=== PATIENT | male | born 1945 | race Caucasian/White ===

== ENCOUNTER → 2016-08-28 | Outpatient (CLI) | payer OTHER, BC ==
[~2016-08-28] MED LIST: ACET-1256 PO; AMLO-114 PO; ASPCH81X PO; ASPI81TA28 PO; ATOR-22 PO; CLON1TAB3 PO; FLUT0.15 NAE; FRS/40 PO; GLIM1TAB PO; HYDR-4717 PO; LEVO100T7 PO; LEVO88TA3 PO; LORA-741 PO; LOSA1TAB38 PO; MAGN400T6 PO; METO25TA3 PO; MULT-188 PO; MULT-506 PO; OMEG10007 PO; OMEP40CA PO; OMEP40CA41 PO; POTA1TAB97 PO; PRVC/20 PO; QUET1TAB32 PO; SERT-234 PO; TRIA0.5O TOP; WARF5TAB7 PO
[2016-08-28 15:15] LABS: HEMATOCRIT 42.4 % (42-52); MEAN CELL VOLUME 79.3 fL (80-100); MEAN CORPUSCULAR HEMOGLOBIN 26.2 pg (25-34); RED BLOOD COUNT 5.35 M/uL (4.7-6.1); WHITE BLOOD COUNT 5.98 K/uL (4.8-10.8)
[2016-08-28 15:23] LABS: BASO % 0.2 %; BASO ABS # 0.01 K/uL (0-0.2); COMPLETE YES; EOS % 3.2 %; IG% 0.2 %; LYMPH % 23.1 %; LYMPH ABS # 1.38 K/uL (1.2-3.4); MEAN PLATELET VOLUME 10.9 fL (7.4-10.4); MONO % 9.5 %; NEUT % 63.8 %; PLATELET COUNT 112 K/uL (130-400); PLT ESTIMATE DECREASED
[2016-08-28 15:33] LABS: ALT/SGPT 52 U/L (12-78); AST/SGOT 39 U/L (15-37); BLOOD UREA NITROGEN 21 mg/dl (7-18); BUN/CREATININE RATIO 16.4 (10-20); CARBON DIOXIDE 26 mmol/L (21-32); CHLORIDE 105 mmol/L (98-107); CHOLESTEROL 105 mg/dl (0-200); GLUCOSE 200 mg/dl (70-99); POTASSIUM 4.4 mmol/L (3.5-5.1); SODIUM 139 mmol/L (136-145)
[2016-08-28 15:43] LABS: ALB/GLOB RATIO 0.9 (0.9-2); ALKALINE PHOSPHATASE 99 U/L (45-117); CHOLESTEROL/HDL RATIO 4.6; HDL CHOLESTEROL 23 mg/dl; LDL CHOLESTEROL CALCULATED 33 mg/dl; TRIGLYCERIDES 245 mg/dl (0-150); VERY LOW DENSITY LIPOPROT CALC 49 mg/dl
[2016-08-29 07:07] LABS: ESTIMATED AVERAGE GLUCOSE 200 mg/dl; HA1C FLAG Normal (Normal)
== END | disposition home or self-care (01) ==
LOC: C.LABBC 11:14
PROVIDERS: ATTEND Internal Medicine Geriatric Medicine
DX: E11.9 Type 2 diabetes mellitus without complications (principal); I10 Essential (primary) hypertension; E78.5 Hyperlipidemia, unspecified; E03.9 Hypothyroidism, unspecified; D64.9 Anemia, unspecified

== ENCOUNTER → 2016-10-08 | Outpatient (CLI) | payer OTHER, BC | END | disposition home or self-care (01) | LOC: C.LABBC 11:06 | PROVIDERS: ATTEND Internal Medicine Geriatric Medicine | DX: E03.9 Hypothyroidism, unspecified (principal) ==

== ENCOUNTER → 2016-11-28 | Outpatient (CLI) | payer OTHER, BC ==
[2016-11-28 17:03] LABS: BLOOD UREA NITROGEN 21 mg/dl (7-18); BUN/CREATININE RATIO 14.9 (10-20); CALCIUM 9.2 mg/dl (8.5-10.1); CARBON DIOXIDE 23 mmol/L (21-32); CHLORIDE 108 mmol/L (98-107); GLUCOSE 236 mg/dl (70-99); POTASSIUM 3.8 mmol/L (3.5-5.1); SODIUM 141 mmol/L (136-145)
[2016-11-29 06:27] LABS: ESTIMATED AVERAGE GLUCOSE 154 mg/dl; HA1C FLAG Normal (Normal)
== END | disposition home or self-care (01) ==
LOC: C.LABBC 13:39
PROVIDERS: ATTEND Internal Medicine Geriatric Medicine
DX: E11.9 Type 2 diabetes mellitus without complications (principal)

== ENCOUNTER 2016-12-06 09:34 | Emergency (ER) | payer OTHER, BC ==
[~2016-12-06] VITALS: Ht 162.6 cm; Wt 72.2 kg
[~2016-12-06 09:34] MED LIST changes: -ASPI81TA28 PO; -ATOR-22 PO; -FLUT0.15 NAE; -GLIM1TAB PO; -LEVO100T7 PO; -OMEP40CA41 PO; -TRIA0.5O TOP
[2016-12-06 09:35] VITALS: TEMP 36.9; Ht 162.6 cm; Wt 72.2 kg
[2016-12-06 10:09] VITALS: O2SAT 97
[2016-12-06 10:16] LABS: BASO % 0.2 %; BASO ABS # 0.01 K/uL (0-0.2); COMPLETE YES; EOS % 3.1 %; HEMATOCRIT 38.2 % (42-52); IG% 0.2 %; LYMPH % 16.6 %; LYMPH ABS # 0.96 K/uL (1.2-3.4); MEAN CELL VOLUME 82.7 fL (80-100); MEAN CORPUSCULAR HGB CONC 31.4 g/dl (32-36); MEAN PLATELET VOLUME 10.1 fL (7.4-10.4); MONO % 9.7 %; NEUT % 70.2 %; PLATELET COUNT 128 K/uL (130-400); RED BLOOD COUNT 4.62 M/uL (4.7-6.1); WHITE BLOOD COUNT 5.78 K/uL (4.8-10.8)
[2016-12-06 10:24] LABS: POINT OF CARE PRO-BNP 1998 pg/ml (0-900); POINT OF CARE TROPONIN I < 0.030 ng/ml (0-0.045)
[2016-12-06 10:25] LABS: INR 1.6 (0.9-1.1); PARTIAL THROMBOPLASTIN RATIO 1.2; PROTHROMBIN TIME (PATIENT) 17.6 SECONDS (9.0-12.0)
[2016-12-06 10:29] LABS: BUN/CREATININE RATIO 22.2 (10-20); CALCIUM 9.5 mg/dl (8.5-10.1); CREATININE 1.3 mg/dl (0.60-1.40); POTASSIUM 4.1 mmol/L (3.5-5.1)
--- NOTE | 2016-12-06 10:29 | DIAGNOSTIC IMAGING REPORT ---
CHEST 2 VIEWS ROUTINE HISTORY: Short of breath. COMPARISON: Chest 04/25/2014. FINDINGS: Old, healed right-sided rib fractures are again noted. Poststernotomy changes. The heart remains mildly enlarged. No pleural effusions. No pneumothorax. No new focal lung consolidations to suggest pneumonia. Stable mediastinal prominence. Stable mild interstitial thickening. This is likely chronic. IMPRESSION: No significant change compared to the prior study. No acute process. Stable mild cardiomegaly and mild interstitial thickening which is likely chronic. Electronically signed by: Zeb Greenwood M.D. 12/06/2016 10:27 AM Dictated Date/Time: 12/06/2016 10:25 AM
[2016-12-06] MEDS ORDERED: FUROSEMIDE 40 MG/4 ML VIAL IV STA (10:43)
[2016-12-06] MEDS ORDERED: ASPI81TA28 PO (10:58)
[2016-12-06] MEDS ORDERED: GLIM1TAB PO (10:58)
[2016-12-06] MEDS ORDERED: OMEP40CA41 PO (10:58)
[2016-12-06] MEDS ORDERED: TRIA0.5O TOP (10:58)
[2016-12-06] MEDS ORDERED: ATOR-22 PO (10:58)
[2016-12-06] MEDS ORDERED: LEVO100T7 PO (10:58)
[2016-12-06] MEDS ORDERED: FLUT0.15 NAE (10:58)
[2016-12-06 11:02] VITALS: BP 116/65; PULSE 51; O2SAT 95
--- NOTE | 2016-12-06 16:20 | EMERGENCY ROOM VISIT NOTE ---
History Report prepared by Serina: Halle Pisano Under the Supervision of: Dr. Jorge Vines M.D. First contact with patient: 09:40 Chief Complaint: SHORTNESS OF BREATH Stated Complaint: SOB, CLONAZEPAM WITHDRAWAL History of Present Illness The patient is a 71 year old male who presents to the Emergency Room with complaints of constant shortness of breath beginning 1 month ago. His doctor in [place] prescribed Clonazepam because he had trouble sleeping at night. His last dose of the medication was 2 weeks ago. The patient states that he has CHF , and that his symptoms feel like this. The patient states that he has had a dry cough and congestion for 1 month. He also reports feeling like he is withdrawing from the clonazepam. He states he had withdrawal symptoms in the past and it feels similar. He denies edema in his legs, fevers, and chest pain. He reports that he uses a mask at night for his sleep apnea, and that he is on Coumadin for atrial fibrillation. The patient denies having a history of blood clots in his legs or lungs. He states that he does not smoke and that he has no history of COPD or emphysema. The patient has no history of seizures. He states that there is a history of heart failure in his family. Source of History: patient Onset: 1 month ago Position: other (global) Quality: other (shortness of breath) Timing: constant Associated Symptoms: + cough, No fevers, No chest pain Note: associated symptom: congestion Review of Systems See HPI for pertinent positives & negatives. A total of 10 systems reviewed and were otherwise negative. Past Medical & Surgical Medical Problems: (1) Anemia (2) Atrial fibrillation (3) Fatty liver Family History FHx: heart failure Social History Smoking Status: Never Smoker Drug Use: none Marital Status: Housing Status: lives with family Occupation Status: employed Current/Historical Medications Scheduled Amlodipine (Norvasc), 10 MG PO QAM Aspirin (Aspirin Ec), 81 MG PO HS Atorvastatin (Lipitor), 20 MG PO DAILY Clonazepam (Klonopin), 1.5 TAB PO HS Fluticasone Propionate (Nasal) (Flonase Allergy Relief), 2 SPRAYS PADMINI DAILY Furosemide (Lasix), 40 MG PO QAM Glimepiride (Amaryl), 1 MG PO QAM Hydralazine Hcl (Apresoline), 50 MG PO TID Levothyroxine Sodium (Levothyroxine Sodium), 1 TAB PO DAILY Losartan Potassium (Cozaar), 100 MG PO QAM Magnesium Oxide (Mag-Ox), 400 MG PO BID Metoprolol Succ (Toprol Xl) (Toprol-Xl), 25 MG PO BID Omeprazole (Prilosec), 40 MG PO DAILY Potassium Chloride (K-Tab), 40 MEQ PO DAILY Sertraline (Zoloft), 200 MG PO QAM Triamcinolone Acetonide (Topic (Triamcinolone Acetonide), 1 APPLN TOP BID Warfarin Sod (Jantoven), 5 MG PO DAILY Scheduled PRN Acetaminophen (Tylenol), 1,000 MG PO TID PRN for Pain Allergies Coded Allergies: Rivaroxaban (Unverified Adverse Reaction, Intermediate, VOMITING, 12/06/16) Physical Exam Vital Signs Date Time Temp Pulse Resp B/P (MAP) Pulse Ox O2 Delivery O2 Flow Rate FiO2 12/06/16 11:02 51 19 116/65 95 Room Air 12/06/16 10:09 97 Room Air 12/06/16 10:07 48 12/06/16 09:55 97 Room Air 12/06/16 09:35 36.9 63 18 107/59 96 Room Air Physical Exam Constitutional: Vital signs reviewed. Eyes: Pupils are equal round reactive to light. Conjunctiva are noninjected. ENT: Pharynx is clear without erythema or exudate. Mucous membranes are moist. Neck supple without meningeal signs. Respiratory: Clear to auscultation bilaterally. Breath sounds are equal bilaterally. Cardiovascular: Irregularly irregular rhythm. Normal rate. No rubs or gallops. GI: Soft, nondistended and nontender. Bowel sounds are present. Easily reducible, nontender midline hernia in epigastric region. Musculoskeletal: No peripheral edema. No lower extremity tenderness. Integumentary: No cyanosis. Neurological: The patient is awake and alert. No focal deficits. Psychiatric: Normal affect. Medical Decision & Procedures ER Provider Diagnostic Interpretation: X-ray results as stated below per interpretation by me and the radiologist: CHEST 2 VIEWS ROUTINE HISTORY: Short of breath. COMPARISON: Chest 04/25/2014. FINDINGS: Old, healed right-sided rib fractures are again noted. Poststernotomy changes. The heart remains mildly enlarged. No pleural effusions. No pneumothorax. No new focal lung consolidations to suggest pneumonia. Stable mediastinal prominence. Stable mild interstitial thickening. This is likely chronic. IMPRESSION: No significant change compared to the prior study. No acute process. Stable mild cardiomegaly and mild interstitial thickening which is likely chronic. Electronically signed by: Zeb Greenwood M.D. 12/06/2016 10:27 AM Dictated Date/Time: 12/06/2016 10:25 AM Laboratory Results 12/06/16 09:55 Red Blood Count 4.62, Mean Corpuscular Volume 82.7, Mean Corpuscular Hemoglobin 26.0, Mean Corpuscular Hemoglobin Concent 31.4, Mean Platelet Volume 10.1, Neutrophils (%) (Auto) 70.2, Lymphocytes (%) (Auto) 16.6, Monocytes (%) (Auto) 9.7, Eosinophils (%) (Auto) 3.1, Basophils (%) (Auto) 0.2, Neutrophils # (Auto) 4.06, Lymphocytes # (Auto) 0.96, Monocytes # (Auto) 0.56, Eosinophils # (Auto) 0.18, Basophils # (Auto) 0.01 12/06/16 09:55 Test 12/06/16 09:55 12/06/16 10:05 White Blood Count 5.78 K/uL (4.8-10.8) Red Blood Count 4.62 M/uL (4.7-6.1) Hemoglobin 12.0 g/dL (14.0-18.0) Hematocrit 38.2 % (42-52) Mean Corpuscular Volume 82.7 fL (80-100) Mean Corpuscular Hemoglobin 26.0 pg (25-34) Mean Corpuscular Hemoglobin Concent 31.4 g/dl (32-36) Platelet Count 128 K/uL (130-400) Mean Platelet Volume 10.1 fL (7.4-10.4) Neutrophils (%) (Auto) 70.2 % Lymphocytes (%) (Auto) 16.6 % Monocytes (%) (Auto) 9.7 % Eosinophils (%) (Auto) 3.1 % Basophils (%) (Auto) 0.2 % Neutrophils # (Auto) 4.06 K/uL (1.4-6.5) Lymphocytes # (Auto) 0.96 K/uL (1.2-3.4) Monocytes # (Auto) 0.56 K/uL (0.11-0.59) Eosinophils # (Auto) 0.18 K/uL (0-0.5) Basophils # (Auto) 0.01 K/uL (0-0.2) RDW Standard Deviation 46.8 fL (36.4-46.3) RDW Coefficient of Variation 15.5 % (11.5-14.5) Immature Granulocyte % (Auto) 0.2 % Immature Granulocyte # (Auto) 0.01 K/uL (0.00-0.02) Prothrombin Time 17.6 SECONDS (9.0-12.0) Prothromb Time International Ratio 1.6 (0.9-1.1) Activated Partial Thromboplast Time 32.4 SECONDS (21.0-31.0) Partial Thromboplastin Ratio 1.2 Anion Gap 8.0 mmol/L (3-11) Est Creatinine Clear Calc Drug Dose 46.1 ml/min Estimated GFR () 62.7 Estimated GFR (Non- 54.1 BUN/Creatinine Ratio 22.2 (10-20) Calcium Level 9.5 mg/dl (8.5-10.1) Bedside Troponin I < 0.030 ng/ml (0-0.045) VT-Irp-I-Type Natriuretic Peptide 1998 pg/ml (0-900) Laboratory results as reviewed by me. Medications Administered Medications (Trade) Dose Ordered Sig/Rajwinder Route Start Time Stop Time Status Last Admin Dose Admin Furosemide (Lasix Inj) 20 mg NOW STAT IV 12/06/16 10:43 12/06/16 10:45 DC 12/06/16 11:04 20 MG ECG Indication: SOB/dyspnea Rate (beats per minute): 55 Rhythm: atrial fibrillation Findings: no ectopy, other (non-specific ST wave changes, no significant change from April 26, 2014) ED Course 0945: The patient was evaluated in room B4B. A complete history and physical exam was performed. 1043: Ordered Lasix Inj 20 mg IV. 1127: I talked with the patient about his test results. 1130: Upon reevaluation, the patient appeared to have improvement of his symptoms. I discussed tonight's findings with him. He verbalized agreement of the treatment plan. He was discharged home. Medical Decision This is a 71-year-old male who presents with shortness of breath. Differential diagnosis includes CHF exacerbation, pleural effusion, pulmonary edema, pneumonia, bronchitis, anemia. I did perform a limited focused review of portions of the patient's old chart on the electronic medical record. The patient has had no recent pertinent visits to this hospital. Blood Pressure Screening: Patient was found to have normal blood pressure on screening and does not require follow-up. Medication Reconciliation: I attest that I have personally reviewed the patient' s current medication list. I did evaluate the patient as noted above. The patient is presenting with shortness of breath. He states he feels like his CHF is acting up. He has been short of breath for about a month. He also states that he stopped taking his benzos about two weeks ago and is concerned about withdrawal. IV access was established. The patient was placed on a continuous child monitor. I did order and personally review the patient's 12-lead EKG and chest x-ray as described above. I did order and review the patient's blood work as noted in the electronic medical record. He has mild anemia. His INR is subtherapeutic. His BNP is elevated. I did treat the patient with IV Lasix. I did discuss the test results with the patient. At this time there is no indication for admission. Benzo diazepam and withdrawal seems unlikely given he stopped taking it 2 weeks ago. I did recommend he follow closely with his doctor and video surveillance technician. He was discharged in good condition. Impression Primary Impression: Acute exacerbation of CHF (congestive heart failure) Additional Impressions: Subtherapeutic international normalized ratio (INR) Anemia Scribe Attestation The scribe's documentation has been prepared under my direct and personally reviewed by me in its entirety. I confirm that the note above accurately reflects all work, treatment, procedures, and medical decision making performed by me. Departure Information Dispostion Home / Self-Care Referrals Braxton Harp, DO Forms HOME CARE DOCUMENTATION FORM, IMPORTANT VISIT INFORMATION Patient Instructions ED CHF General, My [facility] Additional Instructions You have been examined and treated today on an emergency basis only. This is not a substitute for, or an effort to provide, complete comprehensive medical care. It is impossible to recognize and treat all injuries or illnesses in a single emergency department visit. It is therefore important that you follow up closely with your physician. Call as soon as possible for an appointment. Return for worsening symptoms or if you develop fever, vomiting, chest pain or any other concerning symptoms. Your INR (Coumadin level) was low today at 1.6. Take 5 mg of Coumadin today, tomorrow and Friday. Call your doctor on Friday to have her INR rechecked and for further dosing recommendations. Problem Qualifiers Primary Impression: Acute exacerbation of CHF (congestive heart failure) Congestive heart failure type: unspecified congestive heart failure type Qualified Codes: I50.9 - Heart failure, unspecified Additional Impressions: Anemia Anemia type: unspecified type Qualified Codes: D64.9 - Anemia, unspecified
== END 2016-12-06 11:30 | disposition home or self-care (01) ==
LOC: C.EDB 09:35
DX: I50.9 Heart failure, unspecified (principal); D64.9 Anemia, unspecified; I48.91 Unspecified atrial fibrillation; K76.0 Fatty (change of) liver, not elsewhere classified; Z82.49 Family history of ischemic heart disease and other diseases of the circulatory system; Z79.82 Long term (current) use of aspirin; Z79.01 Long term (current) use of anticoagulants; Z51.81 Encounter for therapeutic drug level monitoring

== ENCOUNTER → 2017-07-21 | Day surgery (SDC) | payer OTHER, BC ==
[2017-07-03 15:27] VITALS: Ht 165.1 cm; Wt 70.5 kg
[~2017-07-21] VITALS: Ht 165.1 cm; Wt 70.5 kg
[~2017-07-21] MED LIST changes: +500ML BSS 0.3ML EPI 1:1000PF IRRIG ONE; +ACETAMINOPHEN 325 MG TAB PO PRN; +AMVISC PLUS 0.8ML SYRINGE INT OCU ONE; -ASPCH81X PO; +ASPI81TA28 PO; +ATROPINE SULFATE 0.1 MG/ML 5ML SYR IV PRN; +BRIMONIDINE TART 0.2% OP SOLN PER DROP CHARGE ONE; +BRIMONIDINE TARTRATE 0.2% 5ML ONE; +BSS FLUSH ONE; +BUME2TAB3 PO; -CLON1TAB3 PO; +CZR50 PO; +ENDOCOAT 0.85ML SYRINGE INT OCU ONE; +EpHEDrine SULFATE INJ 50 MG/ML AMP IV PRN; +EpINEphrine INJ 1MG/ML AMP 1 MG/ML AMP ONE; -FRS/40 PO; +GLIM1TAB PO; -HYDR-4717 PO; +LACTATED RINGER'S 1000ML 500 ML IV SCH; +LEVO100T7 PO; -LEVO88TA3 PO; +LIDOCAINE 4% OP SOLN DROP CHARGE ONE; +LIDOCAINE 4% OP SOLN DROP CHARGE OPL SCH; +LIDOCAINE HCL 1% MPF 2 ML VIAL ONE; -LOSA1TAB38 PO; +LPT/40 PO; -MAGN400T6 PO; +MELA1CAP9 PO; +MIDAZOLAM HCL 1 MG/ML 2ML VIAL ONE; +MOXIFLOXACIN OPH SOLN PER DROP CHARGE ONE; -MULT-188 PO; -MULT-506 PO; -OMEG10007 PO; -OMEP40CA PO; +OMEP40CA41 PO; +POVIDONE-IODINE OP SOLN 30 ML BTL ONE; +PROPARACAINE 0.5% OP SOLN PER DROP CHARGE OPL SCH; -PRVC/20 PO; +QUET1TAB30 PO; -QUET1TAB32 PO; +TOBRAMYCIN/DEXAMETHASONE OPH OINT PER APPLN CHARGE ONE; +TRAZ50TA35 PO; +TRIA0.5O TOP
[2017-07-21] MEDS: PHENYLEPHRINE HCL 2.5% OP SOLN PER DROP CHARGE OPL SCH ×2 (06:39→06:44)
[2017-07-21] MEDS: TROPICAMIDE 1% OP SOLN PER DROP CHARGE OPL SCH ×2 (06:40→06:45)
[2017-07-21] MEDS: CYCLOPENTOLATE HCL 1% OP SOLN PER DROP CHARGE OPL SCH ×2 (06:41→06:46)
[2017-07-21] MEDS: KETOROLAC 0.5% OP SOLN PER DROP CHARGE OPL SCH ×2 (06:42→06:47)
[2017-07-21] MEDS: MOXIFLOXACIN OPH SOLN PER DROP CHARGE OPL SCH ×2 (06:43→06:50)
--- NOTE | 2017-07-21 06:56 | History & Physical Bridge - SC ---
H&P Re-Evaluation Bridge Note: I have examined the patient, reviewed the History & Physical and in the interval since the performance of the History & Physical I have noted the following changes of clinical significance: No changes noted
--- NOTE | 2017-07-21 07:26 | [facility] Operative Report ---
Operative Report Operative Date Jul 21, 2017. Pre-Operative Diagnosis Left eye cataract Post-Operative Diagnosis Same as preop Procedure(s) Performed Left Cataract Phacoemulsification With Intraocular Lens Implant Surgeon Dr. Merino Mortgage Loan Processing Clerk Surgeon(s) None Estimated Blood Loss 0 mL Findings cataract left eye Specimens None Drains None Anesthesia Type MAC Complication(s) none Disposition no Recovery Room / PACU Indications decreased vision left eye Description of Procedure After informed consent was obtained in the holding area the patient was wheeled back to the operating room where cardiac monitoring leads and oxygen by nasal cannula was administered by Anesthesia. Gentle IV sedation was given, and the patient's left eye was prepped and draped in usual sterile fashion. A wire lid speculum was placed into the left eye and the operating microscope was swung into position. Using 0.12 forceps and a Supersharp blade a paracentesis port was made 2 o'clock hours away from the 3 o'clock position of the patient's left eye. 1% non-preserved Lidocaine was then injected into the anterior chamber for anesthesia. A 2.0 mm keratotome blade was then used to make a shelved clear corneal incision at the 3 o'clock position of the left eye. Amvisc was injected into the anterior chamber and a cystotome and Utrata forceps were used to perform a curvilinear capsulorrhexis. BSS on a hydrodissection cannula was used to hydrodissect the lens nucleus away from the capsular bag. The phacoemulsification handpiece was then used in a stop and chop fashion to remove the lens nucleus. The irrigation and aspiration handpiece was then used to remove the residual cortical material. Amvisc was injected into the capsular bag and anterior chamber and a Bausch [employer] Lomb MX60 18.5 Diopter intraocular lens was injected into the capsular bag. Irrigation and aspiration handpiece was used to remove the residual viscoelastic material. The wounds were hydrated and noted to be watertight. The wire lid speculum was removed from the eye. Vigamox, Brimonidine, and TobraDex ointment were placed on the eye and it was shielded. It should be noted that EndoCoat was used extensively during the case to protect the cornea endothelium. DISPOSITION: The patient tolerated the procedure well and was wheeled to the post anesthesia care unit in stable condition. I attest to the content of the Intraoperative Record and any orders documented therein. Any exceptions are noted below. I attest to the content of the Intraoperative Record and any orders documented therein. Any exceptions are noted below.
--- NOTE | 2017-07-21 07:28 | Discharge Instructions-SurgCtr ---
Discharge Instructions Date of Service Jul 21, 2017. Visit Reason for Visit: Left Cataract Discharge Discharge Diagnosis / Problem: cataract left eye Discharge Goals Goal(s): Improve function Activity Recommendations Activity Limitations: per Instructions/Follow-up section Lifting Limitations: no more than 5 pounds Anesthesia . Post Anesthesia Instructions: If you have had General Anesthesia or IV Sedation: * Do not drive today. * Resume driving when surgeon permits. * Do not make important decisions or sign legal documents today. * Call surgeon for: 1. Temperature elevations greater than 101 degrees F. 2. Uncontrollable pain. 3. Excessive bleeding. 4. Persistent nausea and vomiting. 5. Medication intolerance (nausea, vomiting or rash). * For nausea and vomiting use only clear liquids such as: tea, soda, bouillon until nausea subsides, then gradually increase diet as tolerated. * If you have any concerns or questions, call your surgeon's office. If physician is unavailable and it is an emergency, call 911 or go to the nearest emergency room. . Instructions / Follow-Up Instructions / Follow-Up ACTIVITY RECOMMENDATIONS: * Light activities * You may walk outside, read, watch television. * Mild irritation and blurred vision are common for the first few days, redness around the white part of the eye is common. MEDICATIONS: Resume previous medications unless instructed otherwise by your surgeon. Eye drops (today and tomorrow): Cipro - one drop in operative eye every 2 hours while awake Prednisolone 1% - one drop in operative eye every 2 hours while awake Prolensa - one drop operative eye 1 times daily SPECIAL CARE INSTRUCTIONS: * If any problems or concerns, please call Dr. Merino's office at . * Keep plastic shield taped over eye to sleep at night. * Keep plastic shield taped over eye except to administer eye drops. * Keep plastic shield on until office visit the following day. FOLLOW UP VISIT: Follow-up with Dr. Merino in the [place] office as scheduled. If not already scheduled, please call the office at . Diet Recommendations Home Diet: resume previous diet Procedures Procedures Performed: Left Cataract Phacoemulsification With Intraocular Lens Implant Pending Studies Studies pending at discharge: no Medical Emergencies . Who to Call and When: Medical Emergencies: If at any time you feel your situation is an emergency, please call 911 immediately. . Non-Emergent Contact Non-Emergency issues call your: Tag Stringer . . "Provider Documentation" section prepared by Hugo Merino. .
[2017-07-21 07:29] VITALS: TEMP 36.6
--- NOTE | 2017-07-21 07:44 | Anesthesia Progress Nt - [facility] ---
Anesthesia Post Op Note Date & Time Jul 21, 2017 at 07:44 Vital Signs Pain Intensity: 0 Vital Signs Past 12 Hours Date Time Temp Pulse Resp B/P (MAP) Pulse Ox O2 Delivery O2 Flow Rate FiO2 07/21/17 07:29 36.6 64 16 148/78 (101) 95 Room Air 07/21/17 06:26 36.6 66 16 131/78 (95) 96 Room Air Notes Mental Status: alert / awake / arousable, participated in evaluation Pt Amnestic to Procedure: Yes Nausea / Vomiting: adequately controlled Pain: adequately controlled Airway Patency, RR, SpO2: stable & adequate BP & HR: stable & adequate Hydration State: stable & adequate Anesthetic Complications: no major complications apparent
[2017-07-21 07:56] VITALS: BP 146/83; PULSE 66; O2SAT 96
== END | disposition home or self-care (01) ==
LOC: X.SURG 06:05
PROVIDERS: ATTEND Ophthalmology
DX: E11.36 Type 2 diabetes mellitus with diabetic cataract (principal); H26.9 Unspecified cataract; G47.33 Obstructive sleep apnea (adult) (pediatric); I10 Essential (primary) hypertension; I48.91 Unspecified atrial fibrillation; K21.9 Gastro-esophageal reflux disease without esophagitis; F41.9 Anxiety disorder, unspecified; M19.90 Unspecified osteoarthritis, unspecified site; Z88.8 Allergy status to other drugs, medicaments and biological substances; Z98.84 Bariatric surgery status; Z95.1 Presence of aortocoronary bypass graft; Z79.899 Other long term (current) drug therapy; Z79.01 Long term (current) use of anticoagulants; Z98.890 Other specified postprocedural states

== ENCOUNTER → 2017-08-25 | Day surgery (SDC) | payer OTHER, BC ==
[2017-08-08 15:16] VITALS: Ht 165.1 cm; Wt 70.5 kg
[~2017-08-25] VITALS: Ht 165.1 cm; Wt 70.5 kg
[~2017-08-25] MED LIST changes: -BRIMONIDINE TARTRATE 0.2% 5ML ONE; -LIDOCAINE 4% OP SOLN DROP CHARGE OPL SCH; +LIDOCAINE 4% OP SOLN DROP CHARGE OPR SCH; -PROPARACAINE 0.5% OP SOLN PER DROP CHARGE OPL SCH; +PROPARACAINE 0.5% OP SOLN PER DROP CHARGE OPR SCH
[2017-08-25] MEDS: PHENYLEPHRINE HCL 2.5% OP SOLN PER DROP CHARGE OPR SCH ×2 (07:51→07:56)
[2017-08-25] MEDS: TROPICAMIDE 1% OP SOLN PER DROP CHARGE OPR SCH ×2 (07:52→07:57)
[2017-08-25] MEDS: CYCLOPENTOLATE HCL 1% OP SOLN PER DROP CHARGE OPR SCH ×2 (07:53→07:58)
[2017-08-25] MEDS: KETOROLAC 0.5% OP SOLN PER DROP CHARGE OPR SCH ×2 (07:54→07:59)
[2017-08-25] MEDS: MOXIFLOXACIN OPH SOLN PER DROP CHARGE OPR SCH ×2 (07:55→08:05)
--- NOTE | 2017-08-25 08:59 | [facility] Operative Report ---
Operative Report Operative Date Aug 25, 2017. Pre-Operative Diagnosis Cataract right eye Post-Operative Diagnosis same as preop Procedure(s) Performed Right Cataract Phacoemulsification With Intraocular Lens Implant Surgeon DR. Merino Supervisor Finishing Surgeon(s) none Estimated Blood Loss 0ml Findings cataract right eye Fluids see anesthesia record Specimens none Drains None Anesthesia Type MAC Complication(s) none Disposition no Recovery Room / PACU Indications decreased vision right eye Description of Procedure After informed consent was obtained in the holding area the patient was wheeled back to the operating room where cardiac monitoring leads and oxygen by nasal cannula was administered by Anesthesia. Gentle IV sedation was given, and the patient's right eye was prepped and draped in usual sterile fashion. A wire lid speculum was placed into the right eye and the operating microscope was swung into position. Using 0.12 forceps and a Supersharp blade a paracentesis port was made 2 o'clock hours away from the 9 o'clock position of the patient's right eye. 1% non-preserved Lidocaine was then injected into the anterior chamber for anesthesia. A 2.0 mm keratotome blade was then used to make a shelved clear corneal incision at the 9 o'clock position of the right eye. Amvisc was injected into the anterior chamber and a cystotome and Utrata forceps were used to perform a curvilinear capsulorrhexis. BSS on a hydrodissection cannula was used to hydrodissect the lens nucleus away from the capsular bag. The phacoemulsification handpiece was then used in a stop and chop fashion to remove the lens nucleus. The irrigation and aspiration handpiece was then used to remove the residual cortical material. Amvisc was injected into the capsular bag and anterior chamber and a Bausch & Lomb MX60 20.0 Diopter intraocular lens was injected into the capsular bag. Irrigation and aspiration handpiece was used to remove the residual viscoelastic material. The wounds were hydrated and noted to be watertight. The wire lid speculum was removed from the eye. Vigamox, Brimonidine, and TobraDex ointment were placed on the eye and it was shielded. It should be noted that EndoCoat was used extensively during the case to protect the cornea endothelium. DISPOSITION: The patient tolerated the procedure well and was wheeled to the post anesthesia care unit in stable condition. I attest to the content of the Intraoperative Record and any orders documented therein. Any exceptions are noted below. I attest to the content of the Intraoperative Record and any orders documented therein. Any exceptions are noted below.
--- NOTE | 2017-08-25 09:01 | Discharge Instructions-SurgCtr ---
Discharge Instructions Date of Service Aug 25, 2017. Visit Reason for Visit: Cataract Right Eye Discharge Discharge Diagnosis / Problem: cataract right eye Discharge Goals Goal(s): Improve function Activity Recommendations Activity Limitations: per Instructions/Follow-up section Lifting Limitations: no more than 5 pounds Anesthesia . Post Anesthesia Instructions: If you have had General Anesthesia or IV Sedation: * Do not drive today. * Resume driving when surgeon permits. * Do not make important decisions or sign legal documents today. * Call surgeon for: 1. Temperature elevations greater than 101 degrees F. 2. Uncontrollable pain. 3. Excessive bleeding. 4. Persistent nausea and vomiting. 5. Medication intolerance (nausea, vomiting or rash). * For nausea and vomiting use only clear liquids such as: tea, soda, bouillon until nausea subsides, then gradually increase diet as tolerated. * If you have any concerns or questions, call your surgeon's office. If physician is unavailable and it is an emergency, call 911 or go to the nearest emergency room. . Instructions / Follow-Up Instructions / Follow-Up ACTIVITY RECOMMENDATIONS: * Light activities * You may walk outside, read, watch television. * Mild irritation and blurred vision are common for the first few days, redness around the white part of the eye is common. MEDICATIONS: Resume previous medications unless instructed otherwise by your surgeon. Eye drops (today and tomorrow): Cipro - one drop in operative eye every 2 hours while awake Prednisolone 1% - one drop in operative eye every 2 hours while awake Prolensa - one drop operative eye 1 times daily SPECIAL CARE INSTRUCTIONS: * If any problems or concerns, please call Dr. Merino's office at . * Keep plastic shield taped over eye to sleep at night. * Keep plastic shield taped over eye except to administer eye drops. * Keep plastic shield on until office visit the following day. FOLLOW UP VISIT: Follow-up with Dr. Merino in the [place] office as scheduled. If not already scheduled, please call the office at . Diet Recommendations Home Diet: resume previous diet Procedures Procedures Performed: Right Cataract Phacoemulsification With Intraocular Lens Implant Pending Studies Studies pending at discharge: no Medical Emergencies . Who to Call and When: Medical Emergencies: If at any time you feel your situation is an emergency, please call 911 immediately. . Non-Emergent Contact Non-Emergency issues call your: Business Services Intern . . "Provider Documentation" section prepared by Hugo Merino. .
[2017-08-25 09:03] VITALS: TEMP 36.8
[2017-08-25 09:24] VITALS: BP 173/75; PULSE 65; O2SAT 94
--- NOTE | 2017-08-25 09:31 | Anesthesia Progress Nt - [facility] ---
Anesthesia Post Op Note Date & Time Aug 25, 2017 at 09:30 Vital Signs Pain Intensity: 0 Vital Signs Past 12 Hours Date Time Temp Pulse Resp B/P (MAP) Pulse Ox O2 Delivery O2 Flow Rate FiO2 08/25/17 09:24 65 16 173/75 (107) 94 Room Air 08/25/17 09:03 36.8 62 16 167/83 (111) 96 Room Air 08/25/17 07:30 36.7 58 16 156/67 (96) 96 Room Air Notes Mental Status: alert / awake / arousable, participated in evaluation Pt Amnestic to Procedure: Yes Nausea / Vomiting: adequately controlled Pain: adequately controlled Airway Patency, RR, SpO2: stable & adequate BP & HR: stable & adequate Hydration State: stable & adequate Anesthetic Complications: no major complications apparent Patient did not take any of his medications this am. He was instructed to take his scheduled meds including his BP medications when he goes home. He understands and agrees.
== END | disposition home or self-care (01) ==
LOC: X.SURG 07:29
PROVIDERS: ATTEND Ophthalmology
DX: E11.36 Type 2 diabetes mellitus with diabetic cataract (principal); H26.9 Unspecified cataract; G47.33 Obstructive sleep apnea (adult) (pediatric); I10 Essential (primary) hypertension; F41.9 Anxiety disorder, unspecified; Z79.01 Long term (current) use of anticoagulants; Z79.82 Long term (current) use of aspirin; I48.91 Unspecified atrial fibrillation

== ENCOUNTER 2019-08-09 18:09 | Inpatient (IN) ==
[2019-08-09 19:51] LABS: Eosinophils # (auto) 0.11 K/uL (0-0.5); Eosinophils % (auto) 2.8 %; Hematocrit (blood only) 36.6 % (42-52); Hemoglobin 11.9 g/dL (14.0-18.0); Immature Granulocytes # (auto) 0.01 K/uL (0.00-0.02); Immature Granulocytes % (auto) 0.3 %; Lymphocytes # (auto) 0.68 K/uL (1.2-3.4); Lymphocytes % (auto) 17.6 %; Mean Corpuscular Hemoglobin 27.5 pg (25-34); Mean Corpuscular Hgb Conc 32.5 g/dL (32-36); Mean Corpuscular Volume 84.5 fL (80-100); Monocytes # (auto) 0.31 K/uL (0.11-0.59); Neutrophils # (auto) 2.76 K/uL (1.4-6.5); Neutrophils % (auto) 71.3 %; Platelet Count 73 K/uL (130-400); RDW Coefficient of Variation 17.3 % (11.5-14.5); RDW Standard Deviation 53.8 fL (36.4-46.3); Red Blood Count 4.33 M/uL (4.7-6.1); White Blood Count 3.87 K/uL (4.8-10.8)
[2019-08-09 19:54] LABS: Alanine Aminotransferase 41 U/L (12-78); Albumin Globulin Ratio 0.8 (0.9-2); Albumin Level 3.8 gm/dl (3.4-5.0); Alkaline Phosphatase 169 U/L (45-117); Aspartate Aminotransferase 42 U/L (15-37); BUN Creatinine Ratio 14.8 (10-20); Beta-Hydroxybutyrate 1.28 mg/dl (0.2-2.81); Bilirubin,Total 0.5 mg/dl (0.2-1); Blood Urea Nitrogen 26 mg/dl (7-18); Carbon Dioxide 24 mmol/L (21-32); Chloride 96 mmol/L (98-107); Creatinine Clr Calc Pharmacy 31.4 ml/min; Est GFR (African American) 43.2; Est GFR (Non-African American) 37.3; Globulin 4.8 gm/dl (2.5-4.0); Glucose 618 mg/dl (70-99); Sodium 129 mmol/L (136-145); Total Protein 8.6 gm/dl (6.4-8.2)
[2019-08-09] MEDS ORDERED: NovoLIN-R INSULIN PER UNIT CHARGE IV STA ×2 (20:09→21:07)
[2019-08-09] MEDS ORDERED: SODIUM CHLORIDE 0.9% 1000ML 1,000 ML IV ONE (20:11)
--- NOTE | 2019-08-09 20:37 | Emergency Department Note ---
Entered by Edith Horta acting as a scribe for History of Present Illness General Chief complaint: Hyperglycemia Stated complaint: HIGH BLOOD SUGAR Time Seen by Provider: 08/09/19 20:03 Source: patient and family (daughter ) History of Present Illness Onset (ago): hour(s) (just prior to arrival ) Location: head (general ) Pain Consistency: + other (episode ) Maximum Pain Intensity: 0 Quality: + other (hyperglycemia ) Associated symptoms: + other (positive urinating more frequently; negative urinary symptoms; negative congestion); no cough The patient is a 74 year old male who presents to the Emergency Room with compl aints of an episode of hyperglycemia that began just prior to arrival. The patient states that he was at his doctor's office today for a routine visit and lab work was performed. The patient states that his doctor's office then called him to tell him that he had high blood sugar and needed to be seen in the ED. The patient states that he does not check his blood sugars at home regularly. Per the patient's daughter, the patient does not watch his diet closely and regularly eats junk food. The patient states that over the past several days he has been feeling "different". He reports urinating more frequently, but denies other urinary symptoms. The patient denies cough and congestion. The patient states that he is taking his medications as prescribed. The patient reports that he recently increased his diuretic himself as he believed he was gaining fluid weight. The patient states that he is on Coumadin. Home Medications Home Medications Medication Instructions Recorded Confirmed Type acetaminophen [Tylenol Extra 1,000 mg PO TID PRN 08/09/19 08/09/19 History Strength] amlodipine 5 mg PO HS 08/09/19 08/09/19 History aspirin [Aspir-81] 81 mg PO QPM 08/09/19 08/09/19 History atorvastatin 40 mg PO QPM 08/09/19 08/09/19 History bumetanide 2 mg PO QPM 08/09/19 08/09/19 History glimepiride 2 mg PO QAM 08/09/19 08/09/19 History levothyroxine 100 mcg PO QAM 08/09/19 08/09/19 History lorazepam 0.5 mg PO HS PRN 08/09/19 08/09/19 History losartan 100 mg PO DAILY 08/09/19 08/09/19 History melatonin 10 mg PO HS 08/09/19 08/09/19 History metformin 1,000 mg PO BIDM 08/09/19 08/09/19 History metoprolol succinate 25 mg PO BID 08/09/19 08/09/19 History omeprazole 40 mg PO QPM 08/09/19 08/09/19 History potassium chloride [Klor-Con M20] 20 meq PO BID 08/09/19 08/09/19 History quetiapine 25 mg PO HS 08/09/19 08/09/19 History sertraline 200 mg PO DAILY 08/09/19 08/09/19 History trazodone 50 mg PO HS 08/09/19 08/09/19 History warfarin [Jantoven] 5 mg PO UD 08/09/19 08/09/19 History Allergies Allergy/AdvReac Type Severity Reaction Status Date / Time rivaroxaban AdvReac Intermediate VOMITING Verified 08/09/19 23:57 Past Med/Surg History Medical History Acute exacerbation of CHF (congestive heart failure) (Acute) Anemia (Chronic) Atrial fibrillation (Chronic) CHF (congestive heart failure) (Acute 02/19/14) Coumadin toxicity (Acute 04/24/14) Diabetes Fatty liver (Chronic ~02/2014) Subtherapeutic international normalized ratio (INR) (Acute) Supratherapeutic INR (Acute) Social History Preferred Language: Amharic 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 and A total of 10 systems reviewed and were otherwise negative Physical Exam Vital Signs Vital Signs - 24 hr 08/09/19 18:35 08/09/19 20:09 08/09/19 21:00 Temperature 37.3 C Temperature Source Oral Pulse Rate 112 H 111 H Pulse Rate [Apical] 96 H Pulse Rate from SpO2 Sensor 106 H Respiratory Rate 18 16 27 H Respiratory Effort / Characteristics Non-Labored Non-Labored Spontaneous Respiratory Depth Normal Normal Respiratory Pattern Regular Blood Pressure 125/76 157/98 H Blood Pressure [Left Arm] 141/89 H Blood Pressure Mean 92 117 Blood Pressure Mean [Left Arm] 106 Blood Pressure Position [Left Arm] Lying Pulse Oximetry 95 97 96 Oxygen Delivery Method Room Air Room Air Sepsis Recent Fever Within 48 Hours No Sepsis New/Unexplained Change in Mental Status No Sepsis Action Taken by Nursing No Action Required 08/09/19 21:30 08/09/19 22:00 08/09/19 23:00 Temperature Temperature Source Pulse Rate 84 87 Pulse Rate [Apical] Pulse Rate from SpO2 Sensor 95 H 93 H Respiratory Rate 28 H 19 21 Respiratory Effort / Characteristics Respiratory Depth Respiratory Pattern Blood Pressure 152/102 H 151/95 H Blood Pressure [Left Arm] Blood Pressure Mean 106 105 Blood Pressure Mean [Left Arm] Blood Pressure Position [Left Arm] Pulse Oximetry 93 95 95 Oxygen Delivery Method Sepsis Recent Fever Within 48 Hours Sepsis New/Unexplained Change in Mental Status Sepsis Action Taken by Nursing 08/09/19 23:01 08/09/19 23:30 08/09/19 23:32 Temperature Temperature Source Pulse Rate 89 101 H 105 H Pulse Rate [Apical] Pulse Rate from SpO2 Sensor 96 H Respiratory Rate 24 21 19 Respiratory Effort / Characteristics Respiratory Depth Respiratory Pattern Blood Pressure 138/85 Blood Pressure [Left Arm] Blood Pressure Mean 111 Blood Pressure Mean [Left Arm] Blood Pressure Position [Left Arm] Pulse Oximetry 93 93 93 Oxygen Delivery Method Sepsis Recent Fever Within 48 Hours Sepsis New/Unexplained Change in Mental Status Sepsis Action Taken by Nursing 08/09/19 23:33 08/10/19 00:00 Temperature Temperature Source Pulse Rate 106 H 92 H Pulse Rate [Apical] Pulse Rate from SpO2 Sensor 114 H Respiratory Rate 22 14 Respiratory Effort / Characteristics Respiratory Depth Respiratory Pattern Blood Pressure 136/87 Blood Pressure [Left Arm] Blood Pressure Mean 96 Blood Pressure Mean [Left Arm] Blood Pressure Position [Left Arm] Pulse Oximetry 93 Oxygen Delivery Method Sepsis Recent Fever Within 48 Hours Sepsis New/Unexplained Change in Mental Status Sepsis Action Taken by Nursing GENERAL: Patient is in no acute distress. HEENT: No acute trauma, normocephalic atraumatic, mucous membranes slightly dry, no nasal congestion, no scleral icterus. NECK: No stridor, no adenopathy, no meningismus, trachea is midline. LUNGS: Clear to auscultation bilaterally, no wheeze, no rhonchi, breath sounds equal. HEART: 2/6 systolic murmur. Irregular rhythm, normal rate. ABDOMEN: Soft, nontender, bowel sounds positive, no hernias, no peritonitis. EXTREMITIES: No cyanosis or edema, full range of motion of all the joints without pain or difficulty, no signs for acute trauma. NEUROLOGIC: Oriented x 3, no acute motor or sensory deficits, no focal weakness. SKIN: No rash, no jaundice, no diaphoresis. Course Course 2006: Past medical records reviewed. The patient was evaluated in room C2B. A complete history and physical exam was performed. 2157: Upon reevaluation, the patient is resting comfortably. I updated him on all results and the treatment plan. He as well as his daughter are in agreement with the treatment plan. 1012: [facility]. Administered Medications Insulin Human Regular 250 (units/ Sodium Chloride) 250 mls @ 2.7 mls/hr IV .Q24H [facility]; Protocol Stop: 09/08/19 23:29 Last Admin: 08/09/19 23:45 Dose: 2.7 units/hr, 2.7 mls/hr Documented by: [id number] Cosigned by: [id number] Discontinued Medications Sodium Chloride (Nss 1000ml) 1,000 mls @ 999 mls/hr IV .Q1H1M ONE Stop: 08/09/19 21:11 Last Infusion: 08/09/19 21:02 Dose: 0 mls/hr Documented by: [id number] Admin: 08/09/19 20:00 Dose: 999 mls/hr Documented by: [id number] Sodium Chloride (Nss 1000ml) 500 mls @ 999 mls/hr IV .Q31M ONE Stop: 08/09/19 21:37 Last Infusion: 08/09/19 21:44 Dose: 0 mls/hr Documented by: [id number] Admin: 08/09/19 21:10 Dose: 999 mls/hr Documented by: [id number] Insulin Glargine (Lantus Solostar Pen) 20 units SC NOW STA Stop: 08/09/19 22:24 Last Admin: 08/09/19 23:41 Dose: 20 units Documented by: [id number] Cosigned by: [id number] Insulin Human Regular (Novolin R U-100 Per Unit) 10 units IV NOW STA Stop: 08/09/19 20:10 Last Admin: 08/09/19 20:23 Dose: 10 units Documented by: [id number] Cosigned by: [id number] Insulin Human Regular (Novolin R U-100 Per Unit) 10 units IV NOW STA Stop: 08/09/19 21:08 Last Admin: 08/09/19 21:12 Dose: 10 units Documented by: [id number] Cosigned by: [id number] Metoprolol Succinate (Toprol Xl) 25 mg PO NOW STA Stop: 08/09/19 22:28 Last Admin: 08/09/19 23:42 Dose: 25 mg Documented by: [id number] Medical Decision Making Differential Diagnosis Differential diagnoses include infection, medication noncompliance, poor diet, dehydration, electrolyte imbalance, hyperglycemia, UTI, pneumonia, and others were considered. Medical Records Attestation: I reviewed the patient's medical records. Home Medications Current Medication List: was personally reviewed by me Laboratory Data Attestation: I reviewed the patient's lab results. Result diagrams: 08/09/19 19:05 08/09/19 19:05 Lab Results 08/09/19 08/09/19 08/09/19 Range/Units 18:37 19:05 19:05 WBC 3.87 L (4.8-10.8) K/uL RBC 4.33 L (4.7-6.1) M/uL Hgb 11.9 L (14.0-18.0) g/dL Hct 36.6 L (42-52) % MCV 84.5 (80-100) fL MCH 27.5 (25-34) pg MCHC 32.5 (32-36) g/dL RDW Std Deviation 53.8 H (36.4-46.3) fL RDW Coeff of Gerardo 17.3 H (11.5-14.5) % Plt Count 73 L (130-400) K/uL MPV 10.0 (7.4-10.4) fL Immature Gran % (Auto) 0.3 % Neut % (Auto) 71.3 % Lymph % (Auto) 17.6 % Shannon % (Auto) 8.0 % Eos % (Auto) 2.8 % Baso % (Auto) 0.0 % Immature Gran # (Auto) 0.01 (0.00-0.02) K/uL Neut # (Auto) 2.76 (1.4-6.5) K/uL Lymph # (Auto) 0.68 L (1.2-3.4) K/uL Shannon # (Auto) 0.31 (0.11-0.59) K/uL Eos # (Auto) 0.11 (0-0.5) K/uL Baso # (Auto) 0.00 (0-0.2) K/uL PT (9.0-12.0) Seconds INR (0.9-1.1) APTT (21.0-31.0) Seconds PTT Ratio Sodium 129 L (136-145) mmol/L Potassium 4.0 (3.5-5.1) mmol/L Chloride 96 L (98-107) mmol/L Carbon Dioxide 24 (21-32) mmol/L Anion Gap 9.0 (3-11) BUN 26 H (7-18) mg/dl Creatinine 1.74 H (0.6-1.4) mg/dl Est Cr Clr Drug Dosing 31.4 ml/min Est GFR ( Amer) 43.2 Est GFR (Non-Af Amer) 37.3 BUN/Creatinine Ratio 14.8 (10-20) Glucose 618 H* (70-99) mg/dl POC Glucose 585 H* (70-99) mg/dl Osmolality (280-300) mOsm/kg Calcium 10.0 (8.5-10.1) mg/dl Magnesium 1.7 L (1.8-2.4) mg/dl Total Bilirubin 0.5 (0.2-1) mg/dl AST 42 H (15-37) U/L ALT 41 (12-78) U/L Alkaline Phosphatase 169 H (45-117) U/L Troponin I < 0.015 (0-0.045) ng/ml Total Protein 8.6 H (6.4-8.2) gm/dl Albumin 3.8 (3.4-5.0) gm/dl Globulin 4.8 H (2.5-4.0) gm/dl Albumin/Globulin Ratio 0.8 L (0.9-2) Lipase 541 H (73-393) U/L Beta-Hydroxybutyric Acd 1.28 (0.2-2.81) mg/dl TSH 12.800 H (0.300-4.500) uIu/ml Urine Color Urine Appearance (Clear) Urine pH (4.5-7.5) Ur Specific [place] (1.000-1.030) Urine Protein (Negative) Urine Glucose (UA) (Negative) Urine Ketones (Negative) Urine Blood (Negative) Urine Nitrite (Negative) Urine Bilirubin (Negative) Urine Urobilinogen (Negative) Ur Leukocyte Esterase (Negative) 08/09/19 08/09/19 08/09/19 Range/Units 19:05 19:05 19:05 WBC (4.8-10.8) K/uL RBC (4.7-6.1) M/uL Hgb (14.0-18.0) g/dL Hct (42-52) % MCV (80-100) fL MCH (25-34) pg MCHC (32-36) g/dL RDW Std Deviation (36.4-46.3) fL RDW Coeff of Gerardo (11.5-14.5) % Plt Count (130-400) K/uL MPV (7.4-10.4) fL Immature Gran % (Auto) % Neut % (Auto) % Lymph % (Auto) % Shannon % (Auto) % Eos % (Auto) % Baso % (Auto) % Immature Gran # (Auto) (0.00-0.02) K/uL Neut # (Auto) (1.4-6.5) K/uL Lymph # (Auto) (1.2-3.4) K/uL Shannon # (Auto) (0.11-0.59) K/uL Eos # (Auto) (0-0.5) K/uL Baso # (Auto) (0-0.2) K/uL PT 19.8 H (9.0-12.0) Seconds INR 2.0 H (0.9-1.1) APTT 31.0 (21.0-31.0) Seconds PTT Ratio 1.1 Sodium (136-145) mmol/L Potassium (3.5-5.1) mmol/L Chloride (98-107) mmol/L Carbon Dioxide (21-32) mmol/L Anion Gap (3-11) BUN (7-18) mg/dl Creatinine (0.6-1.4) mg/dl Est Cr Clr Drug Dosing ml/min Est GFR ( Amer) Est GFR (Non-Af Amer) BUN/Creatinine Ratio (10-20) Glucose (70-99) mg/dl POC Glucose (70-99) mg/dl Osmolality 319 H (280-300) mOsm/kg Calcium (8.5-10.1) mg/dl Magnesium Cancelled (1.8-2.4) mg/dl Total Bilirubin (0.2-1) mg/dl AST (15-37) U/L ALT (12-78) U/L Alkaline Phosphatase (45-117) U/L Troponin I Cancelled (0-0.045) ng/ml Total Protein (6.4-8.2) gm/dl Albumin (3.4-5.0) gm/dl Globulin (2.5-4.0) gm/dl Albumin/Globulin Ratio (0.9-2) Lipase Cancelled (73-393) U/L Beta-Hydroxybutyric Acd (0.2-2.81) mg/dl TSH Cancelled (0.300-4.500) uIu/ml Urine Color Urine Appearance (Clear) Urine pH (4.5-7.5) Ur Specific [place] (1.000-1.030) Urine Protein (Negative) Urine Glucose (UA) (Negative) Urine Ketones (Negative) Urine Blood (Negative) Urine Nitrite (Negative) Urine Bilirubin (Negative) Urine Urobilinogen (Negative) Ur Leukocyte Esterase (Negative) 08/09/19 08/09/19 08/09/19 Range/Units 19:53 19:55 20:32 WBC (4.8-10.8) K/uL RBC (4.7-6.1) M/uL Hgb (14.0-18.0) g/dL Hct (42-52) % MCV (80-100) fL MCH (25-34) pg MCHC (32-36) g/dL RDW Std Deviation (36.4-46.3) fL RDW Coeff of Gerardo (11.5-14.5) % Plt Count (130-400) K/uL MPV (7.4-10.4) fL Immature Gran % (Auto) % Neut % (Auto) % Lymph % (Auto) % Shannon % (Auto) % Eos % (Auto) % Baso % (Auto) % Immature Gran # (Auto) (0.00-0.02) K/uL Neut # (Auto) (1.4-6.5) K/uL Lymph # (Auto) (1.2-3.4) K/uL Shannon # (Auto) (0.11-0.59) K/uL Eos # (Auto) (0-0.5) K/uL Baso # (Auto) (0-0.2) K/uL PT (9.0-12.0) Seconds INR (0.9-1.1) APTT (21.0-31.0) Seconds PTT Ratio Sodium (136-145) mmol/L Potassium (3.5-5.1) mmol/L Chloride (98-107) mmol/L Carbon Dioxide (21-32) mmol/L Anion Gap (3-11) BUN (7-18) mg/dl Creatinine (0.6-1.4) mg/dl Est Cr Clr Drug Dosing ml/min Est GFR ( Amer) Est GFR (Non-Af Amer) BUN/Creatinine Ratio (10-20) Glucose (70-99) mg/dl POC Glucose > 600 H* > 600 H* (70-99) mg/dl Osmolality (280-300) mOsm/kg Calcium (8.5-10.1) mg/dl Magnesium (1.8-2.4) mg/dl Total Bilirubin (0.2-1) mg/dl AST (15-37) U/L ALT (12-78) U/L Alkaline Phosphatase (45-117) U/L Troponin I (0-0.045) ng/ml Total Protein (6.4-8.2) gm/dl Albumin (3.4-5.0) gm/dl Globulin (2.5-4.0) gm/dl Albumin/Globulin Ratio (0.9-2) Lipase (73-393) U/L Beta-Hydroxybutyric Acd (0.2-2.81) mg/dl TSH (0.300-4.500) uIu/ml Urine Color Yellow Urine Appearance Clear (Clear) Urine pH 6.0 (4.5-7.5) Ur Specific [place] 1.027 (1.000-1.030) Urine Protein Negative (Negative) Urine Glucose (UA) 3+ H (Negative) Urine Ketones Negative (Negative) Urine Blood Negative (Negative) Urine Nitrite Negative (Negative) Urine Bilirubin Negative (Negative) Urine Urobilinogen Negative (Negative) Ur Leukocyte Esterase Negative (Negative) 08/09/19 08/09/19 08/09/19 Range/Units 21:04 21:52 23:22 WBC (4.8-10.8) K/uL RBC (4.7-6.1) M/uL Hgb (14.0-18.0) g/dL Hct (42-52) % MCV (80-100) fL MCH (25-34) pg MCHC (32-36) g/dL RDW Std Deviation (36.4-46.3) fL RDW Coeff of Gerardo (11.5-14.5) % Plt Count (130-400) K/uL MPV (7.4-10.4) fL Immature Gran % (Auto) % Neut % (Auto) % Lymph % (Auto) % Shannon % (Auto) % Eos % (Auto) % Baso % (Auto) % Immature Gran # (Auto) (0.00-0.02) K/uL Neut # (Auto) (1.4-6.5) K/uL Lymph # (Auto) (1.2-3.4) K/uL Shannon # (Auto) (0.11-0.59) K/uL Eos # (Auto) (0-0.5) K/uL Baso # (Auto) (0-0.2) K/uL PT (9.0-12.0) Seconds INR (0.9-1.1) APTT (21.0-31.0) Seconds PTT Ratio Sodium (136-145) mmol/L Potassium (3.5-5.1) mmol/L Chloride (98-107) mmol/L Carbon Dioxide (21-32) mmol/L Anion Gap (3-11) BUN (7-18) mg/dl Creatinine (0.6-1.4) mg/dl Est Cr Clr Drug Dosing ml/min Est GFR ( Amer) Est GFR (Non-Af Amer) BUN/Creatinine Ratio (10-20) Glucose (70-99) mg/dl POC Glucose 565 H* 454 H* 373 H* (70-99) mg/dl Osmolality (280-300) mOsm/kg Calcium (8.5-10.1) mg/dl Magnesium (1.8-2.4) mg/dl Total Bilirubin (0.2-1) mg/dl AST (15-37) U/L ALT (12-78) U/L Alkaline Phosphatase (45-117) U/L Troponin I (0-0.045) ng/ml Total Protein (6.4-8.2) gm/dl Albumin (3.4-5.0) gm/dl Globulin (2.5-4.0) gm/dl Albumin/Globulin Ratio (0.9-2) Lipase (73-393) U/L Beta-Hydroxybutyric Acd (0.2-2.81) mg/dl TSH (0.300-4.500) uIu/ml Urine Color Urine Appearance (Clear) Urine pH (4.5-7.5) Ur Specific [place] (1.000-1.030) Urine Protein (Negative) Urine Glucose (UA) (Negative) Urine Ketones (Negative) Urine Blood (Negative) Urine Nitrite (Negative) Urine Bilirubin (Negative) Urine Urobilinogen (Negative) Ur Leukocyte Esterase (Negative) 08/09/19 08/10/19 Range/Units 23:24 00:16 WBC (4.8-10.8) K/uL RBC (4.7-6.1) M/uL Hgb (14.0-18.0) g/dL Hct (42-52) % MCV (80-100) fL MCH (25-34) pg MCHC (32-36) g/dL RDW Std Deviation (36.4-46.3) fL RDW Coeff of Gerardo (11.5-14.5) % Plt Count (130-400) K/uL MPV (7.4-10.4) fL Immature Gran % (Auto) % Neut % (Auto) % Lymph % (Auto) % Shannon % (Auto) % Eos % (Auto) % Baso % (Auto) % Immature Gran # (Auto) (0.00-0.02) K/uL Neut # (Auto) (1.4-6.5) K/uL Lymph # (Auto) (1.2-3.4) K/uL Shannon # (Auto) (0.11-0.59) K/uL Eos # (Auto) (0-0.5) K/uL Baso # (Auto) (0-0.2) K/uL PT (9.0-12.0) Seconds INR (0.9-1.1) APTT (21.0-31.0) Seconds PTT Ratio Sodium (136-145) mmol/L Potassium (3.5-5.1) mmol/L Chloride (98-107) mmol/L Carbon Dioxide (21-32) mmol/L Anion Gap (3-11) BUN (7-18) mg/dl Creatinine (0.6-1.4) mg/dl Est Cr Clr Drug Dosing ml/min Est GFR ( Amer) Est GFR (Non-Af Amer) BUN/Creatinine Ratio (10-20) Glucose (70-99) mg/dl POC Glucose 344 H* 333 H* (70-99) mg/dl Osmolality (280-300) mOsm/kg Calcium (8.5-10.1) mg/dl Magnesium (1.8-2.4) mg/dl Total Bilirubin (0.2-1) mg/dl AST (15-37) U/L ALT (12-78) U/L Alkaline Phosphatase (45-117) U/L Troponin I (0-0.045) ng/ml Total Protein (6.4-8.2) gm/dl Albumin (3.4-5.0) gm/dl Globulin (2.5-4.0) gm/dl Albumin/Globulin Ratio (0.9-2) Lipase (73-393) U/L Beta-Hydroxybutyric Acd (0.2-2.81) mg/dl TSH (0.300-4.500) uIu/ml Urine Color Urine Appearance (Clear) Urine pH (4.5-7.5) Ur Specific [place] (1.000-1.030) Urine Protein (Negative) Urine Glucose (UA) (Negative) Urine Ketones (Negative) Urine Blood (Negative) Urine Nitrite (Negative) Urine Bilirubin (Negative) Urine Urobilinogen (Negative) Ur Leukocyte Esterase (Negative) Imaging Data Radiologist's Impression: Radiology results as stated below per my review and the radiologist's interpretation: XR chest 1V portable CLINICAL HISTORY: Possible pneumonia. COMPARISON STUDY: Chest radiograph December 06, 2016. FINDINGS: There are median sternotomy wires and mediastinal surgical clips. There is no pneumothorax or pleural effusion. Moderate cardiomegaly is noted without evidence for pulmonary edema. There are multiple old right rib fractures. No consolidation is identified. The appearance of the chest is unchanged. IMPRESSION: No change in appearance of the chest. Moderate cardiomegaly. ACT 112: Negative or not required by law. Electronically signed by: Andrew Goldstein M.D. 08/09/2019 8:53 PM Blood Pressure Blood Pressure Findings: Elevated blood pressure Blood Pressure Disposition: further management by hospitalist ROMINA Narrative The patient does have a pancytopenia, this is baseline looking back at previous testing. INR was elevated and therapeutic for someone using Coumadin. Renal panel testing showed some renal insufficiency/dehydration with a creatinine of 1.74. Sodium was low at 129. Glucose was quite high at over 600. There were a few subtle liver enzyme elevations. Urinalysis showed glucose, no signs of infection. Chest film did not show any pneumonia. On exam, I did not find any evidence for cellulitis. The patient received a liter saline bolus and then a 500 cc saline bolus. He received IV insulin, 10 units was given initially, a second 10 units was then given IV. The patient's blood sugar is still in the mid 400s. I do not feel comfortable with discharge. He will need his sugar reduced overnight. Hopefully, he does well and can be discharged in the morning. He may need his medications adjust ed. He needs counseling on how to eat properly with the diagnosis of diabetes. Fluid hydration is required but should be given cautiously as he does have a history of CHF. I spoke to the patient, I talked with the patient case coordinator. The on-call hospitalist was consulted. Impression & Plan Hyperglycemia, Dehydration, Hyponatremia Discharge Plan Visit Data Chief Complaint: Hyperglycemia Stated Complaint: HIGH BLOOD SUGAR ED Provider: Wilbert [place] Discharge Problem: Hyperglycemia, Dehydration, Hyponatremia Patient Disposition: Admitted As Inpatient Discharge Instructions Interventions: ED Discharge Assessment Last Done: 08/10/19 00:10 The scribe's documentation has been prepared under my direction and personally reviewed by me in its entirety. I confirm that the note above accurately reflects all work, treatment, procedures, and medical decision making performed by me.
[2019-08-09 20:47] LABS: Appearance Urine Clear (Clear); Bilirubin Urine Negative (Negative); Blood Urine Negative (Negative); Color Urine Yellow; Glucose Urine UA 3+ (Negative); Ketones Urine Negative (Negative); Leukocyte Esterase Urine Negative (Negative); Nitrite Urine Negative (Negative); Protein Urine Negative (Negative); Specific Gravity Urine 1.027 (1.000-1.030); Urobilinogen Urine Negative (Negative)
[2019-08-09 20:53] LABS: Partial Thromboplastin Ratio 1.1; Prothrombin Time 19.8 Seconds (9.0-12.0)
--- NOTE | 2019-08-09 20:54 | XRay Report ---
XR chest 1V portable CLINICAL HISTORY: Possible pneumonia. COMPARISON STUDY: Chest radiograph December 06, 2016. FINDINGS: There are median sternotomy wires and mediastinal surgical clips. There is no pneumothorax or pleural effusion. Moderate cardiomegaly is noted without evidence for pulmonary edema. There are m ultiple old right rib fractures. No consolidation is identified. The appearance of the chest is uncha nged. IMPRESSION: No change in appearance of the chest. Moderate cardiomegaly. ACT 112: Negative or not required by law. Electronically signed by: Andrew Goldstein M.D. 08/09/2019 8:53 PM
[2019-08-09] MEDS ORDERED: SODIUM CHLORIDE 0.9% 1000ML 500 ML IV ONE (21:07)
[2019-08-09] MEDS ORDERED: SEVERE STRESS LEVEL ONE (22:23)
[2019-08-09] MEDS ORDERED: INSULIN GLARGINE SOLOSTAR 100 UNITS/ML 3 ML PEN SC STA (22:23)
[2019-08-09] MEDS ORDERED: INSULIN PROTOCOL GOAL RANGE ONE (22:23)
[2019-08-09] MEDS ORDERED: METOPROLOL SUCC 25MG EXT REL TAB PO STA (22:27)
[2019-08-09 23:30] LABS: Lipase 541 U/L (73-393); Magnesium 1.7 mg/dl (1.8-2.4); Troponin I < 0.015 ng/ml (0-0.045)
[2019-08-09] MEDS ORDERED: GLUCOSE 10 TABS/TUBE PO PRN (23:30)
[2019-08-09] MEDS ORDERED: CARBOHYDRATES FOR HYPOGLYCEMIA PO PRN (23:30)
[2019-08-09] MEDS ORDERED: DEXTROSE 50% 50 ML SYRINGE IV PRN (23:30)
[2019-08-09] MEDS ORDERED: GLUCOSE 40% GEL 15 GM TUBE PO PRN (23:30)
[2019-08-09] MEDS ORDERED: INSULIN REGULAR 250 UNITS in SODIUM CHLORIDE 0.9% 247.5 ML IV SCH (23:30)
[2019-08-09] MEDS ORDERED: GLUCAGON FOR INJ 1 MG VIAL SQ PRN (23:30)
--- NOTE | 2019-08-09 23:36 | History & Physical Report ---
Date of Service August 09, 2019 Assessment & Plan (1) Hyperglycemic crisis in diabetes mellitus: hx DM2 on oral medications Suboptimal control as of recent outpatient hemoglobin A1c of 8.9 last May 2019 Uncontrolled blood sugars secondary to patient dietary habits and poor insight of chronic DM disease ARF secondary to above, home diuretics possibly contributory chronic diastolic heart failure (EF 60%, TTE 2019), patient on the dry side CAD status post CABG A. fib on Coumadin, rate controlled, INR therapeutic hypertension, slightly elevated secondary to illness history fatty liver/hypersplenism/chronic pancytopenia as per records Chronic anemia, hemoglobin better than baseline likely 2 to hemoconcentration hypothyroidism, euthyroid as of today's TSH Medical telemetry IV insulin overlapping with basal Lantus Update hemoglobin A1c Diabetic education Patient daughter requested to accompany father to appointments with PCP to facilitate patient understanding and management of diabetes. May benefit from pharmacy glycemic control consultation IVF, monitor renal function, hold home diuretic and Losartan until creatinine at baseline PT OT eval DVT prophylaxis. Coumadin INR goal between 2 and 3 Full code. Patient's daughters requesting updates from providers. Ms. Sheila Luna, contact #[phone]. Ms. Anne-Marie Zavala, contact #[phone]. Text document was generated using [employer] voice recognition software. It may contain grammatical or spelling errors. Kindly contact undersigned for clarification of any documentation item in question. History of Present Illness Chief Complaint: High sugars Primary Care Provider: Aj Bernard MD History obtained from patient, family, and records. Medical history significant for chronic diastolic heart failure (EF 60%, TTE 2019), CAD status post CABG, A. fib on Coumadin, hypertension, hyperlipidemia, DM 2 on oral medications, history fatty liver/hypersplenism/chronic pancytopenia as per records (baseline hemoglobin 10-11), hypothyroidism. Recent confinement 2013 for decompensated heart failure. Last week, blood sugar check at home noted to be 280s which is unusual for patient. As per daughter, patient has not been very good watching his diabetic diet at home - ordering home delivery and food items over [employer]. Patient admits to symptoms of polyuria. Thinks he is retaining fluid with abdominal distention without pain despite increased diuretic Rx. 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 Serum glucose of 500s noted from blood work drawn at office. Patient daughter alerted of abnormal blood work and instructed to bring patient to the ER. Patient denies chest pain, S OB, fever, chills. At the ER, initial blood sugar noted to be 600s. IV insulin and IVF administered at the ER. 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 Allergies Allergy/AdvReac Type Severity Reaction Status Date / Time rivaroxaban AdvReac Intermediate VOMITING Verified 08/09/19 23:57 Home Medications Home Medications Medication Instructions Recorded Confirmed Type acetaminophen [Tylenol Extra 1,000 mg PO TID PRN 08/09/19 08/09/19 History Strength] amlodipine 5 mg PO HS 08/09/19 08/09/19 History aspirin [Aspir-81] 81 mg PO QPM 08/09/19 08/09/19 History atorvastatin 40 mg PO QPM 08/09/19 08/09/19 History bumetanide 2 mg PO QPM 08/09/19 08/09/19 History glimepiride 2 mg PO QAM 08/09/19 08/09/19 History levothyroxine 100 mcg PO QAM 08/09/19 08/09/19 History lorazepam 0.5 mg PO HS PRN 08/09/19 08/09/19 History losartan 100 mg PO DAILY 08/09/19 08/09/19 History melatonin 10 mg PO HS 08/09/19 08/09/19 History metformin 1,000 mg PO BIDM 08/09/19 08/09/19 History metoprolol succinate 25 mg PO BID 08/09/19 08/09/19 History omeprazole 40 mg PO QPM 08/09/19 08/09/19 History potassium chloride [Klor-Con M20] 20 meq PO BID 08/09/19 08/09/19 History quetiapine 25 mg PO HS 08/09/19 08/09/19 History sertraline 200 mg PO DAILY 08/09/19 08/09/19 History trazodone 50 mg PO HS 08/09/19 08/09/19 History warfarin [Jantoven] 5 mg PO UD 08/09/19 08/09/19 History Past Med/Surg History Medical History Acute exacerbation of CHF (congestive heart failure) (Acute) Anemia (Chronic) Atrial fibrillation (Chronic) CHF (congestive heart failure) (Acute 02/19/14) Coumadin toxicity (Acute 04/24/14) Diabetes Fatty liver (Chronic ~02/2014) Subtherapeutic international normalized ratio (INR) (Acute) Supratherapeutic INR (Acute) Social History Preferred Language: Togolese Communication Ability: Effective Coil Cutter Required: No Beliefs That Will Affect Care: None Current Living Situation: Family Current Living Situation Comment: dtr Other Information That Helps Us Care for You: No Feels Safe at Home: Yes Safety Concerns: Feels Safe At This Time Smoking Status: Never smoker Do You Dip or Chew Tobacco: No ; Second Hand Exposure: Yes ; Hx Alcohol Use: No Hx Substance Use: No Review of Systems Review of Systems: As per HPI, all 10 systems reviewed, all other ROS negative Physical Exam Physical Exam: GENERAL: Comfortable, pleasant, no respiratory distress SKIN: Pallor , warm HEENT: Pale palpebral conjunctivae, no ptosis, dry buccal mucosa NECK : Supple, no tenderness CHEST : CTA, no tenderness HEART : Tachycardic , no obvious murmurs ABDOMEN: Marked distention, nontender, no fluid wave EXTREMITIES : Minimal LE swelling, no LE tenderness, no other conspicuous deformities noted NEUROLOGIC : Coherent, no facial asymmetry, slightly hard of hearing, no other gross focality Results & Data Vital Signs (Past 12 Hours) Vital Signs Temp Pulse Pulse Resp BP BP Pulse Ox 08/09/19 22:00 87 19 151/95 H 95 08/09/19 21:30 84 28 H 152/102 H 93 08/09/19 21:00 111 H 27 H 157/98 H 96 08/09/19 20:09 96 H 16 141/89 H 97 08/09/19 18:35 37.3 C 112 H 18 125/76 95 Laboratory Results Laboratory Results WBC 3.87 K/uL (4.8-10.8) L 08/09/19 19:05 RBC 4.33 M/uL (4.7-6.1) L 08/09/19 19:05 Hgb 11.9 g/dL (14.0-18.0) L 08/09/19 19:05 Hct 36.6 % (42-52) L 08/09/19 19:05 MCV 84.5 fL (80-100) 08/09/19 19:05 MCH 27.5 pg (25-34) 08/09/19 19:05 MCHC 32.5 g/dL (32-36) 08/09/19 19:05 RDW Std Deviation 53.8 fL (36.4-46.3) H 08/09/19 19:05 RDW Coeff of Gerardo 17.3 % (11.5-14.5) H 08/09/19 19:05 Plt Count 73 K/uL (130-400) L 08/09/19 19:05 MPV 10.0 fL (7.4-10.4) 08/09/19 19:05 Immature Gran % (Auto) 0.3 % 08/09/19 19:05 Neut % (Auto) 71.3 % 08/09/19 19:05 Lymph % (Auto) 17.6 % 08/09/19 19:05 [place] % (Auto) 8.0 % 08/09/19 19:05 Eos % (Auto) 2.8 % 08/09/19 19:05 Baso % (Auto) 0.0 % 08/09/19 19:05 Immature Gran # (Auto) 0.01 K/uL (0.00-0.02) 08/09/19 19:05 Neut # (Auto) 2.76 K/uL (1.4-6.5) 08/09/19 19:05 Lymph # (Auto) 0.68 K/uL (1.2-3.4) L 08/09/19 19:05 [place] # (Auto) 0.31 K/uL (0.11-0.59) 08/09/19 19:05 Eos # (Auto) 0.11 K/uL (0-0.5) 08/09/19 19:05 Baso # (Auto) 0.00 K/uL (0-0.2) 08/09/19 19:05 PT 19.8 Seconds (9.0-12.0) H 08/09/19 19:05 INR 2.0 (0.9-1.1) H 08/09/19 19:05 APTT 31.0 Seconds (21.0-31.0) 08/09/19 19:05 PTT Ratio 1.1 08/09/19 19:05 Sodium 129 mmol/L (136-145) L 08/09/19 19:05 Potassium 4.0 mmol/L (3.5-5.1) 08/09/19 19:05 Chloride 96 mmol/L (98-107) L 08/09/19 19:05 Carbon Dioxide 24 mmol/L (21-32) 08/09/19 19:05 Anion Gap 9.0 (3-11) 08/09/19 19:05 BUN 26 mg/dl (7-18) H 08/09/19 19:05 Creatinine 1.74 mg/dl (0.6-1.4) H 08/09/19 19:05 Est Cr Clr Drug Dosing 31.4 ml/min 08/09/19 19:05 Est GFR ( Amer) 43.2 08/09/19 19:05 Est GFR (Non-Af Amer) 37.3 08/09/19 19:05 BUN/Creatinine Ratio 14.8 (10-20) 08/09/19 19:05 Glucose 618 mg/dl (70-99) H* 08/09/19 19:05 POC Glucose 344 mg/dl (70-99) H* 08/09/19 23:24 Calcium 10.0 mg/dl (8.5-10.1) 08/09/19 19:05 Magnesium 1.7 mg/dl (1.8-2.4) L 08/09/19 19:05 Magnesium Cancelled 08/09/19 19:05 Total Bilirubin 0.5 mg/dl (0.2-1) 08/09/19 19:05 AST 42 U/L (15-37) H 08/09/19 19:05 ALT 41 U/L (12-78) 08/09/19 19:05 Alkaline Phosphatase 169 U/L (45-117) H 08/09/19 19:05 Troponin I < 0.015 ng/ml (0-0.045) 08/09/19 19:05 Troponin I Cancelled 08/09/19 19:05 Total Protein 8.6 gm/dl (6.4-8.2) H 08/09/19 19:05 Albumin 3.8 gm/dl (3.4-5.0) 08/09/19 19:05 Globulin 4.8 gm/dl (2.5-4.0) H 08/09/19 19:05 Albumin/Globulin Ratio 0.8 (0.9-2) L 08/09/19 19:05 Lipase 541 U/L (73-393) H 08/09/19 19:05 Lipase Cancelled 08/09/19 19:05 Beta-Hydroxybutyric Acd 1.28 mg/dl (0.2-2.81) 08/09/19 19:05 TSH 12.800 uIu/ml (0.300-4.500) H 08/09/19 19:05 TSH Cancelled 08/09/19 19:05 Urine Color Yellow 08/09/19 20:32 Urine Appearance Clear (Clear) 08/09/19 20:32 Urine pH 6.0 (4.5-7.5) 08/09/19 20:32 Ur Specific [place] 1.027 (1.000-1.030) 08/09/19 20:32 Urine Protein Negative (Negative) 08/09/19 20:32 Urine Glucose (UA) 3+ (Negative) H 08/09/19 20:32 Urine Ketones Negative (Negative) 08/09/19 20:32 Urine Blood Negative (Negative) 08/09/19 20:32 Urine Nitrite Negative (Negative) 08/09/19 20:32 Urine Bilirubin Negative (Negative) 08/09/19 20:32 Urine Urobilinogen Negative (Negative) 08/09/19 20:32 Ur Leukocyte Esterase Negative (Negative) 08/09/19 20:32 Diagnostic Findings Chest x-ray : Moderate cardiomegaly CT abdomen pelvis initial read:Hepatomegaly without focal liver lesion. Cholelithiasis without pericholecystic fluid. Splenomegaly. Diverticulosis. Central obesity.
[2019-08-10] MEDS ORDERED: ACETAMINOPHEN 325 MG TAB PO PRN (00:53)
[2019-08-10] MEDS ORDERED: LORazepam 0.5 MG TAB PO PRN (00:53)
[2019-08-10] MEDS ORDERED: OXYCODONE HCL IR 5 MG TAB (IMMEDIATE RELEASE) PO PRN (00:53)
[2019-08-10] MEDS ORDERED: PROMETHAZINE HCL 12.5 MG in SODIUM CHLORIDE 0.9% 50 ML IV PRN (00:53)
[2019-08-10] MEDS ORDERED: WARFARIN SOD 5 MG TAB PO ONE (01:14)
[2019-08-10] MEDS ORDERED: NSS + 20MEQ KCL 20 MEQ/1,000 ML BAG IV ONE (01:14)
[2019-08-10] MEDS: ASPIRIN 81 MG ECTAB PO SCH ×2 (01:30→20:38)
[2019-08-10] MEDS: AMLODIPINE BESYLATE 5 MG TAB PO SCH ×2 (01:32→20:33)
[2019-08-10] MEDS ORDERED: GLUCOSE 40% GEL 15 GM TUBE PO PRN (05:16)
[2019-08-10] MEDS ORDERED: CARBOHYDRATES FOR HYPOGLYCEMIA PO PRN (05:16)
[2019-08-10] MEDS ORDERED: DEXTROSE 50% 50 ML SYRINGE IV PRN (05:16)
[2019-08-10] MEDS ORDERED: GLUCOSE 10 TABS/TUBE PO PRN (05:16)
[2019-08-10] MEDS ORDERED: GLUCAGON FOR INJ 1 MG VIAL SQ PRN (05:16)
[2019-08-10 06:07] LABS: Hematocrit (blood only) 32.3 % (42-52); Hemoglobin 10.5 g/dL (14.0-18.0); Mean Corpuscular Hemoglobin 26.9 pg (25-34); Mean Corpuscular Hgb Conc 32.5 g/dL (32-36); Mean Corpuscular Volume 82.6 fL (80-100); RDW Coefficient of Variation 17.2 % (11.5-14.5); RDW Standard Deviation 52.3 fL (36.4-46.3); Red Blood Count 3.91 M/uL (4.7-6.1); White Blood Count 3.31 K/uL (4.8-10.8)
[2019-08-10] MEDS: LEVOTHYROXINE SODIUM 100 MCG TABLET PO SCH (06:11)
[2019-08-10 06:14] LABS: INR 2.3 (0.9-1.1); Prothrombin Time 22.2 Seconds (9.0-12.0)
[2019-08-10 06:19] LABS: Estimated Average Glucose 229 mg/dl; Hemoglobin A1C 9.6 % (4.5-5.6)
[2019-08-10 06:21] LABS: Mean Platelet Volume 9.9 fL (7.4-10.4); Platelet Count 65 K/uL (130-400)
[2019-08-10] MEDS: INSULIN ASPART 100 UNITS/ML 3 ML PEN SC SCH ×4 (06:28→20:33)
[2019-08-10 06:38] LABS: BUN Creatinine Ratio 18.1 (10-20); Calcium 9.6 mg/dl (8.5-10.1); Creatinine Clr Calc Pharmacy 53.6 ml/min; Est GFR (African American) 82.4; Est GFR (Non-African American) 71.1; Potassium 3.4 mmol/L (3.5-5.1)
[2019-08-10 06:51] LABS: Basophils # (auto) 0.01 K/uL (0-0.2); Basophils % (auto) 0.3 %; Eosinophils # (auto) 0.16 K/uL (0-0.5); Eosinophils % (auto) 4.8 %; Immature Granulocytes # (auto) 0.01 K/uL (0.00-0.02); Immature Granulocytes % (auto) 0.3 %; Lymphocytes % (auto) 21.1 %; Monocytes # (auto) 0.32 K/uL (0.11-0.59); Monocytes % (auto) 9.7 %; Neutrophils # (auto) 2.11 K/uL (1.4-6.5); Neutrophils % (auto) 63.8 %; Ovalocytes 1+; Tear Drop Cells Occasional
[2019-08-10] MEDS ORDERED: INSULIN ASPART 100 UNITS/ML 3 ML PEN SC SCH (07:30)
--- NOTE | 2019-08-10 07:34 | CT Scan Report ---
CT SCAN OF THE ABDOMEN AND PELVIS WITHOUT IV CONTRAST CLINICAL HISTORY: Abdominal distention. COMPARISON STUDY: Abdominal CT dated 02/17/2014. TECHNIQUE: CT scan of the abdomen and pelvis is performed from the lung bases to the proximal femora. Images are reviewed in the axial, sagittal, and coronal planes. IV contrast was not administered for this examination as per the referring clinician. Note that the examination was performed in signific antly suboptimal fashion without oral and IV contrast. A dose lowering technique was utilized adherin g to the principles of ALARA. CT DOSE: 557.78 mGy.cm FINDINGS: Lung bases: The patient is status post midline sternotomy. The heart is enlarged and without pericard ial effusion. The coronary arteries are densely calcified. There is a small hiatal hernia. The lung b ases are clear noting bibasilar scarring/atelectasis. Liver: The unenhanced liver is enlarged, measuring 22 cm in length. The liver is cirrhotic in morphol ogy and heterogeneous in attenuation. There is nodularity of the surface contour as well as hypertrop hy of the left lobe and caudate. Ill-defined bandlike foci of low-attenuation throughout the right lo be likely represent parenchymal fibrosis. There is no intrahepatic biliary ductal dilatation. Gallbladder: There are large calcified gallstones with no CT evidence of acute cholecystitis. Spleen: The spleen is enlarged, measuring 17.4 cm in length. There are scattered calcified splenic gr anulomas. Pancreas: The unenhanced pancreas is grossly unremarkable. Adrenal glands: Unremarkable. Kidneys: The unenhanced kidneys demonstrate mild cortical atrophy and are without hydronephrosis. The re is a horseshoe kidney, with a cortical connection between the lower pole moieties in the midline. There are least 3 small nonobstructing calculi in the right renal moiety and at least 5 nonobstructin g calculi in the left renal moiety. These measure up to 4 mm. There is no evidence of contour deformi ng renal mass lesion. Scattered renal cysts measure up to 4.3 cm. Abdominal vasculature: The abdominal aorta is normal in course and caliber noting moderate atheroscle rotic calcification. Bowel: There is moderate colonic diverticulosis without CT evidence of acute diverticulitis. No bowel obstruction is seen. Mild fecal retention is noted throughout the colon. A large duodenal diverticul um is noted. The appendix is well-visualized and normal. Peritoneum: There is no intraperitoneal free air or abdominal ascites. Lymphadenopathy: None. Pelvic viscera: The prostate gland is diminutive and heterogeneous. The bladder is normal as visualiz ed. Skeletal structures: The skeletal structures are osteopenic. There is mild to moderate lumbosacral sp ondylosis. Degenerative change is also seen in the hips, sacroiliac joints, and pubic symphysis. No l ytic or blastic lesions are seen. IMPRESSION: 1. Significantly suboptimal examination without oral and IV contrast. 2. There are no acute infectious or inflammatory findings in the abdomen or pelvis. 3. The liver is enlarged, cirrhotic in morphology, and heterogeneous in attenuation. 4. Marked splenomegaly indicates portal hypertension. 5. Cholelithiasis. 6. Bandlike foci of low-attenuation throughout the right hepatic lobe likely represent parenchymal sc arring/fibrosis. Consider nonemergent/outpatient contrast-enhanced CT or MRI of the liver for further assessment. 7. Horseshoe kidney with numerous small nonobstructing renal calculi. 8. Moderate colonic diverticulosis without CT evidence of acute diverticulitis. 9. Additional findings as above. ACT 112: Negative or not required by law. Electronically signed by: Wilbert Dobbins M.D. 08/10/2019 7:33 AM
[2019-08-10] MEDS ORDERED: INSULIN GLARGINE SOLOSTAR 100 UNITS/ML 3 ML PEN SC SCH ×3 (08:00→16:30)
[2019-08-10] MEDS: SERTRALINE HCL 100 MG TABLET PO SCH (08:27)
[2019-08-10] MEDS ORDERED: METOPROLOL SUCC 25MG EXT REL TAB PO SCH (09:00)
--- NOTE | 2019-08-10 11:01 | Electrocardiogram Report ---
Test Reason : Blood Pressure : / mmHG Vent. Rate : 080 BPM Atrial Rate : 000 BPM P-R Int : 000 ms QRS Dur : 106 ms QT Int : 408 ms P-R-T Axes : 000 -27 207 degrees QTc Int : 470 ms Atrial fibrillation Poor R wave progression, consider anterior OR vs. lead placement vs. LVH Minimal voltage criteria for LVH, may be normal variant Marked ST abnormality, possible lateral subendocardial injury Abnormal ECG When compared with ECG of 06-DEC-2016 09:49, T wave inversion now evident in Inferior leads T wave inversion more evident in Lateral leads Confirmed by Yunior Gonzalez ([id number]) on 08/10/2019 11:01:44 AM Referred By: Aj Bernard Confirmed By:Yunior Gonzalez
[2019-08-10] MEDS ORDERED: POTASSIUM CHLORIDE 20 MEQ TABCR PO STA (11:11)
--- NOTE | 2019-08-10 11:11 | Hospitalist Progress Note ---
Date of Service August 10, 2019 Assessment & Plan (1) Hyperglycemic crisis in diabetes mellitus: Hx DM2 on oral medications Suboptimal control as of recent outpatient hemoglobin A1c of 8.9 last May 2019 Uncontrolled blood sugars secondary to patient dietary habits and poor insight of chronic DM disease - admitted to medical telemetry - IV insulin overlapping with basal Lantus (now off IV insulin) - Update hemoglobin A1c music educator consulted - pt's daughter would like to be present during the session w/ DM educator Pharmacy glycemic control consultation Patient's daughter also plans to accompany father to appointments with PCP to facilitate patient's understanding and management of diabetes ARF secondary to above, home diuretics possibly contributory - Cr 1.7 on admission - now resolved after IVF, and holding home diuretics Chronic diastolic heart failure (EF 60%, TTE 2018), patient on the dry side on admission CAD status post CABG A. fib on Coumadin, rate controlled, INR therapeutic Hypertension, slightly elevated secondary to illness History fatty liver/hypersplenism/chronic pancytopenia as per records -per CT obtained in the ED, liver cirrhosis, recommend imaging with contrast as outpt Chronic anemia, hemoglobin better than baseline likely 2 to hemoconcentration Hypothyroidism, euthyroid as of today's TSH PT/OT eval DVT prophylaxis. Coumadin INR goal between 2 and 3 Full code. Patient's daughters can be contacted at numbers below. Ms. Sheila Luna, contact #[phone]. Ms. Xie Zavala, contact #[phone]. Admission and Anticipated Discharge Date Admission Date: August 09, 2019 Subjective Pt is lying in bed, in NAD. Says he felt well, did not realize being hyperglycemic. He was sent in by cardiology office after routine bloodwork showed blood glucose level to be in 500s. Daughter at the bedside, plans to go to pt's doctor's appointment so she could help the pt more. Pt does not remember to do things well. She would like to be present when simulation educator is there so she can also understand the plan for her father regarding his diabetes. Discussed that pt will likely be discharged on insulin which is new for him. Pt is currently off IV insulin. Review of Systems Review of Systems: All systems reviewed & are unremarkable except as noted in HPI & below Constitutional: no fever and no chills Respiratory: no cough and no dyspnea Cardiovascular: no chest pain and no palpitations Gastrointestinal: no abdominal pain, no nausea and no vomiting Physical Exam Physical Exam: GENERAL: elderly male resting in bed, comfortable,in NAD HEENT: NC/AT, EOMI, PERRL NECK : Supple, no tenderness CHEST : CTA, no tenderness HEART : RRR , no obvious murmurs ABDOMEN: + bowel sounds, distended bur soft, nontender to palpation EXTREMITIES : Minimal LE swelling, no LE tenderness, moves extremities spontaneously SKIN: warm, dry, pale NEUROLOGIC : alert and oriented, no facial asymmetry, speech fluent, slightly hard of hearing,moves extremities spontaneously Results & Data ([facility]) Vital Signs (Past 12 Hours) Vital Signs Temp Pulse Pulse Resp BP BP Pulse Ox 08/10/19 07:25 37 C 91 H 20 162/86 H 96 08/10/19 07:12 79 08/10/19 04:36 37 C 77 18 145/77 H 95 08/10/19 00:27 37 C 95 H 18 155/72 H 34 L 08/10/19 00:00 92 H 14 136/87 08/09/19 23:33 106 H 22 93 08/09/19 23:32 105 H 19 93 08/09/19 23:30 101 H 21 93 Pulse Ox 08/10/19 07:25 08/10/19 07:12 08/10/19 04:36 08/10/19 00:27 94 08/10/19 00:00 08/09/19 23:33 08/09/19 23:32 08/09/19 23:30 Laboratory Results 08/10/19 08/10/19 08/10/19 Range/Units 07:25 06:08 05:26 WBC (4.8-10.8) K/uL RBC (4.7-6.1) M/uL Hgb (14.0-18.0) g/dL Hct (42-52) % MCV (80-100) fL MCH (25-34) pg MCHC (32-36) g/dL RDW Std Deviation (36.4-46.3) fL RDW Coeff of Gerardo (11.5-14.5) % Plt Count (130-400) K/uL MPV (7.4-10.4) fL Immature Gran % (Auto) % Neut % (Auto) % Lymph % (Auto) % [place] % (Auto) % Eos % (Auto) % Baso % (Auto) % Immature Gran # (Auto) (0.00-0.02) K/uL Neut # (Auto) (1.4-6.5) K/uL Lymph # (Auto) (1.2-3.4) K/uL [place] # (Auto) (0.11-0.59) K/uL Eos # (Auto) (0-0.5) K/uL Baso # (Auto) (0-0.2) K/uL Tear Drop Cells Ovalocytes PT (9.0-12.0) Seconds INR (0.9-1.1) APTT (21.0-31.0) Seconds PTT Ratio Sodium 138 D (136-145) mmol/L Potassium 3.4 L (3.5-5.1) mmol/L Chloride 105 (98-107) mmol/L Carbon Dioxide 26 (21-32) mmol/L Anion Gap 7.0 (3-11) BUN 19 H (7-18) mg/dl Creatinine 1.02 (0.6-1.4) mg/dl Est Cr Clr Drug Dosing 53.6 ml/min Est GFR ( Amer) 82.4 Est GFR (Non-Af Amer) 71.1 BUN/Creatinine Ratio 18.1 (10-20) Glucose 151 H (70-99) mg/dl POC Glucose 183 H 173 H (70-99) mg/dl Estimat Average Glucose mg/dl Hemoglobin A1c (4.5-5.6) % Osmolality (280-300) mOsm/kg Calcium 9.6 (8.5-10.1) mg/dl Magnesium (1.8-2.4) mg/dl Total Bilirubin (0.2-1) mg/dl AST (15-37) U/L ALT (12-78) U/L Alkaline Phosphatase (45-117) U/L Troponin I (0-0.045) ng/ml Total Protein (6.4-8.2) gm/dl Albumin (3.4-5.0) gm/dl Globulin (2.5-4.0) gm/dl Albumin/Globulin Ratio (0.9-2) Lipase (73-393) U/L Beta-Hydroxybutyric Acd (0.2-2.81) mg/dl TSH (0.300-4.500) uIu/ml Urine Color Urine Appearance (Clear) Urine pH (4.5-7.5) Ur Specific [place] (1.000-1.030) Urine Protein (Negative) Urine Glucose (UA) (Negative) Urine Ketones (Negative) Urine Blood (Negative) Urine Nitrite (Negative) Urine Bilirubin (Negative) Urine Urobilinogen (Negative) Ur Leukocyte Esterase (Negative) 08/10/19 08/10/19 08/10/19 Range/Units 05:26 05:26 05:09 WBC 3.31 L (4.8-10.8) K/uL RBC 3.91 L (4.7-6.1) M/uL Hgb 10.5 L (14.0-18.0) g/dL Hct 32.3 L (42-52) % MCV 82.6 (80-100) fL MCH 26.9 (25-34) pg MCHC 32.5 (32-36) g/dL RDW Std Deviation 52.3 H (36.4-46.3) fL RDW Coeff of Gerardo 17.2 H (11.5-14.5) % Plt Count 65 L (130-400) K/uL MPV 9.9 (7.4-10.4) fL Immature Gran % (Auto) 0.3 % Neut % (Auto) 63.8 % Lymph % (Auto) 21.1 % [place] % (Auto) 9.7 % Eos % (Auto) 4.8 % Baso % (Auto) 0.3 % Immature Gran # (Auto) 0.01 (0.00-0.02) K/uL Neut # (Auto) 2.11 (1.4-6.5) K/uL Lymph # (Auto) 0.70 L (1.2-3.4) K/uL [place] # (Auto) 0.32 (0.11-0.59) K/uL Eos # (Auto) 0.16 (0-0.5) K/uL Baso # (Auto) 0.01 (0-0.2) K/uL Tear Drop Cells Occasional Ovalocytes 1+ PT 22.2 H (9.0-12.0) Seconds INR 2.3 H (0.9-1.1) APTT (21.0-31.0) Seconds PTT Ratio Sodium (136-145) mmol/L Potassium (3.5-5.1) mmol/L Chloride (98-107) mmol/L Carbon Dioxide (21-32) mmol/L Anion Gap (3-11) BUN (7-18) mg/dl Creatinine (0.6-1.4) mg/dl Est Cr Clr Drug Dosing ml/min Est GFR ( Amer) Est GFR (Non-Af Amer) BUN/Creatinine Ratio (10-20) Glucose (70-99) mg/dl POC Glucose 163 H (70-99) mg/dl Estimat Average Glucose mg/dl Hemoglobin A1c (4.5-5.6) % Osmolality (280-300) mOsm/kg Calcium (8.5-10.1) mg/dl Magnesium (1.8-2.4) mg/dl Total Bilirubin (0.2-1) mg/dl AST (15-37) U/L ALT (12-78) U/L Alkaline Phosphatase (45-117) U/L Troponin I (0-0.045) ng/ml Total Protein (6.4-8.2) gm/dl Albumin (3.4-5.0) gm/dl Globulin (2.5-4.0) gm/dl Albumin/Globulin Ratio (0.9-2) Lipase (73-393) U/L Beta-Hydroxybutyric Acd (0.2-2.81) mg/dl TSH (0.300-4.500) uIu/ml Urine Color Urine Appearance (Clear) Urine pH (4.5-7.5) Ur Specific [place] (1.000-1.030) Urine Protein (Negative) Urine Glucose (UA) (Negative) Urine Ketones (Negative) Urine Blood (Negative) Urine Nitrite (Negative) Urine Bilirubin (Negative) Urine Urobilinogen (Negative) Ur Leukocyte Esterase (Negative) 08/10/19 08/10/19 08/10/19 Range/Units 03:10 02:09 01:03 WBC (4.8-10.8) K/uL RBC (4.7-6.1) M/uL Hgb (14.0-18.0) g/dL Hct (42-52) % MCV (80-100) fL MCH (25-34) pg MCHC (32-36) g/dL RDW Std Deviation (36.4-46.3) fL RDW Coeff of Gerardo (11.5-14.5) % Plt Count (130-400) K/uL MPV (7.4-10.4) fL Immature Gran % (Auto) % Neut % (Auto) % Lymph % (Auto) % [place] % (Auto) % Eos % (Auto) % Baso % (Auto) % Immature Gran # (Auto) (0.00-0.02) K/uL Neut # (Auto) (1.4-6.5) K/uL Lymph # (Auto) (1.2-3.4) K/uL [place] # (Auto) (0.11-0.59) K/uL Eos # (Auto) (0-0.5) K/uL Baso # (Auto) (0-0.2) K/uL Tear Drop Cells Ovalocytes PT (9.0-12.0) Seconds INR (0.9-1.1) APTT (21.0-31.0) Seconds PTT Ratio Sodium (136-145) mmol/L Potassium (3.5-5.1) mmol/L Chloride (98-107) mmol/L Carbon Dioxide (21-32) mmol/L Anion Gap (3-11) BUN (7-18) mg/dl Creatinine (0.6-1.4) mg/dl Est Cr Clr Drug Dosing ml/min Est GFR ( Amer) Est GFR (Non-Af Amer) BUN/Creatinine Ratio (10-20) Glucose (70-99) mg/dl POC Glucose 223 H 259 H 286 H (70-99) mg/dl Estimat Average Glucose mg/dl Hemoglobin A1c (4.5-5.6) % Osmolality (280-300) mOsm/kg Calcium (8.5-10.1) mg/dl Magnesium (1.8-2.4) mg/dl Total Bilirubin (0.2-1) mg/dl AST (15-37) U/L ALT (12-78) U/L Alkaline Phosphatase (45-117) U/L Troponin I (0-0.045) ng/ml Total Protein (6.4-8.2) gm/dl Albumin (3.4-5.0) gm/dl Globulin (2.5-4.0) gm/dl Albumin/Globulin Ratio (0.9-2) Lipase (73-393) U/L Beta-Hydroxybutyric Acd (0.2-2.81) mg/dl TSH (0.300-4.500) uIu/ml Urine Color Urine Appearance (Clear) Urine pH (4.5-7.5) Ur Specific [place] (1.000-1.030) Urine Protein (Negative) Urine Glucose (UA) (Negative) Urine Ketones (Negative) Urine Blood (Negative) Urine Nitrite (Negative) Urine Bilirubin (Negative) Urine Urobilinogen (Negative) Ur Leukocyte Esterase (Negative) 08/10/19 08/10/19 08/09/19 Range/Units 01:02 00:16 23:24 WBC (4.8-10.8) K/uL RBC (4.7-6.1) M/uL Hgb (14.0-18.0) g/dL Hct (42-52) % MCV (80-100) fL MCH (25-34) pg MCHC (32-36) g/dL RDW Std Deviation (36.4-46.3) fL RDW Coeff of Gerardo (11.5-14.5) % Plt Count (130-400) K/uL MPV (7.4-10.4) fL Immature Gran % (Auto) % Neut % (Auto) % Lymph % (Auto) % [place] % (Auto) % Eos % (Auto) % Baso % (Auto) % Immature Gran # (Auto) (0.00-0.02) K/uL Neut # (Auto) (1.4-6.5) K/uL Lymph # (Auto) (1.2-3.4) K/uL [place] # (Auto) (0.11-0.59) K/uL Eos # (Auto) (0-0.5) K/uL Baso # (Auto) (0-0.2) K/uL Tear Drop Cells Ovalocytes PT (9.0-12.0) Seconds INR (0.9-1.1) APTT (21.0-31.0) Seconds PTT Ratio Sodium (136-145) mmol/L Potassium (3.5-5.1) mmol/L Chloride (98-107) mmol/L Carbon Dioxide (21-32) mmol/L Anion Gap (3-11) BUN (7-18) mg/dl Creatinine (0.6-1.4) mg/dl Est Cr Clr Drug Dosing ml/min Est GFR ( Amer) Est GFR (Non-Af Amer) BUN/Creatinine Ratio (10-20) Glucose (70-99) mg/dl POC Glucose 306 H* 333 H* 344 H* (70-99) mg/dl Estimat Average Glucose mg/dl Hemoglobin A1c (4.5-5.6) % Osmolality (280-300) mOsm/kg Calcium (8.5-10.1) mg/dl Magnesium (1.8-2.4) mg/dl Total Bilirubin (0.2-1) mg/dl AST (15-37) U/L ALT (12-78) U/L Alkaline Phosphatase (45-117) U/L Troponin I (0-0.045) ng/ml Total Protein (6.4-8.2) gm/dl Albumin (3.4-5.0) gm/dl Globulin (2.5-4.0) gm/dl Albumin/Globulin Ratio (0.9-2) Lipase (73-393) U/L Beta-Hydroxybutyric Acd (0.2-2.81) mg/dl TSH (0.300-4.500) uIu/ml Urine Color Urine Appearance (Clear) Urine pH (4.5-7.5) Ur Specific [place] (1.000-1.030) Urine Protein (Negative) Urine Glucose (UA) (Negative) Urine Ketones (Negative) Urine Blood (Negative) Urine Nitrite (Negative) Urine Bilirubin (Negative) Urine Urobilinogen (Negative) Ur Leukocyte Esterase (Negative) 08/09/19 08/09/19 08/09/19 Range/Units 23:22 21:52 21:04 WBC (4.8-10.8) K/uL RBC (4.7-6.1) M/uL Hgb (14.0-18.0) g/dL Hct (42-52) % MCV (80-100) fL MCH (25-34) pg MCHC (32-36) g/dL RDW Std Deviation (36.4-46.3) fL RDW Coeff of Gerardo (11.5-14.5) % Plt Count (130-400) K/uL MPV (7.4-10.4) fL Immature Gran % (Auto) % Neut % (Auto) % Lymph % (Auto) % [place] % (Auto) % Eos % (Auto) % Baso % (Auto) % Immature Gran # (Auto) (0.00-0.02) K/uL Neut # (Auto) (1.4-6.5) K/uL Lymph # (Auto) (1.2-3.4) K/uL [place] # (Auto) (0.11-0.59) K/uL Eos # (Auto) (0-0.5) K/uL Baso # (Auto) (0-0.2) K/uL Tear Drop Cells Ovalocytes PT (9.0-12.0) Seconds INR (0.9-1.1) APTT (21.0-31.0) Seconds PTT Ratio Sodium (136-145) mmol/L Potassium (3.5-5.1) mmol/L Chloride (98-107) mmol/L Carbon Dioxide (21-32) mmol/L Anion Gap (3-11) BUN (7-18) mg/dl Creatinine (0.6-1.4) mg/dl Est Cr Clr Drug Dosing ml/min Est GFR ( Amer) Est GFR (Non-Af Amer) BUN/Creatinine Ratio (10-20) Glucose (70-99) mg/dl POC Glucose 373 H* 454 H* 565 H* (70-99) mg/dl Estimat Average Glucose mg/dl Hemoglobin A1c (4.5-5.6) % Osmolality (280-300) mOsm/kg Calcium (8.5-10.1) mg/dl Magnesium (1.8-2.4) mg/dl Total Bilirubin (0.2-1) mg/dl AST (15-37) U/L ALT (12-78) U/L Alkaline Phosphatase (45-117) U/L Troponin I (0-0.045) ng/ml Total Protein (6.4-8.2) gm/dl Albumin (3.4-5.0) gm/dl Globulin (2.5-4.0) gm/dl Albumin/Globulin Ratio (0.9-2) Lipase (73-393) U/L Beta-Hydroxybutyric Acd (0.2-2.81) mg/dl TSH (0.300-4.500) uIu/ml Urine Color Urine Appearance (Clear) Urine pH (4.5-7.5) Ur Specific [place] (1.000-1.030) Urine Protein (Negative) Urine Glucose (UA) (Negative) Urine Ketones (Negative) Urine Blood (Negative) Urine Nitrite (Negative) Urine Bilirubin (Negative) Urine Urobilinogen (Negative) Ur Leukocyte Esterase (Negative) 08/09/19 08/09/19 08/09/19 Range/Units 20:32 19:55 19:53 WBC (4.8-10.8) K/uL RBC (4.7-6.1) M/uL Hgb (14.0-18.0) g/dL Hct (42-52) % MCV (80-100) fL MCH (25-34) pg MCHC (32-36) g/dL RDW Std Deviation (36.4-46.3) fL RDW Coeff of Gerardo (11.5-14.5) % Plt Count (130-400) K/uL MPV (7.4-10.4) fL Immature Gran % (Auto) % Neut % (Auto) % Lymph % (Auto) % [place] % (Auto) % Eos % (Auto) % Baso % (Auto) % Immature Gran # (Auto) (0.00-0.02) K/uL Neut # (Auto) (1.4-6.5) K/uL Lymph # (Auto) (1.2-3.4) K/uL [place] # (Auto) (0.11-0.59) K/uL Eos # (Auto) (0-0.5) K/uL Baso # (Auto) (0-0.2) K/uL Tear Drop Cells Ovalocytes PT (9.0-12.0) Seconds INR (0.9-1.1) APTT (21.0-31.0) Seconds PTT Ratio Sodium (136-145) mmol/L Potassium (3.5-5.1) mmol/L Chloride (98-107) mmol/L Carbon Dioxide (21-32) mmol/L Anion Gap (3-11) BUN (7-18) mg/dl Creatinine (0.6-1.4) mg/dl Est Cr Clr Drug Dosing ml/min Est GFR ( Amer) Est GFR (Non-Af Amer) BUN/Creatinine Ratio (10-20) Glucose (70-99) mg/dl POC Glucose > 600 H* > 600 H* (70-99) mg/dl Estimat Average Glucose mg/dl Hemoglobin A1c (4.5-5.6) % Osmolality (280-300) mOsm/kg Calcium (8.5-10.1) mg/dl Magnesium (1.8-2.4) mg/dl Total Bilirubin (0.2-1) mg/dl AST (15-37) U/L ALT (12-78) U/L Alkaline Phosphatase (45-117) U/L Troponin I (0-0.045) ng/ml Total Protein (6.4-8.2) gm/dl Albumin (3.4-5.0) gm/dl Globulin (2.5-4.0) gm/dl Albumin/Globulin Ratio (0.9-2) Lipase (73-393) U/L Beta-Hydroxybutyric Acd (0.2-2.81) mg/dl TSH (0.300-4.500) uIu/ml Urine Color Yellow Urine Appearance Clear (Clear) Urine pH 6.0 (4.5-7.5) Ur Specific [place] 1.027 (1.000-1.030) Urine Protein Negative (Negative) Urine Glucose (UA) 3+ H (Negative) Urine Ketones Negative (Negative) Urine Blood Negative (Negative) Urine Nitrite Negative (Negative) Urine Bilirubin Negative (Negative) Urine Urobilinogen Negative (Negative) Ur Leukocyte Esterase Negative (Negative) 08/09/19 08/09/19 08/09/19 Range/Units 19:05 19:05 19:05 WBC (4.8-10.8) K/uL RBC (4.7-6.1) M/uL Hgb (14.0-18.0) g/dL Hct (42-52) % MCV (80-100) fL MCH (25-34) pg MCHC (32-36) g/dL RDW Std Deviation (36.4-46.3) fL RDW Coeff of Gerardo (11.5-14.5) % Plt Count (130-400) K/uL MPV (7.4-10.4) fL Immature Gran % (Auto) % Neut % (Auto) % Lymph % (Auto) % [place] % (Auto) % Eos % (Auto) % Baso % (Auto) % Immature Gran # (Auto) (0.00-0.02) K/uL Neut # (Auto) (1.4-6.5) K/uL Lymph # (Auto) (1.2-3.4) K/uL [place] # (Auto) (0.11-0.59) K/uL Eos # (Auto) (0-0.5) K/uL Baso # (Auto) (0-0.2) K/uL Tear Drop Cells Ovalocytes PT (9.0-12.0) Seconds INR (0.9-1.1) APTT (21.0-31.0) Seconds PTT Ratio Sodium (136-145) mmol/L Potassium (3.5-5.1) mmol/L Chloride (98-107) mmol/L Carbon Dioxide (21-32) mmol/L Anion Gap (3-11) BUN (7-18) mg/dl Creatinine (0.6-1.4) mg/dl Est Cr Clr Drug Dosing ml/min Est GFR ( Amer) Est GFR (Non-Af Amer) BUN/Creatinine Ratio (10-20) Glucose (70-99) mg/dl POC Glucose (70-99) mg/dl Estimat Average Glucose 229 mg/dl Hemoglobin A1c 9.6 H (4.5-5.6) % Osmolality 319 H (280-300) mOsm/kg Calcium (8.5-10.1) mg/dl Magnesium Cancelled (1.8-2.4) mg/dl Total Bilirubin (0.2-1) mg/dl AST (15-37) U/L ALT (12-78) U/L Alkaline Phosphatase (45-117) U/L Troponin I Cancelled (0-0.045) ng/ml Total Protein (6.4-8.2) gm/dl Albumin (3.4-5.0) gm/dl Globulin (2.5-4.0) gm/dl Albumin/Globulin Ratio (0.9-2) Lipase Cancelled (73-393) U/L Beta-Hydroxybutyric Acd (0.2-2.81) mg/dl TSH Cancelled (0.300-4.500) uIu/ml Urine Color Urine Appearance (Clear) Urine pH (4.5-7.5) Ur Specific [place] (1.000-1.030) Urine Protein (Negative) Urine Glucose (UA) (Negative) Urine Ketones (Negative) Urine Blood (Negative) Urine Nitrite (Negative) Urine Bilirubin (Negative) Urine Urobilinogen (Negative) Ur Leukocyte Esterase (Negative) 08/09/19 08/09/19 08/09/19 Range/Units 19:05 19:05 19:05 WBC 3.87 L (4.8-10.8) K/uL RBC 4.33 L (4.7-6.1) M/uL Hgb 11.9 L (14.0-18.0) g/dL Hct 36.6 L (42-52) % MCV 84.5 (80-100) fL MCH 27.5 (25-34) pg MCHC 32.5 (32-36) g/dL RDW Std Deviation 53.8 H (36.4-46.3) fL RDW Coeff of Gerardo 17.3 H (11.5-14.5) % Plt Count 73 L (130-400) K/uL MPV 10.0 (7.4-10.4) fL Immature Gran % (Auto) 0.3 % Neut % (Auto) 71.3 % Lymph % (Auto) 17.6 % [place] % (Auto) 8.0 % Eos % (Auto) 2.8 % Baso % (Auto) 0.0 % Immature Gran # (Auto) 0.01 (0.00-0.02) K/uL Neut # (Auto) 2.76 (1.4-6.5) K/uL Lymph # (Auto) 0.68 L (1.2-3.4) K/uL [place] # (Auto) 0.31 (0.11-0.59) K/uL Eos # (Auto) 0.11 (0-0.5) K/uL Baso # (Auto) 0.00 (0-0.2) K/uL Tear Drop Cells Ovalocytes PT 19.8 H (9.0-12.0) Seconds INR 2.0 H (0.9-1.1) APTT 31.0 (21.0-31.0) Seconds PTT Ratio 1.1 Sodium 129 L (136-145) mmol/L Potassium 4.0 (3.5-5.1) mmol/L Chloride 96 L (98-107) mmol/L Carbon Dioxide 24 (21-32) mmol/L Anion Gap 9.0 (3-11) BUN 26 H (7-18) mg/dl Creatinine 1.74 H (0.6-1.4) mg/dl Est Cr Clr Drug Dosing 31.4 ml/min Est GFR ( Amer) 43.2 Est GFR (Non-Af Amer) 37.3 BUN/Creatinine Ratio 14.8 (10-20) Glucose 618 H* (70-99) mg/dl POC Glucose (70-99) mg/dl Estimat Average Glucose mg/dl Hemoglobin A1c (4.5-5.6) % Osmolality (280-300) mOsm/kg Calcium 10.0 (8.5-10.1) mg/dl Magnesium 1.7 L (1.8-2.4) mg/dl Total Bilirubin 0.5 (0.2-1) mg/dl AST 42 H (15-37) U/L ALT 41 (12-78) U/L Alkaline Phosphatase 169 H (45-117) U/L Troponin I < 0.015 (0-0.045) ng/ml Total Protein 8.6 H (6.4-8.2) gm/dl Albumin 3.8 (3.4-5.0) gm/dl Globulin 4.8 H (2.5-4.0) gm/dl Albumin/Globulin Ratio 0.8 L (0.9-2) Lipase 541 H (73-393) U/L Beta-Hydroxybutyric Acd 1.28 (0.2-2.81) mg/dl TSH 12.800 H (0.300-4.500) uIu/ml Urine Color Urine Appearance (Clear) Urine pH (4.5-7.5) Ur Specific [place] (1.000-1.030) Urine Protein (Negative) Urine Glucose (UA) (Negative) Urine Ketones (Negative) Urine Blood (Negative) Urine Nitrite (Negative) Urine Bilirubin (Negative) Urine Urobilinogen (Negative) Ur Leukocyte Esterase (Negative) 08/09/19 Range/Units 18:37 WBC (4.8-10.8) K/uL RBC (4.7-6.1) M/uL Hgb (14.0-18.0) g/dL Hct (42-52) % MCV (80-100) fL MCH (25-34) pg MCHC (32-36) g/dL RDW Std Deviation (36.4-46.3) fL RDW Coeff of Gerardo (11.5-14.5) % Plt Count (130-400) K/uL MPV (7.4-10.4) fL Immature Gran % (Auto) % Neut % (Auto) % Lymph % (Auto) % [place] % (Auto) % Eos % (Auto) % Baso % (Auto) % Immature Gran # (Auto) (0.00-0.02) K/uL Neut # (Auto) (1.4-6.5) K/uL Lymph # (Auto) (1.2-3.4) K/uL [place] # (Auto) (0.11-0.59) K/uL Eos # (Auto) (0-0.5) K/uL Baso # (Auto) (0-0.2) K/uL Tear Drop Cells Ovalocytes PT (9.0-12.0) Seconds INR (0.9-1.1) APTT (21.0-31.0) Seconds PTT Ratio Sodium (136-145) mmol/L Potassium (3.5-5.1) mmol/L Chloride (98-107) mmol/L Carbon Dioxide (21-32) mmol/L Anion Gap (3-11) BUN (7-18) mg/dl Creatinine (0.6-1.4) mg/dl Est Cr Clr Drug Dosing ml/min Est GFR ( Amer) Est GFR (Non-Af Amer) BUN/Creatinine Ratio (10-20) Glucose (70-99) mg/dl POC Glucose 585 H* (70-99) mg/dl Estimat Average Glucose mg/dl Hemoglobin A1c (4.5-5.6) % Osmolality (280-300) mOsm/kg Calcium (8.5-10.1) mg/dl Magnesium (1.8-2.4) mg/dl Total Bilirubin (0.2-1) mg/dl AST (15-37) U/L ALT (12-78) U/L Alkaline Phosphatase (45-117) U/L Troponin I (0-0.045) ng/ml Total Protein (6.4-8.2) gm/dl Albumin (3.4-5.0) gm/dl Globulin (2.5-4.0) gm/dl Albumin/Globulin Ratio (0.9-2) Lipase (73-393) U/L Beta-Hydroxybutyric Acd (0.2-2.81) mg/dl TSH (0.300-4.500) uIu/ml Urine Color Urine Appearance (Clear) Urine pH (4.5-7.5) Ur Specific [place] (1.000-1.030) Urine Protein (Negative) Urine Glucose (UA) (Negative) Urine Ketones (Negative) Urine Blood (Negative) Urine Nitrite (Negative) Urine Bilirubin (Negative) Urine Urobilinogen (Negative) Ur Leukocyte Esterase (Negative) Medications Administered Current Inpatient Medications Acetaminophen (Tylenol) 325 mg PO Q6H PRN PRN Reason: Pain or Fever Stop: 09/09/19 00:52 Amlodipine Besylate (Norvasc) 5 mg PO HS JONEL Stop: 09/09/19 00:52 Last Admin: 08/10/19 01:32 Dose: 5 mg Documented by: Aspirin (Ecotrin Ectab) 81 mg PO QPM JONEL Stop: 09/09/19 00:52 Last Admin: 08/10/19 01:30 Dose: 81 mg Documented by: Atorvastatin Calcium (Lipitor) 40 mg PO QPM JONEL Stop: 09/09/19 20:59 Dextrose (Dextrose 50%) 25 - 50 ml IV UD PRN; Protocol PRN Reason: Hypoglycemia Protocol Stop: 09/08/19 23:29 Glucagon (Glucagen) 1 mg SQ UD PRN; Protocol PRN Reason: Hypoglycemia Protocol Stop: 09/08/19 23:29 Glucose (Glucose 40%) 15 - 30 gm PO UD PRN; Protocol PRN Reason: Hypoglycemia Protocol Stop: 09/08/19 23:29 Glucose (Dex4 Glucose) 4 - 8 tabs PO UD PRN; Protocol PRN Reason: Hypoglycemia Protocol Stop: 09/08/19 23:29 Promethazine HCl 12.5 mg/ (Sodium Chloride) 50.5 mls @ 202 mls/hr IV Q6H PRN PRN Reason: Nausea And Vomiting Stop: 09/09/19 00:52 Potassium Chloride/Sodium Chloride (Normal Saline W/20 Meq Kcl) 20 meq in 1,000 mls @ 60 mls/hr IV .[id number] ONE Stop: 08/10/19 17:53 Last Admin: 08/10/19 01:34 Dose: 60 mls/hr Documented by: Insulin Aspart (Novolog Flexpen) 0 units SC ACHS JONEL Stop: 09/09/19 05:59 Last Admin: 08/10/19 06:28 Dose: Not Given Documented by: Insulin Glargine (Lantus Solostar Pen) 25 units SC BID [facility] Stop: 09/09/19 07:59 Last Admin: 08/10/19 08:27 Dose: 25 units Documented by: Levothyroxine Sodium (Synthroid) 100 mcg PO DAILYBB [facility] Stop: 09/09/19 06:29 Last Admin: 08/10/19 06:11 Dose: 100 mcg Documented by: Lorazepam (Ativan) 0.25 mg PO HS PRN PRN Reason: Insomnia Stop: 09/09/19 00:52 Metoprolol Succinate (Toprol Xl) 25 mg PO BID [facility] Stop: 09/09/19 08:59 Last Admin: 08/10/19 08:27 Dose: 25 mg Documented by: Miscellaneous (Carbohydrates For Hypoglycemia) 15 - 30 gm PO UD PRN PRN Reason: Hypoglycemia Treatment Stop: 09/08/19 23:29 Oxycodone HCl (Roxicodone Immediate Rel) 5 mg PO Q4H PRN PRN Reason: Pain Stop: 08/24/19 00:52 Pantoprazole Sodium (Protonix) 40 mg PO QPM [facility] Stop: 09/09/19 20:59 Quetiapine Fumarate (Seroquel) 25 mg PO HS [facility] Stop: 09/09/19 20:59 Sertraline HCl (Zoloft) 200 mg PO QAM [facility] Stop: 09/09/19 08:59 Last Admin: 08/10/19 08:27 Dose: 200 mg Documented by: Trazodone HCl (Desyrel) 50 mg PO HS [facility] Stop: 09/09/19 20:59
[2019-08-10] MEDS ORDERED: INSULIN HUMAN REGULAR PER UNIT 5 UNITS in SYRINGE 4.95 ML IV ONE (12:30)
[2019-08-10] MEDS ORDERED: PHARMACY GLYCEMIC MGMT CONSULT PRN ×2 (12:30→13:03)
--- NOTE | 2019-08-10 14:29 | Pharmacy Report ---
Glycemic Control Consultation - Date of Service August 10, 2019 - Scope Scope: Glycemic Pharmacist consulted for glycemic control and to write orders per [facility] inpatient glycemic control protocol. - Objective Weight: 70.9 kg Accuchecks BSG (last 24hrs): 08/09/19 08/09/19 08/09/19 18:37 19:05 19:53 Glucose 618 H* POC Glucose 585 H* > 600 H* 08/09/19 08/09/19 08/09/19 19:55 21:04 21:52 Glucose POC Glucose > 600 H* 565 H* 454 H* 08/09/19 08/09/19 08/10/19 23:22 23:24 00:16 Glucose POC Glucose 373 H* 344 H* 333 H* 08/10/19 08/10/19 08/10/19 01:02 01:03 02:09 Glucose POC Glucose 306 H* 286 H 259 H 08/10/19 08/10/19 08/10/19 03:10 05:09 05:26 Glucose 151 H POC Glucose 223 H 163 H 08/10/19 08/10/19 08/10/19 06:08 07:25 11:43 Glucose POC Glucose 173 H 183 H 352 H* 08/10/19 11:45 Glucose POC Glucose 352 H* Laboratory Data (last 24hrs): 08/09/19 08/09/19 08/10/19 19:05 19:05 05:26 Potassium 4.0 3.4 L Carbon Dioxide 24 26 Anion Gap 9.0 7.0 Creatinine 1.74 H 1.02 Est Cr Clr Drug Dosing 31.4 53.6 Osmolality 319 H Beta-Hydroxybutyric Acd 1.28 HbA1c: Hemoglobin A1c 9.6 % (4.5-5.6) H 08/09/19 19:05 - Recent Pertinent Medications Outpatient Anti-diabetic Regimen: * metformin 1,000 BIDM, glimeperide 2 mg QAM * A1c = 9.6 % 08/10/2019 The patient is currently receiving: * Basal insulin: Lantus 25 units every 12 hours * Correctional Insulin: Novolog Correction per scale ACHS Goal Range: Low 140 mg/dL - High 180 mg/dL Correction Factor: 25 mg/dL/unit * Prandial insulin: Per carb ratio of 1 unit per 15 grams CHO consumed * Oral Agents: Risk Factors for Insulin Resistance: * Steroids: * Infection: * Pressors: * IVF: * Recent Surgery * Diet: T2DM, HH * Mechanical Ventilation: - Assessment & Plan Assessment & Plan: ASSESSMENT: * Patient admitted with persistent hyperglycemia, per provider note patient does not regularly check BSGs at home * BSG on admission 618, started on insulin infusion and given 20 units of lantus, on insulin infusion overnight which was then transitioned to lantus 25 units BID and Novolog CF: 25, CR 15. This is a basal weighted regimen * Lunch BSG back up to 352, patient received 5 units IV dose of regular insulin, will tighten CR to 10 (between weight based stress of 2 and 3) continue CF of 25 (weight based stress of 3). * Insulin drip was previously running @ 2.7 units/hr (extrapolated to 24 hours would be ~64 units), Will move lantus dose to dinner with scale PLAN FOR INPATIENT GLYCEMIC CONTROL: * Holding outpatient oral diabetes medications * Basal insulin * Lantus 25 units x 1 this AM * Scale at dinner * 15 units BSG <140 mg/dL * 20 units BSG 140-180 mg/dL * 25 units BSG >180 mg/dL * Bolus insulin * NovoLog per scale ACHS or Q6hrs while NPO * Goal Range: Low 110 mg/dL - High 140 mg/dL * Correction Factor: 25 mg/dL/unit * Nutritional / Prandial insulin per carb ratio of 1 unit per 10 grams CHO consumed * Please note that the plan above was derived based on current level of insulin resistance and hospital stress. These recommendations are appropriate for inpatient admission only. Plan of care upon discharge will need to be reassessed to avoid potential outpatient hypo/hyperglycemia. Thank you.
[2019-08-10] MEDS: ATORVASTATIN 40 MG TAB PO SCH (20:33)
[2019-08-10] MEDS: METOPROLOL SUCC 25MG EXT REL TAB PO SCH (20:33)
[2019-08-10] MEDS: PANTOprazole 40 MG TAB PO SCH (20:33)
[2019-08-10] MEDS: TRAZODONE HCL 50 MG TAB PO SCH (20:33)
[2019-08-10] MEDS: QUETIAPINE FUMARATE 25 MG TABLET PO SCH (20:33)
[2019-08-11] MEDS: LEVOTHYROXINE SODIUM 100 MCG TABLET PO SCH (05:53)
[2019-08-11] MEDS: METOPROLOL SUCC 25MG EXT REL TAB PO SCH ×2 (08:47→20:03)
[2019-08-11] MEDS: SERTRALINE HCL 100 MG TABLET PO SCH (08:47)
[2019-08-11] MEDS: INSULIN ASPART 100 UNITS/ML 3 ML PEN SC SCH ×4 (08:49→20:02)
[2019-08-11] MEDS ORDERED: INSULIN GLARGINE SOLOSTAR 100 UNITS/ML 3 ML PEN SC ONE (09:00)
--- NOTE | 2019-08-11 14:36 | Pharmacy Report ---
Glycemic Control Progress Note - Date of Service August 11, 2019 - Scope Glycemic Pharmacist consulted for glycemic control to write orders per [facility] inpatient glycemic control protocol. - Objective Accuchecks BSG(last 24 hours):: 08/10/19 08/10/19 08/11/19 17:08 20:15 07:36 POC Glucose 194 H 264 H 244 H 08/11/19 08/11/19 08/11/19 11:33 11:35 11:37 POC Glucose 304 H* 282 H 270 H HbA1c:: Hemoglobin A1c 9.6 % (4.5-5.6) H 08/09/19 19:05 - Recent Pertinent Medications The patient is currently receiving: * Basal insulin: Lantus 25 units every 12 hours * Correctional Insulin: Novolog Correction per scale ACHS Goal Range: Low 110 mg/dL - High 140 mg/dL Correction Factor: 25 mg/dL/unit * Prandial insulin: Per carb ratio of 1 unit per 10 grams CHO consumed - Outpatient Anti-Diabetic Meds metformin 1000 mg PO BID plus glimeperide 2 mg PO daily - Assessment & Plan ASSESSMENT: * See progress note from 08/10/2019 for more background info, in short: * Pt receiving SQ basal bolus insulin regimen for hyperglycemia secondary to baseline DM (outpatient regimen on hold). * Patient is currently receiving an average of 74 units of insulin per day * 50 units of basal insulin * 24 units of prandial/correctional insulin * BSGs ranging 173 - 352 mg/dl over the past 24hrs * Changes needed to insulin regimen: * AM Fasting BSG = 244 mg/dl. This is above goal range for patient based on inpatient targets and co-morbidities. Patient's regimen was extremely basal heavy yesterday. Will go back to weight-based stress of 3 Lantus dosing. While fasting is higher today than yesterday, I believe that the Lantus was boosted up to steady state yesterday. Concerned that 50 units/day is too much and go back to weight-based dosing until proven otherwise. * Post-prandial BSGs are elevated. Tighten. This will be tighter than weight- based stress of 3 but it is evident that weight-based stress of 3 dosing was not working. Pushing towards a more 50/50 basal/bolus split. * Total daily dose = ? units. Will become clearer as patient's blood sugars normalize. * Additional notes / comments: Continue to hold oral medications. PLAN FOR INPATIENT GLYCEMIC CONTROL: * Continuing Lantus 20 units SQ BID * TIGHTENING correction factor to 20 mg/dl/unit * TIGHTENING carb ratio to 1 unit per 7 grams CHO consumed * Continuing goal range to Low 110 mg/dL - High 140 mg/dL RECOMMENDATIONS FOR DISCHARGE: * TBD * Please note that the plan above was derived based on current level of insulin resistance and hospital stress. These recommendations are appropriate for inpatient admission only. Plan of care upon discharge will need to be reassessed to avoid potential outpatient hypo/hyperglycemia. Thank you.
--- NOTE | 2019-08-11 18:36 | Hospitalist Progress Note ---
Date of Service August 11, 2019 Assessment & Plan (1) Hyperglycemic crisis in diabetes mellitus: hx of poorly controlled DM on oral meds admitted with hyperglycemia required to be on IV insulin gtt briefly appreciate input from perinatal educator and pharmacy glycemic management Acute renal failure on CKD stage 3 possible due to poorly controlled DM with hyperglycemia leading to intravascular vol depletion cr was 1.7 on admission renal function improved to baseline with iv hydration cont to hold home diuretics Chronic diastolic heart failure (EF 60%, TTE 2019), patient on the dry side on admission diuretics on hold for above CAD status post CABG no complain of chest pain , no SOB cont out pt meds A. fib on Coumadin, rate controlled, INR therapeutic PT/OT eval DVT prophylaxis. Coumadin INR goal between 2 and 3 Full code. contact # pt;s daughters Ms. Sheila Luna, contact #[phone]. Ms. Anne-Marie Zavala, contact #[phone]. disposition : plan to dc home next 1-2 days Admission and Anticipated Discharge Date Admission Date: August 09, 2019 Subjective pt reports of feeling fine denies of any discomfort , no nausea or vomiting no fever or chills comfortable with insulin regimen and insulin administration Review of Systems Review of Systems: All systems reviewed & are unremarkable except as noted in HPI & below Physical Exam Constitutional: WD/WN, vitals as above Eyes: PERRL, conjunctivae normal, anicteric sclerae ENMT: external ear and nose normal, oropharynx normal Neck: trachea midline, no thyromegaly Respiratory: normal respiratory effort, lungs clear to auscultation Cardiovascular: RRR, no murmur, no edema Gastrointestinal (Abdomen): normal bowel sounds, soft, nontender, no hepatosplenomegaly Musculoskeletal: no cyanosis or clubbing, extremities motor strength 5/5 Skin: no rashes, warm and dry Neurologic: PERRL, EOMI, accommodation nl, no face palsy, no dysarthria Psychiatric: A+Ox3, euthymic affect Results & Data ([facility]) Vital Signs (Past 12 Hours) Vital Signs Temp Pulse Resp BP Pulse Ox 08/11/19 15:21 36.8 C 66 18 139/84 97 08/11/19 07:13 36.7 C 68 16 150/75 H 96
[2019-08-11] MEDS: INSULIN GLARGINE SOLOSTAR 100 UNITS/ML 3 ML PEN SC SCH (20:02)
[2019-08-11] MEDS: QUETIAPINE FUMARATE 25 MG TABLET PO SCH (20:03)
[2019-08-11] MEDS: AMLODIPINE BESYLATE 5 MG TAB PO SCH (20:03)
[2019-08-11] MEDS: ATORVASTATIN 40 MG TAB PO SCH (20:04)
[2019-08-11] MEDS: ASPIRIN 81 MG ECTAB PO SCH (20:04)
[2019-08-11] MEDS: PANTOprazole 40 MG TAB PO SCH (20:04)
[2019-08-11] MEDS: TRAZODONE HCL 50 MG TAB PO SCH (20:09)
[2019-08-12] MEDS ORDERED: INSULIN ASPART 100 UNITS/ML 3 ML PEN SC SCH (02:00)
[2019-08-12] MEDS: LEVOTHYROXINE SODIUM 100 MCG TABLET PO SCH (06:15)
[2019-08-12] MEDS: SERTRALINE HCL 100 MG TABLET PO SCH (09:09)
[2019-08-12] MEDS: METOPROLOL SUCC 25MG EXT REL TAB PO SCH ×2 (09:10→20:24)
[2019-08-12] MEDS: INSULIN GLARGINE SOLOSTAR 100 UNITS/ML 3 ML PEN SC SCH ×2 (09:10→20:26)
[2019-08-12] MEDS: INSULIN ASPART 100 UNITS/ML 3 ML PEN SC SCH ×4 (09:12→20:27)
--- NOTE | 2019-08-12 11:55 | Pharmacy Report ---
Pharmacy Glycemic Short Note 2 - Date of Service August 12, 2019 - Glycemic Short BSG Results (Last 24 hours): 08/11/19 08/11/19 08/11/19 16:39 19:54 19:55 POC Glucose 237 H 368 H* 347 H* 08/12/19 08/12/19 08/12/19 01:57 07:39 11:36 POC Glucose 143 H 156 H 324 H* 08/12/19 11:38 POC Glucose 343 H* OUTPATIENT ANTIDIABETIC REGIMEN: * Metformin 1 gm BID * Glimepiride 2 mg qAM * A1c 9.6% on 08/07/19 ASSESSMENT: * Patient is currently receiving an average of 88 units of insulin per day * 40 units of basal insulin * 48 units of prandial/correctional insulin * BSGs ranging 143-368 over the past 24hrs * Risk factors for insulin resistance are constant over the past 24hrs * Fasting significantly improved from 244 -> 156; no change to basal dose unless BSGs continue to remain elevated throughout today * Postprandial BSGs elevated so will tighten CR further. Of note, lunch BSG remains elevated due to Novolog administration after 0900 this AM and tightened CR was not used this AM. PLAN FOR INPATIENT GLYCEMIC CONTROL: * Hold outpatient oral diabetes medications * Basal insulin - will provide a scale for tonight's dose in case BSGs still running high throughout today * Lantus BID per the following scale: * 20 units for BSG < 180 * 25 units for BSG 180 or above * Bolus insulin - tighten CR * NovoLog per scale ACHS or Q6hrs while NPO * Goal Range: Low 110 mg/dL - High 140 mg/dL * Correction Factor: 20 mg/dL/unit * Nutritional / Prandial insulin per carb ratio of 1 unit per 6 grams CHO consumed
--- NOTE | 2019-08-12 14:38 | Hospitalist Progress Note ---
Date of Service August 12, 2019 Assessment & Plan (1) Hyperglycemic crisis in diabetes mellitus: hx of poorly controlled DM on oral meds admitted with hyperglycemia required to be on IV insulin gtt briefly appreciate input from elementary educator and pharmacy glycemic management pt will be discharged home with basal lantus and Novolog BSG > 300 this evening pharmacy aware , SSI , carb ratio adjusted to cover post meal hyperglycemia plan is to discharge home tomorrow if BSG remains controlled Acute renal failure on CKD stage 3 possible due to poorly controlled DM with hyperglycemia leading to intravascular vol depletion cr was 1.7 on admission renal function improved to baseline with iv hydration home diuretics resumed Chronic diastolic heart failure (EF 60%, TTE 2019), renal function at baseline home diuretics -ARB resumed CAD status post CABG no complain of chest pain , no SOB cont out pt meds A. fib on Coumadin, rate controlled, INR therapeutic PT/OT eval DVT prophylaxis. Coumadin INR goal between 2 and 3 Full code. contact # pt;s daughters Ms. Sheila Luna, contact #[phone]-mtegjcs at bedside Ms. Anne-Marie Zavala, contact #[phone]. disposition : plan is to discharge home tomorrow Admission and Anticipated Discharge Date Admission Date: August 09, 2019 Anticipated date of discharge: 08/13/19 Subjective pt reports of feeling fine no complain of N/V , tolerating diet able to self administer insulin offers no complain , comfortable daughter visiting insulin regimen explained to Daughter Review of Systems Review of Systems: As per HPI, all 10 systems reviewed, all other ROS negative Physical Exam Constitutional: WD/WN, vitals as above Eyes: PERRL, conjunctivae normal, anicteric sclerae ENMT: external ear and nose normal, oropharynx normal Neck: trachea midline, no thyromegaly Respiratory: normal respiratory effort, lungs clear to auscultation Cardiovascular: RRR, no murmur, no edema Gastrointestinal (Abdomen): normal bowel sounds, soft, nontender, no hepatosplenomegaly Musculoskeletal: no cyanosis or clubbing, extremities motor strength 5/5 Skin: no rashes, warm and dry Neurologic: PERRL, EOMI, accommodation nl, no face palsy, no dysarthria Psychiatric: A+Ox3, euthymic affect Results & Data ([facility]) Vital Signs (Past 12 Hours) Vital Signs Temp Pulse Resp BP Pulse Ox 08/12/19 07:20 36.6 C 73 16 128/81 97
[2019-08-12 15:08] LABS: INR 1.4 (0.9-1.1); Prothrombin Time 14.2 Seconds (9.0-12.0)
[2019-08-12] MEDS ORDERED: WARFARIN SOD 5 MG TAB PO SCH (16:00)
[2019-08-12] MEDS: ASPIRIN 81 MG ECTAB PO SCH (20:24)
[2019-08-12] MEDS: ATORVASTATIN 40 MG TAB PO SCH (20:24)
[2019-08-12] MEDS: QUETIAPINE FUMARATE 25 MG TABLET PO SCH (20:25)
[2019-08-12] MEDS: POTASSIUM CHLORIDE 20 MEQ TABCR PO SCH (20:25)
[2019-08-12] MEDS: AMLODIPINE BESYLATE 5 MG TAB PO SCH (20:25)
[2019-08-12] MEDS: PANTOprazole 40 MG TAB PO SCH (20:26)
[2019-08-12] MEDS: TRAZODONE HCL 50 MG TAB PO SCH (20:30)
[2019-08-12] MEDS ORDERED: BUMETANIDE 1 MG TAB PO SCH (21:00)
[2019-08-13] MEDS: LEVOTHYROXINE SODIUM 100 MCG TABLET PO SCH (06:09)
[2019-08-13 07:06] LABS: INR 1.4 (0.9-1.1); Prothrombin Time 14.2 Seconds (9.0-12.0)
[2019-08-13 07:36] LABS: Calcium 9.4 mg/dl (8.5-10.1); Est GFR (African American) 63.2; Est GFR (Non-African American) 54.5; Potassium 3.6 mmol/L (3.5-5.1)
[2019-08-13] MEDS: METOPROLOL SUCC 25MG EXT REL TAB PO SCH (07:37)
[2019-08-13] MEDS: SERTRALINE HCL 100 MG TABLET PO SCH (07:38)
[2019-08-13] MEDS: POTASSIUM CHLORIDE 20 MEQ TABCR PO SCH (07:38)
[2019-08-13] MEDS: INSULIN ASPART 100 UNITS/ML 3 ML PEN SC SCH ×2 (08:32→12:51)
[2019-08-13] MEDS: INSULIN GLARGINE SOLOSTAR 100 UNITS/ML 3 ML PEN SC SCH (08:33)
[2019-08-13] MEDS ORDERED: LOSARTAN POTASSIUM 50 MG TAB PO SCH (09:00)
[2019-08-13] MEDS ORDERED: INSULIN GLARGINE SOLOSTAR 100 UNITS/ML 3 ML PEN SC ONE (10:30)
--- NOTE | 2019-08-13 10:51 | Pharmacy Report ---
Pharmacy Glycemic Short Note 2 - Date of Service August 13, 2019 - Glycemic Short BSG Results (Last 24 hours): 08/12/19 08/12/19 08/12/19 11:36 11:38 16:56 Glucose POC Glucose 324 H* 343 H* 145 H 08/12/19 08/12/19 08/13/19 20:14 23:36 06:27 Glucose 180 H POC Glucose 198 H 180 H 08/13/19 08:04 Glucose POC Glucose 197 H OUTPATIENT ANTIDIABETIC REGIMEN: * Metformin 1 gm BID * Glimepiride 2 mg qAM * A1c 9.6% on 08/07/19 ASSESSMENT: 08/12 * Patient is currently receiving an average of 89 units of insulin per day * 45 units of basal insulin * 44 units of prandial/correctional insulin * BSGs ranging 145-198 over the past 24hrs * Risk factors for insulin resistance are CONSTANT over the past 24hrs * Patient will be discharged today (see recs below). Will provide additional Lantus this AM so that qHS dose can start on 08/13 08/11 * Patient is currently receiving an average of 88 units of insulin per day * 40 units of basal insulin * 48 units of prandial/correctional insulin * BSGs ranging 143-368 over the past 24hrs * Risk factors for insulin resistance are constant over the past 24hrs * Fasting significantly improved from 244 -> 156; no change to basal dose unless BSGs continue to remain elevated throughout today * Postprandial BSGs elevated so will tighten CR further. Of note, lunch BSG remains elevated due to Novolog administration after 0900 this AM and tighte aramis CR was not used this AM. PLAN FOR INPATIENT GLYCEMIC CONTROL: * Hold outpatient oral diabetes medications * Basal insulin * Lantus 40 units total today, then 40 units qHS starting 08/13 * Bolus insulin - no change * NovoLog per scale ACHS or Q6hrs while NPO * Goal Range: Low 110 mg/dL - High 140 mg/dL * Correction Factor: 20 mg/dL/unit * Nutritional / Prandial insulin per carb ratio of 1 unit per 6 grams CHO consumed Discharge Recommendations: * Basaglar 40 units qHS (start 08/13) * Continue metformin and glimepiride * Recommend in discharge paperwork to ADD and/or switch glimepiride to Jardiance at PCP's office using mail order for cost savings. Patient was going to start this in the past but did not d/t cost.
--- NOTE | 2019-08-13 14:02 | Hospitalist Progress Note ---
Date of Service August 13, 2019 Assessment & Plan (1) Hyperglycemic crisis in diabetes mellitus: hx of poorly controlled DM on oral meds admitted with hyperglycemia required to be on IV insulin gtt briefly appreciate input from stove tender and pharmacy glycemic management Patient Is discharged with Basaglar insulin 40 units at bedtime Continue metformin and glimepiride Blood sugar check twice daily: Before breakfast, before dinner Follow up appointment scheduled with diabetic/MTM clinic at [facility] Patient will benefit with switching glimepiride to Jardiance for better glycemic management given history of CHF -Should be done by diabetic clinic/Patient's family physician Prescriptions -Sent to [facility] pharmacy at [facility] : for bedside Rx deliver 1.Insulin Basaglar kwickpen 2. One Touch Verio testing strips to check blood sugar twice daily, 3. BD Rosemary insulin pen needles 5/32 inch ( 4 mm )x 32 G All medications And supplies were delivered to patient in his hospital room before discharge Acute renal failure on CKD stage 3 possible due to poorly controlled DM with hyperglycemia leading to intravascular vol depletion cr was 1.7 on admission renal function improved to baseline with iv hydration home diuretics resumed Chronic diastolic heart failure (EF 60%, TTE 2018), renal function at baseline home diuretics -ARB resumed CAD status post CABG no complain of chest pain , no SOB cont out pt meds A. fib on Coumadin, rate controlled, Coumadin for stroke prophylaxis PT/OT eval DVT prophylaxis. Coumadin Full code. disposition : Stable to be discharged home today Hospital follow-up appointment arranged with family physician Dr. Bernard on 08/20/2019 Diabetic clinic follow-up at [facility] on 08/20/2019 Admission and Anticipated Discharge Date Admission Date: August 09, 2019 Anticipated date of discharge: 08/13/19 Subjective offers no complain feels fine comfortable with self injection of Lantus stable to be discharged home today Review of Systems Review of Systems: As per HPI, all 10 systems reviewed, all other ROS negative Physical Exam Constitutional: WD/WN, vitals as above Eyes: PERRL, conjunctivae normal, anicteric sclerae ENMT: external ear and nose normal, oropharynx normal Neck: trachea midline, no thyromegaly Respiratory: normal respiratory effort, lungs clear to auscultation Cardiovascular: RRR, no murmur, no edema Gastrointestinal (Abdomen): normal bowel sounds, soft, nontender, no hepatosplenomegaly Musculoskeletal: no cyanosis or clubbing, extremities motor strength 5/5 Skin: no rashes, warm and dry Neurologic: PERRL, EOMI, accommodation nl, no face palsy, no dysarthria Psychiatric: A+Ox3, euthymic affect Results & Data ([facility]) Vital Signs (Past 12 Hours) Vital Signs Temp Pulse Pulse Resp BP Pulse Ox 08/13/19 13:33 36.9 C 96 H 80 18 118/67 96 08/13/19 07:48 36.9 C 80 18 118/67 96
--- NOTE | 2019-08-14 07:46 | Discharge Summary ---
Date of Service August 14, 2019 Admission HPI Per Admitting Provider History obtained from patient, family, and records. Medical history significant for chronic diastolic heart failure (EF 60%, TTE 2019), CAD status post CABG, A. fib on Coumadin, hypertension, hyperlipidemia, DM 2 on oral medications, history fatty liver/hypersplenism/chronic pancytopenia as per records (baseline hemoglobin 10-11), hypothyroidism. Recent confinement 2013 for decompensated heart failure. Last week, blood sugar check at home noted to be 280s which is unusual for patient. As per daughter, patient has not been very good watching his diabetic diet at home - ordering home delivery and food items over [employer]. Patient admits to symptoms of polyuria. Thinks he is retaining fluid with abdominal distention without pain despite increased diuretic Rx. Patient seen at [facility] wet end operator office today. Serum glucose of 500s noted from blood work drawn at office. Patient daughter alerted of abnormal blood work and instructed to bring patient to the ER. Patient denies chest pain, S OB, fever, chills. At the ER, initial blood sugar noted to be 600s. IV insulin and IVF administered at the ER. 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 Principal Diagnosis Type 2 diabetes not controlled Discharge Exam Constitutional WD/WN, vitals as above Eyes PERRL, conjunctivae normal, anicteric sclerae ENMT external ear and nose normal, oropharynx normal Neck trachea midline, no thyromegaly Respiratory normal respiratory effort, lungs clear to auscultation Cardiovascular RRR, no murmur, no edema Gastrointestinal (Abdomen) normal bowel sounds, soft, nontender, no hepatosplenomegaly Musculoskeletal no cyanosis or clubbing, extremities motor strength 5/5 Skin no rashes, warm and dry Neurologic PERRL, EOMI, accommodation nl, no face palsy, no dysarthria Psychiatric A+Ox3, euthymic affect Discharge Data Allergies Allergy/AdvReac Type Severity Reaction Status Date / Time rivaroxaban AdvReac Intermediate VOMITING Verified 08/09/19 23:57 Consultations 08/09/19 22:04 ED Decision to Admit Stat 08/10/19 00:53 Consult Case Management - Discharge Planning Routine Ordered Studies 08/09/19 23:41 CT abd pelvis wo con Urgent Hospital Course (1) Hyperglycemic crisis in diabetes mellitus: hx of poorly controlled DM on oral meds admitted with hyperglycemia required to be on IV insulin gtt briefly appreciate input from cosmetology educator and pharmacy glycemic management Patient Is discharged with Basaglar insulin 40 units at bedtime Continue metformin and glimepiride Blood sugar check twice daily: Before breakfast, before dinner Follow up appointment scheduled with diabetic/MTM clinic at [facility] Patient will benefit with switching glimepiride to Jardiance for better glycemic management given history of CHF -Should be done by diabetic clinic/Patient's family physician Prescriptions -Sent to [facility] pharmacy at [facility] : for bedside Rx deliver 1.Insulin Basaglar kwickpen 2. One Touch Verio testing strips to check blood sugar twice daily, 3. BD Rosemary insulin pen needles 5/32 inch ( 4 mm )x 32 G All medications And supplies were delivered to patient in his hospital room before discharge Acute renal failure on CKD stage 3 possible due to poorly controlled DM with hyperglycemia leading to intravascular vol depletion cr was 1.7 on admission renal function improved to baseline with iv hydration home diuretics resumed Chronic diastolic heart failure (EF 60%, TTE 2019), renal function at baseline home diuretics -ARB resumed CAD status post CABG no complain of chest pain , no SOB cont out pt meds A. fib on Coumadin, rate controlled, Coumadin for stroke prophylaxis PT/OT eval DVT prophylaxis. Coumadin Full code. disposition : Stable to be discharged home today Hospital follow-up appointment arranged with family physician Dr. Bernard on 08/20/2019 Diabetic clinic follow-up at [facility] on 08/20/2019 Total Time Total Time Spent Total Time Spent (In Minutes): 40 mins Total Time Includes: Examination of the Patient, Discharge Planning and Medication Reconciliation Discharge Plan Discharge Items Patient Disposition: Home - Self-Care Reason For Visit: HYPERGLYCEMIC CRISIS Discharge Diagnosis: TYPE 2 DIABETES , NOT CONTROLLED Activity: Resume your previous activity Non-emergency contact: Primary Care Provider Call non-emergency contact if: you have any medication questions Follow-up/Referrals: Aj Bernard MD [Primary Care Provider] - 08/20/19 1:05 pm ( [facility] Diabetes Clinic appointment 08/20/19 at 2:10 at [facility]. Please bring any logs and your meter to appointment.) Diet: Carb Consistent or DM2 and Heart Healthy Addtl Attending Provider Instructions: CONTINUE METFORMIN AND GLIMEPIRIDE APPOINTMENT SCHEDULED WITH [facility]TM/DIABETIC CLINIC AT [facility] CLINIC WILL BENEFIT WITH SWITCHING GLIMEPIRIDE TO JARDIANCE -USE MAIL ORDER FOR COST SAVINGS -FOLLOW UP WITH DIABETIC CLINIC FOR RECOMMENDATION BLOOD SUGAR CHECK TWICE DAILY : BEFORE BREAKFAST AND BEFORE DINNER PLEASE KEEP LOG OF BLOOD SUGAR READING AND BRING WITH NEXT PHYSICIAN VISIT Pending Studies at Discharge: No Stand-Alone Forms: My [facility], Smoking Cessation Medications and DC Order Prescriptions: New Basaglar KwikPen U-100 Insulin 100 unit/mL (3 mL) insulin pen 40 units SQ DAILY 30 Days Qty: 12 RF: 0 (DME) OneTouch Verio Strip See Rx Instructions .ROUTE .MEDSUPPLY Qty: 100 RF: 0 (DME) pen needle, diabetic [BD Rosemary 2nd Gen Pen Needle] 32 gauge x 5/32" needle See Rx Instructions .ROUTE .MEDSUPPLY Qty: 30 RF: 3 trazodone 50 mg tablet 50 mg PO HS Qty: 30 RF: 0 lorazepam 0.5 mg tablet 0.5 mg PO HS PRN (Reason: Insomnia) Qty: 30 RF: 0 Continued warfarin [Jantoven] 5 mg tablet 5 mg PO UD RF: 0 amlodipine 5 mg tablet 5 mg PO HS RF: 0 aspirin [Aspir-81] 81 mg Tablet,Delayed Release (Dr/Ec) 81 mg PO QPM RF: 0 atorvastatin 40 mg tablet 40 mg PO QPM RF: 0 bumetanide 2 mg tablet 2 mg PO QPM RF: 0 metformin 500 mg tablet extended release 24 hr 1,000 mg PO BIDM RF: 0 glimepiride 2 mg tablet 2 mg PO QAM RF: 0 acetaminophen [Tylenol Extra Strength] 500 mg Tablet 1,000 mg PO TID PRN (Reason: Pain) RF: 0 potassium chloride [Klor-Con M20] 20 mEq tablet,ER particles/crystals 20 meq PO BID RF: 0 omeprazole 40 mg capsule,delayed release(DR/EC) 40 mg PO QPM RF: 0 levothyroxine 100 mcg tablet 100 mcg PO QAM RF: 0 melatonin 10 mg Capsule 10 mg PO HS RF: 0 metoprolol succinate 25 mg tablet extended release 24 hr 25 mg PO BID RF: 0 losartan 100 mg tablet 100 mg PO DAILY RF: 0 sertraline 100 mg tablet 200 mg PO DAILY 30 Days Qty: 60 RF: 0 quetiapine 25 mg tablet 25 mg PO HS 30 Days Qty: 30 RF: 0 Discharge Orders: Discharge Order (Routine); Ordered 08/13/19 Ordered By: Christianne Brenner/Other Patient Handouts: Log Blood Sugar, Diabetes Baker Second Complications, Blood Sugar Check, Diabetes Healthy Meals, Understanding Carbohydrates, Diabetes Inspect Feet, Diabetes Activity Tips, Diabetes Exams Tests, Diabetes Manage A1C Test, Diabetes Carbs Fats Protein, Diabetes Taking Meds, Diabetes Foot Care Program, Insulin Injection Steps Admission Data Admit Date/Time: 08/09/19 23:41 Attending Provider: Christianne Beard Admit Provider: Reza Hull Primary Care Provider: Aj Bernard Other Providers: Reza Hull ; [facility],Home Healthcare Other Interventions: Discharge Summary Assessment (RN) Last Done: 08/13/19 13:33 DC Date/Time DO NOT enter until pt leaves facility: 08/13/19 15:20
[2019-08-14] MEDS ORDERED: INSULIN GLARGINE SOLOSTAR 100 UNITS/ML 3 ML PEN SC SCH (21:00)
== END 2019-08-13 15:20 | disposition home health service (06) | DRG 638 ==
LOC: ED 18:09 → 2N 23:41 → SUATTDRO 23:41 → 2N 08-10 00:10 → 4W 08-11 00:34

== ENCOUNTER 2021-09-22 19:41 | Inpatient (IN) ==
--- NOTE | 2021-09-22 20:02 | Emergency Department Note ---
Impression & Plan Acute GI bleeding, Shortness of breath on exertion, Acute blood loss anemia, Elevated INR ED Provider Note Name: BROOK COOLEY Age: 76 Sex: M Arrives Via: Walk-In Informant: Patient, ED Provider: Cornelio Reid MD Chief Complaint: Shortness of breath Impression: As per impressions above Medical Decision Making: Pleasant 76-year-old gentleman with a history of A. fib on Coumadin amongst other medical comorbidities arrives for evaluation of worsening shortness of breath over the last few weeks. On examination patient is [place] and ill-appearing though not in a significant amount of distress while he is laying in bed. Exam is not consistent with acute CHF exacerbation it is more concerning for severe anemia. Type and screen was sent along with labs. Hemoglobin was 4. Rectal exam reveals heme positive stool but not bloody or black appearing. He was given IV vitamin K for his INR elevation in the setting of acute GI bleed with severe anemia. He was ordered 2 units of PRBC which was discussed with him and his and he gave consent written and verbally. He has furthermore given a dose of IV Protonix for gastric protection. He is not having any vomiting of blood or known esophageal varices. Patient is not having any chest pain and his initial troponin and EKG are okay at the moment. Patient's chest x-ray is unremarkable without evidence of CHF or pneumonia. Patient will need to be hospitalized for his severe anemia in the setting of GI bleed and on Coumadin. Prior Medical Record and Triage/Nursing Notes reviewed by Me Additional history obtained from chart Differentials:Infection, dehydration, metabolic abnormality, hypo/hyperglycemia, electrolyte disturbance, anemia, hypoxia, cardiac sources, intracerebral event, toxicologic, neurologic, as well as other pathologies. Vital Signs: reviewed and remarkable for mild hypotension on arrival, improves with sitting Interventions: protonix 80mg iv, 2 Unit PRBC, Vit K 5mg IV Labs:Reviewed and remarkable for severe anemia, elevated inr Imaging:X ray results are stated below per my interpretation: Chest: 1 view: No infiltrate, no effusion, normal cardiac border. EKG:Per My Interpretation: Indication weakness: Afib 63 bpm, qtc 478 with PVCs. No Ischemia. Compared to EKG 08/10/19, no significant changes. Cardiac/Tele Monitoring: Cardiac Monitoring: An Order was placed for continuous cardiac monitoring. The monitor shows a rate of 60 with a afib rhythm. Consults:Dr José Miguel Pepper hospitalist Plan: Disposition:Hospitalization. Condition: Fair History of Present Illness:68-year-old gentleman arrives for evaluation of shortness of breath. Patient notes that last 2 to 3 weeks he has been having worsening fatigue and exhaustion. Associated with shortness of breath. Worse with exertion better with rest. He denies any specific chest pain, leg swelling, weight gain, syncope, near syncope, headache, abdominal pain, nausea, vomiting, fevers, chills, cough, urinary/bowel symptoms, bleeding, bruising or other symptoms. His daughter does note that he had a bloody nose couple days ago after using his cpap. He has not been using his CPAP very often. Patient is on Coumadin for A. fib. He denies any bleeding other than the bloody nose the other day. He denies any black or bloody stools. He has had some diarrhea recently. Recall of his typical evening medications prior to arrival. Exertion makes worse and rest makes better. Patient does have a history of anemia requiring iron infusions previously but has never had the need for blood transfusion in the past. ROS: See above HPI for pertinent positives & negatives. A total of 10 systems reviewed and were otherwise negative. Past Medical History:See Below Past Surgical History:See Below Family History:See Below Social History:See Below Home Medications:See Below Allergies:See below Vitals:Blood Pressure: 90/48, Pulse 90, RR 18, T 35.5C, O2 99% on RA Physical Exam: GENERAL: Patient is tired/ill appearing and in minimal distress. EYES: No scleral icterus, unremarkable pupils. pale conjunctiva ENT: Mucous membranes dry, no nasal congestion. NECK: No masses appreciated, nomeningismus, trachea is midline. RESPIRATORY: No dyspnea. Clear to auscultation and equal bilaterally. No wheeze, no rhonchi. CARDIOVASCULAR: Regular rate and rhythm.No murmurs, rubs, gallops appreciated. GASTROINTESTINAL: Abdomen soft, non-tender, no peritonitis.Bowel sounds positive.No masses appreciated. BACK: No midline tenderness, no CVA tenderness EXTREMITIES: Normal motion all extremities, no cyanosis, no edema. NEUROLOGIC: Alert and oriented, no acute motor or sensory deficits, no focal weakness, cranial nerves grossly intact. SKIN: No rash, no jaundice, no diaphoresis. Very pale appearing PSYCH: Appropriate GCS: 15 ED Course: Times/Reassessments: Patient stable and breathing comfortably awaiting blood transfusion. He has are comfortable plan for hospitalization and management of his symptoms. Aware reversing Coumadin risks but the need to fix the bleeding at this time. Critical Care: I have personally spent 40 minutes of critical care time in the direct management of this patient. Acute GI bleed with severe anemia requiring blood transfusion This was a life/limb threatening event. This 40 minutes is in excess of all separately billable procedures. Cornelio Reid MD Past Med/Surg History Medical History Anemia Anxiety Atrial fibrillation on warfarin--follows with Dr. Harp CHF (congestive heart failure) (02/19/14) Coumadin toxicity (04/24/14) Depression Diabetes IDDM Fatty liver (~02/2014) Hearing deficit Hypothyroidism On anticoagulant therapy warfarin daily Sleep apnea cpap Squamous cell carcinoma of ear Surgical History History of cardiac cath a few years ago at [facility]--no stents History of colonoscopy History of coronary artery bypass graft x 3 "a few years ago" at [facility] History of hernia surgery History of Mohs micrographic surgery for skin cancer History of sinus surgery History of strabismus surgery History of tooth extraction Family History Other No family history of adverse response to anesthesia Social History Smoking Status: Never smoker Second Hand Exposure: Yes; Hx Alcohol Use: No Hx Substance Use: No Preferred Language: [place] Communication Ability: Effective 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: No Beliefs That Will Affect Care: None Current Living Situation: Family Current Living Situation Comment: Lives with daughter Other Information That Helps Us Care for You: No Feels Safe at Home: Yes Safety Concerns: Feels Safe At This Time Assistive Devices: Glasses Allergies Allergies Allergy/AdvReac Type Severity Reaction Status Date / Time rivaroxaban AdvReac Intermediate VOMITING Verified 11/10/20 08:53 Home Meds Home Medications Medication Instructions Recorded Confirmed acetaminophen 500 mg tablet 1,000 mg PO TID PRN 08/09/19 09/22/21 (Tylenol Extra Strength) amlodipine 5 mg tablet 5 mg PO HS 08/09/19 09/22/21 aspirin 81 mg tablet,delayed 81 mg PO QPM 08/09/19 09/22/21 release (Aspir-) atorvastatin 40 mg tablet 40 mg PO QPM 08/09/19 09/22/21 bumetanide 2 mg tablet 2 mg PO QPM 08/09/19 09/22/21 levothyroxine 100 mcg tablet 100 mcg PO QAM 08/09/19 09/22/21 losartan 100 mg tablet 100 mg PO DAILY 08/09/19 09/22/21 melatonin 10 mg capsule 10 mg PO HS 08/09/19 09/22/21 metformin 500 mg tablet,extended 1,000 mg PO BIDM 08/09/19 09/22/21 release 24 hr metoprolol succinate 25 mg 25 mg PO BID 08/09/19 09/22/21 tablet,extended release 24 hr omeprazole 40 mg capsule,delayed 40 mg PO QAM 08/09/19 09/22/21 release potassium chloride 20 mEq 20 meq PO BID 08/09/19 09/22/21 tablet,extended release(part/cryst) (Klor-Con M) warfarin 5 mg tablet (Jantoven) 2.5 mg PO 6XWK 08/09/19 09/22/21 empagliflozin 10 mg tablet 10 mg PO QAM 11/07/20 09/22/21 (Jardiance) insulin glargine 100 unit/mL (3 26 unit SUBCUT QPM 11/07/20 09/22/21 mL) subcutaneous pen (Silvio Ladd U-100 Insulin) lorazepam 0.5 mg tablet 0.5 mg PO DAILY PRN 11/07/20 09/22/21 sertraline 100 mg tablet 200 mg PO QAM 11/07/20 09/22/21 warfarin 5 mg tablet (Jantoven) 5 mg PO .Friday11/07/20 09/22/21 Previous Rx's Medication Instructions Recorded blood sugar diagnostic (OneTouch #100 ea 08/13/19 Verio test strips) pen needle, diabetic 32 gauge x #30 ea 08/13/19 5/32" (BD Rosemary 2nd Gen Pen Needle) quetiapine 25 mg tablet 25 mg PO HS 30 Days #30 tab 08/13/19 trazodone 50 mg tablet 50 mg PO HS #30 tab 08/13/19 Results & Data (ED) Vital Signs Vital Signs - 24 hr 09/22/21 19:42 Temperature 35.5 C L Temperature Source Temporal Artery Scan Respiratory Rate 18 Respiratory Effort / Characteristics Non-Labored Spontaneous Respiratory Depth Normal Blood Pressure 90/48 L Blood Pressure Mean 62 Blood Pressure Position Sitting Pulse Oximetry 99 Oxygen Delivery Method Room Air Sepsis Recent Fever Within 48 Hours No Sepsis New/Unexplained Change in Mental Status N/A Sepsis Action Taken by Nursing No Action Required Laboratory Data Result diagrams: 09/23/21 17:03 09/23/21 05:39 Lab Results 09/22/21 09/22/21 09/22/21 Range/Units 20:05 20:05 20:05 WBC 3.45 L (4.8-10.8) K/uL RBC 2.29 L (4.7-6.1) M/uL Hgb 4.9 L* (14.0-18.0) g/dL Hct 17.4 L* (42-52) % MCV 76.0 L (80-100) fL MCH 21.4 L (25-34) pg MCHC 28.2 L (32-36) g/dL RDW Std Deviation 49.5 H (36.4-46.3) fL RDW Coeff of Gerardo 17.9 H (11.5-14.5) % Plt Count 60 L (130-400) K/uL Immature Gran % (Auto) 0.0 % Neut % (Auto) 68.7 % Lymph % (Auto) 18.0 % Ramsey % (Auto) 11.0 % Eos % (Auto) 2.3 % Baso % (Auto) 0.0 % Neut # (Auto) 2.37 (1.4-6.5) K/uL Lymph # (Auto) 0.62 L (1.2-3.4) K/uL Ramsey # (Auto) 0.38 (0.11-0.59) K/uL Eos # (Auto) 0.08 (0-0.5) K/uL Baso # (Auto) 0.00 (0-0.2) K/uL Immature Gran # (Auto) 0.00 (0.00-0.02) K/uL Platelet Estimate Decreased L (Normal) Polychromasia 1+ Hypochromasia Present Poikilocytosis Present PT 31.6 H (9.0-12.0) Seconds INR 3.2 H (0.9-1.1) APTT 33.3 H (21.0-31.0) Seconds PTT Ratio 1.2 Sodium 137 (136-145) mmol/L Potassium 5.0 (3.5-5.1) mmol/L Chloride 106 (98-107) mmol/L Carbon Dioxide 19 L (21-32) mmol/L Anion Gap 12 H (3-11) BUN 52 H (6-23) mg/dl Creatinine 2.29 H (0.6-1.4) mg/dl Est Cr Clr Drug Dosing 23.1 ml/min Est GFR ( Amer) 30.5 ml/min Est GFR (Non-Af Amer) 26.4 ml/min BUN/Creatinine Ratio 22.7 H (10-20) Glucose 106 H (70-99(Fasting)) mg/dl Calcium 9.3 (8.5-10.1) mg/dl Magnesium 1.7 (1.7-2.4) mg/dl Total Bilirubin 0.9 (0.2-1.0) mg/dl Direct Bilirubin 0.3 H (0-0.2) mg/dl AST 30 (13-39) U/L ALT 21 (7-52) U/L Alkaline Phosphatase 62 (34-104) U/L Troponin I High Sens 21.3 H (0-20) pg/ml Total Protein 6.9 (6.0-8.3) gm/dl Albumin 3.9 (3.4-5.0) gm/dl Lipase 112 H (11-82) U/L SARS-CoV-2, RNA, NAAT (NEGATIVE) Blood Type Blood Type Recheck Antibody Screen Crossmatch 09/22/21 09/22/21 09/22/21 Range/Units 20:14 20:15 21:38 WBC (4.8-10.8) K/uL RBC (4.7-6.1) M/uL Hgb (14.0-18.0) g/dL Hct (42-52) % MCV (80-100) fL MCH (25-34) pg MCHC (32-36) g/dL RDW Std Deviation (36.4-46.3) fL RDW Coeff of Gerardo (11.5-14.5) % Plt Count (130-400) K/uL Immature Gran % (Auto) % Neut % (Auto) % Lymph % (Auto) % Ramsey % (Auto) % Eos % (Auto) % Baso % (Auto) % Neut # (Auto) (1.4-6.5) K/uL Lymph # (Auto) (1.2-3.4) K/uL Ramsey # (Auto) (0.11-0.59) K/uL Eos # (Auto) (0-0.5) K/uL Baso # (Auto) (0-0.2) K/uL Immature Gran # (Auto) (0.00-0.02) K/uL Platelet Estimate (Normal) Polychromasia Hypochromasia Poikilocytosis PT (9.0-12.0) Seconds INR (0.9-1.1) APTT (21.0-31.0) Seconds PTT Ratio Sodium (136-145) mmol/L Potassium (3.5-5.1) mmol/L Chloride (98-107) mmol/L Carbon Dioxide (21-32) mmol/L Anion Gap (3-11) BUN (6-23) mg/dl Creatinine (0.6-1.4) mg/dl Est Cr Clr Drug Dosing ml/min Est GFR ( Amer) ml/min Est GFR (Non-Af Amer) ml/min BUN/Creatinine Ratio (10-20) Glucose (70-99(Fasting)) mg/dl Calcium (8.5-10.1) mg/dl Magnesium (1.7-2.4) mg/dl Total Bilirubin (0.2-1.0) mg/dl Direct Bilirubin (0-0.2) mg/dl AST (13-39) U/L ALT (7-52) U/L Alkaline Phosphatase (34-104) U/L Troponin I High Sens (0-20) pg/ml Total Protein (6.0-8.3) gm/dl Albumin (3.4-5.0) gm/dl Lipase (11-82) U/L SARS-CoV-2, RNA, NAAT NEGATIVE (NEGATIVE) Blood Type O Positive Blood Type Recheck O Positive Antibody Screen NEGATIVE Crossmatch See Detail Administered Medications Atorvastatin Calcium (Atorvastatin 40 Mg Tab) 40 mg PO QPM JONEL Stop: 10/23/21 20:59 Last Admin: 09/23/21 20:35 Dose: 40 mg Documented by: [id number] Pantoprazole Sodium 40 mg/ (Dextrose) 100 mls @ 20 mls/hr IV Q5H JONEL Stop: 10/22/21 23:29 Last Admin: 09/23/21 19:56 Dose: 8 mg/hr, 20 mls/hr Documented by: [id number] Infusion: 09/23/21 18:56 Dose: 8 mg/hr, 20 mls/hr Documented by: [id number] Admin: 09/23/21 13:56 Dose: 8 mg/hr, 20 mls/hr Documented by: [id number] Infusion: 09/23/21 13:56 Dose: 0 mg/hr, 0 mls/hr Documented by: [id number] Infusion: 09/23/21 11:34 Dose: 8 mg/hr, 20 mls/hr Documented by: [id number] Infusion: 09/23/21 11:19 Dose: 0 mg/hr, 0 mls/hr Documented by: [id number] Admin: 09/23/21 09:17 Dose: 8 mg/hr, 20 mls/hr Documented by: [id number] Infusion: 09/23/21 09:17 Dose: 0 mg/hr, 0 mls/hr Documented by: [id number] Admin: 09/23/21 04:20 Dose: 8 mg/hr, 20 mls/hr Documented by: [id number] Infusion: 09/23/21 04:20 Dose: 8 mg/hr, 20 mls/hr Documented by: [id number] Admin: 09/22/21 23:37 Dose: 8 mg/hr, 20 mls/hr Documented by: [id number] Sodium Chloride (Nss 1000ml) 1,000 mls @ 50 mls/hr IV .Q20H JONEL Stop: 10/22/21 23:07 Last Admin: 09/23/21 18:05 Dose: 50 mls/hr Documented by: [id number] Infusion: 09/23/21 18:05 Dose: 0 mls/hr Documented by: [id number] Infusion: 09/23/21 11:34 Dose: 50 mls/hr Documented by: [id number] Infusion: 09/23/21 11:19 Dose: 0 mls/hr Documented by: [id number] Admin: 09/22/21 23:37 Dose: 50 mls/hr Documented by: [id number] Insulin Aspart (Insulin Aspart Per Unit) 0 units SC Q6 [facility] Stop: 10/23/21 00:00 Last Admin: 09/23/21 18:20 Dose: 2 units Documented by: [id number] Cosigned by: [id number] Admin: 09/23/21 12:08 Dose: Not Given Documented by: [id number] Admin: 09/23/21 06:08 Dose: Not Given Documented by: [id number] Admin: 09/23/21 01:01 Dose: Not Given Documented by: [id number] Insulin Glargine (Insulin Glargine Solostar 100 Units/Ml 3 Ml Pen) 15 units SC [facility] Stop: 10/23/21 20:59 Last Admin: 09/23/21 20:35 Dose: 15 units Documented by: [id number] Cosigned by: [id number] Levothyroxine Sodium (Levothyroxine Sodium 100 Mcg Tablet) 100 mcg PO DAILYBB [facility] Stop: 10/23/21 06:29 Last Admin: 09/23/21 06:09 Dose: 100 mcg Documented by: [id number] Melatonin (Melatonin 3 Mg Tab) 9 mg PO [facility] Stop: 10/23/21 20:59 Last Admin: 09/23/21 20:35 Dose: 9 mg Documented by: [id number] Metoprolol Succinate (Metoprolol Succ 25mg Ext Rel Tab) 25 mg PO BID [facility] Stop: 10/23/21 08:59 Last Admin: 09/23/21 20:35 Dose: 25 mg Documented by: [id number] Admin: 09/23/21 07:05 Dose: Not Given Documented by: [id number] Quetiapine Fumarate (Quetiapine Fumarate 25 Mg Tablet) 25 mg PO [facility] Stop: 10/22/21 23:07 Last Admin: 09/23/21 20:36 Dose: 25 mg Documented by: [id number] Admin: 09/22/21 23:37 Dose: 25 mg Documented by: [id number] Sertraline HCl (Sertraline Hcl 100 Mg Tablet) [facility] Stop: 10/23/21 08:59 Last Admin: 09/23/21 07:08 Dose: 200 mg Documented by: [id number] Trazodone HCl (Trazodone Hcl 50 Mg Tab) 50 mg PO HS JONEL Stop: 10/22/21 23:07 Last Admin: 09/23/21 20:38 Dose: 50 mg Documented by: [id number] Admin: 09/22/21 23:37 Dose: 50 mg Documented by: [id number] Discontinued Medications Acetaminophen (Acetaminophen 325 Mg Tab) 650 mg PO NOW STA Stop: 09/22/21 22:15 Last Admin: 09/22/21 22:23 Dose: 650 mg Documented by: [id number] Bisacodyl (Bisacodyl 5 Mg Tabec) 20 mg PO ONCE ONE Stop: 09/23/21 20:31 Last Admin: 09/23/21 20:35 Dose: 20 mg Documented by: [id number] Pantoprazole Sodium 80 mg/ (Dextrose) 100 mls @ 400 mls/hr IV ONE STA Stop: 09/22/21 21:24 Last Infusion: 09/22/21 22:31 Dose: 0 mls/hr Documented by: [id number] Admin: 09/22/21 22:13 Dose: 400 mls/hr Documented by: [id number] Phytonadione 5 mg/ Dextrose 50.5 mls @ 101 mls/hr IV ONE ONE Stop: 09/22/21 21:39 Last Infusion: 09/22/21 23:00 Dose: 0 mls/hr Documented by: [id number] Admin: 09/22/21 22:16 Dose: 101 mls/hr Documented by: [id number] Phytonadione (Phytonadione 5 Mg Tab) 2.5 mg PO NOW STA Stop: 09/23/21 17:33 Last Admin: 09/23/21 18:03 Dose: 2.5 mg Documented by: [id number] Polyethylene Glycol/Electrolytes (Lavage Solution 4000ml) 16 dose PO TODAY@1600 JONEL Stop: 09/23/21 22:00 Last Admin: 09/23/21 15:50 Dose: 16 dose Documented by: [id number] Discharge Plan Visit Data Chief Complaint: Respiratory Problems Stated Complaint: HAS CHF, HAVING A HARD TIME BREATHING ED Provider: Cornelio Reid Discharge Problem: Acute GI bleeding, Shortness of breath on exertion, Acute blood loss anemia, Elevated INR Patient Disposition: Admitted As Inpatient Discharge Instructions Interventions: ED Discharge Assessment Last Done: 09/22/21 22:52
[2021-09-22 20:43] LABS: INR 3.2 (0.9-1.1); Partial Thromboplastin Ratio 1.2; Partial Thromboplastin Time 33.3 Seconds (21.0-31.0); Prothrombin Time 31.6 Seconds (9.0-12.0)
[2021-09-22 20:50] LABS: Troponin I High Sensitivity 21.3 pg/ml (0-20)
[2021-09-22 20:53] LABS: Albumin Level 3.9 gm/dl (3.4-5.0); BUN Creatinine Ratio 22.7 (10-20); Bilirubin Direct 0.3 mg/dl (0-0.2); Bilirubin,Total 0.9 mg/dl (0.2-1.0); Calcium 9.3 mg/dl (8.5-10.1); Creatinine Clr Calc Pharmacy 23.1 ml/min; Est GFR (African American) 30.5 ml/min; Est GFR (Non-African American) 26.4 ml/min; Magnesium 1.7 mg/dl (1.7-2.4); Total Protein 6.9 gm/dl (6.0-8.3)
[2021-09-22 20:58] LABS: Hematocrit (blood only) 17.4 % (42-52); Hemoglobin 4.9 g/dL (14.0-18.0); Mean Corpuscular Hemoglobin 21.4 pg (25-34); Mean Corpuscular Hgb Conc 28.2 g/dL (32-36); Platelet Count 60 K/uL (130-400); RDW Coefficient of Variation 17.9 % (11.5-14.5); RDW Standard Deviation 49.5 fL (36.4-46.3); Red Blood Count 2.29 M/uL (4.7-6.1); White Blood Count 3.45 K/uL (4.8-10.8)
[2021-09-22] MEDS ORDERED: SODIUM CHLORIDE 0.9% 250 ML IV PRN ×2 (20:58→23:08)
[2021-09-22 21:04] LABS: Eosinophils # (auto) 0.08 K/uL (0-0.5); Eosinophils % (auto) 2.3 %; Hypochromasia Present; Lymphocytes # (auto) 0.62 K/uL (1.2-3.4); Monocytes # (auto) 0.38 K/uL (0.11-0.59); Neutrophils # (auto) 2.37 K/uL (1.4-6.5); Neutrophils % (auto) 68.7 %; Platelet Estimate Decreased (Normal); Poikilocytosis Present; Polychromasia 1+
[2021-09-22] MEDS ORDERED: PHYTONADIONE 5 MG in DEXTROSE 5% 50 ML IV ONE (21:10)
[2021-09-22] MEDS ORDERED: PANTOprazole 80 MG in DEXTROSE 5% 100 ML IV STA (21:10)
[2021-09-22] MEDS ORDERED: ACETAMINOPHEN 325 MG TAB PO STA (22:14)
[2021-09-22] MEDS ORDERED: ACETAMINOPHEN 325 MG TAB PO PRN (23:08)
[2021-09-22] MEDS ORDERED: POLYETHYLENE (MIRALAX) 17 GM PACK PO PRN (23:08)
[2021-09-22] MEDS ORDERED: LORazepam 0.5 MG TAB PO PRN (23:08)
[2021-09-22] MEDS ORDERED: NITROGLYCERIN SL 0.4 MG/TAB TAB SL PRN (23:08)
[2021-09-22] MEDS ORDERED: ONDANSETRON INJ 2 MG/ML 2 ML VIAL IV PRN (23:08)
[2021-09-22] MEDS ORDERED: GLUCOSE 10 TABS/TUBE PO PRN (23:30)
[2021-09-22] MEDS ORDERED: CARBOHYDRATES FOR HYPOGLYCEMIA PO PRN (23:30)
[2021-09-22] MEDS ORDERED: DEXTROSE 50% 50 ML SYRINGE IV PRN (23:30)
[2021-09-22] MEDS ORDERED: GLUCAGON FOR INJ 1 MG VIAL IM PRN (23:30)
[2021-09-22] MEDS ORDERED: GLUCOSE 40% GEL 15 GM TUBE PO PRN (23:30)
[2021-09-22] MEDS: PANTOprazole 40 MG in DEXTROSE 5% 100 ML IV SCH (23:37)
[2021-09-22] MEDS: SODIUM CHLORIDE 0.9% 1000ML 1,000 ML IV SCH (23:37)
[2021-09-22] MEDS: QUEtiapine FUMARATE 25 MG TABLET PO SCH (23:37)
[2021-09-22] MEDS: traZODone HCL 50 MG TAB PO SCH (23:37)
[2021-09-23] MEDS: INSULIN ASPART PER UNIT SC SCH ×4 (01:01→18:20)
--- NOTE | 2021-09-23 04:13 | History and Physical Report ---
CHIEF COMPLAINT: Shortness of breath. HISTORY OF PRESENT ILLNESS: A 76-year-old male with past medical history significant for diabetes; diabetic retinopathy; chronic kidney disease, stage III; hypothyroidism; hyperlipidemia; chronic atrial fibrillation; chronic diastolic CHF; pulmonary hypertension; GERD; macular edema; hypersplenism; pancytopenia; history of ischemic cardiomyopathy; anxiety disorder, depression, who lives with his daughter, ambulates without any support. Presents with shortness of breath. Daughter says the patient is having shortness of breath over the last 2 weeks, but today it got worse. Even at rest the patient is getting short of breath, which prompted to come to the hospital and was found to have hemoglobin of 4.9. He is on Coumadin for atrial fibrillation. INR is 3.2, creatinine is 2.2. Baseline creatinine is around 1.1 to 1.3. The patient is resting comfortably, hemodynamically stable. Denies any blood in stools or black stools, no hematuria. His Hemoccult was positive in the ER. The patient had iron-deficiency anemia in the past and he had EGD and colonoscopy in 11/2020. EGD showed some gastritis, colonoscopy shoed hemorrhoids, nonbleeding colonic angiodysplastic lesions, treated with argon plasma coagulation,had a few polyps, which were resected at that time and mild diverticulosis of sigmoid colon and descending colon were seen. The patient denies any chest pain, no nausea, no vomiting, no abdominal pain, no headache, no blurred visions, no earache, no runny nose, no sore throat. Appetite is okay. No difficulty swallowing, not sleeping well. The patient is somewhat hard of hearing. ALLERGIES: XARELTO. PAST MEDICAL HISTORY: As mentioned above. PAST SURGICAL HISTORY: Colonoscopy; CABG; EGD; cataract; repair of inguinal hernia; revision of the palate, pharynx, uvula; umbilical hernia repair. MEDICATIONS: The patient is on Tylenol Extra Strength 1000 mg p.o. t.i.d. p.r.n., amlodipine 5 mg p.o. at bedtime, aspirin 81 mg p.o. p.m., atorvastatin 40 mg p.o. p.m., Basaglar insulin 26 units subcutaneously p.m., Bumex 2 mg p.o. p.m. Jardiance 10 mg p.o. a.m., levothyroxine 100 mcg p.o. a.m., lorazepam 0.5 mg p.o. daily, p.r.n. losartan 100 mg p.o. daily, melatonin 10 mg p.o. at bedtime, metformin 1000 mg p.o. b.i.d., metoprolol succinate 25 mg p.o. b.i.d., omeprazole 40 mg p.o. a.m., potassium chloride 20 mEq p.o. b.i.d., Seroquel 25 mg p.o. at bedtime, sertraline 200 mg p.o. a.m., trazodone 50 mg p.o. at bedtime, Jantoven 2.5 mg 6 times a week, Jantoven 5 mg p.o. on Tuesdays. FAMILY HISTORY: Significant for brother had bone and skin cancer. Maternal grandmother had cancer. Mother has heart disorder. Father has heart attack. Brother has hypertension. Sister has hypertension. SOCIAL HISTORY: . No smoking. Alcohol rare. No drug use. REVIEW OF SYSTEMS: As per HPI. Rest of review of systems is negative. PHYSICAL EXAMINATION: GENERAL: The patient is of moderate build, not in acute distress. VITAL SIGNS: Temperature 36.8, pulse 70, respiratory rate 16, blood pressure 110/50, oxygen 95% on room air. HEENT: Pupils equal, round and reactive to light. Oral mucosa moist. NECK: No JVD, no neck masses. CARDIOVASCULAR: S1 and S2 heard. Regular rate and rhythm. No murmur, no gallop. RESPIRATORY SYSTEM: Normal AP diameter. No accessory muscle use. No wheezing, no crackles. ABDOMEN: Soft, bowel sounds present, nontender, no distention. CENTRAL NERVOUS SYSTEM: Cranial nerves II-XII grossly intact, nonfocal. EXTREMITIES: No chronic skin changes seen. No edema, no erythema seen. LABORATORY DATA: WBC 3.4, hemoglobin 4.9, hematocrit 17.4, platelets 60. PT 31.6, INR 3.2, APTT 33.3. Sodium 137, potassium 5, chloride 106, bicarbonate 19, BUN 52, creatinine 2.2, serum glucose 106, calcium 9.3, magnesium 1.7. Total bilirubin 0.9, direct bilirubin 0.3, AST 30, ALT 21, alkaline phosphatase 62. Troponin I high sensitivity 21.3. Lipase 112. SARS-CoV-2 rapid test negative. IMAGING DATA: Chest x-ray, no acute findings. EKG: Poor quality undetermined rhythm at a rate of 72, left axis deviation, ST- T wave inversions in inferolateral leads. ASSESSMENT AND PLAN: This is a 70-year-old male who presents with shortness of breath, found to have profound anemia. 1.SOB. Symptomatic anemia, hemoglobin of 4.9. The patient has no chest pain. His INR is 3.3. He is on Coumadin for atrial fibrillation. Getting IV vitamin K and 2 units of PRBCs ordered .Hemoccult is positive. The patient did not notice any blood in stool or black stools, or hematuria.Will Follow H and H q.6 hours. Protonix drip. Keep him n.p.o., gentle fluids and admit to tele floor. Hemodynamically stable. Consult GI in the a.m. The patient has EGD and colonoscopy in 11/2020. EGD shows gastritis, colonoscopy showed hemorrhoids. Nonbleeding colonic angiodysplastic lesions treated with argon plasma coagulation, two 5-6 mm polyp in descending colon and one 8 mm polyp in the rectum, and one 4 mm polyp in the rectum, which were resected and retrieved. The pathology results, negative for high-grade dysplasia. Repeat colonoscopy, EGD as per GI. We will transfuse to keep hb> 8.0 3. History of thrombocytopenia, history of hypersplenism, history of pancytopenia. His baseline hemoglobin was 10-11. His white count is 3.45 and platelets are 60, etiology is unclear. Needs to follow up with Hem/Onc. 4. History of chronic atrial fibrillation, rate controlled with metoprolol. Holding Coumadin for gastrointestinal bleed, needs follow up. 5. Diabetes. We will cut back to his long acting insulin to 15 units at bedtime,as the patient is currently n.p.o., holding his Jardiance and metformin. We will place him on insulin sliding scale. Follow the blood sugars. shekhar monitor and adjust insulin regimen. 6. Hypothyroidism. Continue Synthroid. 7. Acute kidney injury and chronic kidney disease, stage III: Baseline creatinine 1.35, presented with creatinine of 2.2, holding his Bumex and losartan, getting PRBC. Gentle fluids. Follow repeat labs. 8. History of chronic diastolic congestive heart failure, history of grade III diastolic congestive heart failure, on Bumex, which we are holding. Getting gentle fluids as patient is n.p.o. Monitor for volume overload. Holding his losartan for his acute kidney injury, continue his metoprolol succinate. We will monitor for any volume overload. 9. History of coronary artery disease, coronary artery bypass graft. Holding his aspirin. Continue statin and beta luzmaria. 10. Hypertension: Continue his metoprolol succinate and amlodipine. Holding his diuretics and losartan. Monitor the blood pressure. 11. History of anxiety and depression: Continue Zoloft, trazodone, and Seroquel. 12. Deep venous thrombosis prophylaxis, sequential compression devices as the patient is having gastrointestinal bleed. DISPOSITION: Closely monitor in the tele floor. Level 1 full code. PT/OT prior to discharge. Expect to discharge home and follow with family doctor. Job ID: [id number] [id number]
[2021-09-23] MEDS: PANTOprazole 40 MG in DEXTROSE 5% 100 ML IV SCH ×5 (04:20→23:59)
[2021-09-23] MEDS: LEVOTHYROXINE SODIUM 100 MCG TABLET PO SCH (06:09)
[2021-09-23 06:25] LABS: Prothrombin Time 20.3 Seconds (9.0-12.0)
--- NOTE | 2021-09-23 06:28 | XRay Report ---
XR chest 1V portable CLINICAL HISTORY: shortness of breath. COMPARISON STUDY: 08/09/2019 TECHNIQUE: 1 view of the chest FINDINGS: Single frontal view of the chest demonstrates the heart to be enlarged status post previous cardiotho racic surgery. There is very mild prominence of the interstitial markings with no gross vascular hernando estion identified. There is no evidence for pleural effusion. No alveolar opacities are seen. There i s no acute osseous pathology. IMPRESSION: 1. Cardiomegaly with mild prominence of the interstitial markings. However, no gross vascular congest ion is identified. ACT 112: Negative or not required by law. Electronically signed by: Sj Baker M.D. 09/23/2021 6:27 AM
[2021-09-23 06:41] LABS: Anisocytosis Present; Eosinophils # (auto) 0.08 K/uL (0-0.5); Eosinophils % (auto) 3.1 %; Hematocrit (blood only) 22.4 % (42-52); Hemoglobin 6.8 g/dL (14.0-18.0); Lymphocytes # (auto) 0.65 K/uL (1.2-3.4); Lymphocytes % (auto) 25.1 %; Mean Corpuscular Hemoglobin 23.5 pg (25-34); Mean Corpuscular Hgb Conc 30.4 g/dL (32-36); Mean Corpuscular Volume 77.5 fL (80-100); Monocytes % (auto) 11.6 %; Neutrophils # (auto) 1.56 K/uL (1.4-6.5); Neutrophils % (auto) 60.2 %; Platelet Count 43 K/uL (130-400); Platelet Estimate Decreased (Normal); Poikilocytosis Present; Polychromasia 1+; RDW Coefficient of Variation 18.4 % (11.5-14.5); RDW Standard Deviation 52.8 fL (36.4-46.3); Red Blood Count 2.89 M/uL (4.7-6.1); Schistocytes 1+; White Blood Count 2.59 K/uL (4.8-10.8)
[2021-09-23 06:43] LABS: BUN Creatinine Ratio 22.4 (10-20); Calcium 9.3 mg/dl (8.5-10.1); Creatinine Clr Calc Pharmacy 23.7 ml/min; Est GFR (African American) 31.5 ml/min; Est GFR (Non-African American) 27.2 ml/min; Magnesium 1.6 mg/dl (1.7-2.4); Potassium 4.4 mmol/L (3.5-5.1)
[2021-09-23] MEDS: METOPROLOL SUCC 25MG EXT REL TAB PO SCH ×2 (07:05→20:35)
[2021-09-23] MEDS: SERTRALINE HCL 100 MG TABLET PO SCH (07:08)
[2021-09-23 07:25] LABS: Hematocrit (blood only) 21.2 % (42-52); Hemoglobin 6.7 g/dL (14.0-18.0)
[2021-09-23] MEDS ORDERED: SODIUM CHLORIDE 0.9% 250 ML IV PRN (07:33)
--- NOTE | 2021-09-23 07:33 | Electrocardiogram Report ---
Test Reason : Blood Pressure : / mmHG Vent. Rate : 063 BPM Atrial Rate : 105 BPM P-R Int : 000 ms QRS Dur : 112 ms QT Int : 468 ms P-R-T Axes : 000 -32 159 degrees QTc Int : 478 ms Poor data quality, interpretation may be adversely affected Atrial fibrillation with premature ventricular or aberrantly conducted complexes Left axis deviation Poor R wave progression, consider anterior IN vs. lead placement vs. LVH Abnormal ECG When compared with ECG of 10-AUG-2019 07:01, No significant change was found Confirmed by Kristopher Newman ([id number]) on 09/23/2021 7:33:14 AM Referred By: REFERRED SELF Confirmed By:Scott Newman
--- NOTE | 2021-09-23 11:50 | Gastrointestinal Consultation ---
Date of Consultation September 23, 2021 Assessment & Plan (1) Anemia: Plan for EGD/colonoscopy tomorrow. Clear liquids today and NPO after midnight Bowel prep Correct his INR. PPI for now. (2) Supratherapeutic INR: (3) Angiodysplasia of colon: History of Present Illness Reason for Consultation: Anemia Attending Physician: Juanjo Jalloh MD History of Present Illness 76 year old male patient with medical history of diabetes; CKD, hypothyroidism; hyperlipidemia; chronic atrial fibrillation on Coumadin; chronic diastolic CHF; pulmonary hypertension; GERD; pancytopenia; presented with shortness of breath, found to have Hgb of 4.9 however denies any overt GI bleeding. His Hemoccult was positive in the ER. He had EGD/colonoscopy for iron-deficiency anemia 11/2020, EGD unremarkable but colonoscopy showed few AVMs which were treated. Denies abdominal pain, nausea or vomiting, no diarrhea or constipation. Allergies Allergy/AdvReac Type Severity Reaction Status Date / Time rivaroxaban AdvReac Intermediate VOMITING Verified 11/10/20 08:53 Home Medications Medication Instructions Recorded Confirmed Type acetaminophen 500 mg tablet 1,000 mg PO TID PRN 08/09/19 09/22/21 History (Tylenol Extra Strength) amlodipine 5 mg tablet 5 mg PO HS 08/09/19 09/22/21 History aspirin 81 mg tablet,delayed 81 mg PO QPM 08/09/19 09/22/21 History release (Aspir-) atorvastatin 40 mg tablet 40 mg PO QPM 08/09/19 09/22/21 History bumetanide 2 mg tablet 2 mg PO QPM 08/09/19 09/22/21 History levothyroxine 100 mcg tablet 100 mcg PO QAM 08/09/19 09/22/21 History losartan 100 mg tablet 100 mg PO DAILY 08/09/19 09/22/21 History melatonin 10 mg capsule 10 mg PO HS 08/09/19 09/22/21 History metformin 500 mg tablet,extended 1,000 mg PO BIDM 08/09/19 09/22/21 History release 24 hr metoprolol succinate 25 mg 25 mg PO BID 08/09/19 09/22/21 History tablet,extended release 24 hr omeprazole 40 mg capsule,delayed 40 mg PO QAM 08/09/19 09/22/21 History release potassium chloride 20 mEq 20 meq PO BID 08/09/19 09/22/21 History tablet,extended release(part/cryst) (Klor-Con M) warfarin 5 mg tablet (Jantoven) 2.5 mg PO 6XWK 08/09/19 09/22/21 History blood sugar diagnostic (OneTouch #100 ea 08/13/19 09/22/21 Rx Verio test strips) pen needle, diabetic 32 gauge x #30 ea 08/13/19 09/22/21 Rx 5/32" (BD Rosemary 2nd Gen Pen Needle) quetiapine 25 mg tablet 25 mg PO HS 30 Days #30 tab 08/13/19 09/22/21 Rx trazodone 50 mg tablet 50 mg PO HS #30 tab 08/13/19 09/22/21 Rx empagliflozin 10 mg tablet 10 mg PO QAM 11/07/20 09/22/21 History (Jardiance) insulin glargine 100 unit/mL (3 26 unit SUBCUT QPM 11/07/20 09/22/21 History mL) subcutaneous pen (Vital Herd Incaglar TyrosandreaPen U-100 Insulin) lorazepam 0.5 mg tablet 0.5 mg PO DAILY PRN 11/07/20 09/22/21 History sertraline 100 mg tablet 200 mg PO QAM 11/07/20 09/22/21 History warfarin 5 mg tablet (Juntoven) 5 mg PO .Friday11/07/20 09/22/21 History Patient History Medical History Anemia Anxiety Atrial fibrillation on warfarin--follows with Dr. Harp CHF (congestive heart failure) (02/19/14) Coumadin toxicity (04/24/14) Depression Diabetes IDDM Fatty liver (~02/2014) Hearing deficit Hypothyroidism On anticoagulant therapy warfarin daily Sleep apnea cpap Squamous cell carcinoma of ear Surgical History History of cardiac cath a few years ago at [facility]--no stents History of colonoscopy History of coronary artery bypass graft x 3 "a few years ago" at [facility] in [place] History of hernia surgery History of Mohs micrographic surgery for skin cancer History of sinus surgery History of strabismus surgery History of tooth extraction Family History Other No family history of adverse response to anesthesia Social History Smoking Status: Never smoker Second Hand Exposure: Yes; Hx Alcohol Use: No Hx Substance Use: No Preferred Language: Dutch Communication Ability: Effective Director [employer] Required: No Beliefs That Will Affect Care: None Current Living Situation: Family Current Living Situation Comment: Lives with daughter Other Information That Helps Us Care for You: No Feels Safe at Home: Yes Safety Concerns: Feels Safe At This Time Assistive Devices: Glasses Review of Systems Constitutional: no fever, no chills, no fatigue and no weight loss Eyes: no eye pain and no worsening vision Ear, Nose, Mouth, Throat: no tinnitus, no dizziness, no nasal discharge and no epistaxis Respiratory: no cough, no dyspnea, no dyspnea on exertion and no wheezing Cardiovascular: no chest pain, no orthopnea, no palpitations and no edema Gastrointestinal: as per Subjective / HPI Musculoskeletal: no stiffness and no myalgia Neurologic: no localized weakness, no paralysis, no tremor(s) and no headache(s) Endocrine: no polydipsia and no polyuria Hematologic / Lymphatic: no easy bleeding and no night sweats Physical Exam Constitutional: + well hydrated, cooperative and comfortable Eyes: PERRL, conjunctivae normal, anicteric sclerae ENMT: external ear and nose normal, oropharynx normal Neck: normal visual inspection and trachea midline Respiratory: normal respiratory effort, lungs clear to auscultation Auscultation: no wheezes Cardiovascular: RRR, no murmur, no edema Gastrointestinal (Abdomen): normal bowel sounds, soft, nontender, no hepatosplenomegaly Musculoskeletal: no cyanosis or clubbing, extremities motor strength 5/5 Skin: no rashes, warm and dry Neurologic: awake; no focal motor deficits Motor/Sensory: no tremor Results & Data ([facility]) Vital Signs (Past 12 Hours) Vital Signs Temp Pulse Pulse Resp BP BP Pulse Ox 09/23/21 11:48 36.6 C 62 18 108/56 L 97 09/23/21 10:52 36.8 C 58 L 16 118/61 97 09/23/21 09:55 54 L 09/23/21 09:43 36.8 C 60 16 124/58 L 95 09/23/21 09:13 36.8 C 59 L 16 120/59 L 94 09/23/21 08:58 36.8 C 57 L 16 116/64 100 09/23/21 08:39 37.1 C 59 L 18 130/63 94 09/23/21 07:58 36.6 C 55 L 19 99/43 L 95 09/23/21 07:05 56 L 99/43 L 09/23/21 05:04 36.5 C 60 19 102/58 L 95 09/23/21 04:04 36.6 C 61 18 108/57 L 98 09/23/21 03:04 36.6 C 62 16 106/62 98 09/23/21 02:34 36.5 C 53 L 18 94/61 L 95 09/23/21 02:19 36.5 C 51 L 17 93/45 L 94 09/23/21 02:03 36.5 C 58 L 20 103/49 L 96 09/23/21 02:00 36.5 C 58 L 16 103/49 L 98 09/23/21 01:00 36.5 C 62 16 101/50 L 94 09/23/21 00:00 36.6 C 67 15 109/70 97 Laboratory Results Laboratory Results - last 24 hr 09/22/21 09/22/21 09/22/21 20:05 20:05 20:05 WBC 3.45 L RBC 2.29 L Hgb 4.9 L* Hct 17.4 L* MCV 76.0 L MCH 21.4 L MCHC 28.2 L RDW Std Deviation 49.5 H RDW Coeff of Gerardo 17.9 H Plt Count 60 L Immature Gran % (Auto) 0.0 Neut % (Auto) 68.7 Lymph % (Auto) 18.0 Stafford % (Auto) 11.0 Eos % (Auto) 2.3 Baso % (Auto) 0.0 Neut # (Auto) 2.37 Lymph # (Auto) 0.62 L Stafford # (Auto) 0.38 Eos # (Auto) 0.08 Baso # (Auto) 0.00 Immature Gran # (Auto) 0.00 Platelet Estimate Decreased L Polychromasia 1+ Hypochromasia Present Poikilocytosis Present Anisocytosis Schistocytes PT 31.6 H INR 3.2 H APTT 33.3 H PTT Ratio 1.2 Sodium 137 Potassium 5.0 Chloride 106 Carbon Dioxide 19 L Anion Gap 12 H BUN 52 H Creatinine 2.29 H Est Cr Clr Drug Dosing 23.1 Est GFR ( Amer) 30.5 Est GFR (Non-Af Amer) 26.4 BUN/Creatinine Ratio 22.7 H Glucose 106 H POC Glucose Estimat Average Glucose Hemoglobin A1c Calcium 9.3 Magnesium 1.7 Total Bilirubin 0.9 Direct Bilirubin 0.3 H AST 30 ALT 21 Alkaline Phosphatase 62 Troponin I High Sens 21.3 H Total Protein 6.9 Albumin 3.9 Lipase 112 H SARS-CoV-2, RNA, NAAT Blood Type Blood Type Recheck Antibody Screen Crossmatch 09/22/21 09/22/21 09/22/21 20:14 20:15 21:38 WBC RBC Hgb Hct MCV MCH MCHC RDW Std Deviation RDW Coeff of Gerardo Plt Count Immature Gran % (Auto) Neut % (Auto) Lymph % (Auto) Stafford % (Auto) Eos % (Auto) Baso % (Auto) Neut # (Auto) Lymph # (Auto) Stafford # (Auto) Eos # (Auto) Baso # (Auto) Immature Gran # (Auto) Platelet Estimate Polychromasia Hypochromasia Poikilocytosis Anisocytosis Schistocytes PT INR APTT PTT Ratio Sodium Potassium Chloride Carbon Dioxide Anion Gap BUN Creatinine Est Cr Clr Drug Dosing Est GFR ( Amer) Est GFR (Non-Af Amer) BUN/Creatinine Ratio Glucose POC Glucose Estimat Average Glucose Hemoglobin A1c Calcium Magnesium Total Bilirubin Direct Bilirubin AST ALT Alkaline Phosphatase Troponin I High Sens Total Protein Albumin Lipase SARS-CoV-2, RNA, NAAT NEGATIVE Blood Type O Positive Blood Type Recheck O Positive Antibody Screen NEGATIVE Crossmatch See Detail 09/22/21 09/23/21 09/23/21 23:21 05:09 05:39 WBC RBC Hgb Hct MCV MCH MCHC RDW Std Deviation RDW Coeff of Gerardo Plt Count Immature Gran % (Auto) Neut % (Auto) Lymph % (Auto) Stafford % (Auto) Eos % (Auto) Baso % (Auto) Neut # (Auto) Lymph # (Auto) Stafford # (Auto) Eos # (Auto) Baso # (Auto) Immature Gran # (Auto) Platelet Estimate Polychromasia Hypochromasia Poikilocytosis Anisocytosis Schistocytes PT 20.3 H INR 2.0 H APTT PTT Ratio Sodium Potassium Chloride Carbon Dioxide Anion Gap BUN Creatinine Est Cr Clr Drug Dosing Est GFR ( Amer) Est GFR (Non-Af Amer) BUN/Creatinine Ratio Glucose POC Glucose 128 H 84 Estimat Average Glucose Hemoglobin A1c Calcium Magnesium Total Bilirubin Direct Bilirubin AST ALT Alkaline Phosphatase Troponin I High Sens Total Protein Albumin Lipase SARS-CoV-2, RNA, NAAT Blood Type Blood Type Recheck Antibody Screen Crossmatch 09/23/21 09/23/21 09/23/21 05:39 05:39 05:39 WBC 2.59 L RBC 2.89 L Hgb 6.8 L* Hct 22.4 L MCV 77.5 L MCH 23.5 L MCHC 30.4 L RDW Std Deviation 52.8 H RDW Coeff of Gerardo 18.4 H Plt Count 43 L Immature Gran % (Auto) 0.0 Neut % (Auto) 60.2 Lymph % (Auto) 25.1 Stafford % (Auto) 11.6 Eos % (Auto) 3.1 Baso % (Auto) 0.0 Neut # (Auto) 1.56 Lymph # (Auto) 0.65 L Stafford # (Auto) 0.30 Eos # (Auto) 0.08 Baso # (Auto) 0.00 Immature Gran # (Auto) 0.00 Platelet Estimate Decreased L Polychromasia 1+ Hypochromasia Poikilocytosis Present Anisocytosis Present Schistocytes 1+ PT INR APTT PTT Ratio Sodium 139 Potassium 4.4 Chloride 107 Carbon Dioxide 21 Anion Gap 11 BUN 50 H Creatinine 2.23 H Est Cr Clr Drug Dosing 23.7 Est GFR ( Amer) 31.5 Est GFR (Non-Af Amer) 27.2 BUN/Creatinine Ratio 22.4 H Glucose 70 POC Glucose Estimat Average Glucose Hemoglobin A1c Calcium 9.3 Magnesium 1.6 L Total Bilirubin Direct Bilirubin AST ALT Alkaline Phosphatase Troponin I High Sens 21.0 H Total Protein Albumin Lipase SARS-CoV-2, RNA, NAAT Blood Type Blood Type Recheck Antibody Screen Crossmatch 09/23/21 09/23/21 05:39 07:05 WBC RBC Hgb 6.7 L* Hct 21.2 L MCV MCH MCHC RDW Std Deviation RDW Coeff of Gerardo Plt Count Immature Gran % (Auto) Neut % (Auto) Lymph % (Auto) Stafford % (Auto) Eos % (Auto) Baso % (Auto) Neut # (Auto) Lymph # (Auto) Stafford # (Auto) Eos # (Auto) Baso # (Auto) Immature Gran # (Auto) Platelet Estimate Polychromasia Hypochromasia Poikilocytosis Anisocytosis Schistocytes PT INR APTT PTT Ratio Sodium Potassium Chloride Carbon Dioxide Anion Gap BUN Creatinine Est Cr Clr Drug Dosing Est GFR ( Amer) Est GFR (Non-Af Amer) BUN/Creatinine Ratio Glucose POC Glucose Estimat Average Glucose Pending Hemoglobin A1c Pending Calcium Magnesium Total Bilirubin Direct Bilirubin AST ALT Alkaline Phosphatase Troponin I High Sens Total Protein Albumin Lipase SARS-CoV-2, RNA, NAAT Blood Type Blood Type Recheck Antibody Screen Crossmatch
[2021-09-23 12:03] LABS: Hematocrit (blood only) 25.8 % (42-52)
[2021-09-23] MEDS ORDERED: LAVAGE SOLUTION 4000ML PO SCH (16:00)
[2021-09-23 17:19] LABS: Hematocrit (blood only) 25.2 % (42-52); Hemoglobin 7.8 g/dL (14.0-18.0)
[2021-09-23] MEDS ORDERED: PHYTONADIONE 5 MG TAB PO STA (17:32)
[2021-09-23] MEDS: SODIUM CHLORIDE 0.9% 1000ML 1,000 ML IV SCH (18:05)
--- NOTE | 2021-09-23 18:23 | Hospitalist Progress Note ---
Date of Service September 23, 2021 Assessment & Plan (1) Acute blood loss anemia: Plan: per Dr. Valdez's notes with addendum: ASSESSMENT AND PLAN: This is a 70-year-old male who presents with shortness of breath, found to have profound anemia. 1.Acute Blood Loss Anemia likely from GI bleed on Coumadin - 3rd unit rbc given Hg 7.9 - INR 2.0 additional Vit K given - for EGD/Colonoscopy tomorrow 3. History of thrombocytopenia, history of hypersplenism, history of pancytopenia. His baseline hemoglobin was 10-11. - His white count is 3.45 and platelets are 60, etiology is unclear. Needs to follow up with Hem/Onc. - Plt 43 - given 1 unit plateletpharesis 4. History of chronic atrial fibrillation, rate controlled with metoprolol. Holding Coumadin for gastrointestinal bleed, needs follow up. 5. Diabetes. We will cut back to his long acting insulin to 15 units at bedtime,as the patient is currently n.p.o., holding his Jardiance and metformin. We will place him on insulin sliding scale. 6. Hypothyroidism. Continue Synthroid. 7. Acute kidney injury and chronic kidney disease, stage III: Baseline creatinine 1.35, presented with creatinine of 2.2, holding his Bumex and losartan, getting PRBC. - monitor crea 8. History of chronic diastolic congestive heart failure, history of grade III diastolic congestive heart failure, on Bumex, which we are holding. - monitor volume status 9. History of coronary artery disease, coronary artery bypass graft. Holding his aspirin. Continue statin and beta luzmaria. 10. Hypertension: Continue his metoprolol succinate and amlodipine. Holding his diuretics and losartan. Monitor the blood pressure. 11. History of anxiety and depression: Continue Zoloft, trazodone, and Seroquel. 12. Deep venous thrombosis prophylaxis, sequential compression devices as the patient is having gastrointestinal bleed. DISPOSITION: Closely monitor in the tele floor. Level 1 full code. PT/OT prior to discharge. Expect to discharge home and follow with family doctor. Admission and Anticipated Discharge Date Admission Date: September 22, 2021 Subjective ff up for GI bleed, anemia, etc seen resting in bed, comfortable sitting up states he feels ok overall no chest pain, dyspnea, palpitations, dizziness no melena/hematochezia no abdominal pain, nausea/vomiting no other symptoms Review of Systems Review of Systems: all noted and negative except for above Physical Exam Physical Exam: General- oriented x 3, not in distress, speaks in sentences with no effort or accessory muscle use Head- atraumatic Eyes- PERRL, EOMI, anicteric ENT- oropharynx clear Neck- supple, no JVD, no adenopathy, no thyromegaly; carotids +2/2, no bruits appreciated Lungs- clear to auscultation bilaterally, no rales/wheezes Heart- normal rate, regular rhythm; no murmur, no gallop, no rub appreciated Abdomen- normal bowel sounds, nondistended, soft, nontender, no masses or hepatosplenomegaly Extremities- no pretibial edema, no calf tenderness; peripheral pulses intact Neuro- alert, oriented x 3; CN 2-12 grossly intact; motor 5/5 bilaterally;sensation 100% on all extremities; no other gross focal neurologic deficits Skin- warm & dry Results & Data Results & Data ([facility]) Vital Signs (Past 12 Hours) Vital Signs Temp Pulse Pulse Resp BP BP Pulse Ox 09/23/21 15:54 55 L 09/23/21 15:23 36.4 C L 61 20 122/75 93 09/23/21 13:13 36.8 C 62 16 118/72 95 09/23/21 12:49 36.8 C 56 L 16 124/80 98 09/23/21 12:19 36.8 C 57 L 16 132/75 96 09/23/21 12:04 36.6 C 64 16 103/75 97 09/23/21 11:48 36.6 C 62 18 108/56 L 97 09/23/21 10:52 36.8 C 58 L 16 118/61 97 09/23/21 09:55 54 L 09/23/21 09:43 36.8 C 60 16 124/58 L 95 09/23/21 09:13 36.8 C 59 L 16 120/59 L 94 09/23/21 08:58 36.8 C 57 L 16 116/64 100 09/23/21 08:39 37.1 C 59 L 18 130/63 94 09/23/21 07:58 36.6 C 55 L 19 99/43 L 95 09/23/21 07:05 56 L 99/43 L all noted and reviewed including below
[2021-09-23] MEDS ORDERED: bisacodyL 5 MG TABEC PO ONE (20:30)
[2021-09-23] MEDS: ATORVASTATIN 40 MG TAB PO SCH (20:35)
[2021-09-23] MEDS: INSULIN GLARGINE SOLOSTAR 100 UNITS/ML 3 ML PEN SC SCH (20:35)
[2021-09-23] MEDS: MELATONIN 3 MG TAB PO SCH (20:35)
[2021-09-23] MEDS: QUEtiapine FUMARATE 25 MG TABLET PO SCH (20:36)
[2021-09-23] MEDS: traZODone HCL 50 MG TAB PO SCH (20:38)
[2021-09-23] MEDS ORDERED: amLODIPine BESYLATE 5 MG TAB PO SCH (21:00)
[2021-09-24] MEDS: INSULIN ASPART PER UNIT SC SCH ×5 (00:12→21:32)
[2021-09-24] MEDS: PANTOprazole 40 MG in DEXTROSE 5% 100 ML IV SCH ×4 (05:38→23:12)
[2021-09-24 05:56] LABS: Hematocrit (blood only) 22.1 % (42-52); Hemoglobin 6.8 g/dL (14.0-18.0); Mean Corpuscular Hgb Conc 30.8 g/dL (32-36); Mean Corpuscular Volume 78.1 fL (80-100); Mean Platelet Volume 10.9 fL (7.4-10.4); Platelet Count 51 K/uL (130-400); RDW Coefficient of Variation 18.1 % (11.5-14.5); RDW Standard Deviation 52.3 fL (36.4-46.3); Red Blood Count 2.83 M/uL (4.7-6.1); White Blood Count 2.37 K/uL (4.8-10.8)
[2021-09-24] MEDS ORDERED: ACETAMINOPHEN 325 MG TAB PO STA (05:58)
[2021-09-24] MEDS ORDERED: SODIUM CHLORIDE 0.9% 250 ML IV PRN ×2 (05:58→09:00)
[2021-09-24 05:59] LABS: INR 1.4 (0.9-1.1)
[2021-09-24 06:09] LABS: Acanthocytes 1+; Basophils # (auto) 0.01 K/uL (0-0.2); Basophils % (auto) 0.4 %; Eosinophils # (auto) 0.07 K/uL (0-0.5); Immature Granulocytes # (auto) 0.01 K/uL (0.00-0.02); Immature Granulocytes % (auto) 0.4 %; Lymphocytes % (auto) 16.9 %; Monocytes # (auto) 0.26 K/uL (0.11-0.59); Neutrophils # (auto) 1.62 K/uL (1.4-6.5); Neutrophils % (auto) 68.3 %; Ovalocytes 1+; Platelet Estimate Decreased (Normal); Target Cells 1+
[2021-09-24] MEDS: LEVOTHYROXINE SODIUM 100 MCG TABLET PO SCH (06:09)
[2021-09-24 06:38] LABS: BUN Creatinine Ratio 23.4 (10-20); Creatinine Clr Calc Pharmacy 30.3 ml/min; Est GFR (African American) 42.3 ml/min; Est GFR (Non-African American) 36.5 ml/min; Potassium 3.8 mmol/L (3.5-5.1)
[2021-09-24 07:38] LABS: Estimated Average Glucose 134 mg/dl; Hemoglobin A1C 6.3 % (4.5-5.6)
[2021-09-24] MEDS ORDERED: FUROSEMIDE INJ 20 MG/2 ML VIAL IV ONE (08:00)
[2021-09-24] MEDS: METOPROLOL SUCC 25MG EXT REL TAB PO SCH ×2 (08:39→21:32)
[2021-09-24] MEDS: SERTRALINE HCL 100 MG TABLET PO SCH (08:40)
--- NOTE | 2021-09-24 09:00 | Gastroenterology Progress Note ---
Date of Service September 24, 2021 Assessment & Plan (1) Acute GI bleeding: Plan: 76 year old male, NPO for egd/colon today for evaluation of anemia. He denies any episodes of black or bloody stools/emesis this bowel prep. His HGB is 6.8 this AM and he is getting transfused. NPO Transfuse RBC EGD/Colon today Admission and Anticipated Discharge Date Admission Date: September 22, 2021 Supervising Physician Co-Signing Physician Notes Attg add: I interviewed and examined pt, reviewed chart and labs. Pt with anemia, no overt GIB. Plan EGD and cscopy today. Subjective Pt was seen and evaluated, chart reviewed. No abd pain. Tolerated prep, he denies any black or bloody stools with prep. Review of Systems Review of Systems: All systems reviewed & are unremarkable except as noted in HPI & below Physical Exam Constitutional: WD/WN, vitals as above Respiratory: normal respiratory effort, lungs clear to auscultation Cardiovascular: Rate/Rhythm: regular rate and regular rhythm Gastrointestinal (Abdomen): normal bowel sounds, soft, nontender, no hepatosplenomegaly Skin: no rashes, warm and dry Results & Data ([facility]) Vital Signs (Past 12 Hours) Vital Signs Temp Pulse Pulse Resp BP BP Pulse Ox 09/24/21 08:42 36.8 C 70 18 132/69 92 09/24/21 08:25 36.5 C 60 18 118/72 92 09/24/21 07:55 36.5 C 60 18 104/52 L 92 09/24/21 03:42 37.0 C 63 24 100/63 95 09/24/21 03:39 37.0 C 09/23/21 23:14 36.6 C 65 18 124/57 L 92 09/23/21 23:12 60 Laboratory Results 09/24/21 09/24/21 09/24/21 Range/Units 05:39 05:32 05:32 WBC (4.8-10.8) K/uL RBC (4.7-6.1) M/uL Hgb (14.0-18.0) g/dL Hct (42-52) % MCV (80-100) fL MCH (25-34) pg MCHC (32-36) g/dL RDW Std Deviation (36.4-46.3) fL RDW Coeff of Gerardo (11.5-14.5) % Plt Count (130-400) K/uL MPV (7.4-10.4) fL Immature Gran % (Auto) % Neut % (Auto) % Lymph % (Auto) % Bethel % (Auto) % Eos % (Auto) % Baso % (Auto) % Neut # (Auto) (1.4-6.5) K/uL Lymph # (Auto) (1.2-3.4) K/uL Bethel # (Auto) (0.11-0.59) K/uL Eos # (Auto) (0-0.5) K/uL Baso # (Auto) (0-0.2) K/uL Immature Gran # (Auto) (0.00-0.02) K/uL Platelet Estimate (Normal) Target Cells Ovalocytes Acanthocytes (Spur) PT 15.0 H (9.0-12.0) Seconds INR 1.4 H (0.9-1.1) Sodium 137 (136-145) mmol/L Potassium 3.8 (3.5-5.1) mmol/L Chloride 107 (98-107) mmol/L Carbon Dioxide 20 L (21-32) mmol/L Anion Gap 10 (3-11) BUN 41 H (6-23) mg/dl Creatinine 1.75 H D (0.6-1.4) mg/dl Est Cr Clr Drug Dosing 30.3 ml/min Est GFR ( Amer) 42.3 ml/min Est GFR (Non-Af Amer) 36.5 ml/min BUN/Creatinine Ratio 23.4 H (10-20) Glucose 86 (70-99(Fasting)) mg/dl POC Glucose 100 H (70-99) mg/dl Estimat Average Glucose mg/dl Hemoglobin A1c (4.5-5.6) % Calcium 9.0 (8.5-10.1) mg/dl Troponin I High Sens (0-20) pg/ml Blood Type Antibody Screen Crossmatch 09/24/21 09/24/21 09/24/21 Range/Units 05:32 03:44 00:05 WBC 2.37 L (4.8-10.8) K/uL RBC 2.83 L (4.7-6.1) M/uL Hgb 6.8 L* (14.0-18.0) g/dL Hct 22.1 L (42-52) % MCV 78.1 L (80-100) fL MCH 24.0 L (25-34) pg MCHC 30.8 L (32-36) g/dL RDW Std Deviation 52.3 H (36.4-46.3) fL RDW Coeff of Gerardo 18.1 H (11.5-14.5) % Plt Count 51 L (130-400) K/uL MPV 10.9 H (7.4-10.4) fL Immature Gran % (Auto) 0.4 % Neut % (Auto) 68.3 % Lymph % (Auto) 16.9 % Bethel % (Auto) 11.0 % Eos % (Auto) 3.0 % Baso % (Auto) 0.4 % Neut # (Auto) 1.62 (1.4-6.5) K/uL Lymph # (Auto) 0.40 L (1.2-3.4) K/uL Bethel # (Auto) 0.26 (0.11-0.59) K/uL Eos # (Auto) 0.07 (0-0.5) K/uL Baso # (Auto) 0.01 (0-0.2) K/uL Immature Gran # (Auto) 0.01 (0.00-0.02) K/uL Platelet Estimate Decreased L (Normal) Target Cells 1+ Ovalocytes 1+ Acanthocytes (Spur) 1+ PT (9.0-12.0) Seconds INR (0.9-1.1) Sodium (136-145) mmol/L Potassium (3.5-5.1) mmol/L Chloride (98-107) mmol/L Carbon Dioxide (21-32) mmol/L Anion Gap (3-11) BUN (6-23) mg/dl Creatinine (0.6-1.4) mg/dl Est Cr Clr Drug Dosing ml/min Est GFR ( Amer) ml/min Est GFR (Non-Af Amer) ml/min BUN/Creatinine Ratio (10-20) Glucose (70-99(Fasting)) mg/dl POC Glucose 106 H 77 (70-99) mg/dl Estimat Average Glucose mg/dl Hemoglobin A1c (4.5-5.6) % Calcium (8.5-10.1) mg/dl Troponin I High Sens (0-20) pg/ml Blood Type Antibody Screen Crossmatch 09/23/21 09/23/21 09/23/21 Range/Units 21:03 18:14 17:03 WBC (4.8-10.8) K/uL RBC (4.7-6.1) M/uL Hgb 7.8 L (14.0-18.0) g/dL Hct 25.2 L (42-52) % MCV (80-100) fL MCH (25-34) pg MCHC (32-36) g/dL RDW Std Deviation (36.4-46.3) fL RDW Coeff of Gerardo (11.5-14.5) % Plt Count (130-400) K/uL MPV (7.4-10.4) fL Immature Gran % (Auto) % Neut % (Auto) % Lymph % (Auto) % Bethel % (Auto) % Eos % (Auto) % Baso % (Auto) % Neut # (Auto) (1.4-6.5) K/uL Lymph # (Auto) (1.2-3.4) K/uL Bethel # (Auto) (0.11-0.59) K/uL Eos # (Auto) (0-0.5) K/uL Baso # (Auto) (0-0.2) K/uL Immature Gran # (Auto) (0.00-0.02) K/uL Platelet Estimate (Normal) Target Cells Ovalocytes Acanthocytes (Spur) PT (9.0-12.0) Seconds INR (0.9-1.1) Sodium (136-145) mmol/L Potassium (3.5-5.1) mmol/L Chloride (98-107) mmol/L Carbon Dioxide (21-32) mmol/L Anion Gap (3-11) BUN (6-23) mg/dl Creatinine (0.6-1.4) mg/dl Est Cr Clr Drug Dosing ml/min Est GFR ( Amer) ml/min Est GFR (Non-Af Amer) ml/min BUN/Creatinine Ratio (10-20) Glucose (70-99(Fasting)) mg/dl POC Glucose 101 H 205 H (70-99) mg/dl Estimat Average Glucose mg/dl Hemoglobin A1c (4.5-5.6) % Calcium (8.5-10.1) mg/dl Troponin I High Sens (0-20) pg/ml Blood Type Antibody Screen Crossmatch 09/23/21 09/23/21 09/23/21 Range/Units 12:01 11:46 11:46 WBC (4.8-10.8) K/uL RBC (4.7-6.1) M/uL Hgb 8.0 L (14.0-18.0) g/dL Hct 25.8 L (42-52) % MCV (80-100) fL MCH (25-34) pg MCHC (32-36) g/dL RDW Std Deviation (36.4-46.3) fL RDW Coeff of Gerardo (11.5-14.5) % Plt Count (130-400) K/uL MPV (7.4-10.4) fL Immature Gran % (Auto) % Neut % (Auto) % Lymph % (Auto) % Bethel % (Auto) % Eos % (Auto) % Baso % (Auto) % Neut # (Auto) (1.4-6.5) K/uL Lymph # (Auto) (1.2-3.4) K/uL Bethel # (Auto) (0.11-0.59) K/uL Eos # (Auto) (0-0.5) K/uL Baso # (Auto) (0-0.2) K/uL Immature Gran # (Auto) (0.00-0.02) K/uL Platelet Estimate (Normal) Target Cells Ovalocytes Acanthocytes (Spur) PT (9.0-12.0) Seconds INR (0.9-1.1) Sodium (136-145) mmol/L Potassium (3.5-5.1) mmol/L Chloride (98-107) mmol/L Carbon Dioxide (21-32) mmol/L Anion Gap (3-11) BUN (6-23) mg/dl Creatinine (0.6-1.4) mg/dl Est Cr Clr Drug Dosing ml/min Est GFR ( Amer) ml/min Est GFR (Non-Af Amer) ml/min BUN/Creatinine Ratio (10-20) Glucose (70-99(Fasting)) mg/dl POC Glucose 92 (70-99) mg/dl Estimat Average Glucose mg/dl Hemoglobin A1c (4.5-5.6) % Calcium (8.5-10.1) mg/dl Troponin I High Sens 22.0 H (0-20) pg/ml Blood Type Antibody Screen Crossmatch 09/23/21 09/22/21 Range/Units 05:39 20:14 WBC (4.8-10.8) K/uL RBC (4.7-6.1) M/uL Hgb (14.0-18.0) g/dL Hct (42-52) % MCV (80-100) fL MCH (25-34) pg MCHC (32-36) g/dL RDW Std Deviation (36.4-46.3) fL RDW Coeff of Gerardo (11.5-14.5) % Plt Count (130-400) K/uL MPV (7.4-10.4) fL Immature Gran % (Auto) % Neut % (Auto) % Lymph % (Auto) % Bethel % (Auto) % Eos % (Auto) % Baso % (Auto) % Neut # (Auto) (1.4-6.5) K/uL Lymph # (Auto) (1.2-3.4) K/uL Bethel # (Auto) (0.11-0.59) K/uL Eos # (Auto) (0-0.5) K/uL Baso # (Auto) (0-0.2) K/uL Immature Gran # (Auto) (0.00-0.02) K/uL Platelet Estimate (Normal) Target Cells Ovalocytes Acanthocytes (Spur) PT (9.0-12.0) Seconds INR (0.9-1.1) Sodium (136-145) mmol/L Potassium (3.5-5.1) mmol/L Chloride (98-107) mmol/L Carbon Dioxide (21-32) mmol/L Anion Gap (3-11) BUN (6-23) mg/dl Creatinine (0.6-1.4) mg/dl Est Cr Clr Drug Dosing ml/min Est GFR ( Amer) ml/min Est GFR (Non-Af Amer) ml/min BUN/Creatinine Ratio (10-20) Glucose (70-99(Fasting)) mg/dl POC Glucose (70-99) mg/dl Estimat Average Glucose 134 mg/dl Hemoglobin A1c 6.3 H (4.5-5.6) % Calcium (8.5-10.1) mg/dl Troponin I High Sens (0-20) pg/ml Blood Type O Positive Antibody Screen NEGATIVE Crossmatch See Detail
--- NOTE | 2021-09-24 11:50 | History & Physical Bridge Note ---
Date of Service September 24, 2021 History & Physical Bridge Note I have examined the patient, reviewed the History & Physical and in the interval since the performance of the History & Physical I have noted the following changes of clinical significance: no changes noted
[2021-09-24] MEDS ORDERED: LIDOCAINE 2% 2 ML VIAL/AMP(20MG/ML) INFIL ONE (13:52)
[2021-09-24] MEDS ORDERED: PROPOFOL IV EMULSION 10 MG/ML 20 ML VIAL IV ONE (13:52)
--- NOTE | 2021-09-24 13:55 | Anesthesiology Consultation ---
Date of Service September 24, 2021 Assessment & Plan Chart Review Chart Review: Acceptable Risk for Surgery Consults Requested none ASA ASA4 Proposed Anesthesia Anesthesia Type: MAC Risk / Benefits Reviewed With: PT / POA / Parent / Guardian, Accepts Plan and Informed Consent Obtained History Surgery Operation Date: 09/24/21 16:30 Proposed Procedures p Colonscopy EGD Dr Coley - Fabiola Coley MD Height/Weight Height: 5 ft 5 in Weight: 65.5 kg Allergies Allergy/AdvReac Type Severity Reaction Status Date / Time rivaroxaban AdvReac Intermediate VOMITING Verified 11/10/20 08:53 Medications Home Medications Medication Instructions Recorded Confirmed Last Taken acetaminophen 500 mg tablet 1,000 mg PO TID PRN 08/09/19 09/22/21 Unknown (Tylenol Extra Strength) amlodipine 5 mg tablet 5 mg PO HS 08/09/19 09/22/21 09/22/21 aspirin 81 mg tablet,delayed 81 mg PO QPM 08/09/19 09/22/21 09/22/21 release (Aspir-) atorvastatin 40 mg tablet 40 mg PO QPM 08/09/19 09/22/21 09/22/21 bumetanide 2 mg tablet 2 mg PO QPM 08/09/19 09/22/21 09/22/21 levothyroxine 100 mcg tablet 100 mcg PO QAM 08/09/19 09/22/21 11/09/20 losartan 100 mg tablet 100 mg PO DAILY 08/09/19 09/22/21 09/22/21 melatonin 10 mg capsule 10 mg PO HS 08/09/19 09/22/21 09/22/21 metformin 500 mg tablet,extended 1,000 mg PO BIDM 08/09/19 09/22/21 09/22/21 18:30 release 24 hr metoprolol succinate 25 mg 25 mg PO BID 08/09/19 09/22/21 11/09/20 tablet,extended release 24 hr omeprazole 40 mg capsule,delayed 40 mg PO QAM 08/09/19 09/22/21 09/22/21 release potassium chloride 20 mEq 20 meq PO BID 08/09/19 09/22/21 09/22/21 18:30 tablet,extended release(part/cryst) (Klor-Con M) warfarin 5 mg tablet (Jantoven) 2.5 mg PO 6XWK 08/09/19 09/22/21 09/22/21 blood sugar diagnostic (OneTouch #100 ea 08/13/19 09/22/21 Unknown Verio test strips) pen needle, diabetic 32 gauge x #30 ea 08/13/19 09/22/21 Unknown " (BD Rosemary 2nd Gen Pen Needle) quetiapine 25 mg tablet 25 mg PO HS 30 Days #30 tab 08/13/19 09/22/21 09/22/21 trazodone 50 mg tablet 50 mg PO HS #30 tab 08/13/19 09/22/21 09/22/21 empagliflozin 10 mg tablet 10 mg PO QAM 11/07/20 09/22/21 09/22/21 (Jardiance) insulin glargine 100 unit/mL (3 26 unit SUBCUT QPM 11/07/20 09/22/21 09/22/21 18:30 mL) subcutaneous pen (Codeanywhereaglar KwikPen U-100 Insulin) lorazepam 0.5 mg tablet 0.5 mg PO DAILY PRN 11/07/20 09/22/21 11/09/20 sertraline 100 mg tablet 200 mg PO QAM 11/07/20 09/22/21 09/22/21 warfarin 5 mg tablet (Jantoven) 5 mg PO .Friday11/07/20 09/22/21 Unknown Active Medications Generic Name Dose Route Start Last Admin Trade Name Freq PRN Reason Stop Dose Admin Atorvastatin Calcium 40 mg 09/23/21 21:00 09/23/21 20:35 Atorvastatin 40 Mg Tab PO 10/23/21 20:59 40 mg QPM JONEL Administration Pantoprazole Sodium 40 mg/ 100 mls @ 20 mls/hr 09/22/21 23:30 09/24/21 13:53 Dextrose IV 10/22/21 23:29 Infused Q5H JONEL Infusion 8 MG/HR Sodium Chloride 1,000 mls @ 50 mls/hr 09/22/21 23:08 09/24/21 13:53 Nss 1000ml IV 10/22/21 23:07 0 mls/hr .Q20H JONEL Infusion Insulin Aspart 0 units 09/23/21 00:00 09/24/21 12:50 Insulin Aspart Per Unit SC 10/23/21 00:00 Not Given Q6 JONEL Insulin Glargine 15 units 09/23/21 21:00 09/23/21 20:35 Insulin Glargine Solostar 100 Units/Ml 3 Ml Pen SC 10/23/21 20:59 15 units HS JONEL Administration Levothyroxine Sodium 100 mcg 09/23/21 06:30 09/24/21 06:09 Levothyroxine Sodium 100 Mcg Tablet PO 10/23/21 06:29 100 mcg DAILYBB JONEL Administration Melatonin 9 mg 09/23/21 21:00 09/23/21 20:35 Melatonin 3 Mg Tab PO 10/23/21 20:59 9 mg HS JONEL Administration Metoprolol Succinate 25 mg 09/23/21 09:00 09/24/21 08:39 Metoprolol Succ 25mg Ext Rel Tab PO 10/23/21 08:59 25 mg BID JONEL Administration Quetiapine Fumarate 25 mg 09/22/21 23:08 09/23/21 20:36 Quetiapine Fumarate 25 Mg Tablet PO 10/22/21 23:07 25 mg HS JONEL Administration Sertraline HCl 200 mg 09/23/21 09:00 09/24/21 08:40 Sertraline Hcl 100 Mg Tablet PO 10/23/21 08:59 200 mg QAM JONEL Administration Trazodone HCl 50 mg 09/22/21 23:08 09/23/21 20:38 Trazodone Hcl 50 Mg Tab PO 10/22/21 23:07 50 mg HS JONEL Administration NPO Date Last Intake of Fluids: 09/23/21 Time Last Intake of Fluids: 19:00 Date Last Intake of Solids: 09/23/21 Time Last Intake of Solids: 19:00 Past Medical History Medical History Anemia Anxiety Atrial fibrillation on warfarin--follows with Dr. 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 [id number] Exercise / Class Metabolic Activity II 4-5 Yardwork/Stairs/Walk up hill Past Family History Family History Other No family history of adverse response to anesthesia Past Surgical History Surgical History History of cardiac cath a few years ago at [facility] in [place]--no stents History of colonoscopy History of coronary artery bypass graft x 3 "a few years ago" at [facility] in [place] History of hernia surgery History of Mohs micrographic surgery for skin cancer History of sinus surgery History of strabismus surgery History of tooth extraction Past Anesthesia History No Hx of Anesthesia Complications and No Family Hx of Anesthesia Complications History of PONV No Hx of PONV and No Hx of Motion Sickness Social History Smoking Status: Never smoker Hx Alcohol Use: No Hx Substance Use: No substance use type: does not use Physical Exam Vital Signs Last Vital Signs Temp 36.8 C 09/24/21 12:38 Pulse 65 09/24/21 12:38 Resp 20 09/24/21 12:38 BP 128/77 09/24/21 12:38 Pulse Ox 95 09/24/21 12:38 ENMT Mouth: + dentition abnormality (All teeth remaining broken/decay. Mult missing) and + poor dentition; no TMJ abnormality Thyromental Distance: > or= 3.5 Finger Breadths Mallampati Class: II Neck normal visual inspection and trachea midline; neck extension not limited Respiratory normal respiratory effort Auscultation: lungs clear to auscultation bilaterally Cardiovascular Rate/Rhythm: regular rate and regular rhythm Heart Sounds: no murmur Musculoskeletal Spine: normal cervical ROM Extremities: full ROM of extremities Neurologic moves all extremities Psychiatric Orientation: alert and oriented x 3 Testing Laboratory Results 09/24/21 05:32 09/24/21 05:32 PT 15.0 Seconds (9.0-12.0) H 09/24/21 05:32 INR 1.4 (0.9-1.1) H 09/24/21 05:32 APTT 33.3 Seconds (21.0-31.0) H 09/22/21 20:05 Hemoglobin A1c 6.3 % (4.5-5.6) H 09/23/21 05:39 Blood Type O Positive 09/22/21 20:14 Antibody Screen NEGATIVE 09/22/21 20:14 09/24/21 09/24/21 05:39 03:44 POC Glucose 100 H 106 H since labs tfd 1unit prbc. Electrocardiogram Date: 09/22/21 Findings: + NSR @ (63) Chest X-Ray Date: 09/22/21 Findings: + NAD and + cardiomegaly
--- NOTE | 2021-09-24 15:45 | Anesthesiology Progress Note ---
Date of Service September 24, 2021 Anesthesia Post Procedure Vital Signs Vital Signs: Temp Pulse Pulse Resp BP BP Pulse Ox 09/24/21 12:38 36.8 C 65 20 128/77 95 09/24/21 11:27 36.8 C 61 20 131/87 93 09/24/21 10:27 36.6 C 67 20 119/69 97 09/24/21 09:27 36.6 C 60 20 134/90 91 09/24/21 08:57 36.7 C 63 20 125/63 93 09/24/21 08:42 36.8 C 70 18 132/69 92 09/24/21 08:25 36.5 C 60 18 118/72 92 09/24/21 07:55 36.5 C 60 18 104/52 L 92 09/24/21 03:42 37.0 C 63 24 100/63 95 09/24/21 03:39 37.0 C 09/23/21 23:14 36.6 C 65 18 124/57 L 92 09/23/21 23:12 60 09/23/21 19:39 36.7 C 57 L 24 119/61 93 09/23/21 15:54 55 L Transfer of Care Handoff Completed per policy Notes Mental Status: alert / awake / arousable Patient Amnestic to Procedure: Yes Nausea / Vomiting: adequately controlled Pain: adequately controlled Airway Patency, RR, SpO2: stable & adequate BP & HR: stable & adequate Hydration State: stable & adequate Anesthetic Complications: no major complications apparent and Pt Satisfied with anesthetic care
--- NOTE | 2021-09-24 15:46 | GI REPORT ---
Patient Name: Baldomero Salinas Procedure Date: 09/24/2021 2:49 PM Date of : 1945 Admit Type: Inpatient Age: 76 Gender: Male Attending MD: Fabiola Coley MD Procedure: Upper GI endoscopy Providers: Fabiola Coley MD Referring MD: Juanjo Jalloh Indications: Acute post hemorrhagic anemia Medicines: See the Anesthesia note for documentation of the administered medications Complications: No immediate complications. Estimated Blood Loss: Estimated blood loss: none. Procedure: Pre-Anesthesia Assessment: - ASA Grade Assessment: IV - A patient with severe systemic disease that is a constant threat to life. After obtaining informed consent, the endoscope was passed under direct vision. Throughout the procedure, the patient's blood pressure, pulse, and oxygen saturations were monitored continuously. The Colonoscope was introduced through the mouth, and advanced to the fourth part of duodenum. The upper GI endoscopy was accomplished without difficulty. The patient tolerated the procedure well. Findings: There was a web in the proximal esophagus precluding advancement of the pediatric colonoscope. The upper endoscope was passed without difficulty. The examined esophagus was normal. The stomach was normal. The examined duodenum was normal. A guidewire was placed and the scope was withdrawn. Dilation was performed at the cricopharyngeus with a Savary dilator with no resistance at 13 mm. There was an appropriate mucosal disruption post dilation. Recommendation: - Discharge patient to floor. Consider repeat dilation, VCE. Fabiola Coley M.D. Fabiola Coley MD 09/24/2021 3:46:09 PM This report has been signed electronically. Note Initiated On: 09/24/2021 2:49 PM Number of Addenda: 0 I attest to the content of the Intraoperative Record and orders documented therein, exceptions below {[id number]}
--- NOTE | 2021-09-24 15:49 | GI REPORT ---
Patient Name: Baldomero Salinas Procedure Date: 09/24/2021 2:48 PM Date of : 1945 Admit Type: Inpatient Age: 76 Gender: Male Attending MD: Fabiola Coley MD Procedure: Colonoscopy Providers: Fabiola Coley MD Referring MD: Juanjo Jalloh Indications: Acute post hemorrhagic anemia Medicines: See the Anesthesia note for documentation of the administered medications Complications: No immediate complications. Estimated Blood Loss: Estimated blood loss: none. Procedure: Pre-Anesthesia Assessment: - ASA Grade Assessment: IV - A patient with severe systemic disease that is a constant threat to life. After I obtained informed consent, the scope was passed under direct vision. Throughout the procedure, the patient's blood pressure, pulse, and oxygen saturations were monitored continuously. The Colonoscope was introduced through the anus and advanced to 20 cm into the ileum. The colonoscopy was performed without difficulty. The patient tolerated the procedure well. The quality of the bowel preparation was fair. Findings: Hemorrhoids were found on perianal exam. There was a red spot in the ascending colon. This was clipped x 1. There were diverticula throughout the colon. There was a scar in the rectum without evidence of polyp recurrence. No source of GI bleeding was found. There was green stool throughout the colon. Recommendation: - Discharge patient to floor. Begin diet as tolerated, follow hgb. Fabiola Coley M.D. Fabiola Coley MD 09/24/2021 3:49:12 PM This report has been signed electronically. Note Initiated On: 09/24/2021 2:48 PM Number of Addenda: 0 I attest to the content of the Intraoperative Record and orders documented therein, exceptions below {[id number]}
[2021-09-24] MEDS: SODIUM CHLORIDE 0.9% 1000ML 1,000 ML IV SCH (17:18)
[2021-09-24 17:24] LABS: Hematocrit (blood only) 28.2 % (42-52); Hemoglobin 8.7 g/dL (14.0-18.0)
--- NOTE | 2021-09-24 17:37 | Hospitalist Progress Note ---
Date of Service September 24, 2021 Assessment & Plan (1) Acute blood loss anemia: Plan: per Dr. Valdez's notes with addendum: ASSESSMENT AND PLAN: This is a 70-year-old male who presents with shortness of breath, found to have profound anemia. 1.Acute Blood Loss Anemia likely from GI bleed on Coumadin - 4 units PRBC given Vit k IV and PO given Hg 7.9--> 6.8--> 8.7 - INR 1.4 - 09/24:: s/p EGD The examined esophagus was normal. The stomach was normal. The examined duodenum was normal. s/p Colonoscopy Hemorrhoids were found on perianal exam. There was a red spot in the ascending colon. This was clipped x 1. There were diverticula throughout the colon. There was a scar in the rectum without evidence of polyp recurrence. No source of GI bleeding was found. There was green stool throughout the colon. -- advance diet slowly monitor H&H 3. History of thrombocytopenia, history of hypersplenism, history of pancytopenia. His baseline hemoglobin was 10-11. - His white count is 3.45 and platelets are 60, etiology is unclear. Needs to follow up with Hem/Onc. - Plt 43 - given 1 unit plateletpharesis Plt 57 4. History of chronic atrial fibrillation, rate controlled with metoprolol. - Holding Coumadin for gastrointestinal bleed 5. Diabetes. We will cut back to his long acting insulin to 15 units at bedtime,as the patient is currently n.p.o., holding his Jardiance and metformin. We will place him on insulin sliding scale. - BSG 105 6. Hypothyroidism. Continue Synthroid. 7. Acute kidney injury and chronic kidney disease, stage III: Baseline creatinine 1.35, presented with creatinine of 2.2, holding his Bumex and losartan, getting PRBC. - crea improving to 1.7 8. History of chronic diastolic congestive heart failure, history of grade III diastolic congestive heart failure, on Bumex, which we are holding. - appears euvolemic 9. History of coronary artery disease, coronary artery bypass graft. Holding his aspirin. Continue statin and beta luzmaria. 10. Hypertension -- BP on the lower side hold Amlodipine, Losartan --Continue his metoprolol succinate 11. History of anxiety and depression: Continue Zoloft, trazodone, and Seroquel. 12. Deep venous thrombosis prophylaxis, sequential compression devices as the patient is having gastrointestinal bleed. DISPOSITION: pending PT/OT eval Admission and Anticipated Discharge Date Admission Date: September 22, 2021 Subjective ff up for anemia, etc 1 unit pRBC given s/p EGD and Colonoscopy seen resting in bed, comfortable alert, oriented states he feels fine overall no melena/hematochezia no abdominal pain no other symptoms Review of Systems Review of Systems: all noted and negative except for above Physical Exam Physical Exam: General- oriented x 3, not in distress, speaks in sentences with no effort or accessory muscle use Eyes- anicteric Neck- no JVD Lungs- clear BS BL no rales no wheezing Heart- normal rate, regular rhythm; no murmurs Abdomen- normal bowel sounds, nondistended, soft, nontender Extremities- no pretibial edema, no calf tenderness Neuro- alert, oriented x 3; no gross focal neurologic deficits Skin- warm & dry Results & Data Results & Data ([facility]) Vital Signs (Past 12 Hours) Vital Signs Temp Pulse Pulse Resp BP BP BP 09/24/21 16:25 36.2 C L 77 18 113/73 09/24/21 16:04 66 18 114/71 09/24/21 15:49 79 18 103/45 L 09/24/21 15:34 76 18 110/68 09/24/21 12:38 36.8 C 65 20 128/77 09/24/21 11:27 36.8 C 61 20 131/87 09/24/21 10:27 36.6 C 67 20 119/69 09/24/21 09:27 36.6 C 60 20 134/90 09/24/21 08:57 36.7 C 63 20 125/63 09/24/21 08:42 36.8 C 70 18 132/69 09/24/21 08:25 36.5 C 60 18 118/72 09/24/21 07:55 36.5 C 60 18 104/52 L Pulse Ox 09/24/21 16:25 93 09/24/21 16:04 96 09/24/21 15:49 96 09/24/21 15:34 96 09/24/21 12:38 95 09/24/21 11:27 93 04/18/22 10:27 97 09/24/21 09:27 91 09/24/21 08:57 93 09/24/21 08:42 92 09/24/21 08:25 92 09/24/21 07:55 92 all noted and reviewed including below
[2021-09-24] MEDS: traZODone HCL 50 MG TAB PO SCH (21:31)
[2021-09-24] MEDS: ATORVASTATIN 40 MG TAB PO SCH (21:32)
[2021-09-24] MEDS: MELATONIN 3 MG TAB PO SCH (21:32)
[2021-09-24] MEDS: QUEtiapine FUMARATE 25 MG TABLET PO SCH (21:32)
[2021-09-24] MEDS: INSULIN GLARGINE SOLOSTAR 100 UNITS/ML 3 ML PEN SC SCH (21:33)
[2021-09-25] MEDS: PANTOprazole 40 MG in DEXTROSE 5% 100 ML IV SCH ×5 (06:09→22:24)
[2021-09-25] MEDS: LEVOTHYROXINE SODIUM 100 MCG TABLET PO SCH (06:09)
[2021-09-25 06:44] LABS: Mean Corpuscular Hgb Conc 30.7 g/dL (32-36); Nucleated RBC # (auto) 0.03 K/uL (0-0); Nucleated RBC % (auto) 1.1 %
[2021-09-25 07:01] LABS: Hematocrit (blood only) 25.7 % (42-52); Hemoglobin 7.9 g/dL (14.0-18.0); Mean Corpuscular Hemoglobin 24.9 pg (25-34); Mean Corpuscular Volume 81.1 fL (80-100); RDW Coefficient of Variation 18.8 % (11.5-14.5); RDW Standard Deviation 56.1 fL (36.4-46.3); Red Blood Count 3.17 M/uL (4.7-6.1); White Blood Count 2.62 K/uL (4.8-10.8)
[2021-09-25 07:10] LABS: Eosinophils # (auto) 0.08 K/uL (0-0.5); Eosinophils % (auto) 3.1 %; Giant Platelets 1+; Lymphocytes # (auto) 0.36 K/uL (1.2-3.4); Lymphocytes % (auto) 13.7 %; Monocytes # (auto) 0.28 K/uL (0.11-0.59); Monocytes % (auto) 10.7 %; Neutrophils % (auto) 72.5 %; Platelet Count 51 K/uL (130-400); Platelet Estimate Decreased (Normal)
[2021-09-25 07:12] LABS: BUN Creatinine Ratio 18.1 (10-20); Calcium 8.7 mg/dl (8.5-10.1); Creatinine Clr Calc Pharmacy 29.9 ml/min; Est GFR (African American) 41.7 ml/min; Potassium 3.6 mmol/L (3.5-5.1)
[2021-09-25 07:29] LABS: INR 1.3 (0.9-1.1); Prothrombin Time 14.1 Seconds (9.0-12.0)
[2021-09-25 07:38] LABS: Folate (Folic Acid) 14.45 ng/ml (>5.38)
[2021-09-25 07:45] LABS: Ferritin 20.4 ng/ml (8-388)
--- NOTE | 2021-09-25 08:25 | Gastroenterology Progress Note ---
Date of Service September 25, 2021 Assessment & Plan (1) Acute GI bleeding: Plan: 76 year old male w/ history of DM, CKD-3, hypothyroidism, dyslipidemia.atrial fibrillation, CHF, pulmonary hypertension, ischemic cardiomyopathy s/p egd/colon yesterday for evaluation of anemia. There was a red spot in ascending colon which was clipped, otherwise negative examination without evidence of GI bleeding No GI contraindication to diet No GI contraindication to discharge Can repeat EGD as OP PRN for dilation If ERICK persists as OP, consider VCE Trend HGB Transfuse PRN Thank you for allowing us to participate in the care of this patient. Please call with any acute changes, questions or concerns. Please see addendum below with additional recommendation from my supervising physician. Admission and Anticipated Discharge Date Admission Date: September 22, 2021 Supervising Physician Co-Signing Physician Notes attg Add: I interviewed and examined pt, reviewed chart and labs. Pt with stable hgb and no gross GIB. 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 OK for d/c home if no evidence of re-bleed tomorrow am; ok to resume anticoag on discharge. Repeat EGD 4 weeks for dilation of web, check ferritin to see if web related to neptali latoya. Consider VCE after dilation. Subjective Pt was seen and evaluated, chart reviewed. Feeling well. Denies abd pain. No nausea, vomiting. HGB stable. EGD 2021: There was a web in the proximal esophagus precluding advancement of the pediatric colonoscope. The upper endoscope was passed without difficulty. The examined esophagus was normal. The stomach was normal. The examined duodenum was normal. A guidewire was placed and the scope was withdrawn. Dilation was performed at the cricopharyngeus with a Savary dilator with no resistance at 13 mm. There was an appropriate mucosal disruption post dilation. Colonoscopy 2021: Hemorrhoids were found on perianal exam. There was a red spot in the ascending colon. This was clipped x 1. There were diverticula throughout the colon. There was a scar in the rectum without evidence of polyp recurrence. No source of GI bleeding was found. There was green stool throughout the colon Review of Systems Review of Systems: All systems reviewed & are unremarkable except as noted in HPI & below Physical Exam Constitutional: WD/WN, vitals as above Respiratory: normal respiratory effort, lungs clear to auscultation Cardiovascular: Rate/Rhythm: regular rate and regular rhythm Gastrointestinal (Abdomen): normal bowel sounds, soft, nontender, no hepatosplenomegaly Skin: no rashes, warm and dry Results & Data ([facility]) Vital Signs (Past 12 Hours) Vital Signs Temp Pulse Resp BP Pulse Ox 09/25/21 08:11 36.9 C 64 18 115/57 L 93 09/25/21 03:21 36.6 C 90 18 110/51 L 92
[2021-09-25] MEDS: METOPROLOL SUCC 25MG EXT REL TAB PO SCH ×2 (08:33→21:00)
[2021-09-25] MEDS: SERTRALINE HCL 100 MG TABLET PO SCH (08:34)
[2021-09-25] MEDS: INSULIN ASPART PER UNIT SC SCH ×4 (08:38→20:36)
[2021-09-25] MEDS: SODIUM CHLORIDE 0.9% 1000ML 1,000 ML IV SCH ×2 (15:59→22:11)
--- NOTE | 2021-09-25 17:36 | Hospitalist Progress Note ---
Date of Service September 25, 2021 Assessment & Plan (1) Acute blood loss anemia: Plan: per Dr. Valdez's notes with addendum: ASSESSMENT AND PLAN: This is a 70-year-old male who presents with shortness of breath, found to have profound anemia. 1.Acute Blood Loss Anemia likely from GI bleed on Coumadin -Total of 4 units PRBC given Vit k IV and PO given Hg 7.9--> 6.8--> 8.7--> 7.9 - INR 1.4 - 09/24:: s/p EGD The examined esophagus was normal. The stomach was normal. The examined duodenum was normal. s/p Colonoscopy Hemorrhoids were found on perianal exam. There was a red spot in the ascending colon. This was clipped x 1. There were diverticula throughout the colon. There was a scar in the rectum without evidence of polyp recurrence. No source of GI bleeding was found. There was green stool throughout the colon. -- advanced diet slowly monitor H&H Discussed with Dr. Coley, no source of GI bleeding found at this point, suspect AVM, he would like to do video capsule endoscopy on follow-up as an outpatient Okay to resume Coumadin tomorrow per GI Iron level 29 Will order Venofer, ferrous sulfate twice daily 3. History of thrombocytopenia, history of hypersplenism, history of panc ytopenia. His baseline hemoglobin was 10-11. - His white count is 3.45 and platelets are 60, etiology is unclear. Needs to follow up with Hem/Onc. - Plt 43 - given 1 unit plateletpharesis Plt 51 x 2 days Monitor 4. History of chronic atrial fibrillation, rate controlled with metoprolol. -Resume Coumadin tomorrow, okay with GI 5. Diabetes. We will cut back to his long acting insulin to 15 units at bedtime,as the patient is currently n.p.o., holding his Jardiance and metformin. We will place him on insulin sliding scale. - BSG 99 6. Hypothyroidism. Continue Synthroid. 7. Acute kidney injury and chronic kidney disease, stage III: Baseline creatinine 1.35, presented with creatinine of 2.2, holding his Bumex and losartan - crea improving to 1.7 -- Continue gentle IV fluids 8. History of chronic diastolic congestive heart failure, history of grade III diastolic congestive heart failure, on Bumex, which we are holding. - appears euvolemic 9. History of coronary artery disease, coronary artery bypass graft. Holding his aspirin. Continue statin and beta luzmaria. 10. Hypertension -- BP on the lower side hold Amlodipine, Losartan -- Continue his metoprolol succinate 11. History of anxiety and depression: Continue Zoloft, trazodone, and Seroquel. 12. Deep venous thrombosis prophylaxis, sequential compression devices as the patient is having gastrointestinal bleed. DISPOSITION: PT/OT christina Had a long discussion with patient's daughter, requesting for patient to transition to [facility] facility--> Case management consulted plan of care discussed with patient and her daughter over the phone in detail and at length all questions answered they are understanding, agreeable, comfortable with the plan of care Admission and Anticipated Discharge Date Admission Date: September 22, 2021 Subjective Follow-up for anemia, possible GI bleed, etc. Seen resting in bed, sleeping but easily awakened In good spirits, comfortable States he feels fine overall Abdominal pain, tolerating diet well Had bowel movement today-light brown No chest pain, shortness of breath, palpitations, dizziness No other symptom Review of Systems Review of Systems: all noted and negative except for above Physical Exam Physical Exam: General- oriented x 3, not in distress, speaks in sentences with no effort or accessory muscle use Eyes- anicteric Neck- no JVD Lungs- clear breath sounds bilaterally, no wheezing, crackles Heart- normal rate, regular rhythm; no murmurs Abdomen- normal bowel sounds, nondistended, soft, nontender Extremities- no pretibial edema, no calf tenderness Neuro- alert, oriented x 3; no gross focal neurologic deficits Skin- warm & dry Results & Data Results & Data ([facility]) Vital Signs (Past 12 Hours) Vital Signs Temp Pulse Resp BP Pulse Ox 09/25/21 15:26 36.7 C 66 18 120/66 93 09/25/21 12:00 36.5 C 60 20 116/63 91 09/25/21 08:11 36.9 C 64 18 115/57 L 93 all noted and reviewed including below
[2021-09-25] MEDS ORDERED: IRON SUCROSE 150 MG in 0.9 % SODIUM CHLORIDE 100 ML IV STA (18:01)
[2021-09-25] MEDS: MELATONIN 3 MG TAB PO SCH (20:59)
[2021-09-25] MEDS: PANTOprazole 40 MG in SYRINGE 0 ML IV SCH (21:00)
[2021-09-25] MEDS: ATORVASTATIN 40 MG TAB PO SCH (21:00)
[2021-09-25] MEDS: QUEtiapine FUMARATE 25 MG TABLET PO SCH (21:00)
[2021-09-25] MEDS: traZODone HCL 50 MG TAB PO SCH (21:09)
[2021-09-25] MEDS: INSULIN GLARGINE SOLOSTAR 100 UNITS/ML 3 ML PEN SC SCH (21:20)
[2021-09-26] MEDS: LEVOTHYROXINE SODIUM 100 MCG TABLET PO SCH (06:10)
[2021-09-26] MEDS: SODIUM CHLORIDE 0.9% 1000ML 1,000 ML IV SCH ×2 (06:39→21:57)
[2021-09-26 08:06] LABS: Mean Corpuscular Hgb Conc 30.6 g/dL (32-36)
[2021-09-26] MEDS: FERROUS SULFATE 325 MG TAB PO SCH ×2 (08:10→17:14)
[2021-09-26] MEDS: SERTRALINE HCL 100 MG TABLET PO SCH (08:10)
[2021-09-26] MEDS: METOPROLOL SUCC 25MG EXT REL TAB PO SCH ×2 (08:10→20:27)
[2021-09-26] MEDS: INSULIN ASPART PER UNIT SC SCH ×4 (08:13→20:16)
[2021-09-26 08:36] LABS: Calcium 8.7 mg/dl (8.5-10.1); Creatinine Clr Calc Pharmacy 32.1 ml/min; Est GFR (African American) 45.4 ml/min; Est GFR (Non-African American) 39.2 ml/min; Potassium 3.5 mmol/L (3.5-5.1)
[2021-09-26 08:54] LABS: Hematocrit (blood only) 25.8 % (42-52); Hemoglobin 7.9 g/dL (14.0-18.0); Mean Corpuscular Hemoglobin 24.9 pg (25-34); Mean Corpuscular Volume 81.4 fL (80-100); RDW Coefficient of Variation 19.6 % (11.5-14.5); RDW Standard Deviation 57.5 fL (36.4-46.3); Red Blood Count 3.17 M/uL (4.7-6.1); White Blood Count 2.67 K/uL (4.8-10.8)
[2021-09-26 08:55] LABS: INR 1.3 (0.9-1.1); Prothrombin Time 13.7 Seconds (9.0-12.0)
[2021-09-26 09:07] LABS: Anisocytosis Present; Eosinophils # (auto) 0.07 K/uL (0-0.5); Eosinophils % (auto) 2.6 %; Immature Granulocytes # (auto) 0.01 K/uL (0.00-0.02); Immature Granulocytes % (auto) 0.4 %; Lymphocytes # (auto) 0.46 K/uL (1.2-3.4); Lymphocytes % (auto) 17.2 %; Monocytes # (auto) 0.26 K/uL (0.11-0.59); Monocytes % (auto) 9.7 %; Neutrophils # (auto) 1.87 K/uL (1.4-6.5); Neutrophils % (auto) 70.1 %; Platelet Count 45 K/uL (130-400); Platelet Estimate Decreased (Normal); Poikilocytosis Present
[2021-09-26] MEDS: PANTOprazole 40 MG in SYRINGE 0 ML IV SCH ×2 (10:34→20:27)
--- NOTE | 2021-09-26 14:05 | Hospitalist Progress Note ---
Date of Service September 26, 2021 Assessment & Plan (1) Acute blood loss anemia: Plan: 76-year-old male with PMH of DM, diabetic retinopathy, CKD stage III, hypothyroidism, HLD, chronic A. 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 He is being managed for the following: #. Acute blood loss anemia #. Likely lower GI bleed Patient with history of chronic A. fib on Coumadin Admitting hemoglobin of 4.9, admitting complaint of shortness of breath. Status post 4 unit PRBC, vitamin K IV and p.o. and 1 unit platelet. Status post EGD 09/24-WNL; colonoscopy 09/24hemorrhoids noted, red spot in ascending colon which was clipped x1, diverticula throughout the colon, scar in the rectum without evidence of polyp recurrence. No source of GI bleeding was found. GI evaluated, no source found, suspects AVM, plan to do video capsule endoscopy and follow-up as Outpatient. Iron studies: iron level low, vitamin B12 low normal. Continue with vitamin B12 for 15 days. Patient tolerating diet. Patient is status post Venofer x1 on 09/25, continue with oral iron supplement started 09/26. Hemoglobin stable around 8, monitor daily and as needed. Transfuse for hemoglobin less than 7 or symptomatic anemia. Resuming Coumadin 09/26, monitor PT/INR. #. Pancytopenia #. Hypersplenism Patient has history of both, baseline hemoglobin around 10-11, white count around 3.5 and platelets around 60 K. Etiology unclear. Patient to follow-up with heme-onc as an outpatient. Monitor labs daily and as needed. #. History of chronic A. fib Coumadin restarted 09/26, monitor PT/INR Rate controlled, continue with home medications. #. Acute kidney injury over CKD stage III Baseline creatinine around 1.35, admitting creatinine of 2.2, holding Bumex and losartan Creatinine improving, continue with gentle IV fluids, monitor volume status given history of CHF. Monitor BMP #. Other chronic medical conditions: Diabetes, hypothyroidism, CAD, status post bypass, HTN, anxiety and depression Continue with/resume home medication when appropriate Aspirin is on hold. Patient sliding scale insulin. Continue Zoloft, trazodone, and Seroquel. #. DVT prophylaxis: SCDs Re: GI bleed. #. Disposition: PT/OT GRAHAM vasquez to assist with DC planning. Daughter requesting transition to SNF per prior attending. PT/OT recommending DC to home when stable. Likely DC in next 1-2 days once Hb is deemed stable, tolerating diet, IV PPI transitioned to PO PPI and PT/INT closer to 2.0. Pt will need OP f/u w/ GI/MTM clinic/Health Education Coordinator. 09/26, patient's daughter was given a phone call, updated about the current status of the patient, she would like to talk with manager of case management, sent text [TT] to manager of case management. Answered all her questions, she voiced understanding and was agreeable to the plan of care. Admission and Anticipated Discharge Date Admission Date: September 22, 2021 Subjective Patient seen and examined at bedside as a follow-up of acute blood loss anemia likely secondary to lower GI bleed and history of pancytopenia. Patient was lying in bed, on room air, NAD, no new acute events overnight. Patient reports eating okay, has not moved bowel in 2 days, would like laxatives. Patient's usual bowel habit is every day. Patient denies any pain or discomfort or headache/dizziness/chest pain/palpitations/belly pain/other review of symptoms. Physical Exam Physical Exam: GENERAL: Alert and oriented x3. NAD, on RA. HEENT: No pallor, no icterus. Pupils equal, round and reactive to light. Oral mucosa moist. NECK: No JVD, no neck masses. HEART: S1 and S2 heard. Regular rate and rhythm. No murmur, no gallop. RESPIRATORY SYSTEM: Normal AP diameter. No accessory muscle use. No wheezing, no crackles. ABDOMEN: Soft, bowel sounds present, nontender, no distention. CENTRAL NERVOUS SYSTEM: No facial droop. Speech is clear. Obeys simple commands. Moves extremities. EXTREMITIES: No edema, no erythema seen. Results & Data Results & Data ([facility]) Vital Signs (Past 12 Hours) Vital Signs Temp Pulse Pulse Resp BP Pulse Ox Pulse Ox 09/26/21 12:51 94 09/26/21 11:40 94 09/26/21 10:50 37.0 C 58 L 18 105/54 L 95 09/26/21 08:00 63 09/26/21 07:27 36.7 C 65 17 111/55 L 91 09/26/21 04:00 36.9 C 63 22 137/75 92 Pulse Ox 09/26/21 12:51 95 09/26/21 11:40 09/26/21 10:50 09/26/21 08:00 09/26/21 07:27 09/26/21 04:00
[2021-09-26] MEDS: POLYETHYLENE (MIRALAX) 17 GM PACK PO SCH (14:40)
[2021-09-26] MEDS: CYANOCOBALAMIN (B-12) 100 MCG TABLET PO SCH (15:27)
[2021-09-26] MEDS: WARFARIN SOD 2.5 MG TAB PO SCH (15:28)
[2021-09-26] MEDS: traZODone HCL 50 MG TAB PO SCH (20:27)
[2021-09-26] MEDS: ATORVASTATIN 40 MG TAB PO SCH (20:28)
[2021-09-26] MEDS: MELATONIN 3 MG TAB PO SCH (20:28)
[2021-09-26] MEDS: QUEtiapine FUMARATE 25 MG TABLET PO SCH (20:28)
[2021-09-26] MEDS: INSULIN GLARGINE SOLOSTAR 100 UNITS/ML 3 ML PEN SC SCH (20:42)
[2021-09-27 05:56] LABS: Mean Corpuscular Hgb Conc 30.8 g/dL (32-36)
[2021-09-27 05:58] LABS: INR 1.3 (0.9-1.1); Prothrombin Time 13.5 Seconds (9.0-12.0)
[2021-09-27] MEDS: LEVOTHYROXINE SODIUM 100 MCG TABLET PO SCH (05:58)
[2021-09-27 06:20] LABS: Platelet Count 54 K/uL (130-400)
[2021-09-27 06:21] LABS: BUN Creatinine Ratio 16.6 (10-20); Calcium 8.9 mg/dl (8.5-10.1); Creatinine Clr Calc Pharmacy 36.5 ml/min; Est GFR (African American) 53.1 ml/min; Est GFR (Non-African American) 45.8 ml/min; Potassium 3.4 mmol/L (3.5-5.1)
[2021-09-27 06:33] LABS: Anisocytosis Present; Basophils # (auto) 0.01 K/uL (0-0.2); Basophils % (auto) 0.3 %; Echinocytes 1+; Eosinophils # (auto) 0.11 K/uL (0-0.5); Eosinophils % (auto) 3.7 %; Hematocrit (blood only) 27.6 % (42-52); Hemoglobin 8.5 g/dL (14.0-18.0); Hypochromasia Present; Immature Granulocytes # (auto) 0.01 K/uL (0.00-0.02); Immature Granulocytes % (auto) 0.3 %; Lymphocytes # (auto) 0.54 K/uL (1.2-3.4); Lymphocytes % (auto) 17.9 %; Mean Corpuscular Hemoglobin 25.2 pg (25-34); Mean Corpuscular Volume 81.9 fL (80-100); Mean Platelet Volume 10.4 fL (7.4-10.4); Monocytes # (auto) 0.32 K/uL (0.11-0.59); Monocytes % (auto) 10.6 %; Neutrophils # (auto) 2.02 K/uL (1.4-6.5); Neutrophils % (auto) 67.2 %; Ovalocytes 1+; Polychromasia 1+; RDW Coefficient of Variation 20.7 % (11.5-14.5); RDW Standard Deviation 59.5 fL (36.4-46.3); Red Blood Count 3.37 M/uL (4.7-6.1); White Blood Count 3.01 K/uL (4.8-10.8)
[2021-09-27] MEDS ORDERED: POTASSIUM CHLORIDE CRTAB 20 MEQ TABCR PO STA (07:19)
[2021-09-27] MEDS: POLYETHYLENE (MIRALAX) 17 GM PACK PO SCH (07:56)
[2021-09-27] MEDS: INSULIN ASPART PER UNIT SC SCH ×4 (07:57→21:41)
[2021-09-27] MEDS: FERROUS SULFATE 325 MG TAB PO SCH ×2 (07:57→16:19)
[2021-09-27] MEDS: METOPROLOL SUCC 25MG EXT REL TAB PO SCH ×2 (07:58→21:43)
[2021-09-27] MEDS: CYANOCOBALAMIN (B-12) 100 MCG TABLET PO SCH (07:58)
[2021-09-27] MEDS: SERTRALINE HCL 100 MG TABLET PO SCH (07:58)
[2021-09-27] MEDS: PANTOprazole 40 MG TAB PO SCH ×2 (08:51→21:46)
[2021-09-27] MEDS: SODIUM CHLORIDE 0.9% 1000ML 1,000 ML IV SCH (15:50)
[2021-09-27] MEDS: WARFARIN SOD 2.5 MG TAB PO SCH (16:18)
--- NOTE | 2021-09-27 17:46 | Hospitalist Progress Note ---
Date of Service September 27, 2021 Assessment & Plan (1) Acute blood loss anemia: Plan: 76-year-old male with PMH of DM, diabetic retinopathy, CKD stage III, hypothyroidism, HLD, chronic A. 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 He is being managed for the following: #. Acute blood loss anemia #. Likely lower GI bleed Patient with history of chronic A. fib on Coumadin Admitting hemoglobin of 4.9, admitting complaint of shortness of breath. Status post 4 unit PRBC, vitamin K IV and p.o. and 1 unit platelet. Status post EGD 09/24-WNL; colonoscopy 09/24hemorrhoids noted, red spot in ascending colon which was clipped x1, diverticula throughout the colon, scar in the rectum without evidence of polyp recurrence. No source of GI bleeding was found. GI evaluated, no source found, suspects AVM, plan to do video capsule endoscopy and follow-up as Outpatient. Iron studies: iron level low, vitamin B12 low normal. Continue with vitamin B12 for 15 days. Patient tolerating diet. Patient is status post Venofer x1 on 09/25, continue with oral iron supplement started 09/26. Hemoglobin stable around 8, monitor daily and as needed. Transfuse for hemoglobin less than 7 or symptomatic anemia. Resumed Coumadin 09/26, monitor PT/INR. #. Pancytopenia #. Hypersplenism Patient has history of both, baseline hemoglobin around 10-11, white count around 3.5 and platelets around 60 K. Etiology unclear. Patient to follow-up with heme-onc as an outpatient. Monitor labs daily and as needed. #. History of chronic A. fib Coumadin restarted 09/26, monitor PT/INR Rate controlled, continue with home medications. #. Acute kidney injury over CKD stage III Baseline creatinine around 1.35, admitting creatinine of 2.2, holding Bumex and losartan Creatinine improving, DC IVF, monitor volume status given history of CHF. Monitor BMP #. Other chronic medical conditions: Diabetes, hypothyroidism, CAD, status post bypass, HTN, anxiety and depression Continue with/resume home medication when appropriate Patient sliding scale insulin. Continue Zoloft, trazodone, and Seroquel. #. DVT prophylaxis: SCDs Re: GI bleed. #. Disposition: PT/OT GRAHAM vasquez to assist with DC planning. Daughter requesting transition to SNF per prior attending. PT/OT recommending DC to home when stable. Medically stable for DC, pt will need [facility] d/t him needing 24/7 care at home. Pt will need OP f/u w/ GI/MTM clinic/Bunker Worker. 09/26, patient's daughter was given a phone call, updated about the current status of the patient, she would like to talk with manager of case, sent text [TT] to manager of case. Answered all her questions, she voiced understanding and was agreeable to the plan of care. Admission and Anticipated Discharge Date Admission Date: September 22, 2021 Subjective Patient seen and examined at bedside as a follow-up of acute blood loss anemia likely secondary to lower GI bleed and history of pancytopenia. Patient was lying in bed, on room air, NAD, no new acute events overnight. Patient reports eating okay, moving bowels ok. Patient denies any pain or discomfort or headache/dizziness/chest pain/palpitations/belly pain/other review of symptoms. Physical Exam Physical Exam: GENERAL: Alert and oriented x3. NAD, on RA. HEENT: No pallor, no icterus. Pupils equal, round and reactive to light. Oral mucosa moist. NECK: No JVD, no neck masses. HEART: S1 and S2 heard. Regular rate and rhythm. No murmur, no gallop. RESPIRATORY SYSTEM: Normal AP diameter. No accessory muscle use. No wheezing, no crackles. ABDOMEN: Soft, bowel sounds present, nontender, no distention. CENTRAL NERVOUS SYSTEM: No facial droop. Speech is clear. Obeys simple commands. Moves extremities. EXTREMITIES: No edema, no erythema seen. Results & Data Results & Data ([facility]) Vital Signs (Past 12 Hours) Vital Signs Temp Pulse Resp BP Pulse Ox 09/27/21 15:09 36.4 C L 54 L 16 124/74 98 09/27/21 11:06 36.6 C 56 L 16 144/71 H 95 09/27/21 07:15 36.6 C 60 16 139/81 93
[2021-09-27] MEDS: ASPIRIN 81 MG ECTAB PO SCH (21:39)
[2021-09-27] MEDS: ATORVASTATIN 40 MG TAB PO SCH (21:40)
[2021-09-27] MEDS: MELATONIN 3 MG TAB PO SCH (21:42)
[2021-09-27] MEDS: QUEtiapine FUMARATE 25 MG TABLET PO SCH (21:45)
[2021-09-27] MEDS: traZODone HCL 50 MG TAB PO SCH (21:49)
[2021-09-27] MEDS: INSULIN GLARGINE SOLOSTAR 100 UNITS/ML 3 ML PEN SC SCH (22:04)
[2021-09-28] MEDS: LEVOTHYROXINE SODIUM 100 MCG TABLET PO SCH (05:30)
[2021-09-28 06:51] LABS: Hematocrit (blood only) 27.1 % (42-52); Hemoglobin 8.4 g/dL (14.0-18.0); Mean Corpuscular Hemoglobin 25.4 pg (25-34); Mean Corpuscular Volume 81.9 fL (80-100); RDW Coefficient of Variation 21.3 % (11.5-14.5); RDW Standard Deviation 61.8 fL (36.4-46.3); Red Blood Count 3.31 M/uL (4.7-6.1); White Blood Count 3.03 K/uL (4.8-10.8)
[2021-09-28 06:56] LABS: Mean Platelet Volume 10.1 fL (7.4-10.4); Platelet Count 53 K/uL (130-400)
[2021-09-28 07:03] LABS: INR 1.3 (0.9-1.1)
[2021-09-28 07:11] LABS: Anisocytosis Present; Basophils # (auto) 0.01 K/uL (0-0.2); Basophils % (auto) 0.3 %; Eosinophils # (auto) 0.09 K/uL (0-0.5); Lymphocytes # (auto) 0.52 K/uL (1.2-3.4); Lymphocytes % (auto) 17.2 %; Monocytes # (auto) 0.28 K/uL (0.11-0.59); Monocytes % (auto) 9.2 %; Neutrophils # (auto) 2.13 K/uL (1.4-6.5); Neutrophils % (auto) 70.3 %; Ovalocytes 1+; Polychromasia 1+
[2021-09-28 07:16] LABS: Calcium 8.9 mg/dl (8.5-10.1); Creatinine Clr Calc Pharmacy 38.7 ml/min; Est GFR (African American) 56.9 ml/min; Est GFR (Non-African American) 49.1 ml/min; Magnesium 1.7 mg/dl (1.7-2.4); Potassium 3.8 mmol/L (3.5-5.1)
[2021-09-28] MEDS ORDERED: MAGNESIUM SULFATE / D5W 1 GM/100 ML BAG IV ONE (07:19)
[2021-09-28] MEDS: CYANOCOBALAMIN (B-12) 100 MCG TABLET PO SCH (09:00)
[2021-09-28] MEDS: POLYETHYLENE (MIRALAX) 17 GM PACK PO SCH (09:00)
[2021-09-28] MEDS: INSULIN ASPART PER UNIT SC SCH ×4 (09:00→20:28)
[2021-09-28] MEDS: METOPROLOL SUCC 25MG EXT REL TAB PO SCH ×2 (09:00→20:36)
[2021-09-28] MEDS: SERTRALINE HCL 100 MG TABLET PO SCH (09:00)
[2021-09-28] MEDS: FERROUS SULFATE 325 MG TAB PO SCH ×2 (09:01→17:15)
[2021-09-28] MEDS: PANTOprazole 40 MG TAB PO SCH ×2 (09:01→20:36)
[2021-09-28] MEDS: WARFARIN SOD 2.5 MG TAB PO SCH (16:30)
--- NOTE | 2021-09-28 16:40 | Hospitalist Progress Note ---
Date of Service September 28, 2021 Assessment & Plan (1) Acute blood loss anemia: Plan: 76-year-old male with PMH of DM, diabetic retinopathy, CKD stage III, hypothyroidism, HLD, chronic A. 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 He is being managed for the following: #. Acute blood loss anemia #. Likely lower GI bleed Patient with history of chronic A. fib on Coumadin Admitting hemoglobin of 4.9, admitting complaint of shortness of breath. Status post 4 unit PRBC, vitamin K IV and p.o. and 1 unit platelet. Status post EGD 09/24-WNL; colonoscopy 09/24hemorrhoids noted, red spot in ascending colon which was clipped x1, diverticula throughout the colon, scar in the rectum without evidence of polyp recurrence. No source of GI bleeding was found. GI evaluated, no source found, suspects AVM, plan to do video capsule endoscopy and follow-up as Outpatient. Iron studies: iron level low, vitamin B12 low normal. Continue with vitamin B12 for 15 days. Patient tolerating diet. Patient is status post Venofer x1 on 09/25, continue with oral iron supplement started 09/26. Hemoglobin stable around 8, monitor daily and as needed. Transfuse for hemoglobin less than 7 or symptomatic anemia. Resumed Coumadin 09/26, monitor PT/INR. Pt had some bright blood in stool 09/28 per RN, will hold coumadin, follow Hb in AM, f/u further BMs. #. Pancytopenia #. Hypersplenism Patient has history of both, baseline hemoglobin around 10-11, white count around 3.5 and platelets around 60 K. Etiology unclear. Patient to follow-up with heme-onc as an outpatient. Monitor labs daily and as needed. #. History of chronic A. fib Coumadin restarted 09/26, monitor PT/INR Rate controlled, continue with home medications. #. Acute kidney injury over CKD stage III Baseline creatinine around 1.35, admitting creatinine of 2.2, holding Bumex and losartan --> resume losartan 09/28 Cr back to baseline, monitor volume status given history of CHF. Monitor BMP #. Other chronic medical conditions: Diabetes, hypothyroidism, CAD, status post bypass, HTN, anxiety and depression Continue with/resume home medication when appropriate Patient sliding scale insulin. Continue Zoloft, trazodone, and Seroquel. #. DVT prophylaxis: SCDs Re: GI bleed. #. Disposition: PT/OT GRAHAM vasquez to assist with DC planning. Daughter requesting [facility] as concerns of ability to self care/also concerns of early dementia (will need OP f/u w/ PCP). PT/OT recommending DC to home when stable. Medically stable for DC, pt will need [facility] d/t him needing 24/7 care at home. Pt will need OP f/u w/ GI/MTM clinic/Project Accountant. 09/26, patient's daughter was given a phone call, updated about the current status of the patient, she would like to talk with case planner, sent text [TT] to case planner. Answered all her questions, she voiced understanding and was agreeable to the plan of care. 09/27: pt's dtr was updated at bedside. Admission and Anticipated Discharge Date Admission Date: September 22, 2021 Subjective Patient seen and examined at bedside as a follow-up of acute blood loss anemia likely secondary to lower GI bleed and history of pancytopenia. Patient was lying in bed, on room air, NAD, no new acute events overnight. Patient reports eating okay, moving bowels ok. Patient denies any pain or discomfort or headache/dizziness/chest pain/palpitations/belly pain/other review of symptoms. Pt had some bright blood in stool per RN, will hold coumadin, follow Hb in AM, f/u further BMs. Physical Exam Physical Exam: GENERAL: Alert and oriented x3. NAD, on RA. HEENT: No pallor, no icterus. Pupils equal, round and reactive to light. Oral mucosa moist. NECK: No JVD, no neck masses. HEART: S1 and S2 heard. Regular rate and rhythm. No murmur, no gallop. RESPIRATORY SYSTEM: Normal AP diameter. No accessory muscle use. No wheezing, no crackles. ABDOMEN: Soft, bowel sounds present, nontender, no distention. CENTRAL NERVOUS SYSTEM: No facial droop. Speech is clear. Obeys simple commands. Moves extremities. EXTREMITIES: No edema, no erythema seen. Results & Data Results & Data ([facility]) Vital Signs (Past 12 Hours) Vital Signs Temp Pulse Pulse Resp BP Pulse Ox 09/28/21 15:45 36.9 C 74 18 124/69 95 09/28/21 11:30 36.7 C 87 20 118/67 97 09/28/21 08:00 36.5 C 76 16 133/61 96 09/28/21 07:00 65
[2021-09-28] MEDS: QUEtiapine FUMARATE 25 MG TABLET PO SCH (20:36)
[2021-09-28] MEDS: ATORVASTATIN 40 MG TAB PO SCH (20:36)
[2021-09-28] MEDS: MELATONIN 3 MG TAB PO SCH (20:36)
[2021-09-28] MEDS: traZODone HCL 50 MG TAB PO SCH (20:36)
[2021-09-28] MEDS: ASPIRIN 81 MG ECTAB PO SCH (20:37)
[2021-09-28] MEDS: INSULIN GLARGINE SOLOSTAR 100 UNITS/ML 3 ML PEN SC SCH (20:38)
[2021-09-29] MEDS ORDERED: ALBUT/IPRATROP 3MG/0.5MG NEB 3 ML VIAL NEB STA (00:52)
[2021-09-29] MEDS ORDERED: MAGNESIUM SULFATE / D5W 1 GM/100 ML BAG IV ONE ×2 (00:53→01:45)
[2021-09-29] MEDS ORDERED: ALBUT/IPRATROP 3MG/0.5MG NEB 3 ML VIAL ONE (01:00)
[2021-09-29] MEDS ORDERED: IPRATROPIUM BROMIDE NEB SOLN 0.02% 2.5 ML VIAL ONE (01:00)
[2021-09-29] MEDS ORDERED: FUROSEMIDE INJ 20 MG/2 ML VIAL IV ONE (01:18)
[2021-09-29] MEDS: MAGNESIUM SULFATE / D5W 1 GM/100 ML BAG IV SCH ×3 (01:20→01:52)
[2021-09-29] MEDS: LEVOTHYROXINE SODIUM 100 MCG TABLET PO SCH (04:27)
[2021-09-29 06:14] LABS: Hemoglobin 8.4 g/dL (14.0-18.0); Mean Corpuscular Hemoglobin 25.4 pg (25-34); Mean Corpuscular Volume 84.6 fL (80-100); RDW Coefficient of Variation 22.3 % (11.5-14.5); RDW Standard Deviation 66.7 fL (36.4-46.3); Red Blood Count 3.31 M/uL (4.7-6.1); White Blood Count 2.93 K/uL (4.8-10.8)
[2021-09-29 06:23] LABS: BUN Creatinine Ratio 20.9 (10-20); Calcium 9.2 mg/dl (8.5-10.1); Creatinine Clr Calc Pharmacy 39.5 ml/min; Est GFR (African American) 58.4 ml/min; Est GFR (Non-African American) 50.4 ml/min; Potassium 3.8 mmol/L (3.5-5.1)
[2021-09-29 06:27] LABS: INR 1.3 (0.9-1.1); Prothrombin Time 14.1 Seconds (9.0-12.0)
[2021-09-29 06:45] LABS: Platelet Count 66 K/uL (130-400)
[2021-09-29 06:46] LABS: Platelet Estimate Decreased (Normal)
[2021-09-29] MEDS: POLYETHYLENE (MIRALAX) 17 GM PACK PO SCH (08:31)
[2021-09-29] MEDS: METOPROLOL SUCC 25MG EXT REL TAB PO SCH ×2 (08:33→21:26)
[2021-09-29] MEDS: CYANOCOBALAMIN (B-12) 100 MCG TABLET PO SCH (08:33)
[2021-09-29] MEDS: PANTOprazole 40 MG TAB PO SCH ×2 (08:33→21:09)
[2021-09-29] MEDS: SERTRALINE HCL 100 MG TABLET PO SCH (08:33)
[2021-09-29] MEDS: FERROUS SULFATE 325 MG TAB PO SCH ×2 (08:33→17:30)
[2021-09-29] MEDS: LOSARTAN POTASSIUM 50 MG TAB PO SCH (08:33)
[2021-09-29] MEDS: INSULIN ASPART PER UNIT SC SCH ×4 (08:44→21:20)
--- NOTE | 2021-09-29 11:03 | XRay Report ---
XR chest 1V portable CLINICAL HISTORY: Wheeze. COMPARISON STUDY: Chest radiograph September 22, 2021. FINDINGS: Lung volumes are normal. There is no pneumothorax. No pleural effusion is identified. Media n sternotomy wires are noted as well as mediastinal surgical clips. Cardiomegaly is present. Mild int erstitial thickening persists. Old right-sided rib fractures are incidentally noted. IMPRESSION: Persistent interstitial thickening which favors mild pulmonary edema. Cardiomegaly. ACT 112: Negative or not required by law. Electronically signed by: Andrew Goldstein M.D. 09/29/2021 11:02 AM
[2021-09-29] MEDS: ADVANCED PROBIOTIC 1250 MG CAPSULE PO SCH (11:53)
--- NOTE | 2021-09-29 13:44 | Hospitalist Progress Note ---
Date of Service September 29, 2021 Assessment & Plan (1) Acute blood loss anemia: Plan: 76-year-old male with PMH of DM, diabetic retinopathy, CKD stage III, hypothyroidism, HLD, chronic A. fib, chronic diastolic CHF, pulm HTN, macular edema, hypersplenism, pancytopenia, ischemic cardiomyopathy, anxiety disorder, depression presented 09/23 to our ED with complaint of shortness of breath worsening since last 2 weeks LMSW. 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 He is being managed for the following: #. Acute blood loss anemia #. Likely lower GI bleed Patient with history of chronic A. fib on Coumadin Admitting hemoglobin of 4.9, admitting complaint of shortness of breath. Status post 4 unit PRBC, vitamin K IV and p.o. and 1 unit platelet. Status post EGD 09/24-WNL; colonoscopy 09/24hemorrhoids noted, red spot in ascending colon which was clipped x1, diverticula throughout the colon, scar in the rectum without evidence of polyp recurrence. No source of GI bleeding was found. GI evaluated, no source found, suspects AVM, plan to do video capsule endoscopy and follow-up as Outpatient. Iron studies: iron level low, vitamin B12 low normal. Continue with vitamin B12 for 15 days. Patient tolerating diet. Patient is status post Venofer x1 on 09/25, continue with oral iron supplement started 09/26. Hemoglobin stable around 8, monitor daily and as needed. Transfuse for hemoglobin less than 7 or symptomatic anemia. Resumed Coumadin 09/26, monitor PT/INR. c/w coumadin. #. Pancytopenia #. Hypersplenism Patient has history of both, baseline hemoglobin around 10-11, white count around 3.5 and platelets around 60 K. Etiology unclear. Patient to follow-up with heme-onc as an outpatient. Monitor labs daily and as needed. #. History of chronic A. fib Coumadin restarted 09/26, monitor PT/INR Rate controlled, continue with home medications. #. Acute kidney injury over CKD stage III Baseline creatinine around 1.35, admitting creatinine of 2.2, c/w bumex and losartan Cr back to baseline, monitor volume status given history of CHF. Monitor BMP as needed. #. Other chronic medical conditions: Diabetes, hypothyroidism, CAD, status post bypass, HTN, anxiety and depression Continue with/resume home medication when appropriate Patient sliding scale insulin. Continue Zoloft, trazodone, and Seroquel. #. DVT prophylaxis: SCDs Re: GI bleed. #. Disposition: PT/OT [facility] to assist with DC planning. Daughter requesting [facility] as concerns of ability to self care/also concerns of early dementia (will need OP f/u w/ PCP). PT/OT recommending DC to home when stable. Medically stable for DC, pt will need [facility] d/t him needing 24/7 care at home. Pt will need OP f/u w/ GI/MT[facility] clinic/[facility]. 09/26, patient's daughter was given a phone call, updated about the current status of the patient, she would like to talk with spring [facility], sent text [TT] to spring enc[facility]. Answered all her questions, she voiced understanding and was agreeable to the plan of care. 09/27: pt's dtr was updated at bedside. Admission and Anticipated Discharge Date Admission Date: September 22, 2021 Subjective Patient seen and examined at bedside as a follow-up of acute blood loss anemia likely secondary to lower GI bleed and history of pancytopenia. Patient was lying in bed, on room air, NAD, no new acute events overnight. Patient reports eating okay, moving bowels ok. Patient denies any pain or discomfort or headache/dizziness/chest pain/palpitations/belly pain/other review of symptoms. Per RN, no further blood noted in stool, eating ok, and patient is forgetful. Pt remains AOx3 on exam. Pt does have hard time recalling what he ate and how many times he had BM. Physical Exam Physical Exam: GENERAL: Alert and oriented x3. NAD, on RA. HEENT: No pallor, no icterus. Pupils equal, round and reactive to light. Oral mucosa moist. NECK: No JVD, no neck masses. HEART: S1 and S2 heard. Regular rate and rhythm. No murmur, no gallop. RESPIRATORY SYSTEM: Normal AP diameter. No accessory muscle use. No wheezing, no crackles. ABDOMEN: Soft, bowel sounds present, nontender, no distention. CENTRAL NERVOUS SYSTEM: No facial droop. Speech is clear. Obeys simple commands. Moves extremities. EXTREMITIES: No edema, no erythema seen. Results & Data Results & Data ([facility]) Vital Signs (Past 12 Hours) Vital Signs Temp Pulse Resp BP Pulse Ox 09/29/21 11:27 36.6 C 56 L 20 139/77 96 09/29/21 08:19 36.9 C 63 20 129/70 100 09/29/21 04:25 36.8 C 59 L 24 131/68 98
[2021-09-29] MEDS: WARFARIN SOD 2.5 MG TAB PO SCH (15:54)
[2021-09-29] MEDS ORDERED: SODIUM CHLORIDE 0.9% 500 ML IV SCH (17:45)
[2021-09-29] MEDS: ATORVASTATIN 40 MG TAB PO SCH (21:08)
[2021-09-29] MEDS: ASPIRIN 81 MG ECTAB PO SCH (21:08)
[2021-09-29] MEDS: MELATONIN 3 MG TAB PO SCH (21:09)
[2021-09-29] MEDS: QUEtiapine FUMARATE 25 MG TABLET PO SCH (21:10)
[2021-09-29] MEDS: BUMETANIDE 1 MG TAB PO SCH (21:11)
[2021-09-29] MEDS: POTASSIUM CHLORIDE CRTAB 20 MEQ TABCR PO SCH (21:12)
[2021-09-29] MEDS: traZODone HCL 50 MG TAB PO SCH (21:19)
[2021-09-29] MEDS: INSULIN GLARGINE SOLOSTAR 100 UNITS/ML 3 ML PEN SC SCH (21:20)
[2021-09-30] MEDS: LEVOTHYROXINE SODIUM 100 MCG TABLET PO SCH (05:26)
[2021-09-30 06:09] LABS: INR 1.4 (0.9-1.1); Prothrombin Time 14.8 Seconds (9.0-12.0)
[2021-09-30 06:22] LABS: Hematocrit (blood only) 27.9 % (42-52); Hemoglobin 8.4 g/dL (14.0-18.0)
[2021-09-30 06:26] LABS: BUN Creatinine Ratio 20.8 (10-20); Calcium 8.8 mg/dl (8.5-10.1); Creatinine Clr Calc Pharmacy 42.4 ml/min; Est GFR (African American) 63.5 ml/min; Est GFR (Non-African American) 54.8 ml/min; Potassium 3.5 mmol/L (3.5-5.1)
[2021-09-30 06:41] LABS: Thyroid Stimulating Hormone 5.241 uIu/ml (0.300-4.500)
[2021-09-30] MEDS: FERROUS SULFATE 325 MG TAB PO SCH ×2 (09:00→16:24)
[2021-09-30] MEDS: LOSARTAN POTASSIUM 50 MG TAB PO SCH (09:01)
[2021-09-30] MEDS: ADVANCED PROBIOTIC 1250 MG CAPSULE PO SCH (09:01)
[2021-09-30] MEDS: CYANOCOBALAMIN (B-12) 100 MCG TABLET PO SCH (09:01)
[2021-09-30] MEDS: POTASSIUM CHLORIDE CRTAB 20 MEQ TABCR PO SCH ×2 (09:02→20:42)
[2021-09-30] MEDS: SERTRALINE HCL 100 MG TABLET PO SCH (09:02)
[2021-09-30] MEDS: PANTOprazole 40 MG TAB PO SCH ×2 (09:02→20:44)
[2021-09-30] MEDS: POLYETHYLENE (MIRALAX) 17 GM PACK PO SCH (09:03)
[2021-09-30] MEDS: METOPROLOL SUCC 25MG EXT REL TAB PO SCH ×2 (09:03→20:43)
[2021-09-30] MEDS: INSULIN ASPART PER UNIT SC SCH ×4 (09:52→20:43)
--- NOTE | 2021-09-30 12:17 | Psychiatric Consultation ---
Date of Consultation September 30, 2021 Impression / Recommendations Impression 76 yo male with 1 year progressive cognitive decline, much worse past month coinciding with severe anemia and likely hypoxia, now increasingly confused outside of his home setting with some degree of hospital acquired delirium likely (?hypoactive, obviously multiple ongoing medical issues). some hx of non specific anxiety/depression stable on Zoloft for some time, unclear why on 3 different agents for sleep. Daughter denies psychosis or behavioral disturbance in the form of agitation. (1) Major neurocognitive disorder: (2) Acute blood loss anemia: (3) Acute GI bleeding: discussed recommended for MRI with Dr. Elder, is planned but monitoring kidney function as suspect microvascular disease given hx of afib, etc. no indication for inpatient psychiatric admission any adjustments in psychiatric medications are low priority at this time given his overall medical presentation daughter aware sertraline can impact platelets but coumadin obviously larger bleeding risk. Psych History Identifying Data 76 yo male who lives with his daughter in [place]. He was admitted medically on 09/22/21 for SOB with severe anemia/GI bleed. consult is by Dr. Elder for "bizarre behavior" per family. Chief Complaint ?cognitive disorder History of Present Illness Patient is a limited hisotrian as he remains quite fatigue, had difficulty keeping eyes open during exam. He denied psychiatric concerns. Re: confusion/forgetfulness stated "Why would you ask that?" He was not able to engage in mini-Cog due to fatigue. Continues with O2 2L nasal cannula with audible wheeze. Per discussion with Dr. Elder on 09/29/21 patient has not been exhibiting any particularly bizarre or agtiated behavior here. Daughter feels she can no longer safely care for him at home as urinates in odd places like cups, the floor when she is at work. Vit B12 and folate normal, TSH >5 but on replacement. Hgb corrected from <5 to 8. Home medications of Zoloft, trazodone, seroquel, melatonin continued. Per daughter, dad has no formal psych hx but Zoloft most of time has lived with her (10 years) for nonspecific anxiety and depression. He never talks about harming self but "just doesn't want to do anything" although now is unsure how much of this is related to his medical concerns. She has overseen his pill box/administration for 2 years due to forgetfulness. His cognition has declined significantly in the past year, the more "bizarre" behaviors are past month. He has fallen but misreports what happens. He went out for the mail and fell and a passerby had to help him but Mr. Salinas thought he was actually the one helping the man. The longer he has been in the hospital he "makes up stories" as doesn't understand who people are and told her the cable guillermo was there to fix things,etc. She has been cleaning his room since he has been in the hospital and is finding pills "all over" so she is not sure how consistently he is taking everything. He's been trying to inject his insulin through a tissue and his pants rather than directly on his skin. She did not report apraxia with dressing. He has no history of SI or psych hospitalization. Allergies Allergy/AdvReac Type Severity Reaction Status Date / Time rivaroxaban AdvReac Intermediate VOMITING Verified 11/10/20 08:53 Home Medications Medication Instructions Recorded Confirmed Type acetaminophen 500 mg tablet 1,000 mg PO TID PRN 08/09/19 09/22/21 History (Tylenol Extra Strength) amlodipine 5 mg tablet 5 mg PO HS 08/09/19 09/22/21 History aspirin 81 mg tablet,delayed 81 mg PO QPM 08/09/19 09/22/21 History release (Aspir-) atorvastatin 40 mg tablet 40 mg PO QPM 08/09/19 09/22/21 History bumetanide 2 mg tablet 2 mg PO QPM 08/09/19 09/22/21 History levothyroxine 100 mcg tablet 100 mcg PO QAM 08/09/19 09/22/21 History losartan 100 mg tablet 100 mg PO DAILY 08/09/19 09/22/21 History melatonin 10 mg capsule 10 mg PO HS 08/09/19 09/22/21 History metformin 500 mg tablet,extended 1,000 mg PO BIDM 08/09/19 09/22/21 History release 24 hr metoprolol succinate 25 mg 25 mg PO BID 08/09/19 09/22/21 History tablet,extended release 24 hr omeprazole 40 mg capsule,delayed 40 mg PO QAM 08/09/19 09/22/21 History release potassium chloride 20 mEq 20 meq PO BID 08/09/19 09/22/21 History tablet,extended release(part/cryst) (Klor-Con M) warfarin 5 mg tablet (Jantoven) 2.5 mg PO [id number] 08/09/19 09/22/21 History blood sugar diagnostic (OneTouch #100 ea 08/13/19 09/22/21 Rx Verio test strips) pen needle, diabetic 32 gauge x #30 ea 08/13/19 09/22/21 Rx 5/32" (BD Rosemary 2nd Gen Pen Needle) quetiapine 25 mg tablet 25 mg PO HS 30 Days #30 tab 08/13/19 09/22/21 Rx trazodone 50 mg tablet 50 mg PO HS #30 tab 08/13/19 09/22/21 Rx empagliflozin 10 mg tablet 10 mg PO QAM 11/07/20 09/22/21 History (Jardiance) insulin glargine 100 unit/mL (3 26 unit SUBCUT QPM 11/07/20 09/22/21 History mL) subcutaneous pen (Basaglar KwikPen U-100 Insulin) lorazepam 0.5 mg tablet 0.5 mg PO DAILY PRN 11/07/20 09/22/21 History sertraline 100 mg tablet 200 mg PO QAM 11/07/20 09/22/21 History warfarin 5 mg tablet (Jantoven) 5 mg PO .Friday11/07/20 09/22/21 History Personal History Beliefs That Will Affect Care: None Patient History Medical History Anemia Anxiety Atrial fibrillation on warfarin--follows with Dr. Harp CHF (congestive heart failure) (02/19/14) Coumadin toxicity (04/24/14) Depression Diabetes IDDM Fatty liver (~02/2014) Hearing deficit Hypothyroidism On anticoagulant therapy warfarin daily Sleep apnea cpap Squamous cell carcinoma of ear Surgical History History of cardiac cath a few years ago at [facility] in [place]--no stents History of colonoscopy History of coronary artery bypass graft x 3 "a few years ago" at [facility] in [place] History of hernia surgery History of Mohs micrographic surgery for skin cancer History of sinus surgery History of strabismus surgery History of tooth extraction Family History Other No family history of adverse response to anesthesia Social History Smoking Status: Never smoker Second Hand Exposure: Yes; Hx Alcohol Use: No Hx Substance Use: No Preferred Language: Kenyan Communication Ability: Effective 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 Required: No Beliefs That Will Affect Care: None marital status: Current Living Situation: Family Current Living Situation Comment: Lives with daughter Other Information That Helps Us Care for You: No Feels Safe at Home: Yes Safety Concerns: Feels Safe At This Time Assistive Devices: None Physical Exam Psychiatric: Orientation: oriented to person; + not alert Eye Contact: + poor eye contact Motor Behavior: no abnormal motor movements Speech: + abnormal rate/rhythm/volume of speech (non sponatneous) Affect: + blunted affect Mood: no depressed mood Thought Process: + concrete thought process Thought Content: no delusions Suicidal Thoughts: denies suicidal thoughts Homicidal Thoughts: denies homicidal thoughts did not appear to be responding to internal stimuli Cognition: language grossly intact; + attention not intact Vital Signs (Past 24 Hours): Last Vital Signs Temp 36.9 C 09/30/21 11:32 Pulse 70 09/30/21 11:32 Resp 19 09/30/21 11:32 BP 152/63 H 09/30/21 11:32 Pulse Ox 98 09/30/21 11:32 Review of Systems Unobtainable due to cognitive status Results & Data (PSY) Laboratory Results 09/30/21 09/30/21 09/30/21 Range/Units 11:09 07:47 06:52 Hgb (14.0-18.0) g/dL Hct (42-52) % PT (9.0-12.0) Seconds INR (0.9-1.1) Sodium (136-145) mmol/L Potassium (3.5-5.1) mmol/L Chloride (98-107) mmol/L Carbon Dioxide (21-32) mmol/L Anion Gap (3-11) BUN (6-23) mg/dl Creatinine (0.6-1.4) mg/dl Est Cr Clr Drug Dosing ml/min Est GFR ( Amer) ml/min Est GFR (Non-Af Amer) ml/min BUN/Creatinine Ratio (10-20) Glucose (70-99(Fasting)) mg/dl POC Glucose 111 H 99 87 (70-99) mg/dl Calcium (8.5-10.1) mg/dl TSH (0.300-4.500) uIu/ml Free T4 (0.61-1.60) ng/dl 09/30/21 09/30/21 09/30/21 Range/Units 06:36 05:41 05:41 Hgb (14.0-18.0) g/dL Hct (42-52) % PT (9.0-12.0) Seconds INR (0.9-1.1) Sodium 143 (136-145) mmol/L Potassium 3.5 (3.5-5.1) mmol/L Chloride 115 H (98-107) mmol/L Carbon Dioxide 21 (21-32) mmol/L Anion Gap 7 (3-11) BUN 26 H (6-23) mg/dl Creatinine 1.25 (0.6-1.4) mg/dl Est Cr Clr Drug Dosing 42.4 ml/min Est GFR ( Amer) 63.5 ml/min Est GFR (Non-Af Amer) 54.8 ml/min BUN/Creatinine Ratio 20.8 H (10-20) Glucose 59 L (70-99(Fasting)) mg/dl POC Glucose 68 L* (70-99) mg/dl Calcium 8.8 (8.5-10.1) mg/dl TSH 5.241 H (0.300-4.500) uIu/ml Free T4 1.00 (0.61-1.60) ng/dl 09/30/21 09/30/21 09/29/21 Range/Units 05:41 05:41 21:14 Hgb 8.4 L (14.0-18.0) g/dL Hct 27.9 L (42-52) % PT 14.8 H (9.0-12.0) Seconds INR 1.4 H (0.9-1.1) Sodium (136-145) mmol/L Potassium (3.5-5.1) mmol/L Chloride (98-107) mmol/L Carbon Dioxide (21-32) mmol/L Anion Gap (3-11) BUN (6-23) mg/dl Creatinine (0.6-1.4) mg/dl Est Cr Clr Drug Dosing ml/min Est GFR ( Amer) ml/min Est GFR (Non-Af Amer) ml/min BUN/Creatinine Ratio (10-20) Glucose (70-99(Fasting)) mg/dl POC Glucose 105 H (70-99) mg/dl Calcium (8.5-10.1) mg/dl TSH (0.300-4.500) uIu/ml Free T4 (0.61-1.60) ng/dl 09/29/21 Range/Units 16:16 Hgb (14.0-18.0) g/dL Hct (42-52) % PT (9.0-12.0) Seconds INR (0.9-1.1) Sodium (136-145) mmol/L Potassium (3.5-5.1) mmol/L Chloride (98-107) mmol/L Carbon Dioxide (21-32) mmol/L Anion Gap (3-11) BUN (6-23) mg/dl Creatinine (0.6-1.4) mg/dl Est Cr Clr Drug Dosing ml/min Est GFR ( Amer) ml/min Est GFR (Non-Af Amer) ml/min BUN/Creatinine Ratio (10-20) Glucose (70-99(Fasting)) mg/dl POC Glucose 120 H (70-99) mg/dl Calcium (8.5-10.1) mg/dl TSH (0.300-4.500) uIu/ml Free T4 (0.61-1.60) ng/dl Medications Administered Aspirin (Aspirin 81 Mg Ectab) 81 mg PO QPM JONEL Stop: 10/27/21 20:59 Last Admin: 09/29/21 21:08 Dose: 81 mg Documented by: [id number] Admin: 09/28/21 20:37 Dose: 81 mg Documented by: [id number] Admin: 09/27/21 21:39 Dose: 81 mg Documented by: [id number] Atorvastatin Calcium (Atorvastatin 40 Mg Tab) 40 mg PO QPM JONEL Stop: 10/23/21 20:59 Last Admin: 09/29/21 21:08 Dose: 40 mg Documented by: [id number] Admin: 09/28/21 20:36 Dose: 40 mg Documented by: [id number] Admin: 09/27/21 21:40 Dose: 40 mg Documented by: [id number] Admin: 09/26/21 20:28 Dose: 40 mg Documented by: [id number] Admin: 09/25/21 21:00 Dose: 40 mg Documented by: [id number] Admin: 09/24/21 21:32 Dose: 40 mg Documented by: [id number] Admin: 09/23/21 20:35 Dose: 40 mg Documented by: [id number] Bumetanide (Bumetanide 1 Mg Tab) 2 mg PO QPM [facility] Stop: 10/29/21 20:59 Last Admin: 09/29/21 21:11 Dose: 2 mg Documented by: [id number] Cyanocobalamin (Cyanocobalamin (B-12) 100 Mcg Tablet) 100 mcg PO QAM [facility] Stop: 10/10/21 09:01 Last Admin: 09/30/21 09:01 Dose: 100 mcg Documented by: [id number] Admin: 09/29/21 08:33 Dose: 100 mcg Documented by: [id number] Admin: 09/28/21 09:00 Dose: 100 mcg Documented by: [id number] Admin: 09/27/21 07:58 Dose: 100 mcg Documented by: [id number] Admin: 09/26/21 15:27 Dose: 100 mcg Documented by: [id number] Ferrous Sulfate (Ferrous Sulfate 325 Mg Tab) 325 mg PO BIDM [facility] Stop: 10/26/21 07:59 Last Admin: 09/30/21 09:00 Dose: 325 mg Documented by: [id number] Admin: 09/29/21 17:30 Dose: 325 mg Documented by: [id number] Admin: 09/29/21 08:33 Dose: 325 mg Documented by: [id number] Admin: 09/28/21 17:15 Dose: 325 mg Documented by: [id number] Admin: 09/28/21 09:01 Dose: 325 mg Documented by: [id number] Admin: 09/27/21 16:19 Dose: 325 mg Documented by: [id number] Admin: 09/27/21 07:57 Dose: 325 mg Documented by: [id number] Admin: 09/26/21 17:14 Dose: 325 mg Documented by: [id number] Admin: 09/26/21 08:10 Dose: 325 mg Documented by: [id number] Insulin Aspart (Insulin Aspart Per Unit) 0 units SC ACHS JONEL Stop: 10/24/21 16:59 Last Admin: 09/30/21 09:52 Dose: 3 units Documented by: [id number] Cosigned by: [id number] Admin: 09/29/21 21:20 Dose: Not Given Documented by: [id number] Admin: 09/29/21 17:26 Dose: 3 units Documented by: [id number] Cosigned by: [id number] Admin: 09/29/21 12:30 Dose: 4 units Documented by: [id number] Cosigned by: [id number] Admin: 09/29/21 08:44 Dose: 4 units Documented by: [id number] Cosigned by: [id number] Admin: 09/28/21 20:28 Dose: Not Given Documented by: [id number] Admin: 09/28/21 16:47 Dose: Not Given Documented by: [id number] Admin: 09/28/21 13:33 Dose: Not Given Documented by: [id number] Admin: 09/28/21 09:00 Dose: Not Given Documented by: [id number] Admin: 09/27/21 21:41 Dose: Not Given Documented by: [id number] Admin: 09/27/21 16:45 Dose: 2 units Documented by: [id number] Cosigned by: [id number] Admin: 09/27/21 11:36 Dose: 2 units Documented by: [id number] Cosigned by: [id number] Admin: 09/27/21 07:57 Dose: 2 units Documented by: [id number] Cosigned by: [id number] Admin: 09/26/21 20:16 Dose: Not Given Documented by: [id number] Admin: 09/26/21 17:19 Dose: 4 units Documented by: [id number] Cosigned by: [id number] Admin: 09/26/21 12:23 Dose: 6 units Documented by: [id number] Cosigned by: [id number] Admin: 09/26/21 08:13 Dose: 5 units Documented by: [id number] Cosigned by: [id number] Admin: 09/25/21 20:36 Dose: Not Given Documented by: [id number] Admin: 09/25/21 17:38 Dose: 6 units Documented by: [id number] Cosigned by: [id number] Admin: 09/25/21 13:01 Dose: 8 units Documented by: [id number] Cosigned by: [id number] Admin: 09/25/21 08:38 Dose: 5 units Documented by: [id number] Cosigned by: [id number] Admin: 09/24/21 21:32 Dose: Not Given Documented by: [id number] Admin: 09/24/21 17:09 Dose: 4 units Documented by: [id number] Cosigned by: [id number] Insulin Glargine (Insulin Glargine Solostar 100 Units/Ml 3 Ml Pen) 15 units SC HS [facility]ONEL Stop: 10/23/21 20:59 Last Admin: 09/29/21 21:20 Dose: 15 units Documented by: [id number] Cosigned by: [id number] Admin: 09/28/21 20:38 Dose: 15 units Documented by: [id number] Cosigned by: [id number] Admin: 09/27/21 22:04 Dose: 15 units Documented by: [id number] Cosigned by: [id number] Admin: 09/26/21 20:42 Dose: 15 units Documented by: [id number] Cosigned by: [id number] Admin: 09/25/21 21:20 Dose: 15 units Documented by: [id number] Cosigned by: [id number] Admin: 09/24/21 21:33 Dose: 15 units Documented by: [id number] Cosigned by: [id number] Admin: 09/23/21 20:35 Dose: 15 units Documented by: [id number] Cosigned by: [id number] Lactobacillus Acidophilus (Advanced Probiotic 1250 Mg Capsule) 2 cap PO DAILY [facility]ON[facility] Stop: 10/29/21 11:14 Last Admin: 09/30/21 09:01 Dose: 2 cap Documented by: [id number] Admin: 09/29/21 11:53 Dose: 2 cap Documented by: [id number] Levothyroxine Sodium (Levothyroxine Sodium 100 Mcg Tablet) 100 mcg PO DAILY JONEL Stop: 10/23/21 06:29 Last Admin: 09/30/21 05:26 Dose: 100 mcg Documented by: [id number] Admin: 09/29/21 04:27 Dose: 100 mcg Documented by: [id number] Admin: 09/28/21 05:30 Dose: 100 mcg Documented by: [id number] Admin: 09/27/21 05:58 Dose: 100 mcg Documented by: [id number] Admin: 09/26/21 06:10 Dose: 100 mcg Documented by: [id number] Admin: 09/25/21 06:09 Dose: 100 mcg Documented by: [id number] Admin: 09/24/21 06:09 Dose: 100 mcg Documented by: [id number] Admin: 09/23/21 06:09 Dose: 100 mcg Documented by: [id number] Losartan Potassium (Losartan Potassium 50 Mg Tab) 100 mg PO DAILY JONEL Stop: 10/29/21 08:59 Last Admin: 09/30/21 09:01 Dose: 100 mg Documented by: [id number] Admin: 09/29/21 08:33 Dose: 100 mg Documented by: [id number] Melatonin (Melatonin 3 Mg Tab) 9 mg PO HS JONEL Stop: 10/23/21 20:59 Last Admin: 09/29/21 21:09 Dose: 9 mg Documented by: [id number] Admin: 09/28/21 20:36 Dose: 9 mg Documented by: [id number] Admin: 09/27/21 21:42 Dose: 9 mg Documented by: [id number] Admin: 09/26/21 20:28 Dose: 9 mg Documented by: [id number] Admin: 09/25/21 20:59 Dose: 9 mg Documented by: [id number] Admin: 09/24/21 21:32 Dose: 9 mg Documented by: [id number] Admin: 09/23/21 20:35 Dose: 9 mg Documented by: [id number] Metoprolol Succinate (Metoprolol Succ 25mg Ext Rel Tab) 25 mg PO BID [facility]ONEL Stop: 10/23/21 08:59 Last Admin: 09/30/21 09:03 Dose: Not Given Documented by: [id number] Admin: 09/29/21 21:26 Dose: Not Given Documented by: [id number] Admin: 09/29/21 08:33 Dose: 25 mg Documented by: [id number] Admin: 09/28/21 20:36 Dose: 25 mg Documented by: [id number] Admin: 09/28/21 09:00 Dose: 25 mg Documented by: [id number] Admin: 09/27/21 21:43 Dose: 25 mg Documented by: [id number] Admin: 09/27/21 07:58 Dose: 25 mg Documented by: [id number] Admin: 09/26/21 20:27 Dose: 25 mg Documented by: [id number] Admin: 09/26/21 08:10 Dose: 25 mg Documented by: [id number] Admin: 09/25/21 21:00 Dose: 25 mg Documented by: [id number] Admin: 09/25/21 08:33 Dose: 25 mg Documented by: [id number] Admin: 09/24/21 21:32 Dose: Not Given Documented by: [id number] Admin: 09/24/21 08:39 Dose: 25 mg Documented by: [id number] Admin: 09/23/21 20:35 Dose: 25 mg Documented by: [id number] Admin: 09/23/21 07:05 Dose: Not Given Documented by: [id number] Pantoprazole Sodium (Pantoprazole 40 Mg Tab) 40 mg PO BID [facility]ONEL Stop: 10/27/21 08:59 Last Admin: 09/30/21 09:02 Dose: 40 mg Documented by: [id number] Admin: 09/29/21 21:09 Dose: 40 mg Documented by: [id number] Admin: 09/29/21 08:33 Dose: 40 mg Documented by: [id number] Admin: 09/28/21 20:36 Dose: 40 mg Documented by: [id number] Admin: 09/28/21 09:01 Dose: 40 mg Documented by: [id number] Admin: 09/27/21 21:46 Dose: 40 mg Documented by: [id number] Admin: 09/27/21 08:51 Dose: 40 mg Documented by: [id number] Polyethylene Glycol (Polyethylene (Miralax) 17 Gm Pack) 17 gm PO DAILY JONEL Stop: 10/26/21 14:14 Last Admin: 09/30/21 09:03 Dose: Not Given Documented by: [id number] Admin: 09/29/21 08:31 Dose: Not Given Documented by: [id number] Admin: 09/28/21 09:00 Dose: Not Given Documented by: [id number] Admin: 09/27/21 07:56 Dose: 17 gm Documented by: [id number] Admin: 09/26/21 14:40 Dose: Not Given Documented by: [id number] Potassium Chloride (Potassium Chloride Crtab 20 Meq Tabcr) 20 meq PO BID [facility]ON[facility] Stop: 10/29/21 20:59 Last Admin: 09/30/21 09:02 Dose: 20 meq Documented by: [id number] Admin: 09/29/21 21:12 Dose: 20 meq Documented by: [id number] Quetiapine Fumarate (Quetiapine Fumarate 25 Mg Tablet) 25 mg PO HS [facility]ONEL Stop: 10/22/21 23:07 Last Admin: 09/29/21 21:10 Dose: 25 mg Documented by: [id number] Admin: 09/28/21 20:36 Dose: 25 mg Documented by: [id number] Admin: 09/27/21 21:45 Dose: 25 mg Documented by: [id number] Admin: 09/26/21 20:28 Dose: 25 mg Documented by: [id number] Admin: 09/25/21 21:00 Dose: 25 mg Documented by: [id number] Admin: 09/24/21 21:32 Dose: 25 mg Documented by: [id number] Admin: 09/23/21 20:36 Dose: 25 mg Documented by: [id number] Admin: 09/22/21 23:37 Dose: 25 mg Documented by: [id number] Sertraline HCl (Sertraline Hcl 100 Mg Tablet) 200 mg PO QA [facility] Stop: 10/23/21 08:59 Last Admin: 09/30/21 09:02 Dose: 200 mg Documented by: [id number] Admin: 09/29/21 08:33 Dose: 200 mg Documented by: [id number] Admin: 09/28/21 09:00 Dose: 200 mg Documented by: [id number] Admin: 09/27/21 07:58 Dose: 200 mg Documented by: [id number] Admin: 09/26/21 08:10 Dose: 200 mg Documented by: [id number] Admin: 09/25/21 08:34 Dose: 200 mg Documented by: [id number] Admin: 09/24/21 08:40 Dose: 200 mg Documented by: [id number] Admin: 09/23/21 07:08 Dose: 200 mg Documented by: [id number] Trazodone HCl (Trazodone Hcl 50 Mg Tab) 50 mg PO [facility] Stop: 10/22/21 23:07 Last Admin: 09/29/21 21:19 Dose: 50 mg Documented by: [id number] Admin: 09/28/21 20:36 Dose: 50 mg Documented by: [id number] Admin: 09/27/21 21:49 Dose: 50 mg Documented by: [id number] Admin: 09/26/21 20:27 Dose: 50 mg Documented by: [id number] Admin: 09/25/21 21:09 Dose: 50 mg Documented by: [id number] Admin: 09/24/21 21:31 Dose: 50 mg Documented by: [id number] Admin: 09/23/21 20:38 Dose: 50 mg Documented by: [id number] Admin: 09/22/21 23:37 Dose: 50 mg Documented by: [id number] Warfarin Sodium (Warfarin Sod 2.5 Mg Tab) 2.5 mg PO [id number] [facility] Stop: 10/26/21 15:59 Last Admin: 09/29/21 15:54 Dose: 2.5 mg Documented by: [id number] Admin: 09/28/21 16:30 Dose: Not Given Documented by: [id number] Admin: 09/27/21 16:18 Dose: 2.5 mg Documented by: [id number] Admin: 09/26/21 15:28 Dose: 2.5 mg Documented by: [id number] Coding Level of Care Code 79903 [facility] Intl Hosp Care Lvl 3 Diagnoses Major neurocognitive disorder F03.90 Acute blood loss anemia D62 Acute GI bleeding K92.2 Time Spent (min) 70 Comment >50% time spent counseling and coordination of care
[2021-09-30] MEDS ORDERED: GADOBUTROL 7.5ML VIAL IV ONE (14:05)
--- NOTE | 2021-09-30 14:47 | Magnetic Resonance Report ---
MRI OF THE BRAIN WITHOUT AND WITH IV CONTRAST CLINICAL HISTORY: psych eval/organic cause of dementia COMPARISON STUDY: No previous studies for comparison. TECHNIQUE: Utilizing a 1.5 Sugar magnet and dedicated coil, multiplanar, multiecho imaging of the br ain was performed pre and postcontrast administration. IV administration of 7 mL of Gadavist contras t was uneventful. Thin cut T1 post contrast imaging was performed. FINDINGS: This exam is mildly compromised by motion artifact although is diagnostic. There are no foc i of restricted diffusion to suggest acute infarct. No acute intracranial hemorrhage, midline shift o r mass effect is present. Moderate atrophy is noted. White matter T2 hyperintense foci suggest modera te small vessel disease. No intracranial masses are identified although no significant contrast is no temo on the postcontrast images due to technical difficulties. There is fluid within the bilateral mas toid air cells. No evidence for sinusitis. Calvarial signal is normal. Flow-voids for the major intra cranial vessels are present. A few small hypointense foci are noted on the gradient echo sequence whi ch suggest hemosiderin deposition. IMPRESSION: 1. No acute intracranial findings. 2. Moderate atrophy. 3. White matter T2 hyperintense foci suggestive of moderate small vessel disease. ACT 112: Negative or not required by law. Electronically signed by: Andrew Goldstein M.D. 09/30/2021 2:45 PM
[2021-09-30] MEDS: WARFARIN SOD 2.5 MG TAB PO SCH (16:23)
--- NOTE | 2021-09-30 16:44 | Hospitalist Progress Note ---
Date of Service September 30, 2021 Assessment & Plan (1) Acute blood loss anemia: Plan: 76-year-old male with PMH of DM, diabetic retinopathy, CKD stage III, hypothyroidism, HLD, chronic A. 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 He is being managed for the following: #. Acute blood loss anemia #. Likely lower GI bleed Patient with history of chronic A. fib on Coumadin Admitting hemoglobin of 4.9, admitting complaint of shortness of breath. Status post 4 unit PRBC, vitamin K IV and p.o. and 1 unit platelet. Status post EGD 09/24-WNL; colonoscopy 09/24hemorrhoids noted, red spot in ascending colon which was clipped x1, diverticula throughout the colon, scar in the rectum without evidence of polyp recurrence. No source of GI bleeding was found. GI evaluated, no source found, suspects AVM, plan to do video capsule endoscopy and follow-up as Outpatient. Iron studies: iron level low, vitamin B12 low normal. Continue with vitamin B12 for 15 days. Patient tolerating diet. Patient is status post Venofer x1 on 09/25, continue with oral iron supplement started 09/26. Hemoglobin stable around 8, monitor daily and as needed. Transfuse for hemoglobin less than 7 or symptomatic anemia. Resumed Coumadin 09/26, monitor PT/INR. c/w coumadin. #. Pancytopenia #. Hypersplenism Patient has history of both, baseline hemoglobin around 10-11, white count around 3.5 and platelets around 60 K. Etiology unclear. Patient to follow-up with heme-onc as an outpatient. Monitor labs daily and as needed. #. Major neurocognitive disorder TSH minimally elevated, folate and B12 WNL Pt forgetful with difficult behaviour per his Dtr 09/30 MRI brain w/wo con: no acute findings, s/o moderate small vessel disease. Psychiatry evaluated, appreciate recs. #. History of chronic A. fib Coumadin restarted 09/26, monitor PT/INR Rate controlled, continue with home medications. #. Acute kidney injury over CKD stage III Baseline creatinine around 1.35, admitting creatinine of 2.2, c/w bumex and losartan Cr back to baseline, monitor volume status given history of CHF. Monitor BMP as needed. #. Other chronic medical conditions: Diabetes, hypothyroidism, CAD, status post bypass, HTN, anxiety and depression Continue with/resume home medication when appropriate Patient sliding scale insulin. Continue Zoloft, trazodone, and Seroquel. #. DVT prophylaxis: SCDs Re: GI bleed. #. Disposition: PT/OT GRAHAM vasquez to assist with DC planning. Daughter requesting [facility] as concerns of ability to self care/also concerns of early dementia (will need OP f/u w/ PCP). PT/OT recommending DC to home when stable. Medically stable for DC, pt will need [facility] d/t him needing 24/ care at home. Pt will need OP f/u w/ GI/MTM clinic/Leather [employer]er. 09/26, patient's daughter was given a phone call, updated about the current status of the patient, she would like to talk with window caser, sent text [TT] to window caser. Answered all her questions, she voiced understanding and was agreeable to the plan of care. 09/27: pt's dtr was updated at bedside. 09/29: pt's dtr updated at bedside. Admission and Anticipated Discharge Date Admission Date: September 22, 2021 Subjective Patient seen and examined at bedside as a follow-up of acute blood loss anemia likely secondary to lower GI bleed and history of pancytopenia. Patient was lying in bed, on room air, NAD, no new acute events overnight. Patient reports eating okay, moving bowels ok per RN but he has been pooping/peeing on the floor. Patient denies any pain or discomfort or headache/dizziness/chest pain/palpitations/belly pain/other review of symptoms. Per RN, no further blood noted in stool, eating ok, and patient is forgetful. Pt remains AOx3 on exam. Physical Exam Physical Exam: GENERAL: Alert and oriented x3. NAD, on RA. HEENT: No pallor, no icterus. Pupils equal, round and reactive to light. Oral mucosa moist. NECK: No JVD, no neck masses. HEART: S1 and S2 heard. Regular rate and rhythm. No murmur, no gallop. RESPIRATORY SYSTEM: Normal AP diameter. No accessory muscle use. No wheezing, no crackles. ABDOMEN: Soft, bowel sounds present, nontender, no distention. CENTRAL NERVOUS SYSTEM: No facial droop. Speech is clear. Obeys simple commands. Moves extremities. EXTREMITIES: No edema, no erythema seen. Results & Data Results & Data ([facility]) Vital Signs (Past 12 Hours) Vital Signs Temp Pulse Pulse Resp BP Pulse Ox 09/30/21 16:04 58 L 09/30/21 15:22 37.0 C 60 19 125/75 98 09/30/21 11:32 36.9 C 70 19 152/63 H 98 09/30/21 08:40 36.7 C 64 20 120/70 98
[2021-09-30] MEDS: BUMETANIDE 1 MG TAB PO SCH (20:41)
[2021-09-30] MEDS: QUEtiapine FUMARATE 25 MG TABLET PO SCH (20:41)
[2021-09-30] MEDS: ATORVASTATIN 40 MG TAB PO SCH (20:41)
[2021-09-30] MEDS: INSULIN GLARGINE SOLOSTAR 100 UNITS/ML 3 ML PEN SC SCH (20:42)
[2021-09-30] MEDS: MELATONIN 3 MG TAB PO SCH (20:42)
[2021-09-30] MEDS: ASPIRIN 81 MG ECTAB PO SCH (20:44)
[2021-09-30] MEDS: traZODone HCL 50 MG TAB PO SCH (20:58)
[2021-10-01] MEDS: LEVOTHYROXINE SODIUM 100 MCG TABLET PO SCH (05:55)
[2021-10-01 08:07] LABS: Hematocrit (blood only) 29.1 % (42-52); Hemoglobin 8.8 g/dL (14.0-18.0)
[2021-10-01 08:23] LABS: BUN Creatinine Ratio 19.8 (10-20); Creatinine Clr Calc Pharmacy 47.7 ml/min; Est GFR (African American) 73.3 ml/min; Est GFR (Non-African American) 63.3 ml/min; Potassium 3.5 mmol/L (3.5-5.1)
[2021-10-01 08:26] LABS: INR 1.6 (0.9-1.1); Prothrombin Time 16.5 Seconds (9.0-12.0)
[2021-10-01] MEDS: PANTOprazole 40 MG TAB PO SCH ×2 (09:53→20:41)
[2021-10-01] MEDS: ADVANCED PROBIOTIC 1250 MG CAPSULE PO SCH (09:53)
[2021-10-01] MEDS: LOSARTAN POTASSIUM 50 MG TAB PO SCH (09:53)
[2021-10-01] MEDS: CYANOCOBALAMIN (B-12) 100 MCG TABLET PO SCH (09:53)
[2021-10-01] MEDS: POTASSIUM CHLORIDE CRTAB 20 MEQ TABCR PO SCH ×2 (09:53→20:44)
[2021-10-01] MEDS: METOPROLOL SUCC 25MG EXT REL TAB PO SCH ×2 (09:53→20:40)
[2021-10-01] MEDS: POLYETHYLENE (MIRALAX) 17 GM PACK PO SCH (09:54)
[2021-10-01] MEDS: SERTRALINE HCL 100 MG TABLET PO SCH (09:54)
[2021-10-01] MEDS: FERROUS SULFATE 325 MG TAB PO SCH ×2 (09:54→17:56)
[2021-10-01] MEDS: INSULIN ASPART PER UNIT SC SCH ×4 (10:55→20:47)
--- NOTE | 2021-10-01 11:45 | Communication Note ---
Date of Service: October 01, 2021 reviewed MRI report which as suspected showed moderate microvascular disease supporting the presentation being consistent with dementia. Liaison updated parul menjivar that any discussion re: acetylcholinesterase inhibitors is deferred to hospitalist and/or outpatient neurology as psychiatry involvement is primarily around acute management of agitation (which he does not have).
--- NOTE | 2021-10-01 17:03 | Hospitalist Progress Note ---
Date of Service October 01, 2021 Assessment & Plan (1) Acute blood loss anemia: Plan: 76-year-old male with PMH of DM, diabetic retinopathy, CKD stage III, hypothyroidism, HLD, chronic A. 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 He is being managed for the following: #. Acute blood loss anemia #. Likely lower GI bleed Patient with history of chronic A. fib on Coumadin Admitting hemoglobin of 4.9, admitting complaint of shortness of breath. Status post 4 unit PRBC, vitamin K IV and p.o. and 1 unit platelet. Status post EGD 09/24-WNL; colonoscopy 09/24hemorrhoids noted, red spot in ascending colon which was clipped x1, diverticula throughout the colon, scar in the rectum without evidence of polyp recurrence. No source of GI bleeding was found. GI evaluated, no source found, suspects AVM, plan to do video capsule endoscopy and follow-up as Outpatient. Iron studies: iron level low, vitamin B12 low normal. Continue with vitamin B12 for 15 days. Patient tolerating diet. Patient is status post Venofer x1 on 09/25, continue with oral iron supplement started 09/26. Hemoglobin stable around 8, monitor daily and as needed. Transfuse for hemoglobin less than 7 or symptomatic anemia. Resumed Coumadin 09/26, monitor PT/INR. c/w coumadin. Pt will need coumadin f/u as OP. #. Pancytopenia #. Hypersplenism Patient has history of both, baseline hemoglobin around 10-11, white count around 3.5 and platelets around 60 K. Etiology unclear. Patient to follow-up with heme-onc as an outpatient. Monitor labs daily and as needed. #. Major neurocognitive disorder #. Likely Vascular dementia TSH minimally elevated, folate and B12 WNL Pt forgetful with difficult behaviour per his Dtr 09/30 MRI brain w/wo con: no acute findings, s/o moderate small vessel disease. Psychiatry evaluated, appreciate recs. #. History of chronic A. fib Coumadin restarted 09/26, monitor PT/INR Rate controlled, continue with home medications. #. Acute kidney injury over CKD stage III Baseline creatinine around 1.35, admitting creatinine of 2.2, c/w bumex and losartan Cr back to baseline, monitor volume status given history of CHF. Monitor BMP as needed. #. Other chronic medical conditions: Diabetes, hypothyroidism, CAD, status post bypass, HTN, anxiety and depression Continue with/resume home medication when appropriate Patient sliding scale insulin. Continue Zoloft, trazodone, and Seroquel. #. DVT prophylaxis: SCDs Re: GI bleed. #. Disposition: PT/OT GRAHAM vasquez to assist with DC planning. Daughter requesting [facility] as concerns of ability to self care/also concerns of early dementia (will need OP f/u w/ PCP). PT/OT recommending DC to home when stable. Medically stable for DC, pt will need [facility] d/t him needing 24/7 care at home. Pt will need OP f/u w/ GI/MTM clinic/Ekg Technician. 09/26, patient's daughter was given a phone call, updated about the current status of the patient, she would like to talk with case coordinator, sent text [TT] to case coordinator. Answered all her questions, she voiced understanding and was agreeable to the plan of care. 09/27: pt's dtr was updated at bedside. 09/29: pt's dtr updated at bedside. Admission and Anticipated Discharge Date Admission Date: September 22, 2021 Subjective Patient seen and examined at bedside as a follow-up of acute blood loss anemia likely secondary to lower GI bleed and history of pancytopenia. Patient was lying in bed, on room air, NAD, no new acute events overnight. Jose D jerez reports eating okay. Patient denies any pain or discomfort or headache/dizziness/chest pain/palpitations/belly pain/other review of symptoms. Pt remains AOx3 on exam. Physical Exam Physical Exam: GENERAL: Alert and oriented x3. NAD, on RA. HEENT: No pallor, no icterus. Pupils equal, round and reactive to light. Oral mucosa moist. NECK: No JVD, no neck masses. HEART: S1 and S2 heard. Regular rate and rhythm. No murmur, no gallop. RESPIRATORY SYSTEM: Normal AP diameter. No accessory muscle use. No wheezing, no crackles. ABDOMEN: Soft, bowel sounds present, nontender, no distention. CENTRAL NERVOUS SYSTEM: No facial droop. Speech is clear. Obeys simple commands. Moves extremities. EXTREMITIES: No edema, no erythema seen. Results & Data Results & Data ([facility]) Vital Signs (Past 12 Hours) Vital Signs Temp Pulse Resp BP Pulse Ox 10/01/21 15:27 36.5 C 67 16 149/76 H 97 10/01/21 07:25 36.7 C 56 L 18 147/58 H 98
[2021-10-01] MEDS: WARFARIN SOD 2.5 MG TAB PO SCH (17:56)
[2021-10-01] MEDS: traZODone HCL 50 MG TAB PO SCH (20:40)
[2021-10-01] MEDS: BUMETANIDE 1 MG TAB PO SCH (20:41)
[2021-10-01] MEDS: ASPIRIN 81 MG ECTAB PO SCH (20:41)
[2021-10-01] MEDS: ATORVASTATIN 40 MG TAB PO SCH (20:41)
[2021-10-01] MEDS: QUEtiapine FUMARATE 25 MG TABLET PO SCH (20:41)
[2021-10-01] MEDS: MELATONIN 3 MG TAB PO SCH (20:43)
[2021-10-01] MEDS: INSULIN GLARGINE SOLOSTAR 100 UNITS/ML 3 ML PEN SC SCH (20:46)
[2021-10-02] MEDS: LEVOTHYROXINE SODIUM 100 MCG TABLET PO SCH (05:39)
[2021-10-02 08:29] LABS: Hematocrit (blood only) 29.6 % (42-52); Hemoglobin 8.9 g/dL (14.0-18.0)
[2021-10-02 08:36] LABS: INR 1.6 (0.9-1.1); Prothrombin Time 17.1 Seconds (9.0-12.0)
[2021-10-02 08:47] LABS: BUN Creatinine Ratio 19.5 (10-20); Calcium 9.1 mg/dl (8.5-10.1); Creatinine Clr Calc Pharmacy 41.4 ml/min; Est GFR (African American) 61.7 ml/min; Est GFR (Non-African American) 53.3 ml/min; Potassium 3.4 mmol/L (3.5-5.1)
[2021-10-02] MEDS ORDERED: POTASSIUM CHLORIDE CRTAB 20 MEQ TABCR PO STA (09:06)
[2021-10-02] MEDS: SERTRALINE HCL 100 MG TABLET PO SCH (09:08)
[2021-10-02] MEDS: ADVANCED PROBIOTIC 1250 MG CAPSULE PO SCH (09:08)
[2021-10-02] MEDS: CYANOCOBALAMIN (B-12) 100 MCG TABLET PO SCH (09:08)
[2021-10-02] MEDS: FERROUS SULFATE 325 MG TAB PO SCH ×2 (09:09→18:09)
[2021-10-02] MEDS: LOSARTAN POTASSIUM 50 MG TAB PO SCH (09:09)
[2021-10-02] MEDS: POLYETHYLENE (MIRALAX) 17 GM PACK PO SCH (09:09)
[2021-10-02] MEDS: PANTOprazole 40 MG TAB PO SCH ×2 (09:09→20:47)
[2021-10-02] MEDS: POTASSIUM CHLORIDE CRTAB 20 MEQ TABCR PO SCH ×2 (09:14→20:47)
[2021-10-02] MEDS: INSULIN ASPART PER UNIT SC SCH ×4 (09:17→20:40)
[2021-10-02] MEDS: METOPROLOL SUCC 25MG EXT REL TAB PO SCH ×2 (10:53→20:48)
[2021-10-02] MEDS ORDERED: WARFARIN SOD 5 MG TAB PO SCH (16:00)
--- NOTE | 2021-10-02 17:34 | Hospitalist Progress Note ---
Date of Service October 02, 2021 Assessment & Plan (1) Acute blood loss anemia: Plan: 76-year-old male with PMH of DM, diabetic retinopathy, CKD stage III, hypothyroidism, HLD, chronic A. 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 He is being managed for the following: #. Acute blood loss anemia #. Likely lower GI bleed Patient with history of chronic A. fib on Coumadin Admitting hemoglobin of 4.9, admitting complaint of shortness of breath. Status post 4 unit PRBC, vitamin K IV and p.o. and 1 unit platelet. Status post EGD 09/24-WNL; colonoscopy 09/24hemorrhoids noted, red spot in ascending colon which was clipped x1, diverticula throughout the colon, scar in the rectum without evidence of polyp recurrence. No source of GI bleeding was found. GI evaluated, no source found, suspects AVM, plan to do video capsule endoscopy and follow-up as Outpatient. Iron studies: iron level low, vitamin B12 low normal. Continue with vitamin B12 for 15 days. Patient tolerating diet. Patient is status post Venofer x1 on 09/25, continue with oral iron supplement started 09/26. Hemoglobin stable around 8, monitor daily and as needed. Transfuse for hemoglobin less than 7 or symptomatic anemia. Resumed Coumadin 09/26, monitor PT/INR. Had multiple blood smeared stool today, hold Coumadin. Follow-up with H&H in a.m. #. Pancytopenia #. Hypersplenism Patient has history of both, baseline hemoglobin around 10-11, white count around 3.5 and platelets around 60 K. Etiology unclear. Patient to follow-up with heme-onc as an outpatient. Monitor labs daily and as needed. #. Major neurocognitive disorder #. Likely Vascular dementia TSH minimally elevated, folate and B12 WNL Pt forgetful with difficult behaviour per his Dtr 09/30 MRI brain w/wo con: no acute findings, s/o moderate small vessel disease. Psychiatry evaluated, appreciate recs. #. History of chronic A. fib Coumadin restarted 09/26, monitor PT/INR Rate controlled, continue with home medications. #. Acute kidney injury over CKD stage III Baseline creatinine around 1.35, admitting creatinine of 2.2, c/w bumex and lo sartan Cr back to baseline, monitor volume status given history of CHF. Monitor BMP as needed. #. Other chronic medical conditions: Diabetes, hypothyroidism, CAD, status post bypass, HTN, anxiety and depression Continue with/resume home medication when appropriate Patient sliding scale insulin. Continue Zoloft, trazodone, and Seroquel. #. DVT prophylaxis: SCDs Re: GI bleed. #. Disposition: PT/OT GRAHAM vasquez to assist with DC planning. Daughter requesting [facility] as concerns of ability to self care/also concerns of early dementia (will need OP f/u w/ PCP). PT/OT recommending DC to home when stable. Medically stable for DC, pt will need [facility] d/t him needing 24/7 care at home. Pt will need OP f/u w/ GI/MTM clinic/Cardiology Physician Assistant. 09/26, patient's daughter was given a phone call, updated about the current status of the patient, she would like to talk with shelter case manager, sent text [TT] to shelter case manager. Answered all her questions, she voiced understanding and was agreeable to the plan of care. 09/27: pt's dtr was updated at bedside. 09/29: pt's dtr updated at bedside. Admission and Anticipated Discharge Date Admission Date: September 22, 2021 Subjective Patient seen and examined at bedside as a follow-up of acute blood loss anemia likely secondary to lower GI bleed and history of pancytopenia. Patient was lying in bed, on room air, NAD, no new acute events overnight. Patient reports eating okay. Patient reports having loose stools, his scheduled MiraLAX has been discontinued today. Continue to monitor. Patient denies any pain or discomfort or headache/dizziness/chest pain/palpitations/belly pain/other review of symptoms. Pt remains AOx3 on exam. Physical Exam Physical Exam: GENERAL: Alert and oriented x3. NAD, on RA. HEENT: No pallor, no icterus. Pupils equal, round and reactive to light. Oral mucosa moist. NECK: No JVD, no neck masses. HEART: S1 and S2 heard. Regular rate and rhythm. No murmur, no gallop. RESPIRATORY SYSTEM: Normal AP diameter. No accessory muscle use. No wheezing, no crackles. ABDOMEN: Soft, bowel sounds present, nontender, no distention. CENTRAL NERVOUS SYSTEM: No facial droop. Speech is clear. Obeys simple commands. Moves extremities. EXTREMITIES: No edema, no erythema seen. Results & Data Results & Data ([facility]) Vital Signs (Past 12 Hours) Vital Signs Temp Pulse Resp BP Pulse Ox 10/02/21 14:35 36.5 C 85 20 153/55 H 90 10/02/21 11:06 36.7 C 56 L 18 142/59 H 97 10/02/21 08:10 36.5 C 65 18 131/71 94
[2021-10-02] MEDS: INSULIN GLARGINE SOLOSTAR 100 UNITS/ML 3 ML PEN SC SCH (20:45)
[2021-10-02] MEDS: MELATONIN 3 MG TAB PO SCH (20:46)
[2021-10-02] MEDS: traZODone HCL 50 MG TAB PO SCH (20:46)
[2021-10-02] MEDS: QUEtiapine FUMARATE 25 MG TABLET PO SCH (20:47)
[2021-10-02] MEDS: ASPIRIN 81 MG ECTAB PO SCH (20:47)
[2021-10-02] MEDS: BUMETANIDE 1 MG TAB PO SCH (20:48)
[2021-10-02] MEDS: ATORVASTATIN 40 MG TAB PO SCH (20:48)
[2021-10-03] MEDS: LEVOTHYROXINE SODIUM 100 MCG TABLET PO SCH (05:49)
[2021-10-03 07:39] LABS: INR 1.6 (0.9-1.1); Prothrombin Time 16.4 Seconds (9.0-12.0)
[2021-10-03 07:49] LABS: BUN Creatinine Ratio 20.2 (10-20); Calcium 9.2 mg/dl (8.5-10.1); Creatinine Clr Calc Pharmacy 42.7 ml/min; Est GFR (African American) 64.1 ml/min; Est GFR (Non-African American) 55.3 ml/min; Potassium 3.6 mmol/L (3.5-5.1)
[2021-10-03 08:23] LABS: Hematocrit (blood only) 28.6 % (42-52); Hemoglobin 8.8 g/dL (14.0-18.0)
[2021-10-03] MEDS: PANTOprazole 40 MG TAB PO SCH ×2 (08:50→20:39)
[2021-10-03] MEDS: SERTRALINE HCL 100 MG TABLET PO SCH (08:50)
[2021-10-03] MEDS: CYANOCOBALAMIN (B-12) 100 MCG TABLET PO SCH (08:50)
[2021-10-03] MEDS: ADVANCED PROBIOTIC 1250 MG CAPSULE PO SCH (08:50)
[2021-10-03] MEDS: LOSARTAN POTASSIUM 50 MG TAB PO SCH (08:50)
[2021-10-03] MEDS: METOPROLOL SUCC 25MG EXT REL TAB PO SCH ×2 (08:50→20:40)
[2021-10-03] MEDS: FERROUS SULFATE 325 MG TAB PO SCH ×2 (08:51→18:10)
[2021-10-03] MEDS: INSULIN ASPART PER UNIT SC SCH ×4 (08:54→21:14)
[2021-10-03] MEDS: POTASSIUM CHLORIDE CRTAB 20 MEQ TABCR PO SCH ×2 (08:55→20:38)
--- NOTE | 2021-10-03 11:10 | Hospitalist Progress Note ---
Date of Service October 03, 2021 Assessment & Plan (1) Acute blood loss anemia: Plan: 76-year-old male with PMH of DM, diabetic retinopathy, CKD stage III, hypothyroidism, HLD, chronic A. 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 He is being managed for the following: #. Acute blood loss anemia #. Likely lower GI bleed Patient with history of chronic A. fib on Coumadin Admitting hemoglobin of 4.9, admitting complaint of shortness of breath. Status post 4 unit PRBC, vitamin K IV and p.o. and 1 unit platelet. Status post EGD 09/24-WNL; colonoscopy 09/24hemorrhoids noted, red spot in ascending colon which was clipped x1, diverticula throughout the colon, scar in the rectum without evidence of polyp recurrence. No source of GI bleeding was found. GI evaluated, no source found, suspects AVM, plan to do video capsule endoscopy and follow-up as Outpatient. Iron studies: iron level low, vitamin B12 low normal. Continue with vitamin B12 for 15 days. Patient tolerating diet. Patient is status post Venofer x1 on 09/25, continue with oral iron supplement started 09/26. Hemoglobin stable around 8, monitor daily and as needed. Transfuse for hemoglobin less than 7 or symptomatic anemia. Resumed Coumadin 09/26, monitor PT/INR. Had multiple blood smeared today, Coumadin held. Follow-up with H&H in a.m. 10/03 patient had multiple stools, no blood noted. Warfarin to be resumed. H&H continues to be stable. Patient feels well, and is hemodynamically stable. #. Pancytopenia #. Hypersplenism Patient has history of both, baseline hemoglobin around 10-11, white count around 3.5 and platelets around 60 K. Etiology unclear. Patient to follow-up with heme-onc as an outpatient. Monitor labs daily and as needed. #. Major neurocognitive disorder #. Likely Vascular dementia TSH minimally elevated, folate and B12 WNL Pt forgetful with difficult behaviour per his Dtr 09/30 MRI brain w/wo con: no acute findings, s/o moderate small vessel disease. Psychiatry evaluated, appreciate recs. #. History of chronic A. fib Coumadin restarted 09/26, monitor PT/INR Rate controlled, continue with home medications. #. Acute kidney injury over CKD stage III Baseline creatinine around 1.35, admitting creatinine of 2.2, c/w bumex and losartan Cr back to baseline, monitor volume status given history of CHF. Monitor BMP as needed. #. Other chronic medical conditions: Diabetes, hypothyroidism, CAD, status post bypass, HTN, anxiety and depression Continue with/resume home medication when appropriate Patient sliding scale insulin. Continue Zoloft, trazodone, and Seroquel. #. DVT prophylaxis: SCDs Re: GI bleed. #. Disposition: PT/OT GRAHAM vasquez to assist with DC planning. Daughter requesting [facility] as concerns of ability to self care/also concerns of early dementia (will need OP f/u w/ PCP). PT/OT recommending DC to home when stable. Medically stable for DC, pt will need [facility] d/t him needing 24/ care at home. Pt will need OP f/u w/ GI/MTM clinic/Rules Examiner. Per previous provider: 09/26, patient's daughter was given a phone call, updated about the current status of the patient, she would like to talk with classification case manager, sent text [TT] to classification case manager. Answered all her questions, she voiced understanding and was agreeable to the plan of care. 09/27: pt's dtr was updated at bedside. 09/29: pt's dtr updated at bedside. Admission and Anticipated Discharge Date Admission Date: September 22, 2021 Subjective Patient seen in a follow-up of acute blood loss anemia likely secondary to lower GI bleed and history of pancytopenia. Patient is sitting up in chair, on room air, NAD, no new acute events overnight. Patient reports having bowel movement with no blood in the stool. This was confirmed with nursing staff as well. Denies any pain or discomfort or headache/dizziness/chest pain/palpitations/abd. pain/other review of symptoms. Plan to resume warfarin Review of Systems Review of Systems: All systems reviewed & are unremarkable except as noted in Subjective Physical Exam Physical Exam: GENERAL: elderly M in NAD HEENT: No pallor, no icteru s.EOMI. Pupils eq ual, round and william ctive to light. O ral mucosa moist. NECK: No JVD, no neck masses. HEART : S1 and S2 heard . Irregular. No murmur, no gallop. RESPIRATORY: Nor mal AP diameter. No accessory muscl e use. No wheezin g, no crackles. AB DOMEN: Soft, stephen l sounds present, nontender, no dist ention. NEURO: No facial droop. Sp eech is clear. Ob eys simple command s. Moves extremit ies. EXTREMITIES: No edema, no eryt roxy seen. Results & Data Results & Data ([facility]) Vital Signs (Past 12 Hours) Vital Signs Temp Pulse Resp BP Pulse Ox 10/03/21 08:16 36.9 C 61 14 167/82 H 95 Laboratory Results 10/03/21 10/03/21 10/03/21 Range/Units 07:58 06:49 06:49 Hgb 8.8 L (14.0-18.0) g/dL Hct 28.6 L (42-52) % PT (9.0-12.0) Seconds INR (0.9-1.1) Sodium 143 (136-145) mmol/L Potassium 3.6 (3.5-5.1) mmol/L Chloride 111 H (98-107) mmol/L Carbon Dioxide 24 (21-32) mmol/L Anion Gap 8 (3-11) BUN 25 H (6-23) mg/dl Creatinine 1.24 (0.6-1.4) mg/dl Est Cr Clr Drug Dosing 42.7 ml/min Est GFR ( Amer) 64.1 ml/min Est GFR (Non-Af Amer) 55.3 ml/min BUN/Creatinine Ratio 20.2 H (10-20) Glucose 77 (70-99(Fasting)) mg/dl POC Glucose 89 (70-99) mg/dl Calcium 9.2 (8.5-10.1) mg/dl 10/03/21 10/02/21 10/02/21 Range/Units 06:49 20:30 17:07 Hgb (14.0-18.0) g/dL Hct (42-52) % PT 16.4 H (9.0-12.0) Seconds INR 1.6 H (0.9-1.1) Sodium (136-145) mmol/L Potassium (3.5-5.1) mmol/L Chloride (98-107) mmol/L Carbon Dioxide (21-32) mmol/L Anion Gap (3-11) BUN (6-23) mg/dl Creatinine (0.6-1.4) mg/dl Est Cr Clr Drug Dosing ml/min Est GFR ( Amer) ml/min Est GFR (Non-Af Amer) ml/min BUN/Creatinine Ratio (10-20) Glucose (70-99(Fasting)) mg/dl POC Glucose 120 H 76 (70-99) mg/dl Calcium (8.5-10.1) mg/dl 10/02/21 Range/Units 12:15 Hgb (14.0-18.0) g/dL Hct (42-52) % PT (9.0-12.0) Seconds INR (0.9-1.1) Sodium (136-145) mmol/L Potassium (3.5-5.1) mmol/L Chloride (98-107) mmol/L Carbon Dioxide (21-32) mmol/L Anion Gap (3-11) BUN (6-23) mg/dl Creatinine (0.6-1.4) mg/dl Est Cr Clr Drug Dosing ml/min Est GFR ( Amer) ml/min Est GFR (Non-Af Amer) ml/min BUN/Creatinine Ratio (10-20) Glucose (70-99(Fasting)) mg/dl POC Glucose 215 H (70-99) mg/dl Calcium (8.5-10.1) mg/dl Medications Administered Current Inpatient Medications Acetaminophen (Acetaminophen 325 Mg Tab) 650 mg PO Q4H PRN PRN Reason: Pain or Fever Stop: 10/22/21 23:07 Aspirin (Aspirin 81 Mg Ectab) 81 mg PO QPM [facility] Stop: 10/27/21 20:59 Last Admin: 10/02/21 20:47 Dose: 81 mg Documented by: Atorvastatin Calcium (Atorvastatin 40 Mg Tab) 40 mg PO QPM [facility] Stop: 10/23/21 20:59 Last Admin: 10/02/21 20:48 Dose: 40 mg Documented by: Bumetanide (Bumetanide 1 Mg Tab) 2 mg PO QPM [facility] Stop: 10/29/21 20:59 Last Admin: 10/02/21 20:48 Dose: 2 mg Documented by: Cyanocobalamin (Cyanocobalamin (B-12) 100 Mcg Tablet) 100 mcg PO QAM [facility] Stop: 10/10/21 09:01 Last Admin: 10/03/21 08:50 Dose: 100 mcg Documented by: Dextrose (Dextrose 50% 50 Ml Syringe) 25 - 50 ml IV UD PRN; Protocol PRN Reason: Hypoglycemia Protocol Stop: 10/22/21 23:29 Ferrous Sulfate (Ferrous Sulfate 325 Mg Tab) 325 mg PO BIDM [facility] Stop: 10/26/21 07:59 Last Admin: 10/03/21 08:51 Dose: 325 mg Documented by: Glucagon (Glucagon For Inj 1 Mg Vial) 1 mg IM UD PRN; Protocol PRN Reason: Hypoglycemia Protocol Stop: 10/22/21 23:29 Glucose (Glucose 40% Gel 15 Gm Tube) 15 - 30 gm PO UD PRN; Protocol PRN Reason: Hypoglycemia Protocol Stop: 10/22/21 23:29 Glucose (Glucose 10 Tabs/Tube) 4 - 8 tabs PO UD PRN; Protocol PRN Reason: Hypoglycemia Protocol Stop: 10/22/21 23:29 Insulin Aspart (Insulin Aspart Per Unit) 0 units SC ACHS [facility] Stop: 10/24/21 16:59 Last Admin: 10/03/21 08:54 Dose: 6 units Documented by: Insulin Glargine (Insulin Glargine Solostar 100 Units/Ml 3 Ml Pen) 12 units SC HS [facility] Stop: 10/31/21 20:59 Last Admin: 10/02/21 20:45 Dose: 12 units Documented by: Lactobacillus Acidophilus (Advanced Probiotic 1250 Mg Capsule) 2 cap PO DAILY [facility] Stop: 10/29/21 11:14 Last Admin: 10/03/21 08:50 Dose: 2 cap Documented by: Levothyroxine Sodium (Levothyroxine Sodium 100 Mcg Tablet) 100 mcg PO DAILYBB [facility] Stop: 10/23/21 06:29 Last Admin: 10/03/21 05:49 Dose: 100 mcg Documented by: Lorazepam (Lorazepam 0.5 Mg Tab) 0.5 mg PO DAILY PRN PRN Reason: Agitation Stop: 10/22/21 23:07 Losartan Potassium (Losartan Potassium 50 Mg Tab) 100 mg PO DAILY [facility] Stop: 10/29/21 08:59 Last Admin: 10/03/21 08:50 Dose: 100 mg Documented by: Melatonin (Melatonin 3 Mg Tab) 9 mg PO HS [facility] Stop: 10/23/21 20:59 Last Admin: 10/02/21 20:46 Dose: 9 mg Documented by: Metoprolol Succinate (Metoprolol Succ 25mg Ext Rel Tab) 25 mg PO BID [facility] Stop: 10/23/21 08:59 Last Admin: 10/03/21 08:50 Dose: 25 mg Documented by: Miscellaneous (Carbohydrates For Hypoglycemia ) 15 - 30 gm PO UD PRN PRN Reason: Hypoglycemia Treatment Stop: 10/22/21 23:29 Nitroglycerin (Nitroglycerin Sl 0.4 Mg/Tab Tab) 0.4 mg SL UD PRN PRN Reason: Chest Pain Stop: 10/22/21 23:07 Ondansetron HCl (Ondansetron Inj 2 Mg/Ml 2 Ml Vial) 4 mg IV Q6H PRN PRN Reason: Nausea Stop: 10/22/21 23:07 Pantoprazole Sodium (Pantoprazole 40 Mg Tab) 40 mg PO BID [facility] Stop: 10/27/21 08:59 Last Admin: 10/03/21 08:50 Dose: 40 mg Documented by: Potassium Chloride (Potassium Chloride Crtab 20 Meq Tabcr) 20 meq PO BID [facility] Stop: 10/29/21 20:59 Last Admin: 10/03/21 08:55 Dose: 20 meq Documented by: Quetiapine Fumarate (Quetiapine Fumarate 25 Mg Tablet) 25 mg PO [facility] Stop: 10/22/21 23:07 Last Admin: 10/02/21 20:47 Dose: 25 mg Documented by: Sertraline HCl (Sertraline Hcl 100 Mg Tablet) 200 mg PO QAM [facility] Stop: 10/23/21 08:59 Last Admin: 10/03/21 08:50 Dose: 200 mg Documented by: Trazodone HCl (Trazodone Hcl 50 Mg Tab) 50 mg PO [facility] Stop: 10/22/21 23:07 Last Admin: 10/02/21 20:46 Dose: 50 mg Documented by: Warfarin Sodium (Warfarin Sod 2.5 Mg Tab) 2.5 mg PO SuMoWeThFrSa@1600 [facility] Stop: 10/26/21 15:59 Last Admin: 10/01/21 17:56 Dose: 2.5 mg Documented by: Warfarin Sodium (Warfarin Sod 5 Mg Tab) 5 mg PO Tu@1600 [facility] Stop: 11/01/21 15:59 Last Admin: 10/02/21 15:41 Dose: Not Given Documented by:
[2021-10-03] MEDS: traZODone HCL 50 MG TAB PO SCH (20:38)
[2021-10-03] MEDS: ASPIRIN 81 MG ECTAB PO SCH (20:38)
[2021-10-03] MEDS: MELATONIN 3 MG TAB PO SCH (20:38)
[2021-10-03] MEDS: ATORVASTATIN 40 MG TAB PO SCH (20:39)
[2021-10-03] MEDS: BUMETANIDE 1 MG TAB PO SCH (20:39)
[2021-10-03] MEDS: QUEtiapine FUMARATE 25 MG TABLET PO SCH (20:40)
[2021-10-03] MEDS: INSULIN GLARGINE SOLOSTAR 100 UNITS/ML 3 ML PEN SC SCH (21:14)
[2021-10-04] MEDS: LEVOTHYROXINE SODIUM 100 MCG TABLET PO SCH (05:49)
[2021-10-04 07:27] LABS: Hemoglobin 8.8 g/dL (14.0-18.0)
[2021-10-04 07:45] LABS: INR 1.5 (0.9-1.1); Prothrombin Time 15.3 Seconds (9.0-12.0)
[2021-10-04] MEDS: SERTRALINE HCL 100 MG TABLET PO SCH (08:21)
[2021-10-04] MEDS: FERROUS SULFATE 325 MG TAB PO SCH ×2 (08:22→16:13)
[2021-10-04] MEDS: CYANOCOBALAMIN (B-12) 100 MCG TABLET PO SCH (08:22)
[2021-10-04] MEDS: LOSARTAN POTASSIUM 50 MG TAB PO SCH (08:23)
[2021-10-04] MEDS: ADVANCED PROBIOTIC 1250 MG CAPSULE PO SCH (08:23)
[2021-10-04] MEDS: METOPROLOL SUCC 25MG EXT REL TAB PO SCH ×2 (08:24→20:12)
[2021-10-04] MEDS: PANTOprazole 40 MG TAB PO SCH ×2 (08:24→20:12)
[2021-10-04] MEDS: POTASSIUM CHLORIDE CRTAB 20 MEQ TABCR PO SCH ×2 (08:32→20:12)
[2021-10-04] MEDS: INSULIN ASPART PER UNIT SC SCH ×4 (09:05→20:57)
--- NOTE | 2021-10-04 10:46 | Hospitalist Progress Note ---
Date of Service October 04, 2021 Assessment & Plan (1) Acute blood loss anemia: Plan: 76 yo M with hx of DM, diabetic retinopathy, CKD stage III, hypothyroidism, HLD, chronic A. 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 He is being managed for the following: #. Acute blood loss anemia #. Likely lower GI bleed Patient with history of chronic A. fib on Coumadin Admitting hemoglobin of 4.9, admitting complaint of shortness of breath. Status post 4 unit PRBC, vitamin K IV and p.o. and 1 unit platelet. Status post EGD 09/24-WNL; colonoscopy 09/24hemorrhoids noted, red spot in ascending colon which was clipped x1, diverticula throughout the colon, scar in the rectum without evidence of polyp recurrence. No source of GI bleeding was found. GI evaluated, no source found, suspects AVM, plan to do video capsule endoscopy and follow-up as Outpatient. Iron studies: iron level low, vitamin B12 low normal. Continue with vitamin B12 for 15 days. Patient tolerating diet. Patient is status post Venofer x1 on 09/25, continue with oral iron supplement started 09/26. Hemoglobin stable around 8, monitor daily and as needed. Transfuse for hemoglobin less than 7 or symptomatic anemia. Resumed Coumadin 09/26, monitor PT/INR. Had multiple blood smeared today, Coumadin held. Follow-up with H&H in a.m. 10/03 patient had multiple stools, no blood noted. Warfarin to be resumed. H&H continues to be stable. Patient feels well, and is hemodynamically stable. 10/04 H&H continues to be stable, no new findings. #. Pancytopenia #. Hypersplenism Patient has history of both, baseline hemoglobin around 10-11, white count around 3.5 and platelets around 60 K. Etiology unclear. Patient to follow-up with heme-onc as an outpatient. Monitor labs daily and as needed. #. Major neurocognitive disorder #. Likely Vascular dementia TSH minimally elevated, folate and B12 WNL Pt forgetful with difficult behaviour per his Dtr 09/30 MRI brain w/wo con: no acute findings, s/o moderate small vessel disease. Psychiatry evaluated, appreciate recs. #. History of chronic A. fib Coumadin restarted 09/26, then on hold and now restarted again, monitor PT/INR Rate controlled, continue with home medications. #. Acute kidney injury over CKD stage III Baseline creatinine around 1.35, admitting creatinine of 2.2, c/w bumex and losartan Cr back to baseline, monitor volume status given history of CHF. Monitor BMP as needed. #. Other chronic medical conditions: Diabetes, hypothyroidism, CAD, status post bypass, HTN, anxiety and depression Continue with/resume home medication when appropriate Patient sliding scale insulin. Continue Zoloft, trazodone, and Seroquel. #. DVT prophylaxis: SCDs Re: GI bleed. #. Disposition: Plan discharge to [facility] tomorrow Pt will need OP f/u w/ GI/MTM clinic/Trimmer Climber. Admission and Anticipated Discharge Date Admission Date: September 22, 2021 Subjective Patient seen in a follow-up of acute blood loss anemia likely secondary to lower GI bleed and history of pancytopenia. Patient is laying in bed, pleasant, in no acute distress Yesterday had several stools, with no blood Denies any pain or discomfort or headache/dizziness/chest pain/palpitations/abd. pain/other review of symptoms. Resumed warfarin Plan to discharge to [facility] tomorrow Review of Systems Review of Systems: All systems reviewed & are unremarkable except as noted in Subjective Physical Exam Physical Exam: GENERAL: elderly M in NAD HEENT: No pallor, no icteru s.EOMI. Pupils eq ual, round and william ctive to light. O ral mucosa moist. NECK: No JVD, no neck masses. HEART : S1 and S2 heard . Irregular. No murmur, no gallop. RESPIRATORY: Nor mal AP diameter. No accessory muscl e use. No wheezin g, no crackles. AB DOMEN: Soft, stephen l sounds present, nontender, no dist ention. NEURO: No facial droop. Sp eech is clear. Ob eys simple command s. Moves extremit ies. EXTREMITIES: No edema, no eryt roxy seen. Results & Data Results & Data ([facility]) Vital Signs (Past 12 Hours) Vital Signs Temp Pulse Resp BP BP Pulse Ox 10/04/21 08:18 65 152/73 H 10/04/21 07:19 36.8 C 60 16 136/78 94 Laboratory Results 10/04/21 10/04/21 10/04/21 Range/Units 08:06 06:32 06:32 Hgb 8.8 L (14.0-18.0) g/dL Hct 28.0 L (42-52) % PT 15.3 H (9.0-12.0) Seconds INR 1.5 H (0.9-1.1) POC Glucose 81 (70-99) mg/dl 10/03/21 10/03/21 10/03/21 Range/Units 20:42 17:03 11:56 Hgb (14.0-18.0) g/dL Hct (42-52) % PT (9.0-12.0) Seconds INR (0.9-1.1) POC Glucose 153 H 115 H 96 (70-99) mg/dl Medications Administered Current Inpatient Medications Acetaminophen (Acetaminophen 325 Mg Tab) 650 mg PO Q4H PRN PRN Reason: Pain or Fever Stop: 10/22/21 23:07 Aspirin (Aspirin 81 Mg Ectab) 81 mg PO QPM [facility] Stop: 10/27/21 20:59 Last Admin: 10/03/21 20:38 Dose: 81 mg Documented by: Atorvastatin Calcium (Atorvastatin 40 Mg Tab) 40 mg PO QPM [facility] Stop: 10/23/21 20:59 Last Admin: 10/03/21 20:39 Dose: 40 mg Documented by: Bumetanide (Bumetanide 1 Mg Tab) 2 mg PO QPM [facility] Stop: 10/29/21 20:59 Last Admin: 10/03/21 20:39 Dose: 2 mg Documented by: Cyanocobalamin (Cyanocobalamin (B-12) 100 Mcg Tablet) 100 mcg PO QAM [facility] Stop: 10/10/21 09:01 Last Admin: 10/04/21 08:22 Dose: 100 mcg Documented by: Dextrose (Dextrose 50% 50 Ml Syringe) 25 - 50 ml IV UD PRN; Protocol PRN Reason: Hypoglycemia Protocol Stop: 10/22/21 23:29 Ferrous Sulfate (Ferrous Sulfate 325 Mg Tab) 325 mg PO BIDM [facility] Stop: 10/26/21 07:59 Last Admin: 10/04/21 08:22 Dose: 325 mg Documented by: Glucagon (Glucagon For Inj 1 Mg Vial) 1 mg IM UD PRN; Protocol PRN Reason: Hypoglycemia Protocol Stop: 10/22/21 23:29 Glucose (Glucose 40% Gel 15 Gm Tube) 15 - 30 gm PO UD PRN; Protocol PRN Reason: Hypoglycemia Protocol Stop: 10/22/21 23:29 Glucose (Glucose 10 Tabs/Tube) 4 - 8 tabs PO UD PRN; Protocol PRN Reason: Hypoglycemia Protocol Stop: 10/22/21 23:29 Insulin Aspart (Insulin Aspart Per Unit) 0 units SC ACHS [facility] Stop: 10/24/21 16:59 Last Admin: 10/04/21 09:05 Dose: 1 units Documented by: Insulin Glargine (Insulin Glargine Solostar 100 Units/Ml 3 Ml Pen) 12 units SC HS [facility] Stop: 10/31/21 20:59 Last Admin: 10/03/21 21:14 Dose: 12 units Documented by: Lactobacillus Acidophilus (Advanced Probiotic 1250 Mg Capsule) 2 cap PO DAILY [facility] Stop: 10/29/21 11:14 Last Admin: 10/04/21 08:23 Dose: 2 cap Documented by: Levothyroxine Sodium (Levothyroxine Sodium 100 Mcg Tablet) 100 mcg PO DAILYBB [facility] Stop: 10/23/21 06:29 Last Admin: 10/04/21 05:49 Dose: 100 mcg Documented by: Lorazepam (Lorazepam 0.5 Mg Tab) 0.5 mg PO DAILY PRN PRN Reason: Agitation Stop: 10/22/21 23:07 Losartan Potassium (Losartan Potassium 50 Mg Tab) 100 mg PO DAILY [facility] Stop: 10/29/21 08:59 Last Admin: 10/04/21 08:23 Dose: 100 mg Documented by: Melatonin (Melatonin 3 Mg Tab) 9 mg PO HS [facility] Stop: 10/23/21 20:59 Last Admin: 10/03/21 20:38 Dose: 9 mg Documented by: Metoprolol Succinate (Metoprolol Succ 25mg Ext Rel Tab) 25 mg PO BID [facility] Stop: 10/23/21 08:59 Last Admin: 10/04/21 08:24 Dose: 25 mg Documented by: Miscellaneous (Carbohydrates For Hypoglycemia ) 15 - 30 gm PO UD PRN PRN Reason: Hypoglycemia Treatment Stop: 10/22/21 23:29 Nitroglycerin (Nitroglycerin Sl 0.4 Mg/Tab Tab) 0.4 mg SL UD PRN PRN Reason: Chest Pain Stop: 10/22/21 23:07 Ondansetron HCl (Ondansetron Inj 2 Mg/Ml 2 Ml Vial) 4 mg IV Q6H PRN PRN Reason: Nausea Stop: 10/22/21 23:07 Pantoprazole Sodium (Pantoprazole 40 Mg Tab) 40 mg PO BID [facility] Stop: 10/27/21 08:59 Last Admin: 10/04/21 08:24 Dose: 40 mg Documented by: Potassium Chloride (Potassium Chloride Crtab 20 Meq Tabcr) 20 meq PO BID [facility] Stop: 10/29/21 20:59 Last Admin: 10/04/21 08:32 Dose: 20 meq Documented by: Quetiapine Fumarate (Quetiapine Fumarate 25 Mg Tablet) 25 mg PO [facility] Stop: 10/22/21 23:07 Last Admin: 10/03/21 20:40 Dose: 25 mg Documented by: Sertraline HCl (Sertraline Hcl 100 Mg Tablet) 200 mg PO [facility] Stop: 10/23/21 08:59 Last Admin: 10/04/21 08:21 Dose: 200 mg Documented by: Trazodone HCl (Trazodone Hcl 50 Mg Tab) 50 mg PO [facility] Stop: 10/22/21 23:07 Last Admin: 10/03/21 20:38 Dose: 50 mg Documented by: Warfarin Sodium (Warfarin Sod 2.5 Mg Tab) 2.5 mg PO [id number]@1600 [facility] Stop: 10/26/21 15:59 Last Admin: 10/01/21 17:56 Dose: 2.5 mg Documented by: Warfarin Sodium (Warfarin Sod 5 Mg Tab) 5 mg PO Tu@1600 [facility] Stop: 11/01/21 15:59 Last Admin: 10/02/21 15:41 Dose: Not Given Documented by:
[2021-10-04] MEDS: WARFARIN SOD 2.5 MG TAB PO SCH (16:12)
[2021-10-04] MEDS: ATORVASTATIN 40 MG TAB PO SCH (20:11)
[2021-10-04] MEDS: QUEtiapine FUMARATE 25 MG TABLET PO SCH (20:11)
[2021-10-04] MEDS: MELATONIN 3 MG TAB PO SCH (20:12)
[2021-10-04] MEDS: traZODone HCL 50 MG TAB PO SCH (20:12)
[2021-10-04] MEDS: BUMETANIDE 1 MG TAB PO SCH (20:12)
[2021-10-04] MEDS: ASPIRIN 81 MG ECTAB PO SCH (20:12)
[2021-10-04] MEDS: INSULIN GLARGINE SOLOSTAR 100 UNITS/ML 3 ML PEN SC SCH (20:57)
[2021-10-05] MEDS: LEVOTHYROXINE SODIUM 100 MCG TABLET PO SCH (06:43)
[2021-10-05 08:10] LABS: Hemoglobin 8.7 g/dL (14.0-18.0)
[2021-10-05 08:19] LABS: INR 1.4 (0.9-1.1)
[2021-10-05] MEDS: METOPROLOL SUCC 25MG EXT REL TAB PO SCH (08:35)
[2021-10-05] MEDS: CYANOCOBALAMIN (B-12) 100 MCG TABLET PO SCH (08:35)
[2021-10-05] MEDS: PANTOprazole 40 MG TAB PO SCH (08:35)
[2021-10-05] MEDS: LOSARTAN POTASSIUM 50 MG TAB PO SCH (08:35)
[2021-10-05] MEDS: POTASSIUM CHLORIDE CRTAB 20 MEQ TABCR PO SCH (08:35)
[2021-10-05] MEDS: FERROUS SULFATE 325 MG TAB PO SCH (08:35)
[2021-10-05] MEDS: ADVANCED PROBIOTIC 1250 MG CAPSULE PO SCH (08:35)
[2021-10-05] MEDS: INSULIN ASPART PER UNIT SC SCH ×2 (08:36→12:30)
[2021-10-05] MEDS: SERTRALINE HCL 100 MG TABLET PO SCH (08:36)
--- NOTE | 2021-10-05 10:34 | Hospitalist Progress Note ---
Date of Service October 05, 2021 Assessment & Plan (1) Acute blood loss anemia: Plan: 76 yo M with hx of DM, diabetic retinopathy, CKD stage III, hypothyroidism, HLD, chronic A. 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 He is being managed for the following: #. Acute blood loss anemia #. Likely lower GI bleed Patient with history of chronic A. fib on Coumadin Admitting hemoglobin of 4.9, admitting complaint of shortness of breath. Status post 4 unit PRBC, vitamin K IV and p.o. and 1 unit platelet. Status post EGD 09/24-WNL; colonoscopy 09/24hemorrhoids noted, red spot in ascending colon which was clipped x1, diverticula throughout the colon, scar in the rectum without evidence of polyp recurrence. No source of GI bleeding was found. GI evaluated, no source found, suspects AVM, plan to do video capsule endoscopy and follow-up as Outpatient. Iron studies: iron level low, vitamin B12 low normal. Continue with vitamin B12 for 15 days. Patient tolerating diet. Patient is status post Venofer x1 on 09/25, continue with oral iron supplement started 09/26. Hemoglobin stable around 8, monitor daily and as needed. Transfuse for hemoglobin less than 7 or symptomatic anemia. Resumed Coumadin 09/26, monitor PT/INR. Had multiple blood smeared today, Coumadin held. Follow-up with H&H in a.m. 10/03 patient had multiple stools, no blood noted. Warfarin to be resumed. H&H continues to be stable. Patient feels well, and is hemodynamically stable. 10/04 H&H continues to be stable, no new findings. #. Pancytopenia #. Hypersplenism Patient has history of both, baseline hemoglobin around 10-11, white count around 3.5 and platelets around 60 K. Etiology unclear. Patient to follow-up with heme-onc as an outpatient. Monitor labs daily and as needed. #. Major neurocognitive disorder #. Likely Vascular dementia TSH minimally elevated, folate and B12 WNL Pt forgetful with difficult behaviour per his Dtr 09/30 MRI brain w/wo con: no acute findings, s/o moderate small vessel disease. Psychiatry evaluated, appreciate recs. #. History of chronic A. fib Coumadin restarted 09/26, then on hold and now restarted again, monitor PT/INR Rate controlled, continue with home medications. #. Acute kidney injury over CKD stage III Baseline creatinine around 1.35, admitting creatinine of 2.2, c/w bumex and losartan Cr back to baseline, monitor volume status given history of CHF. Monitor BMP as needed. #. Other chronic medical conditions: Diabetes, hypothyroidism, CAD, status post bypass, HTN, anxiety and depression Continue with/resume home medication when appropriate Patient sliding scale insulin. Continue Zoloft, trazodone, and Seroquel. #. DVT prophylaxis: SCDs Re: GI bleed. #. 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 Admission and Anticipated Discharge Date Admission Date: September 22, 2021 Subjective Patient seen in a follow-up of acute blood loss anemia likely secondary to lower GI bleed and history of pancytopenia. Patient is sitting up in chair, pleasant, in no acute distress Had several stools, with no blood Denies any pain or discomfort or headache/dizziness/chest pain/palpitations/abd. pain/other review of symptoms. Resumed warfarin Plan to discharge to Center care today Review of Systems Review of Systems: All systems reviewed & are unremarkable except as noted in Subjective Physical Exam Physical Exam: GENERAL: elderly M in NAD HEENT: No pallor, no icteru s.EOMI. Pupils eq ual, round and william ctive to light. O ral mucosa moist. NECK: No JVD, no neck masses. HEART : S1 and S2 heard . Irregular. No murmur, no gallop. RESPIRATORY: Nor mal AP diameter. No accessory muscl e use. No wheezin g, no crackles. AB DOMEN: Soft, stephen l sounds present, nontender, no dist ention. NEURO: No facial droop. Sp eech is clear. Ob eys simple command s. Moves extremit ies. EXTREMITIES: No edema, no eryt roxy seen. Results & Data Results & Data ([facility]) Vital Signs (Past 12 Hours) Vital Signs Temp Pulse Resp BP Pulse Ox 10/05/21 07:30 37 C 63 16 125/57 L 94 Laboratory Results 10/05/21 10/05/21 10/05/21 Range/Units 09:40 08:17 07:27 Hgb 8.7 L (14.0-18.0) g/dL Hct 29.0 L (42-52) % PT (9.0-12.0) Seconds INR (0.9-1.1) POC Glucose 92 (70-99) mg/dl SARS-CoV-2, RNA, NAAT NEGATIVE (NEGATIVE) 10/05/21 10/04/21 10/04/21 Range/Units 07:27 20:32 17:04 Hgb (14.0-18.0) g/dL Hct (42-52) % PT 15.0 H (9.0-12.0) Seconds INR 1.4 H (0.9-1.1) POC Glucose 108 H 91 (70-99) mg/dl SARS-CoV-2, RNA, NAAT (NEGATIVE) 10/04/21 Range/Units 11:50 Hgb (14.0-18.0) g/dL Hct (42-52) % PT (9.0-12.0) Seconds INR (0.9-1.1) POC Glucose 164 H (70-99) mg/dl SARS-CoV-2, RNA, NAAT (NEGATIVE) Medications Administered Current Inpatient Medications Acetaminophen (Acetaminophen 325 Mg Tab) 650 mg PO Q4H PRN PRN Reason: Pain or Fever Stop: 10/22/21 23:07 Aspirin (Aspirin 81 Mg Ectab) 81 mg PO QPM [facility] Stop: 10/27/21 20:59 Last Admin: 10/04/21 20:12 Dose: 81 mg Documented by: Atorvastatin Calcium (Atorvastatin 40 Mg Tab) 40 mg PO QPM [facility] Stop: 10/23/21 20:59 Last Admin: 10/04/21 20:11 Dose: 40 mg Documented by: Bumetanide (Bumetanide 1 Mg Tab) 2 mg PO QPM [facility] Stop: 10/29/21 20:59 Last Admin: 10/04/21 20:12 Dose: 2 mg Documented by: Cyanocobalamin (Cyanocobalamin (B-12) 100 Mcg Tablet) 100 mcg PO QAM [facility] Stop: 10/10/21 09:01 Last Admin: 10/05/21 08:35 Dose: 100 mcg Documented by: Dextrose (Dextrose 50% 50 Ml Syringe) 25 - 50 ml IV UD PRN; Protocol PRN Reason: Hypoglycemia Protocol Stop: 10/22/21 23:29 Ferrous Sulfate (Ferrous Sulfate 325 Mg Tab) 325 mg PO BIDM JONEL Stop: 10/26/21 07:59 Last Admin: 10/05/21 08:35 Dose: 325 mg Documented by: Glucagon (Glucagon For Inj 1 Mg Vial) 1 mg IM UD PRN; Protocol PRN Reason: Hypoglycemia Protocol Stop: 10/22/21 23:29 Glucose (Glucose 40% Gel 15 Gm Tube) 15 - 30 gm PO UD PRN; Protocol PRN Reason: Hypoglycemia Protocol Stop: 10/22/21 23:29 Glucose (Glucose 10 Tabs/Tube) 4 - 8 tabs PO UD PRN; Protocol PRN Reason: Hypoglycemia Protocol Stop: 10/22/21 23:29 Insulin Aspart (Insulin Aspart Per Unit) 0 units SC ACHS [facility] Stop: 10/24/21 16:59 Last Admin: 10/05/21 08:36 Dose: 2 units Documented by: Insulin Glargine (Insulin Glargine Solostar 100 Units/Ml 3 Ml Pen) 12 units SC HS [facility] Stop: 10/31/21 20:59 Last Admin: 10/04/21 20:57 Dose: 12 units Documented by: Lactobacillus Acidophilus (Advanced Probiotic 1250 Mg Capsule) 2 cap PO DAILY [facility] Stop: 10/29/21 11:14 Last Admin: 10/05/21 08:35 Dose: 2 cap Documented by: Levothyroxine Sodium (Levothyroxine Sodium 100 Mcg Tablet) 100 mcg PO DAILYBB [facility] Stop: 10/23/21 06:29 Last Admin: 10/05/21 06:43 Dose: 100 mcg Documented by: Lorazepam (Lorazepam 0.5 Mg Tab) 0.5 mg PO DAILY PRN PRN Reason: Agitation Stop: 10/22/21 23:07 Losartan Potassium (Losartan Potassium 50 Mg Tab) 100 mg PO DAILY JONEL Stop: 10/29/21 08:59 Last Admin: 10/05/21 08:35 Dose: 100 mg Documented by: Melatonin (Melatonin 3 Mg Tab) 9 mg PO HS [facility] Stop: 10/23/21 20:59 Last Admin: 10/04/21 20:12 Dose: 9 mg Documented by: Metoprolol Succinate (Metoprolol Succ 25mg Ext Rel Tab) 25 mg PO BID [facility] Stop: 10/23/21 08:59 Last Admin: 10/05/21 08:35 Dose: 25 mg Documented by: Miscellaneous (Carbohydrates For Hypoglycemia ) 15 - 30 gm PO UD PRN PRN Reason: Hypoglycemia Treatment Stop: 10/22/21 23:29 Nitroglycerin (Nitroglycerin Sl 0.4 Mg/Tab Tab) 0.4 mg SL UD PRN PRN Reason: Chest Pain Stop: 10/22/21 23:07 Ondansetron HCl (Ondansetron Inj 2 Mg/Ml 2 Ml Vial) 4 mg IV Q6H PRN PRN Reason: Nausea Stop: 10/22/21 23:07 Pantoprazole Sodium (Pantoprazole 40 Mg Tab) 40 mg PO BID [facility] Stop: 10/27/21 08:59 Last Admin: 10/05/21 08:35 Dose: 40 mg Documented by: Potassium Chloride (Potassium Chloride Crtab 20 Meq Tabcr) 20 meq PO BID [facility] Stop: 10/29/21 20:59 Last Admin: 10/05/21 08:35 Dose: 20 meq Documented by: Quetiapine Fumarate (Quetiapine Fumarate 25 Mg Tablet) 25 mg PO [facility] Stop: 10/22/21 23:07 Last Admin: 10/04/21 20:11 Dose: 25 mg Documented by: Sertraline HCl (Sertraline Hcl 100 Mg Tablet) [address] [facility] Stop: 10/23/21 08:59 Last Admin: 10/05/21 08:36 Dose: 200 mg Documented by: Trazodone HCl (Trazodone Hcl 50 Mg Tab) 50 mg PO [facility] Stop: 10/22/21 23:07 Last Admin: 10/04/21 20:12 Dose: 50 mg Documented by: Warfarin Sodium (Warfarin Sod 2.5 Mg Tab) 2.5 mg PO [id number] [facility] Stop: 10/26/21 15:59 Last Admin: 10/04/21 16:12 Dose: 2.5 mg Documented by: Warfarin Sodium (Warfarin Sod 5 Mg Tab) 5 mg PO [id number] [facility] Stop: 11/01/21 15:59 Last Admin: 10/02/21 15:41 Dose: Not Given Documented by:
--- NOTE | 2021-10-05 10:45 | Discharge Summary ---
Date of Service October 05, 2021 Admission HPI Per Admitting Provider A 76-year-old male with past medical history significant for diabetes; diabetic retinopathy; chronic kidney disease, stage III; hypothyroidism; hyperlipidemia; chronic atrial fibrillation; chronic diastolic CHF; pulmonary hypertension; GERD; macular edema; hypersplenism; pancytopenia; history of ischemic cardiomyopathy; anxiety disorder, depression, who lives with his daughter, ambulates without any support. Presents with shortness of breath. Daughter says the patient is having shortness of breath over the last 2 weeks, but today it got worse. Even at rest the patient is getting short of breath, which prompted to come to the hospital and was found to have hemoglobin of 4.9. He is on Coumadin for atrial fibrillation. INR is 3.2, creatinine is 2.2. Baseline creatinine is around 1.1 to 1.3. The patient is resting comfortably, hemodynamically stable. Denies any blood in stools or black stools, no hematuria. His Hemoccult was positive in the ER. The patient had iron- deficiency anemia in the past and he had EGD and colonoscopy in 11/2020. EGD showed some gastritis, colonoscopy shoed hemorrhoids, nonbleeding colonic angiodysplastic lesions, treated with argon plasma coagulation,had a few polyps, which were resected at that time and mild diverticulosis of sigmoid colon and descending colon were seen. The patient denies any chest pain, no nausea, no vomiting, no abdominal pain, no headache, no blurred visions, no earache, no runny nose, no sore throat. Appetite is okay. No difficulty swallowing, not sleeping well. The patient is somewhat hard of hearing. Admission Exam Per Admitting Provider GENERAL: The patient is of moderate build, not in acute distress. VITAL SIGNS: Temperature 36.8, pulse 70, respiratory rate 16, blood pressure 110/50, oxygen 95% on room air. HEENT: Pupils equal, round and reactive to light. Oral mucosa moist. NECK: No JVD, no neck masses. CARDIOVASCULAR: S1 and S2 heard. Regular rate and rhythm. No murmur, no gallop. RESPIRATORY SYSTEM: Normal AP diameter. No accessory muscle use. No wheezing, no crackles. ABDOMEN: Soft, bowel sounds present, nontender, no distention. CENTRAL NERVOUS SYSTEM: Cranial nerves II-XII grossly intact, nonfocal. EXTREMITIES: No chronic skin changes seen. No edema, no erythema seen. Principal Diagnosis Acute blood loss anemia Acute on chronic anemia Likely lower GI bleed Discharge Exam GENERAL: elderly M in NAD HEENT: No pallor, no icterus.EOMI. Pupils equal, round and reactive to light. Oral mucosa moist. NECK: No JVD, no neck masses. HEART: S1 and S2 heard. Irregular. No murmur, no gallop. RESPIRATORY: Normal AP diameter. No accessory muscle use. No wheezing, no crackles. ABDOMEN: Soft, bowel sounds present, nontender, no distention. NEURO: No facial droop. Speech is clear. Obeys simple commands. Moves extremities. EXTREMITIES: No edema, no erythema seen. Discharge Data Allergies Allergy/AdvReac Type Severity Reaction Status Date / Time rivaroxaban AdvReac Intermediate VOMITING Verified 11/10/20 08:53 Consultations 09/22/21 21:11 ED Decision to Admit Stat 09/23/21 08:00 Consult Gastroenterology Routine 09/29/21 17:32 Consult Psychiatry Routine Procedures Performed Operation Date: 09/24/21 16:30 Actual Procedures p Colonoscopy Hemostasis - Fabiola Coley MD Findings: Hemorrhoids were found on perianal exam. There was a red spot in the ascending colon. This was clipped x 1. There were diverticula throughout the colon. There was a scar in the rectum without evidence of polyp recurrence. No source of GI bleeding was found. There was green stool throughout the colon. Recommendation: - Discharge patient to floor. Begin diet as tolerated, follow hgb. s EGD Dilatation - Fabiola Coley MD Findings: There was a web in the proximal esophagus precluding advancement of the pediatric colonoscope. The upper endoscope was passed without difficulty. The examined esophagus was normal. The stomach was normal. The examined duodenum was normal. A guidewire was placed and the scope was withdrawn. Dilation was performed at the cricopharyngeus with a Savary dilator with no resistance at 13 mm. There was an appropriate mucosal disruption post dilation. Recommendation: - Discharge patient to floor. Consider repeat dilation, VCE. Ordered Studies 09/30/21 09:15 MR brain wo/w con Routine FINDINGS: This exam is mildly compromised by motion artifact although is diagnostic. There are no foci of restricted diffusion to suggest acute infarct. No acute intracranial hemorrhage, midline shift or mass effect is present. Moderate atrophy is noted. White matter T2 hyperintense foci suggest moderate small vessel disease. No intracranial masses are identified although no significant contrast is noted on the postcontrast images due to technical difficulties. There is fluid within the bilateral mastoid air cells. No evidence for sinusitis. Calvarial signal is normal. Flow-voids for the major intracranial vessels are present. A few small hypointense foci are noted on the gradient echo sequence which suggest hemosiderin deposition. IMPRESSION: 1. No acute intracranial findings. 2. Moderate atrophy. 3. White matter T2 hyperintense foci suggestive of moderate small vessel disease. Hospital Course (1) Acute blood loss anemia: 76 yo M with hx of DM, diabetic retinopathy, CKD stage III, hypothyroidism, HLD, chronic A. fib, chronic diastolic CHF, pulm HTN, macular edema, hypersplenism, pancytopenia, ischemic cardiomyopathy, anxiety disorder, depression presented 09/23 to our ED with complaint of shortness of breath worsening since last 2 weeks NNPS. 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 He is being managed for the following: #. Acute blood loss anemia #. Likely lower GI bleed Patient with history of chronic A. fib on Coumadin Admitting hemoglobin of 4.9, admitting complaint of shortness of breath. Status post 4 unit PRBC, vitamin K IV and p.o. and 1 unit platelet. Status post EGD 09/24-WNL; colonoscopy 09/24hemorrhoids noted, red spot in ascending colon which was clipped x1, diverticula throughout the colon, scar in the rectum without evidence of polyp recurrence. No source of GI bleeding was found. GI evaluated, no source found, suspects AVM, plan to do video capsule endoscopy and follow-up as Outpatient. Iron studies: iron level low, vitamin B12 low normal. Continue with vitamin B12 for 15 days. Patient tolerating diet. Patient is status post Venofer x1 on 09/25, continue with oral iron supplement started 09/26. Hemoglobin stable around 8, monitor daily and as needed. Transfuse for hemoglobin less than 7 or symptomatic anemia. Resumed Coumadin 09/26, monitor PT/INR. Had multiple blood smeared today, Coumadin held. Follow-up with H&H in a.m. 10/03 patient had multiple stools, no blood noted. Warfarin to be resumed. H&H continues to be stable. Patient feels well, and is hemodynamically stable. 10/04 H&H continues to be stable, no new findings. #. Pancytopenia #. Hypersplenism Patient has history of both, baseline hemoglobin around 10-11, white count around 3.5 and platelets around 60 K. Etiology unclear. Patient to follow-up with heme-onc as an outpatient. Monitor labs daily and as needed. #. Major neurocognitive disorder #. Likely Vascular dementia TSH minimally elevated, folate and B12 WNL Pt forgetful with difficult behaviour per his Dtr 09/30 MRI brain w/wo con: no acute findings, s/o moderate small vessel disease. Psychiatry evaluated, appreciate recs. #. History of chronic A. fib Coumadin restarted 09/26, then on hold and now restarted again, monitor PT/INR Rate controlled, continue with home medications. #. Acute kidney injury over CKD stage III Baseline creatinine around 1.35, admitting creatinine of 2.2, c/w bumex and losartan Cr back to baseline, monitor volume status given history of CHF. Monitor BMP as needed. #. Other chronic medical conditions: Diabetes, hypothyroidism, CAD, status post bypass, HTN, anxiety and depression Continue with/resume home medication when appropriate Patient sliding scale insulin. Continue Zoloft, trazodone, and Seroquel. #. DVT prophylaxis: SCDs Re: GI bleed. #. 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 You underwent upper endoscopy and colonoscopy in the hospital. There is a plan to follow-up with gastroenterology, and do a capsule study to evaluate for any possible bleeding. 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 Take pantoprazole and iron supplement as prescribed. Pending Studies at Discharge: No Stand-Alone Forms: My [facility] Skilled Items Patient informed of condition?: Yes DNR: No Discharge Level of Care: Skilled Communicable Disease: No Discharge Prognosis: Stable Lines: None Urinary Catheter: No Medications and DC Order Prescriptions: New pantoprazole 40 mg Tablet,Delayed Release (Dr/Ec) 40 mg PO BID Qty: 60 RF: 0 Advanced Probiotic 625 mg (10 billion cell) Capsule 2 cap PO DAILY Qty: 30 RF: 0 ferrous sulfate 325 mg (65 mg iron) Tablet,Delayed Release (Dr/Ec) 325 mg PO BIDM Qty: 60 RF: 0 cyanocobalamin (vitamin B-12) [Vitamin B-12] 100 mcg Tablet 100 mcg PO QAM Qty: 20 RF: 0 Continued warfarin [Jantoven] 5 mg tablet 2.5 mg PO [id number] RF: 0 amlodipine 5 mg tablet 5 mg PO HS RF: 0 aspirin [Aspir-81] 81 mg Tablet,Delayed Release (Dr/Ec) 81 mg PO QPM RF: 0 atorvastatin 40 mg tablet 40 mg PO QPM RF: 0 bumetanide 2 mg tablet 2 mg PO QPM RF: 0 metformin 500 mg tablet extended release 24 hr 1,000 mg PO BIDM RF: 0 acetaminophen [Tylenol Extra Strength] 500 mg Tablet 1,000 mg PO TID PRN (Reason: Pain) RF: 0 potassium chloride [Klor-Con M20] 20 mEq tablet,ER particles/crystals 20 meq PO BID RF: 0 levothyroxine 100 mcg tablet 100 mcg PO QAM RF: 0 melatonin 10 mg Capsule 10 mg PO HS RF: 0 metoprolol succinate 25 mg tablet extended release 24 hr 25 mg PO BID RF: 0 losartan 100 mg tablet 100 mg PO DAILY RF: 0 (DME) OneTouch Verio test strips Strip See Rx Instructions .ROUTE .MEDSUPPLY Qty: 100 RF: 0 (DME) pen needle, diabetic [BD Rosemary 2nd Gen Pen Needle] 32 gauge x 5/32" needle See Rx Instructions .ROUTE .MEDSUPPLY Qty: 30 RF: 3 trazodone 50 mg tablet 50 mg PO HS Qty: 30 RF: 0 quetiapine 25 mg tablet 25 mg PO HS 30 Days Qty: 30 RF: 0 warfarin [Jantoven] 5 mg Tablet 5 mg PO .FRIDAY RF: 0 Basaglmary jo McnairikPen U-100 Insulin 100 unit/mL (3 mL) Insulin Pen 26 unit SUBCUT QPM RF: 0 Jardiance 10 mg Tablet 10 mg PO QAM RF: 0 sertraline 100 mg tablet 200 mg PO QAM RF: 0 lorazepam 0.5 mg tablet 0.5 mg PO DAILY PRN (Reason: Agitation) RF: 0 Discontinued omeprazole 40 mg capsule,delayed release(DR/EC) 40 mg PO QAM RF: 0 Discharge Orders: Discharge Order (Routine); Ordered 10/05/21 Ordered By: David Brenner/Other Patient Handouts: High Blood Sugar (Hyperglycemia), Hypoglycemia (Low Blood Sugar), Managing Type 2 Diabetes Admission Data Admit Date/Time: 09/22/21 22:14 Attending Provider: David Paige Admit Provider: Daron Valdez Primary Care Provider: Aj Bernard Other Providers: Daron Valdez ; Alyssa Ching Erica K. ; Jesika Louise ; Lexi Peterson ; [facility] ; Avinash Elder Other Interventions: Discharge Summary Assessment (RN) Last Done: 09/24/21 15:47
== END 2021-10-05 13:38 | DRG 377 ==
LOC: ED 19:41 → 2E 22:14 → SUATTDRO 22:14 → 2E 22:52 → 3W 09-30 16:58

== ENCOUNTER 2022-03-07 16:19 | Inpatient (IN) ==
[2022-03-07] MEDS ORDERED: MoRPHine SULFATE 2 MG/ML CARP IV PRN (16:38)
[2022-03-07] MEDS ORDERED: MoRPHine SULFATE 4 MG/ML 1 ML CARP\\VIAL IV PRN (16:38)
--- NOTE | 2022-03-07 16:42 | Emergency Department Note ---
Impression & Plan Closed hip fracture, Compression fracture, Closed fracture of spinous process of cervical vertebra ED Provider Note NAME: BROOK COOLEY AGE: 77 SEX: M : 1945 ARRIVES VIA: Ambulance INFORMANT: Patient ED PROVIDER(S): Emery Eduardo DO CHIEF COMPLAINT: fall HPI: Patient is a 77-year-old male with past medical history of CHF, shortness of breath, subtherapeutic INR, hyponatremia that presents the ER following mechanical fall while walking backwards. Patient fell. He has been unable to walk since Friday when he fell. Pain is focal in the left hip. 5 out of 10. Worse with movement. Improves with rest. Denies any neck pain. No chest pain or back pain. No weakness or numbness. No other exacerbating or remitting factors. He does take Coumadin. ROS: See above HPI for pertinent positives & negatives. A total of 10 systems reviewed and were otherwise negative. PAST MEDICAL HISTORY:See Below PAST SURGICAL HISTORY:See Below FAMILY HISTORY:See Below SOCIAL HISTORY:See Below HOME MEDICATIONS:See Below ALLERGIES:See Below VITALS:See Below PHYSICAL EXAMINATION: GENERAL: alert, well appearing, well nourished, no distress, non-toxic HEAD: normal cephalic, atraumatic EYE EXAM: normal conjunctiva, PERRL and EOM's grossly intact OROPHARYNX: no exudate, no erythema, lips, buccal mucosa, and tongue normal and mucous membranes are moist NECK: supple, no nuchal rigidity, no adenopathy, non-tender CHEST: stable to compression anteriorly and posteriorly LUNGS: clear to auscultation. Normal chest wall mechanics HEART: no murmurs, S1 normal and S2 normal ABDOMEN: abdomen soft, non-tender, normo-active bowel sounds, no masses, no rebound or guarding. PELVIS: stable to compression anteriorly and posteriorly BACK: Back is symmetrical on inspection and there is no deformity, no midline tenderness, no CVA tenderness. UPPER EXTREMITIES: full active and passive range of motion of all joints without tenderness to palpation LOWER EXTREMITIES: No tenderness throughout the right hip femur knee tib-fib or ankle. Pain with movement of the left hip. No tenderness about the left mid distal femur, knee, tib-fib ankle. DP and PT 2 out of 4. Gross sensation intact. NEURO EXAM: Normal sensorium, cranial nerves II-XII grossly intact, normal speech, no gross weakness of arms, no gross weakness of legs. GCS: 15. MEDICAL DECISION MAKING: Patient is a 77-year-old male following mechanical fall the other night. Has not been able to ambulate since. IV was established blood work was obtained. Labs show no significant leukocytosis or anemia. Mild thrombocytopenia at 75 which is actually improved from previous. INR unremarkable. BMP with LFTs bilirubin was unremarkable. COVID was negative. X-ray of the hip and pelvis shows left femur fracture. CT head and cervical spine shows spinous process fractures as well as small compression fractures in thoracic region of T1-T2. Patient is neurologically intact. Updated bedside. Given morphine and admitted for further work-up. [place] J was placed. Discussed with [facility] hospitalist for further evaluation Triage Nursing notes reviewed. Limited review of prior medical records performed Vital Signs: reviewed and remarkable for HTN Differential diagnosis: Differential diagnoses include major intracranial, cervical, spinal, thoracic, abdominal, pelvic and neurologic injury. Fracture, contusion, sprain, strain, laceration, abrasions included as well. ER treatment provided: See below Diagnostics interpreted by me: ECG: none Cardiac Monitoring: An order was placed for continuous cardiac monitoring. The monitor shows a rate of 80 with sinus rhythm. Laboratory studies: As stated above and show below. Imaging studies: X-rays of the hip and pelvis unremarkable CT head was negative CT cervical spine as described above Consultation(s): Discussed with the hospitalist for further evaluation Dr. Nelson Rhoades Procedures: none Critical Care: None Past Med/Surg History Medical History (Updated 03/07/22 @ 21:43 by Emery Eduardo DO) Anemia Anxiety Atrial fibrillation on warfarin--follows with Dr. Harp CHF (congestive heart failure) (02/19/14) Coumadin toxicity (04/24/14) Depression Diabetes IDDM Fatty liver (~02/2014) Hearing deficit Hypothyroidism On anticoagulant therapy warfarin daily Sleep apnea cpap Squamous cell carcinoma of ear Surgical History History of cardiac cath a few years ago at [facility] in [place]--no stents History of colonoscopy last 09/24/21 @ [facility] History of coronary artery bypass graft x 3 "a few years ago" at [facility] in [place] History of esophagogastroduodenoscopy (EGD) last 09/24/21 @ [facility] History of hernia surgery History of Mohs micrographic surgery for skin cancer History of sinus surgery History of strabismus surgery History of tooth extraction Family History Other No family history of adverse response to anesthesia Social History Smoking Status: Never smoker Second Hand Exposure: No; Hx Alcohol Use: No Hx Substance Use: No Preferred Language: Burkinan Communication Ability: Effective Senior Underwriter Required: No Beliefs That Will Affect Care: None marital status: Current Living Situation: Retirement Current Living Situation Comment: [facility] Feels Safe at Home: Yes Allergies Allergies Allergy/AdvReac Type Severity Reaction Status Date / Time rivaroxaban AdvReac Intermediate VOMITING Verified 11/22/21 07:53 Home Meds Home Medications Medication Instructions Recorded Confirmed levothyroxine 100 mcg tablet 100 mcg PO QAM 08/09/19 03/07/22 losartan 100 mg tablet 100 mg PO QAM 08/09/19 03/07/22 melatonin 10 mg capsule 10 mg PO HS 08/09/19 03/07/22 metformin 500 mg tablet,extended 1,000 mg PO BIDM 08/09/19 03/07/22 release 24 hr metoprolol succinate 25 mg 25 mg PO BID 08/09/19 03/07/22 tablet,extended release 24 hr potassium chloride 20 mEq 20 meq PO TID 08/09/19 03/07/22 tablet,extended release(part/cryst) (Klor-Con M) empagliflozin 10 mg tablet 10 mg PO QAM 11/07/20 03/07/22 (Jardiance) sertraline 100 mg tablet 200 mg PO QAM 11/07/20 03/07/22 bisacodyl 10 mg rectal suppository 10 mg OR DAILY PRN Constipation 11/12/21 03/07/22 (Dulcolax (bisacodyl)) insulin glargine 100 unit/mL (3 20 unit subcut HS 11/12/21 03/07/22 mL) subcutaneous pen (Lantus Solostar U-100 Insulin) magnesium hydroxide 400 mg/5 mL 30 ml PO UD PRN Constipation 11/12/21 03/07/22 oral suspension (Milk of Magnesia) sodium phosphates 19 gram-7 118 ml OR DAILY PRN Constipation 11/12/21 03/07/22 gram/118 mL enema (Fleet Enema) amlodipine 5 mg tablet 5 mg PO DAILY 03/07/22 03/07/22 apixaban 2.5 mg tablet (Eliquis) 2.5 mg BID 03/07/22 03/07/22 atorvastatin 40 mg tablet 40 mg DAILY 03/07/22 03/07/22 bumetanide 1 mg tablet 2 mg DAILY 03/07/22 03/07/22 Previous Rx's Medication Instructions Recorded blood sugar diagnostic (OneTouch #100 ea 08/13/19 Verio test strips) pen needle, diabetic 32 gauge x #30 ea 08/13/19" (BD Rosemary 2nd Gen Pen Needle) trazodone 50 mg tablet 50 mg PO HS #30 tabs 08/13/19 cyanocobalamin (vitamin B-12) 100 100 mcg PO QAM #20 tabs 10/05/21 mcg tablet (Vitamin B-12) ferrous sulfate 325 mg (65 mg 325 mg PO BIDM #60 tabs 10/05/21 iron) tablet,delayed release pantoprazole 40 mg tablet,delayed 40 mg PO BID #60 tabs 10/05/21 release Results & Data (ED) Vital Signs Vital Signs - 24 hr 03/07/22 16:20 03/07/22 17:38 03/07/22 18:40 Temperature 37.2 C Temperature Source Oral Pulse Rate 80 82 85 Pulse Rate [Apical] Pulse Rate from SpO2 Sensor 99 H Respiratory Rate 20 25 H 23 Respiratory Effort / Characteristics Non-Labored Respiratory Depth Normal Respiratory Pattern Regular Blood Pressure 155/85 H Blood Pressure [Right Arm] Blood Pressure Mean 108 Blood Pressure Mean [Right Arm] Blood Pressure Position Semi-fowlers Blood Pressure Position [Right Arm] Pulse Oximetry 98 96 Oxygen Delivery Method Room Air Sepsis Recent Fever Within 48 Hours No Sepsis New/Unexplained Change in Mental Status N/A Sepsis Action Taken by Nursing No Action Required 03/07/22 18:41 03/07/22 18:41 03/07/22 19:00 Temperature Temperature Source Pulse Rate 85 Pulse Rate [Apical] 79 Pulse Rate from SpO2 Sensor 85 Respiratory Rate 21 20 Respiratory Effort / Characteristics Non-Labored Spontaneous Respiratory Depth Normal Respiratory Pattern Regular Blood Pressure 146/93 H Blood Pressure [Right Arm] 152/73 H Blood Pressure Mean 110 Blood Pressure Mean [Right Arm] 99 Blood Pressure Position Blood Pressure Position [Right Arm] Lying Pulse Oximetry 96 97 Oxygen Delivery Method Room Air Sepsis Recent Fever Within 48 Hours Sepsis New/Unexplained Change in Mental Status Sepsis Action Taken by Nursing Laboratory Data Result diagrams: 03/07/22 17:10 03/07/22 17:10 Lab Results 03/07/22 03/07/22 03/07/22 Range/Units 17:10 17:10 17:10 WBC 6.14 (4.8-10.8) K/ul RBC 4.01 L (4.63-6.08) M/uL Hgb 12.5 L (14.0-18.0) g/dl Hct 37.9 L (40.1-51.0) % MCV 94.5 (80.0-100.0) fL MCH 31.2 (25.0-34.0) pg MCHC 33.0 (32.0-36.0) g/dL RDW Std Deviation 52.1 H (36.4-46.3) fL RDW Coeff of Gerardo 15.0 H (11.5-14.5) % Plt Count 75 L (130-400) K/uL MPV 10.6 (9.4-12.4) fL Immature Gran % (Auto) 0.5 % Neut % (Auto) 74.1 % Lymph % (Auto) 12.1 % Gonzales % (Auto) 11.1 % Eos % (Auto) 2.0 % Baso % (Auto) 0.2 % Neut # (Auto) 4.56 (1.4-6.5) K/uL Lymph # (Auto) 0.74 L (1.2-3.4) K/uL Gonzales # (Auto) 0.68 (0.24-0.82) K/uL Eos # (Auto) 0.12 (0-0.50) K/uL Baso # (Auto) 0.01 (0-0.2) K/uL Immature Gran # (Auto) 0.03 H (0.00-0.02) K/uL PT 11.6 (9.0-12.0) Seconds INR 1.1 (0.9-1.1) APTT 27.2 (21.0-31.0) Seconds PTT Ratio 1.0 Sodium 136 (136-145) mmol/L Potassium 5.0 (3.5-5.1) mmol/L Chloride 101 (98-107) mmol/L Carbon Dioxide 24 (21-32) mmol/L Anion Gap 11 (3-11) BUN 27 H (6-23) mg/dl Creatinine 1.41 H (0.6-1.4) mg/dl Est Cr Clr Drug Dosing 37.0 ml/min Est GFR ( Amer) 54.5 ml/min Est GFR (Non-Af Amer) 47.0 ml/min BUN/Creatinine Ratio 19.1 (10-20) Glucose 126 H (70-99(Fasting)) mg/dl Calcium 10.0 (8.5-10.1) mg/dl Total Bilirubin 1.1 H (0.2-1.0) mg/dl AST 48 H (13-39) U/L ALT 28 (7-52) U/L Alkaline Phosphatase 68 (34-104) U/L Total Protein 8.0 (6.0-8.3) gm/dl Albumin 4.1 (3.4-5.0) gm/dl Globulin 3.9 (2.5-4.0) gm/dl Albumin/Globulin Ratio 1.1 (0.9-2) SARS-CoV-2, RNA, NAAT (NEGATIVE) 03/07/22 Range/Units 19:30 WBC (4.8-10.8) K/ul RBC (4.63-6.08) M/uL Hgb (14.0-18.0) g/dl Hct (40.1-51.0) % MCV (80.0-100.0) fL MCH (25.0-34.0) pg MCHC (32.0-36.0) g/dL RDW Std Deviation (36.4-46.3) fL RDW Coeff of Gerardo (11.5-14.5) % Plt Count (130-400) K/uL MPV (9.4-12.4) fL Immature Gran % (Auto) % Neut % (Auto) % Lymph % (Auto) % Gonzales % (Auto) % Eos % (Auto) % Baso % (Auto) % Neut # (Auto) (1.4-6.5) K/uL Lymph # (Auto) (1.2-3.4) K/uL Gonzales # (Auto) (0.24-0.82) K/uL Eos # (Auto) (0-0.50) K/uL Baso # (Auto) (0-0.2) K/uL Immature Gran # (Auto) (0.00-0.02) K/uL PT (9.0-12.0) Seconds INR (0.9-1.1) APTT (21.0-31.0) Seconds PTT Ratio Sodium (136-145) mmol/L Potassium (3.5-5.1) mmol/L Chloride (98-107) mmol/L Carbon Dioxide (21-32) mmol/L Anion Gap (3-11) BUN (6-23) mg/dl Creatinine (0.6-1.4) mg/dl Est Cr Clr Drug Dosing ml/min Est GFR ( Amer) ml/min Est GFR (Non-Af Amer) ml/min BUN/Creatinine Ratio (10-20) Glucose (70-99(Fasting)) mg/dl Calcium (8.5-10.1) mg/dl Total Bilirubin (0.2-1.0) mg/dl AST (13-39) U/L ALT (7-52) U/L Alkaline Phosphatase (34-104) U/L Total Protein (6.0-8.3) gm/dl Albumin (3.4-5.0) gm/dl Globulin (2.5-4.0) gm/dl Albumin/Globulin Ratio (0.9-2) SARS-CoV-2, RNA, NAAT NEGATIVE (NEGATIVE) Imaging Data Radiologist's Impression: Cervical Spine CT 03/07/22 16:38 CT SCAN OF THE CERVICAL SPINE CLINICAL HISTORY: Trauma. Fall. COMPARISON STUDY: No priors. TECHNIQUE: CT scan of the cervical spine is performed from the skull base to the upper thoracic spine. Images are reviewed in the axial, sagittal, and coronal planes. IV contrast was not administered for this examination. A dose lowering technique was utilized adhering to the principles of ALARA. CT DOSE: 1094.85 mGy.cm FINDINGS: Skeletal structures: The skeletal structures are osteopenia. There are acute and minimally displaced spinous process fractures of C2, C3, C4, and C5. These are best seen on sagittal image #53 and coronal image #54 The remaining spinous processes appear intact. Vertebral body height is maintained. There is minimal retrolisthesis at C4-C5 and C5-C6. Alignment is otherwise preserved. There is straightening of the cervical lordosis with mild reversal centered at C4-C5. Anterior osteophytes are seen throughout. The odontoid process and lateral masses are intact. The atlantoaxial articulation is preserved noting productive degenerative change. There is a mild acute appearing superior endplate compression fractures of T1 and T2. There is moderate to advanced multilevel cervical spondylosis. Uncovertebral and facet arthropathy contribute to neural foraminal narrowing at several levels. Intervertebral discs: There is severe disc space narrowing at C4-C5 and C5-C6. Mild to moderate narrowing is seen at the remaining cervical levels. Central canal: Posterior disc osteophyte complexes are seen all cervical levels between C4-C5 and C6-C7. This likely contributes to multilevel acquired compromise of the central canal. Soft tissues: The prevertebral and paraspinous soft tissues are within normal limits. There is atherosclerotic calcification of the carotid bulbs. Soft tissue edema/trace hemorrhage overlies the spinous process fractures. Calvarium: The visualized calvarium at the skull base appears intact. Brain parenchyma: Partially visualized brain parenchyma at the skull base is within normal limits noting age-related involutional change. Sinuses and mastoids: The visualized paranasal sinuses are clear. The mastoid air cells are well pneumatized. Lung apices: Clear as visualized. IMPRESSION: 1. There are acute and minimally displaced spinous process fractures of C2, C3, C4, and C5. 2. No additional fracture is identified involving the cervical spine. 3. There are minimal acute appearing superior endplate compression deformities of T1 and T2. 4. Osteopenia and spondylotic change as above. ACT 112: Negative or not required by law. Electronically signed by: Wilbert Dobbins M.D. 03/07/2022 5:[address] 03/07/22 16:38 CT SCAN OF THE BRAIN WITHOUT IV CONTRAST CLINICAL HISTORY: Fall COMPARISON STUDY: MRI of the brain dated 09/30/2021. TECHNIQUE: Unenhanced axial CT scan of the brain is performed from the vertex to the skull base. A dose lowering technique was utilized adhering to the principles of ALARA. FINDINGS: Brain parenchyma: There is age-related involutional change noting moderate to advanced subcortical and periventricular microangiopathic disease. There is no hemorrhage, mass effect, or evidence of acute territorial ischemia by CT crit sharri. Aceves-white matter differentiation is preserved. No extra-axial fluid collection is seen. Ventricles, sulci, cisterns: Prominent secondary to involutional change. Intracranial vasculature: There is atherosclerotic calcification of the cavernou s carotid and vertebral artery. Calvarium: The skeletal structures are osteopenic. No depressed calvarial fracture is seen. Sinuses and mastoids: The visualized paranasal sinuses are clear. The mastoid air cells are well pneumatized. Orbits: The bony orbits are grossly intact. There are bilateral ocular lens implants. IMPRESSION: There is no hemorrhage, mass effect, or evidence of acute territorial ischemia by CT criteria. ACT 112: Negative or not required by law. Electronically signed by: Wilbert Dobbins M.D. 03/07/2022 5:24 PM Hip/Pelvis X-Ray 03/07/22 16:38 XR hip LT 2V w pelvis CLINICAL HISTORY: Left hip pain following fall. Hip fracture. COMPARISON: CT of the abdomen and pelvis August 10, 2019. FINDINGS: Note is made of an acute impacted minimally displaced left femoral neck fracture. No additional acute fractures are identified within the pelvis or hips. Moderate to severe right and moderate left hip osteoarthritis is present. Sacroiliac joints and symphysis pubis are intact. IMPRESSION: Acute impacted minimally displaced left femoral neck fracture. ACT 112: Negative or not required by law. Electronically signed by: Andrew Goldstein M.D. 03/07/2022 6:03 PM Discharge Plan Visit Data Chief Complaint: Fall ED Provider: Emery Eduardo Discharge Problem: Closed hip fracture, Compression fracture, Closed fracture of spinous process o f cervical vertebra Forms Stand Alone Forms: My [facility] Prescriptions Prescriptions: No Action metformin 500 mg tablet extended release 24 hr 1,000 mg PO BIDM potassium chloride [Klor-Con M20] 20 mEq tablet,ER particles/crystals 20 meq PO TID levothyroxine 100 mcg tablet 100 mcg PO QAM melatonin 10 mg Capsule 10 mg PO HS metoprolol succinate 25 mg tablet extended release 24 hr 25 mg PO BID losartan 100 mg tablet 100 mg PO QAM (DME) OneTouch Verio test strips Strip See Rx Instructions .ROUTE .MEDSUPPLY Qty: 100 0RF Rx Instructions: As directed (DME) pen needle, diabetic [BD Rosemary 2nd Gen Pen Needle] 32 gauge x 5/32" needle See Rx Instructions .ROUTE .MEDSUPPLY Qty: 30 3RF Rx Instructions: As directed trazodone 50 mg tablet 50 mg PO HS Qty: 30 0RF Jardiance 10 mg Tablet 10 mg PO QAM sertraline 100 mg tablet 200 mg PO QAM atorvastatin 40 mg tablet 40 mg DAILY amlodipine 5 mg tablet 5 mg PO DAILY bumetanide 1 mg tablet 2 mg DAILY Eliquis 2.5 mg tablet 2.5 mg BID pantoprazole 40 mg Tablet,Delayed Release (Dr/Ec) 40 mg PO BID Qty: 60 0RF ferrous sulfate 325 mg (65 mg iron) Tablet,Delayed Release (Dr/Ec) 325 mg PO BIDM Qty: 60 0RF cyanocobalamin (vitamin B-12) [Vitamin B-12] 100 mcg Tablet 100 mcg PO QAM Qty: 20 0RF magnesium hydroxide [Milk of Magnesia] 400 mg/5 mL Suspension 30 ml PO UD PRN (Reason: Constipation) bisacodyl [Dulcolax (bisacodyl)] 10 mg Suppository 10 mg OR DAILY PRN (Reason: Constipation) Fleet Enema 19-7 gram/118 mL Enema 118 ml OR DAILY PRN (Reason: Constipation) insulin glargine [Lantus Solostar U-100 Insulin] 100 unit/mL (3 mL) Insulin Pen 20 unit SUBCUT HS Referrals Referrals: [facility] [Primary Care Provider] -
--- NOTE | 2022-03-07 17:26 | CT Scan Report ---
CT SCAN OF THE BRAIN WITHOUT IV CONTRAST CLINICAL HISTORY: Fall COMPARISON STUDY: MRI of the brain dated 09/30/2021. TECHNIQUE: Unenhanced axial CT scan of the brain is performed from the vertex to the skull base. A do se lowering technique was utilized adhering to the principles of ALARA. FINDINGS: Brain parenchyma: There is age-related involutional change noting moderate to advanced subcortical an d periventricular microangiopathic disease. There is no hemorrhage, mass effect, or evidence of acute territorial ischemia by CT criteria. Aceves-white matter differentiation is preserved. No extra-axial fluid collection is seen. Ventricles, sulci, cisterns: Prominent secondary to involutional change. Intracranial vasculature: There is atherosclerotic calcification of the cavernous carotid and vertebr al artery. Calvarium: The skeletal structures are osteopenic. No depressed calvarial fracture is seen. Sinuses and mastoids: The visualized paranasal sinuses are clear. The mastoid air cells are well pneu matized. Orbits: The bony orbits are grossly intact. There are bilateral ocular lens implants. IMPRESSION: There is no hemorrhage, mass effect, or evidence of acute territorial ischemia by CT chris harrell. ACT 112: Negative or not required by law. Electronically signed by: Wilbert Dobbins M.D. 03/07/2022 5:24 PM
--- NOTE | 2022-03-07 17:36 | CT Scan Report ---
CT SCAN OF THE CERVICAL SPINE CLINICAL HISTORY: Trauma. Fall. COMPARISON STUDY: No priors. TECHNIQUE: CT scan of the cervical spine is performed from the skull base to the upper thoracic spine . Images are reviewed in the axial, sagittal, and coronal planes. IV contrast was not administered fo r this examination. A dose lowering technique was utilized adhering to the principles of ALARA. CT DOSE: 1094.85 mGy.cm FINDINGS: Skeletal structures: The skeletal structures are osteopenia. There are acute and minimally displaced spinous process fractures of C2, C3, C4, and C5. These are best seen on sagittal image #53 and godoy l image #54 The remaining spinous processes appear intact. Vertebral body height is maintained. Ther e is minimal retrolisthesis at C4-C5 and C5-C6. Alignment is otherwise preserved. There is straighten ing of the cervical lordosis with mild reversal centered at C4-C5. Anterior osteophytes are seen thro ughout. The odontoid process and lateral masses are intact. The atlantoaxial articulation is preserve d noting productive degenerative change. There is a mild acute appearing superior endplate compressio n fractures of T1 and T2. There is moderate to advanced multilevel cervical spondylosis. Uncovertebra l and facet arthropathy contribute to neural foraminal narrowing at several levels. Intervertebral discs: There is severe disc space narrowing at C4-C5 and C5-C6. Mild to moderate narro wing is seen at the remaining cervical levels. Central canal: Posterior disc osteophyte complexes are seen all cervical levels between C4-C5 and C6- C7. This likely contributes to multilevel acquired compromise of the central canal. Soft tissues: The prevertebral and paraspinous soft tissues are within normal limits. There is athero sclerotic calcification of the carotid bulbs. Soft tissue edema/trace hemorrhage overlies the spinous process fractures. Calvarium: The visualized calvarium at the skull base appears intact. Brain parenchyma: Partially visualized brain parenchyma at the skull base is within normal limits not ing age-related involutional change. Sinuses and mastoids: The visualized paranasal sinuses are clear. The mastoid air cells are well pneu matized. Lung apices: Clear as visualized. IMPRESSION: 1. There are acute and minimally displaced spinous process fractures of C2, C3, C4, and C5. 2. No additional fracture is identified involving the cervical spine. 3. There are minimal acute appearing superior endplate compression deformities of T1 and T2. 4. Osteopenia and spondylotic change as above. ACT 112: Negative or not required by law. Electronically signed by: Wilbert Dobbins M.D. 03/07/2022 5:34 PM
[2022-03-07 17:42] LABS: Hematocrit (blood only) 37.9 % (40.1-51.0); Hemoglobin 12.5 g/dl (14.0-18.0); Mean Corpuscular Hemoglobin 31.2 pg (25.0-34.0); Mean Corpuscular Volume 94.5 fL (80.0-100.0); Mean Platelet Volume 10.6 fL (9.4-12.4); Platelet Count 75 K/uL (130-400); RDW Standard Deviation 52.1 fL (36.4-46.3); Red Blood Count 4.01 M/uL (4.63-6.08); White Blood Count 6.14 K/ul (4.8-10.8)
[2022-03-07 17:51] LABS: INR 1.1 (0.9-1.1); Partial Thromboplastin Time 27.2 Seconds (21.0-31.0); Prothrombin Time 11.6 Seconds (9.0-12.0)
[2022-03-07 18:01] LABS: Albumin Globulin Ratio 1.1 (0.9-2); Albumin Level 4.1 gm/dl (3.4-5.0); BUN Creatinine Ratio 19.1 (10-20); Bilirubin,Total 1.1 mg/dl (0.2-1.0); Est GFR (African American) 54.5 ml/min; Globulin 3.9 gm/dl (2.5-4.0)
--- NOTE | 2022-03-07 18:04 | XRay Report ---
XR hip LT 2V w pelvis CLINICAL HISTORY: Left hip pain following fall. Hip fracture. COMPARISON: CT of the abdomen and pelvis August 10, 2019. FINDINGS: Note is made of an acute impacted minimally displaced left femoral neck fracture. No addit ional acute fractures are identified within the pelvis or hips. Moderate to severe right and moderate left hip osteoarthritis is present. Sacroiliac joints and symphysis pubis are intact. IMPRESSION: Acute impacted minimally displaced left femoral neck fracture. ACT 112: Negative or not required by law. Electronically signed by: Andrew Goldstein M.D. 03/07/2022 6:03 PM
[2022-03-07 18:06] LABS: Basophils # (auto) 0.01 K/uL (0-0.2); Basophils % (auto) 0.2 %; Eosinophils # (auto) 0.12 K/uL (0-0.50); Immature Granulocytes # (auto) 0.03 K/uL (0.00-0.02); Immature Granulocytes % (auto) 0.5 %; Lymphocytes # (auto) 0.74 K/uL (1.2-3.4); Lymphocytes % (auto) 12.1 %; Monocytes # (auto) 0.68 K/uL (0.24-0.82); Monocytes % (auto) 11.1 %; Neutrophils # (auto) 4.56 K/uL (1.4-6.5); Neutrophils % (auto) 74.1 %
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
[2022-03-07] MEDS ORDERED: GLUCOSE 10 TAB/TUBE PO PRN (22:11)
[2022-03-07] MEDS ORDERED: GLUCAGON FOR INJ 1 MG VIAL SQ PRN (22:11)
[2022-03-07] MEDS ORDERED: CARBOHYDRATES FOR HYPOGLYCEMIA PO PRN (22:11)
[2022-03-07] MEDS ORDERED: GLUCOSE 40% GEL 15 GM TUBE PO PRN (22:11)
[2022-03-07] MEDS ORDERED: bisacodyL 10 MG SUPP PR PRN (22:11)
[2022-03-07] MEDS ORDERED: DEXTROSE 50% 50 ML SYRINGE IV PRN (22:11)
[2022-03-07] MEDS ORDERED: POLYETHYLENE (MIRALAX) 17 GM PACK PO PRN (22:11)
--- NOTE | 2022-03-07 22:20 | XRay Report ---
SINGLE VIEW CHEST CLINICAL HISTORY: Fall. Hip fracture. Preoperative examination FINDINGS: 2 AP, portable, supine chest radiographs compared to study dated 09/28/2021. The patient is status post midline sternotomy. The heart is enlarged noting atherosclerotic calcification of the tho racic aorta. The pulmonary vasculature is noncongested. Chronic interstitial thickening similar to pr evious. Mild scarring/atelectasis is noted at the lung bases. The lungs and pleural spaces are otherw ise clear. No pneumothorax is seen. The skeletal structures are osteopenic. There are healed right-si ded rib fractures. IMPRESSION: Cardiomegaly with no acute cardiopulmonary abnormality identified. ACT 112: Negative or not required by law. Electronically signed by: Wilbert Dobbins M.D. 03/07/2022 10:18 PM
[2022-03-07] MEDS: LANTUS PER UNIT CHARGE SQ SCH (23:06)
[2022-03-08] MEDS: INSULIN ASPART PER UNIT SC SCH ×4 (00:23→17:02)
[2022-03-08] MEDS: MELATONIN 3 MG TAB PO SCH ×2 (00:43→21:57)
[2022-03-08] MEDS: traZODone HCL 50 MG TAB PO SCH ×2 (00:43→22:26)
[2022-03-08] MEDS: PANTOprazole 40 MG TAB PO SCH ×3 (00:43→22:27)
[2022-03-08] MEDS: METOPROLOL SUCC 25MG EXT REL TAB PO SCH ×3 (00:43→22:27)
[2022-03-08] MEDS: LEVOTHYROXINE SODIUM 100 MCG TABLET PO SCH (06:38)
[2022-03-08 06:53] LABS: INR 1.1 (0.9-1.1)
[2022-03-08 06:59] LABS: Hematocrit (blood only) 35.1 % (40.1-51.0); Hemoglobin 11.7 g/dl (14.0-18.0); Mean Corpuscular Hgb Conc 33.3 g/dL (32.0-36.0); Mean Corpuscular Volume 93.1 fL (80.0-100.0); Mean Platelet Volume 10.8 fL (9.4-12.4); Platelet Count 71 K/uL (130-400); RDW Standard Deviation 51.6 fL (36.4-46.3); Red Blood Count 3.77 M/uL (4.63-6.08); White Blood Count 6.38 K/ul (4.8-10.8)
[2022-03-08] MEDS ORDERED: MoRPHine SULFATE 2 MG/ML CARP IV PRN (06:59)
--- NOTE | 2022-03-08 07:05 | Billing Data ---
Date of Service March 07, 2022 Coding Level of Care Code 66784 Initial Inpt Care Lvl 3
[2022-03-08 07:16] LABS: BUN Creatinine Ratio 22.5 (10-20); Calcium 9.8 mg/dl (8.5-10.1); Creatinine Clr Calc Pharmacy 39.2 ml/min; Est GFR (African American) 60.7 ml/min; Est GFR (Non-African American) 52.4 ml/min; Potassium 4.7 mmol/L (3.5-5.1)
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
[2022-03-08 07:34] LABS: Estimated Average Glucose 123 mg/dl; Hemoglobin A1C 5.9 % (4.5-5.6)
--- NOTE | 2022-03-08 07:36 | Anesthesiology Consultation ---
Date of Service March 08, 2022 Assessment & Plan (1) Encounter for pre-operative examination: Chart Review Chart Review: Acceptable Risk for Surgery and Patient NOT seen in Pre Admission Testing Consults Requested none Additional Notes Patient on anticoagulation therapy for management of Afib History Surgery Operation Date: 03/08/22 12:25 Proposed Procedures p Left Bipolar Hip Prosthesis Cemented - Gulshan Carlson MD Height/Weight Height: 5 ft 5 in Weight: 59.7 kg Allergies Allergy/AdvReac Type Severity Reaction Status Date / Time rivaroxaban AdvReac Intermediate VOMITING Verified 11/22/21 07:53 Medications Home Medications Medication Instructions Recorded Confirmed Last Taken levothyroxine 100 mcg tablet 100 mcg PO QAM 08/09/19 03/07/22 11/21/21 losartan 100 mg tablet 100 mg PO QAM 08/09/19 03/07/22 11/21/21 melatonin 10 mg capsule 10 mg PO HS 08/09/19 03/07/22 11/21/21 metformin 500 mg tablet,extended 1,000 mg PO BIDM 08/09/19 03/07/22 11/21/21 release 24 hr metoprolol succinate 25 mg 25 mg PO BID 08/09/19 03/07/22 11/21/21 tablet,extended release 24 hr potassium chloride 20 mEq 20 meq PO TID 08/09/19 03/07/22 11/21/21 tablet,extended release(part/cryst) (Klor-Con M) blood sugar diagnostic (OneTouch #100 ea 08/13/19 03/07/22 Unknown Verio test strips) pen needle, diabetic 32 gauge x #30 ea 08/13/19 03/07/22 Unknown 5/32" (BD Rosemary 2nd Gen Pen Needle) trazodone 50 mg tablet 50 mg PO HS #30 tabs 08/13/19 03/07/22 11/21/21 empagliflozin 10 mg tablet 10 mg PO QAM 11/07/20 03/07/22 11/21/21 (Jardiance) sertraline 100 mg tablet 200 mg PO QAM 11/07/20 03/07/22 11/21/21 cyanocobalamin (vitamin B-12) 100 100 mcg PO QAM #20 tabs 10/05/21 03/07/22 11/21/21 mcg tablet (Vitamin B-12) ferrous sulfate 325 mg (65 mg 325 mg PO BIDM #60 tabs 10/05/21 03/07/22 11/21/21 iron) tablet,delayed release pantoprazole 40 mg tablet,delayed 40 mg PO BID #60 tabs 10/05/21 03/07/22 11/21/21 release bisacodyl 10 mg rectal suppository 10 mg VA DAILY PRN Constipation 11/12/21 03/07/22 Unknown (Dulcolax (bisacodyl)) insulin glargine 100 unit/mL (3 20 unit subcut HS 11/12/21 03/07/22 Unknown mL) subcutaneous pen (Lantus Solostar U-100 Insulin) magnesium hydroxide 400 mg/5 mL 30 ml PO UD PRN Constipation 11/12/21 03/07/22 Unknown oral suspension (Milk of Magnesia) sodium phosphates 19 gram-7 118 ml VA DAILY PRN Constipation 11/12/21 03/07/22 Unknown gram/118 mL enema (Fleet Enema) amlodipine 5 mg tablet 5 mg PO DAILY 03/07/22 03/07/22 Unknown apixaban 2.5 mg tablet (Eliquis) 2.5 mg BID 03/07/22 03/07/22 Unknown atorvastatin 40 mg tablet 40 mg DAILY 03/07/22 03/07/22 Unknown bumetanide 1 mg tablet 2 mg DAILY 03/07/22 03/07/22 Unknown Active Medications Generic Name Dose Route Start Last Admin Trade Name Freq PRN Reason Stop Dose Admin Insulin Aspart 0 units 03/08/22 00:00 03/08/22 06:37 Insulin Aspart Per Unit SC 04/07/22 00:00 Not Given Q6 [facility] Insulin Glargine 6 units 03/07/22 22:11 03/07/22 23:06 Lantus Per Unit Charge SQ 04/06/22 22:10 6 units BID JONEL Administration Levothyroxine Sodium 100 mcg 03/08/22 06:30 03/08/22 06:38 Levothyroxine Sodium 100 Mcg Tablet PO 04/07/22 06:29 100 mcg DAILYBB JONEL Administration Melatonin 9 mg 03/07/22 22:11 03/08/22 00:43 Melatonin 3 Mg Tab PO 04/06/22 22:10 9 mg HS JONEL Administration Metoprolol Succinate 25 mg 03/07/22 22:11 03/08/22 00:43 Metoprolol Succ 25mg Ext Rel Tab PO 04/06/22 22:10 25 mg BID JONEL Administration Pantoprazole Sodium 40 mg 03/07/22 22:11 03/08/22 00:43 Pantoprazole 40 Mg Tab PO 04/06/22 22:10 40 mg BID JONEL Administration Trazodone HCl 50 mg 03/07/22 22:11 03/08/22 00:43 Trazodone Hcl 50 Mg Tab PO 04/06/22 22:10 50 mg HS JONEL Administration Past Medical History Medical History Anemia Anxiety Atrial fibrillation on warfarin--follows with Dr. Harp CHF (congestive heart failure) (02/19/14) Coumadin toxicity (04/24/14) Depression Diabetes IDDM Fatty liver (~02/2014) Hearing deficit Hypothyroidism On anticoagulant therapy warfarin daily Sleep apnea cpap Squamous cell carcinoma of ear Past Family History Family History Other No family history of adverse response to anesthesia Past Surgical History Surgical History History of cardiac cath a few years ago at [facility]--no stents History of colonoscopy last 09/24/21 @ [facility] History of coronary artery bypass graft x 3 "a few years ago" at [facility] History of esophagogastroduodenoscopy (EGD) last 09/24/21 @ [facility] History of hernia surgery History of Mohs micrographic surgery for skin cancer History of sinus surgery History of strabismus surgery History of tooth extraction Social History Smoking Status: Never smoker Do You Dip or Chew Tobacco: No Hx Alcohol Use: No Hx Substance Use: No substance use type: does not use Physical Exam Vital Signs Last Vital Signs Temp 97.7 F 03/08/22 05:10 Pulse 74 03/08/22 05:10 Resp 18 03/08/22 05:10 BP 148/82 H 03/08/22 05:10 Pulse Ox 96 03/08/22 05:10 O2 Del Method 03/08/22 05:10 Testing Laboratory Results 03/08/22 05:44 03/08/22 05:44 PT 12.0 Seconds (9.0-12.0) 03/08/22 05:44 INR 1.1 (0.9-1.1) 03/08/22 05:44 APTT 27.2 Seconds (21.0-31.0) 03/07/22 17:10 Blood Type O Positive 03/07/22 22:27 Antibody Screen NEGATIVE 03/07/22 22:27 03/08/22 03/07/22 06:11 23:01 POC Glucose 167 H 139 H Electrocardiogram Date: 03/07/22 Findings: + AFIB @ (with competing junctional rhythm)
--- NOTE | 2022-03-08 07:44 | Hospitalist Progress Note ---
Date of Service March 08, 2022 Assessment & Plan (1) Fracture of femoral neck, left: Plan: Baldomero is a 77 y/o M with a PMH of CHF, Afib, DM2, GERD, and Dementia who was admitted to hospital for fall following a recent fall at his home. Patient states that yesterday morning he was trying to back out of bed, backed too far fell on the floor and hit his head. Since coming to the hospital he has received morphine, denies any pain at this time. Patient believed he has already received surgery for his leg fracture. Patient denies any fever, chills, headache, dizziness, nausea, vomiting, chest pain, abdominal pain, loss of sensation, or rashes. Per patients records, he lives at [facility]. On Friday he rolled out of bed, Friday XR noted hip fracture, was sent to the ED afterwards. DNR/DNI per records from [facility]. Fracture of left femoral neck Pelvic/hip XR: Acute impacted minimally displaced left femoral neck fracture. -Morphine PRN -Ortho consulted: surgery planned for today 03/08, but rescheduled for tomorrow 03/09 due to chronically low platelet status and need for platelets prior to procedure Fracture of Cervical Spine CT Cervical Spine: There are acute and minimally displaced spinous process fractures of C2, C3, C4, and C5. No additional fracture is identified involving the cervical spine. There are minimal acute appearing superior endplate compression deformities of T1 and T2. Osteopenia and spondylotic change as above. -ordered cervical brace -Morphine PRN -Ortho consulted Fall -CT head: There is no hemorrhage, mass effect, or evidence of acute territorial ischemia by CT criteria. -ordered PT/OT Thrombocytopenia -Platelet 75, chronic -Will receive platelets prior to procedure Atrial Fibrillation -hold anticoagulation for now pending surgery -Eliquis ASA was stopped 03/06 Hypothyroidism -continue levothyroxine CHF -continue bumex 2mg daily -continue losartan -continue amlodipine Depression -continue sertraline and trazadone GERD -continue protonix DM2 -hold home diabetic regime, sliding scale insulin for hospital course -lantus 6U BID Diet: NPO until after surgery Code Status: DNR/DNI DVT PPX: SCDs PT/OT: ordered (2) Fracture of cervical spine without spinal cord lesion: (3) CHF (congestive heart failure): (4) Atrial fibrillation: (5) Diabetes: Admission and Anticipated Discharge Date Admission Date: March 07, 2022 Supervising Physician Co-Signing Physician Notes I personally examined the patient and verified all ricardo points of history and exam, discussed case, and agree with decision making with Dr Lozano. No HPI review of systems. Patient sleeping comfortably in bed with cervical collar in place. Orthopedic and ortho spine input greatly appreciated. Vitals noted, in general he is resting comfortably no distress. Hard collar in place. Breathing unlabored with even chest rise and fall. X-rays/reports reviewed. Left femoral fracture -pain overall controlled. 4 ORgiven chronic thrombocytopenia, anesthesia wisely would like to have platelets on hand prior to surgerywhich means surgery will likely be tomorrow morning. Spinous process cervical fracture -hard collar/orthospine recommendations. VTE Prophylaxis - recommend restarting Eliquis when ok with orthopedics Subjective Patient seen and examined at bedside. Baldomero was resting in his bed at time of encounter, breathing comfortably on room air. He states his pain is under control now, is awaiting surgery for his femoral head fracture which should occur tomorrow. He denies any SOB, chest pain, N/V, headache. Review of Systems Review of Systems: As per HPI Physical Exam Constitutional: WD/WN, vitals as above Neck: normal visual inspection Respiratory: normal respiratory effort, lungs clear to auscultation Cardiovascular: RRR, no murmur, no edema Gastrointestinal (Abdomen): normal bowel sounds, soft, nontender, no hepatosplenomegaly Skin: no erythema or swelling of lower extremities Psychiatric: A+Ox3, euthymic affect Results & Data Results & Data ([facility]) Vital Signs (Past 12 Hours) Vital Signs Temp Pulse Pulse Resp BP Pulse Ox O2 Del Method 03/08/22 05:10 36.5 C 74 18 148/82 H 96 Room Air 03/07/22 23:00 74 03/07/22 23:11 36.7 C 64 18 163/80 H 95 Room Air 03/07/22 22:35 82 18 164/80 H 97 03/07/22 21:00 83 20 150/97 H 96 Room Air Resident Activity Tracking Resident Involvement: Resident Care Provided Care Provided: Adult Hospital Medicine
[2022-03-08] MEDS: amLODIPine BESYLATE 5 MG TAB PO SCH (08:40)
[2022-03-08] MEDS: BUMETANIDE 1 MG TAB PO SCH (08:41)
[2022-03-08] MEDS: FERROUS SULFATE 325 MG TAB PO SCH ×2 (08:41→17:02)
[2022-03-08] MEDS: CYANOCOBALAMIN (B-12) 100 MCG TABLET PO SCH (08:41)
[2022-03-08] MEDS: LOSARTAN POTASSIUM 50 MG TAB PO SCH (08:41)
[2022-03-08] MEDS: SERTRALINE HCL 100 MG TABLET PO SCH (08:41)
[2022-03-08] MEDS: ATORVASTATIN 40 MG TAB PO SCH (08:41)
[2022-03-08] MEDS: LANTUS PER UNIT CHARGE SQ SCH ×2 (08:42→21:56)
[2022-03-08] MEDS ORDERED: BUMETANIDE 1 MG TAB PO SCH (09:00)
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
[2022-03-08] MEDS ORDERED: PROPOFOL IV EMULSION 10 MG/ML 20 ML VIAL IV ONE (13:50)
[2022-03-08] MEDS ORDERED: ROCURONIUM BROMIDE 10 MG/ML 5 ML VIAL IV ONE (13:50)
[2022-03-08] MEDS ORDERED: LIDOCAINE 2% 20 MG/ML 5 ML SYR IV ONE (13:50)
[2022-03-08] MEDS ORDERED: MIDAZOLAM HCL 1 MG/ML 2ML VIAL ONE (13:50)
[2022-03-08] MEDS ORDERED: fentaNYL citrate 100 MCG/2 ML VIAL ONE (13:50)
[2022-03-08] MEDS ORDERED: ceFAZolin 2,000 MG/15 ML IV PUSH IV ONE (15:06)
[2022-03-08] MEDS ORDERED: ceFAZolin 2000MG 2,000 MG/15 ML SYR IV ONE (15:08)
--- NOTE | 2022-03-08 15:32 | Communication Note ---
Date of Service: March 08, 2022 Patient w/ chronically low platelet count for bipolar hip Fx repair. There not any platelet units in the hospital at this time. I've discussed this issue w/ Dr Carlson ,patient and patient's daughter, and all are in agreement to postpone surgery until tomorrow @ 0730 03/09/2022,when platelets are available, should we need them. I have ordered platelets for tomorrow and have spoken w/ Dianne and Priti at [facility] and they are also ordering platelets from [employer] to make sure they are here in the am.
--- NOTE | 2022-03-08 17:16 | Electrocardiogram Report ---
Test Reason : Blood Pressure : / mmHG Vent. Rate : 080 BPM Atrial Rate : 051 BPM P-R Int : 000 ms QRS Dur : 120 ms QT Int : 418 ms P-R-T Axes : 000 -64 140 degrees QTc Int : 482 ms Atrial flutter with variable A-V block with premature ventricular or aberrantly conducted complexes Left axis deviation Non-specific intra-ventricular conduction block Abnormal ECG When compared with ECG of 22-SEP-2021 20:29, No significant change was found Confirmed by Triston Westfall ([id number]) on 03/08/2022 5:16:18 PM Referred By: [facility] Confirmed By:Triston Westfall
--- NOTE | 2022-03-08 18:50 | Billing Data ---
Date of Service March 08, 2022 Coding Level of Care Code 46862 Subseq Hosp Care Lvl 2
[2022-03-08] MEDS ORDERED: VANCOMYCIN CONSULT ACTIVE PRN (21:11)
[2022-03-09] MEDS: INSULIN ASPART PER UNIT SC SCH ×5 (00:14→23:58)
[2022-03-09] MEDS ORDERED: ceFAZolin 2000MG 2,000 MG/15 ML SYR IV ONE (06:00)
[2022-03-09] MEDS ORDERED: VANCOMYCIN HCL 1,000 MG/270 ML BAG IV SCH (06:00)
[2022-03-09 06:23] LABS: Hematocrit (blood only) 32.1 % (40.1-51.0); Hemoglobin 10.9 g/dl (14.0-18.0); Mean Corpuscular Hemoglobin 31.1 pg (25.0-34.0); Mean Corpuscular Volume 91.7 fL (80.0-100.0); Mean Platelet Volume 11.2 fL (9.4-12.4); Platelet Count 71 K/uL (130-400); RDW Coefficient of Variation 15.1 % (11.5-14.5); White Blood Count 6.36 K/ul (4.8-10.8)
[2022-03-09] MEDS ORDERED: SODIUM CHLORIDE 0.9% 250 ML IV PRN (06:56)
--- NOTE | 2022-03-09 07:04 | Hospitalist Progress Note ---
Date of Service March 09, 2022 Assessment & Plan (1) Fracture of femoral neck, left: Plan: Baldomero is a 77 y/o M with a PMH of CHF, Afib, DM2, GERD, and Dementia who was admitted to hospital for fall following a recent fall at his home. Patient states that yesterday morning he was trying to back out of bed, backed too far fell on the floor and hit his head. Since coming to the hospital he has received morphine, denies any pain at this time. Patient believed he has already received surgery for his leg fracture. Patient denies any fever, chills, headache, dizziness, nausea, vomiting, chest pain, abdominal pain, loss of sensation, or rashes. Per patients records, he lives at [facility] nursing [facility]. On Friday he rolled out of bed, Friday XR noted hip fracture, was sent to the ED afterwards. DNR/DNI per records from [facility]. Fracture of left femoral neck -Pelvic/hip XR: Acute impacted minimally displaced left femoral neck fracture. -Ortho consulted: surgery performed this morning. -Chronically low platelet status and need for platelets prior to procedure Fracture of Cervical Spine CT Cervical Spine: There are acute and minimally displaced spinous process fractures of C2, C3, C4, and C5. No additional fracture is identified involving the cervical spine. There are minimal acute appearing superior endplate compression deformities of T1 and T2. Osteopenia and spondylotic change as above. -ordered cervical brace -Morphine PRN -Ortho consulted, appreciate recommendations Demand Ischemia -Troponin was slightly elevated at 26.3 and EKG showed incomplete L bundle block, ST more depressed anterior leads, L axis deviation with HR of 109 BPM -Given one dose of metoprolol IV 5mg. Will be restarted on home beta luzmaria t omorrow. -Will trend troponin and get another EKG this afternoon. Fall -CT head: There is no hemorrhage, mass effect, or evidence of acute territorial ischemia by CT criteria. -PT/OT ordered Thrombocytopenia -Platelet 75, chronic -Will receive platelets prior to procedure Atrial Fibrillation -hold anticoagulation for now pending surgery -Eliquis ASA was stopped 03/06 -Will restart Eliquis ASA on 03/11. Hypothyroidism -continue levothyroxine CHF -continue bumex 2mg daily -continue losartan -continue amlodipine Depression -continue sertraline and trazadone GERD -continue Protonix DM2 -hold home diabetic regime, sliding scale insulin for hospital course -Lantus 6U BID Diet: NPO until after surgery Code Status: DNR/DNI DVT PPX: SCDs PT/OT: ordered Thank you for allowing me to participate in the care of your patient. -Dr. Wilbert Torres PGY1 (2) Fracture of cervical spine without spinal cord lesion: (3) CHF (congestive heart failure): (4) Atrial fibrillation: (5) Diabetes: (6) Demand ischemia: Admission and Anticipated Discharge Date Admission Date: March 07, 2022 Supervising Physician Co-Signing Physician Notes I personally examined the patient and verified all ricardo points of history and exam, discussed case, and agree with decision making with Dr Torres No HPI review of systems. Patient sleeping comfortably in bed with cervical collar in place each time I see him on multiple reviews. Vitals noted, in general he is resting comfortably no distress. Hard collar in place. Breathing unlabored with even chest rise and fall. Does maybe look a little more pale than yesterday. EKG with some ST depressions in V4, 5, 6 essentially the same deflection and morphology as his baseline EKG, but the depression is a little bit more pronounced. Repeat EKG after heart rates are improved looks more of his baseline. Left femoral fracture -postop. Overall appears stable, was slightly tachycardic (see below) but now improved. With a mild degree of subjective pallorwill repeat a CBC this afternoon. Spinous process cervical fracture -hard collar/orthospine recommendations. VTE Prophylaxis - recommend restarting Eliquis when ok with orthopedics//as long as CBC remains stable Mild troponin elevation/ST depressionshas known coronary artery disease history. Appears to be asymptomatic throughout all of this, although of course with his dementia that is difficult to gauge. Given that his heart rate was about [address]ressions, and the depressions improved with an improvement in heart rate, certainly most fitting with a degree of demand ischemia, and with such a nominal troponin elevation, appears most appropriate to slow his heart rate down with beta-blockade and follow. Subjective Patient seen and examined at bedside. He is S/P surgery and was laying in his bed comfortable. Patient has no CP, tightness, or palpations. He denies any pain or SOB, N/V, or PALMA. Review of Systems Review of Systems: Constitutional: denies fever, chills, fatigue HEENT: denies congestion, sore throat CV: denies chest pain, palpitations Resp: denies shortness of breath, cough GI: denies abdominal pain, nausea, vomiting, constipation, diarrhea : denies pain with urination, change in urinary frequency Neuro: denies new numbness, tingling, weakness Physical Exam Constitutional: WD/WN, vitals as above Neck: normal visual inspection Respiratory: normal respiratory effort, lungs clear to auscultation Cardiovascular: RRR, no murmur, no edema Gastrointestinal (Abdomen): normal bowel sounds, soft, nontender, no hepatosplenomegaly Skin: no erythema or swelling of lower extremities Psychiatric: A+Ox3, euthymic affect Results & Data Results & Data ([facility]) Vital Signs (Past 12 Hours) Vital Signs Temp Pulse Resp BP Pulse Ox O2 Del Method 03/09/22 03:25 37.0 C 87 18 135/59 L 94 Room Air 03/08/22 23:12 37.0 C 68 18 139/70 94 Room Air 03/08/22 22:28 135/68 03/08/22 19:23 37.1 C 78 18 124/72 93 Room Air Laboratory Results Abnormal lab results 03/07/22 03/08/22 03/08/22 Range/Units 22:27 13:44 16:41 RBC (4.63-6.08) M/uL Hgb (14.0-18.0) g/dl Hct (40.1-51.0) % RDW Std Deviation (36.4-46.3) fL RDW Coeff of Gerardo (11.5-14.5) % Plt Count (130-400) K/uL POC Glucose 132 H 113 H (70-99) mg/dl Troponin I High Sens (0-20) pg/ml Crossmatch See Detail 03/08/22 03/08/22 03/09/22 Range/Units 21:55 23:57 05:30 RBC 3.50 L (4.63-6.08) M/uL Hgb 10.9 L (14.0-18.0) g/dl Hct 32.1 L (40.1-51.0) % RDW Std Deviation 50.0 H (36.4-46.3) fL RDW Coeff of Gerardo 15.1 H (11.5-14.5) % Plt Count 71 L (130-400) K/uL POC Glucose 146 H 125 H (70-99) mg/dl Troponin I High Sens (0-20) pg/ml Crossmatch 03/09/22 03/09/22 03/09/22 Range/Units 06:07 09:59 09:59 RBC (4.63-6.08) M/uL Hgb 10.4 L (14.0-18.0) g/dl Hct 31.0 L (40.1-51.0) % RDW Std Deviation (36.4-46.3) fL RDW Coeff of Gerardo (11.5-14.5) % Plt Count (130-400) K/uL POC Glucose 120 H (70-99) mg/dl Troponin I High Sens 26.3 H (0-20) pg/ml Crossmatch 03/09/22 03/09/22 Range/Units 10:11 12:02 RBC (4.63-6.08) M/uL Hgb (14.0-18.0) g/dl Hct (40.1-51.0) % RDW Std Deviation (36.4-46.3) fL RDW Coeff of Gerardo (11.5-14.5) % Plt Count (130-400) K/uL POC Glucose 152 H 256 H (70-99) mg/dl Troponin I High Sens (0-20) pg/ml Crossmatch Diagnostic Findings Cervical Spine CT 03/07/22 16:38 CT SCAN OF THE CERVICAL SPINE CLINICAL HISTORY: Trauma. Fall. COMPARISON STUDY: No priors. TECHNIQUE: CT scan of the cervical spine is performed from the skull base to the upper thoracic spine. Images are reviewed in the axial, sagittal, and coronal planes. IV contrast was not administered for this examination. A dose lowering technique was utilized adhering to the principles of ALARA. CT DOSE: 1094.85 mGy.cm FINDINGS: Skeletal structures: The skeletal structures are osteopenia. There are acute and minimally displaced spinous process fractures of C2, C3, C4, and C5. These are best seen on sagittal image #53 and coronal image #54 The remaining spinous processes appear intact. Vertebral body height is maintained. There is minimal retrolisthesis at C4-C5 and C5-C6. Alignment is otherwise preserved. There is straightening of the cervical lordosis with mild reversal centered at C4-C5. Anterior osteophytes are seen throughout. The odontoid process and lateral masses are intact. The atlantoaxial articulation is preserved noting productive degenerative change. There is a mild acute appearing superior endplate compression fractures of T1 and T2. There is moderate to advanced multilevel cervical spondylosis. Uncovertebral and facet arthropathy contribute to neural foraminal narrowing at several levels. Intervertebral discs: There is severe disc space narrowing at C4-C5 and C5-C6. Mild to moderate narrowing is seen at the remaining cervical levels. Central canal: Posterior disc osteophyte complexes are seen all cervical levels between C4-C5 and C6-C7. This likely contributes to multilevel acquired compromise of the central canal. Soft tissues: The prevertebral and paraspinous soft tissues are within normal limits. There is atherosclerotic calcification of the carotid bulbs. Soft tissue edema/trace hemorrhage overlies the spinous process fractures. Calvarium: The visualized calvarium at the skull base appears intact. Brain parenchyma: Partially visualized brain parenchyma at the skull base is within normal limits noting age-related involutional change. Sinuses and mastoids: The visualized paranasal sinuses are clear. The mastoid air cells are well pneumatized. Lung apices: Clear as visualized. IMPRESSION: 1. There are acute and minimally displaced spinous process fractures of C2, C3, C4, and C5. 2. No additional fracture is identified involving the cervical spine. 3. There are minimal acute appearing superior endplate compression deformities of T1 and T2. 4. Osteopenia and spondylotic change as above. ACT 112: Negative or not required by law. Electronically signed by: Wilbert Dobbins M.D. 03/07/2022 5:[address] 03/07/22 16:38 CT SCAN OF THE BRAIN WITHOUT IV CONTRAST CLINICAL HISTORY: Fall COMPARISON STUDY: MRI of the brain dated 09/30/2021. TECHNIQUE: Unenhanced axial CT scan of the brain is performed from the vertex to the skull base. A dose lowering technique was utilized adhering to the principles of ALARA. FINDINGS: Brain parenchyma: There is age-related involutional change noting moderate to advanced subcortical and periventricular microangiopathic disease. There is no hemorrhage, mass effect, or evidence of acute territorial ischemia by CT criteria. Aceves-white matter differentiation is preserved. No extra-axial fluid collection is seen. Ventricles, sulci, cisterns: Prominent secondary to involutional change. Intracranial vasculature: There is atherosclerotic calcification of the cavernous carotid and vertebral artery. Calvarium: The skeletal structures are osteopenic. No depressed calvarial fracture is seen. Sinuses and mastoids: The visualized paranasal sinuses are clear. The mastoid air cells are well pneumatized. Orbits: The bony orbits are grossly intact. There are bilateral ocular lens implants. IMPRESSION: There is no hemorrhage, mass effect, or evidence of acute territorial ischemia by CT criteria. ACT 112: Negative or not required by law. Electronically signed by: Wilbert Dobbins M.D. 03/07/2022 5:24 PM Hip/Pelvis X-Ray 03/07/22 16:38 XR hip LT 2V w pelvis CLINICAL HISTORY: Left hip pain following fall. Hip fracture. COMPARISON: CT of the abdomen and pelvis August 10, 2019. FINDINGS: Note is made of an acute impacted minimally displaced left femoral neck fracture. No additional acute fractures are identified within the pelvis or hips. Moderate to severe right and moderate left hip osteoarthritis is present. Sacroiliac joints and symphysis pubis are intact. IMPRESSION: Acute impacted minimally displaced left femoral neck fracture. ACT 112: Negative or not required by law. Electronically signed by: Andrew Goldstein M.D. 03/07/2022 6:03 PM Chest X-Ray 03/07/22 20:58 SINGLE VIEW CHEST CLINICAL HISTORY: Fall. Hip fracture. Preoperative examination FINDINGS: 2 AP, portable, supine chest radiographs compared to study dated 09/28/2021. The patient is status post midline sternotomy. The heart is enlarged noting atherosclerotic calcification of the thoracic aorta. The pulmonary vasculature is noncongested. Chronic interstitial thickening similar to previous. Mild scarring/atelectasis is noted at the lung bases. The lungs and pleural spaces are otherwise clear. No pneumothorax is seen. The skeletal structures are osteopenic. There are healed right-sided rib fractures. IMPRESSION: Cardiomegaly with no acute cardiopulmonary abnormality identified. ACT 112: Negative or not required by law. Electronically signed by: Wilbert Dobbins M.D. 03/07/2022 10:18 PM Hip X-Ray 03/09/22 10:14 LEFT HIP 2 VIEWS CLINICAL HISTORY: Postoperative examination. FINDINGS: AP and crosstable lateral views of the left hip are compared to study dated 03/07/2022. A left hip arthroplasty is in near anatomic alignment. No acute fracture is seen. Skin clips, subcutaneous gas, and soft tissue swelling overlying the left hip are expected postoperative changes. IMPRESSION: Expected postoperative findings status post left hip arthroplasty placement. No acute fracture is identified. Electronically signed by: Wilbert Dobbins M.D. 03/09/2022 10:29 AM Medications Administered Amlodipine Besylate (Amlodipine Besylate 5 Mg Tab) [facility] Stop: 04/07/22 08:59 Last Admin: 03/09/22 08:15 Dose: Not Given Documented By: Admin: 03/08/22 08:40 Dose: 2.5 mg Documented By: UBD Atorvastatin Calcium (Atorvastatin 40 Mg Tab) 40 [facility] [place] Stop: 04/07/22 08:59 Last Admin: 03/09/22 08:16 Dose: Not Given Documented By: Admin: 03/08/22 08:41 Dose: 40 mg Documented By: BUD Bumetanide (Bumetanide 1 Mg Tab) 2 [facility] [place] Stop: 04/08/22 08:59 Last Admin: 03/08/22 08:41 Dose: 2 mg Documented By: BUD Cyanocobalamin (Cyanocobalamin (B-12) 100 Mcg Tablet) 100 mcg [facility] [place] Stop: 04/07/22 08:59 Last Admin: 03/09/22 08:16 Dose: Not Given Documented By: Admin: 03/08/22 08:41 Dose: 100 mcg Documented By: BUD Ferrous Sulfate (Ferrous Sulfate 325 Mg Tab) 325 mg PO BIDM [facility] Stop: 04/07/22 07:59 Last Admin: 03/09/22 08:15 Dose: Not Given Documented By: Admin: 03/08/22 17:02 Dose: 325 mg Documented By: Admin: 03/08/22 08:41 Dose: 325 mg Documented By: BUD Vancomycin HCl (Vancomycin Hcl) 1,000 mg in 270 mls @ 200 mls/hr IV PREOP JONEL Stop: 03/09/22 18:00 Last Infusion: 03/09/22 12:21 Dose: 0 mls/hr Documented By: Admin: 03/09/22 08:47 Dose: 200 mls/hr Documented By: MERVIN Sodium Chloride (Nss 1000ml) 1,000 mls @ 80 mls/hr IV .[id number] JONEL Stop: 03/10/22 12:52 Last Admin: 03/09/22 12:10 Dose: 80 mls/hr Documented By: BUD Insulin Aspart (Insulin Aspart Per Unit) 0 units SC Q6 JONEL Stop: 04/07/22 00:00 Last Admin: 03/09/22 12:15 Dose: 2 units Documented By: BUD Co-signed By: STELLA Admin: 03/09/22 07:03 Dose: Not Given Documented By: Admin: 03/09/22 00:14 Dose: Not Given Documented By: Admin: 03/08/22 17:02 Dose: 2 units Documented By: BUD Co-signed By: MARY Admin: 03/08/22 11:53 Dose: Not Given Documented By: Admin: 03/08/22 06:37 Dose: Not Given Documented By: Admin: 03/08/22 00:23 Dose: Not Given Documented By: GRAHAM Insulin Glargine (Lantus Per Unit Charge) 6 units SQ BID [facility] Stop: 04/06/22 22:10 Last Admin: 03/09/22 09:59 Dose: Not Given Documented By: Admin: 03/08/22 21:56 Dose: 6 units Documented By: PIERRE Co-signed By: NATHANAEL Admin: 03/08/22 08:42 Dose: 6 units Documented By: BUD Co-signed By: RAKESH Admin: 03/07/22 23:06 Dose: 6 units Documented By: GRAHAM Co-signed By: SOL Levothyroxine Sodium (Levothyroxine Sodium 100 Mcg Tablet) 100 mcg PO DAILYBB [facility] Stop: 04/07/22 06:29 Last Admin: 03/09/22 08:15 Dose: Not Given Documented By: Admin: 03/08/22 06:38 Dose: 100 mcg Documented By: GRAHAM Losartan Potassium (Losartan Potassium 50 Mg Tab) 100 mg PO QAM JONEL Stop: 04/07/22 08:59 Last Admin: 03/09/22 09:59 Dose: Not Given Documented By: Admin: 03/08/22 08:41 Dose: 100 mg Documented By: BUD Melatonin (Melatonin 3 Mg Tab) 9 mg PO HS JONEL Stop: 04/06/22 22:10 Last Admin: 03/08/22 21:57 Dose: 9 mg Documented By: Admin: 03/08/22 00:43 Dose: 9 mg Documented By: GRAHAM Metoprolol Succinate (Metoprolol Succ 25mg Ext Rel Tab) 25 mg PO BID JONEL Stop: 04/06/22 22:10 Last Admin: 03/09/22 09:59 Dose: Not Given Documented By: Admin: 03/08/22 22:27 Dose: 25 mg Documented By: Admin: 03/08/22 08:42 Dose: 25 mg Documented By: Admin: 03/08/22 00:43 Dose: 25 mg Documented By: GRAHAM Pantoprazole Sodium (Pantoprazole 40 Mg Tab) 40 mg PO BID JONEL Stop: 04/06/22 22:10 Last Admin: 03/09/22 10:00 Dose: Not Given Documented By: Admin: 03/08/22 22:27 Dose: 40 mg Documented By: Admin: 03/08/22 08:42 Dose: 40 mg Documented By: Admin: 03/08/22 00:43 Dose: 40 mg Documented By: GRAHAM Sertraline HCl (Sertraline Hcl 100 Mg Tablet) 200 mg PO QAM JONEL Stop: 04/07/22 08:59 Last Admin: 03/09/22 10:00 Dose: Not Given Documented By: Admin: 03/08/22 08:41 Dose: 200 mg Documented By: BUD Trazodone HCl (Trazodone Hcl 50 Mg Tab) 50 mg PO HS JONEL Stop: 04/06/22 22:10 Last Admin: 03/08/22 22:26 Dose: 50 mg Documented By: Admin: 03/08/22 00:43 Dose: 50 mg Documented By: GRAHAM Resident Activity Tracking Resident Involvement: Resident Care Provided Care Provided: Adult Hospital Medicine
--- NOTE | 2022-03-09 07:13 | History & Physical Bridge Note ---
Date of Service March 09, 2022 History & Physical Bridge Note I have examined the patient, reviewed the History & Physical and in the interval since the performance of the History & Physical I have noted the following changes of clinical significance: no changes noted
[2022-03-09] MEDS ORDERED: fentaNYL citrate 100 MCG/2 ML VIAL ONE ×2 (07:24→08:42)
[2022-03-09] MEDS ORDERED: EPINEPHrine INJ 1 MG/ML AMP ONE (08:04)
[2022-03-09] MEDS ORDERED: BUPIVACAINE 0.5 % 5 MG/1 ML MPF 30ML VIAL ONE (08:04)
[2022-03-09] MEDS: LEVOTHYROXINE SODIUM 100 MCG TABLET PO SCH (08:15)
[2022-03-09] MEDS: FERROUS SULFATE 325 MG TAB PO SCH ×2 (08:15→16:53)
[2022-03-09] MEDS: amLODIPine BESYLATE 5 MG TAB PO SCH (08:15)
[2022-03-09] MEDS: CYANOCOBALAMIN (B-12) 100 MCG TABLET PO SCH (08:16)
[2022-03-09] MEDS: ATORVASTATIN 40 MG TAB PO SCH (08:16)
[2022-03-09] MEDS ORDERED: ceFAZolin 330 MG/ML 1 GM VIAL ONE (08:17)
[2022-03-09] MEDS ORDERED: VANCOMYCIN HCL 1000MG/20ML VIAL ONE (08:31)
[2022-03-09] MEDS ORDERED: ETOMIDATE 2 MG/ML 20 ML VIAL IV ONE (08:38)
[2022-03-09] MEDS ORDERED: DEXAMETHASONE SOD INJ 4 MG/ML VIAL ONE (08:51)
[2022-03-09] MEDS ORDERED: ROCURONIUM BROMIDE 10 MG/ML 5 ML VIAL IV ONE (08:51)
[2022-03-09] MEDS ORDERED: GLYCOPYRROLATE 0.2 MG/ML VIAL ONE (08:51)
[2022-03-09] MEDS ORDERED: NEOSTIGMINE METHYLSULFATE 1 MG/ML 10ML VIAL ONE (08:51)
[2022-03-09] MEDS ORDERED: ONDANSETRON INJ 2 MG/ML 2 ML VIAL ONE (08:51)
[2022-03-09] MEDS ORDERED: SUCCINYLCHOLINE CHLORIDE 20 MG/ML 10 ML VIAL IV ONE (08:51)
[2022-03-09] MEDS ORDERED: LIDOCAINE 2% 2 ML VIAL/AMP(20MG/ML) INFIL ONE (08:51)
[2022-03-09] MEDS ORDERED: PROPOFOL IV EMULSION 10 MG/ML 20 ML VIAL IV ONE (08:51)
[2022-03-09] MEDS ORDERED: ePHEDrine sulfate 50 MG/ML SYR ONE (09:18)
[2022-03-09] MEDS ORDERED: ESMOLOL HCL INJ 10 MG/ML 10ML VIAL IV ONE (09:29)
[2022-03-09] MEDS ORDERED: fentaNYL citrate 100 MCG/2 ML VIAL IV PRN (09:56)
[2022-03-09] MEDS ORDERED: ONDANSETRON INJ 2 MG/ML 2 ML VIAL IV PRN (09:56)
[2022-03-09] MEDS ORDERED: HYDROmorphone INJ 1 MG/ML SYRINGE IV PRN (09:56)
[2022-03-09] MEDS ORDERED: ATROPINE SULFATE 0.1 MG/ML 10ML SYR IV PRN (09:56)
[2022-03-09] MEDS ORDERED: PROMETHAZINE HCL 12.5 MG in SODIUM CHLORIDE 0.9% 50 ML IV PRN (09:56)
[2022-03-09] MEDS ORDERED: FLUMAZENIL 0.1 MG/1 ML 10 ML VIAL IV PRN (09:56)
[2022-03-09] MEDS ORDERED: LABETALOL HCL IV 5 MG/ML 20ML IV PRN (09:56)
[2022-03-09] MEDS ORDERED: ePHEDrine sulfate 50 MG/ML AMP IV PRN (09:56)
[2022-03-09] MEDS ORDERED: NALOXONE HCL 0.4 MG/1 ML VIAL/CARP IV PRN (09:56)
[2022-03-09] MEDS: LANTUS PER UNIT CHARGE SQ SCH ×2 (09:59→21:02)
[2022-03-09] MEDS: METOPROLOL SUCC 25MG EXT REL TAB PO SCH ×2 (09:59→21:00)
[2022-03-09] MEDS: LOSARTAN POTASSIUM 50 MG TAB PO SCH (09:59)
[2022-03-09] MEDS: PANTOprazole 40 MG TAB PO SCH ×2 (10:00→21:01)
[2022-03-09] MEDS: SERTRALINE HCL 100 MG TABLET PO SCH (10:00)
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
[2022-03-09 10:30] LABS: Hemoglobin 10.4 g/dl (14.0-18.0)
--- NOTE | 2022-03-09 10:31 | XRay Report ---
LEFT HIP 2 VIEWS CLINICAL HISTORY: Postoperative examination. FINDINGS: AP and crosstable lateral views of the left hip are compared to study dated 03/07/2022. A le ft hip arthroplasty is in near anatomic alignment. No acute fracture is seen. Skin clips, subcutaneou s gas, and soft tissue swelling overlying the left hip are expected postoperative changes. IMPRESSION: Expected postoperative findings status post left hip arthroplasty placement. No acute fra cture is identified. Electronically signed by: Wilbert Dobbins M.D. 03/09/2022 10:29 AM
[2022-03-09] MEDS ORDERED: METOPROLOL TARTRATE 1 MG/ML VIAL IV STA (11:42)
[2022-03-09] MEDS ORDERED: VANCOMYCIN CONSULT ACTIVE PRN (11:53)
[2022-03-09] MEDS: SODIUM CHLORIDE 0.9% 1000ML 1,000 ML IV SCH (12:10)
--- NOTE | 2022-03-09 12:24 | Anesthesiology Progress Note ---
Date of Service March 09, 2022 Anesthesia Post Procedure Vital Signs Vital Signs: Temp Pulse Pulse Pulse Resp BP BP 03/09/22 11:45 95 H 19 101/73 03/09/22 11:30 95 H 20 104/72 03/09/22 11:20 110 H 20 115/80 03/09/22 11:10 36.7 C 101 H 18 98/69 L 03/09/22 11:13 95 H 20 115/77 03/09/22 11:00 110 H 22 102/71 03/09/22 10:50 109 H 20 116/62 106/69 03/09/22 10:30 36.8 C 108 H 22 121/61 107/68 03/09/22 10:10 108 H 19 107/57 L 103/68 03/09/22 10:00 107 H 21 121/61 114/71 03/09/22 10:40 109 H 20 119/61 101/67 03/09/22 10:20 108 H 16 102/54 L 96/64 L 03/09/22 09:53 36 C L 106 H 17 129/79 03/09/22 08:03 36.9 C 64 16 115/59 L 03/09/22 08:22 67 03/09/22 08:22 03/09/22 03:25 37.0 C 87 18 135/59 L 03/08/22 23:12 37.0 C 68 18 139/70 03/08/22 22:28 135/68 03/08/22 19:23 37.1 C 78 18 124/72 03/08/22 16:30 37.1 C 89 18 121/73 03/08/22 13:34 37.3 C 77 18 123/68 Pulse Ox O2 Del Method O2 Flow Rate 03/09/22 11:45 97 Nasal Cannula 2 03/09/22 11:30 97 Nasal Cannula 2 03/09/22 11:20 98 Nasal Cannula 2 03/09/22 11:10 97 Nasal Cannula 2 03/09/22 11:13 98 Nasal Cannula 2 03/09/22 11:00 97 Nasal Cannula 2 03/09/22 10:50 97 Nasal Cannula 2 03/09/22 10:30 94 Nasal Cannula 2 03/09/22 10:10 99 Oxymask 9 03/09/22 10:00 100 Oxymask 9 03/09/22 10:40 98 Nasal Cannula 2 03/09/22 10:20 98 Oxymask 2 03/09/22 09:53 100 Oxymask 9 03/09/22 08:03 97 Room Air 03/09/22 08:22 03/09/22 08:22 Room Air 03/09/22 03:25 94 Room Air 03/08/22 23:12 94 Room Air 03/08/22 22:28 03/08/22 19:23 93 Room Air 03/08/22 16:30 93 03/08/22 13:34 96 Room Air Pain Intensity Left Hip: Pain Intensity: 5 Transfer of Care Handoff Completed per policy Notes Mental Status: alert / awake / arousable Patient Amnestic to Procedure: Yes Nausea / Vomiting: adequately controlled Pain: adequately controlled Airway Patency, RR, SpO2: stable & adequate BP & HR: see Notes below (Pt. in Afib w/ increased HR; ) Hydration State: stable & adequate Anesthetic Complications: no major complications apparent Notes: H&H ordered, no sig. change from preop;EKG w/ increased HR and ischemic changes;Troponin ordered and was elevated to 26.3. Hospitalist was notified and came to recovery room ,seen pt. and okayed his transfer to PCU where he will order serial troponins and if needed , coordinate cardiology involvement.Pt ,otherwise did well intraop and was H/D stable under anesthesia during surgery.
--- NOTE | 2022-03-09 13:02 | Electrocardiogram Report ---
Test Reason : Blood Pressure : / mmHG Vent. Rate : 109 BPM Atrial Rate : 109 BPM P-R Int : 096 ms QRS Dur : 120 ms QT Int : 400 ms P-R-T Axes : 000 -47 161 degrees QTc Int : 538 ms Atrial flutter Left axis deviation Incomplete left bundle block Marked ST abnormality, possible inferior subendocardial injury Marked ST abnormality, possible anterolateral subendocardial injury Abnormal ECG When compared with ECG of 07-MAR-2022 17:46, Incomplete left bundle block is now Present ST more depressed Anterior leads QT has lengthened Confirmed by Kristopher Newman ([id number]) on 03/09/2022 1:01:45 PM Referred By: [facility] Confirmed By:Scott Newman
[2022-03-09] MEDS ORDERED: ceFAZolin 1000MG 1,000 MG/7.5 ML SYR IV ONE (16:00)
--- NOTE | 2022-03-09 17:17 | Billing Data ---
Date of Service March 09, 2022 Coding Level of Care Code 00403 Subseq Hosp Care Lvl 3
[2022-03-09 17:42] LABS: Basophils # (auto) 0.01 K/uL (0-0.2); Basophils % (auto) 0.1 %; Eosinophils # (auto) 0.01 K/uL (0-0.50); Eosinophils % (auto) 0.1 %; Hematocrit (blood only) 32.1 % (40.1-51.0); Hemoglobin 10.6 g/dl (14.0-18.0); Immature Granulocytes # (auto) 0.03 K/uL (0.00-0.02); Immature Granulocytes % (auto) 0.4 %; Lymphocytes # (auto) 0.54 K/uL (1.2-3.4); Lymphocytes % (auto) 7.4 %; Mean Corpuscular Hemoglobin 31.3 pg (25.0-34.0); Mean Corpuscular Volume 94.7 fL (80.0-100.0); Mean Platelet Volume 10.6 fL (9.4-12.4); Monocytes # (auto) 0.62 K/uL (0.24-0.82); Monocytes % (auto) 8.4 %; Neutrophils # (auto) 6.13 K/uL (1.4-6.5); Neutrophils % (auto) 83.6 %; Platelet Count 81 K/uL (130-400); RDW Coefficient of Variation 15.1 % (11.5-14.5); RDW Standard Deviation 52.1 fL (36.4-46.3); Red Blood Count 3.39 M/uL (4.63-6.08); White Blood Count 7.34 K/ul (4.8-10.8)
[2022-03-09] MEDS: MoRPHine SULFATE 4 MG/ML 1 ML CARP\\VIAL IV PRN ×2 (19:26→23:47)
[2022-03-09] MEDS ORDERED: VANCOMYCIN HCL 1,000 MG in SODIUM CHLORIDE 0.9% 250 ML IV ONE (20:00)
[2022-03-09] MEDS: traZODone HCL 50 MG TAB PO SCH (21:02)
[2022-03-09] MEDS: MELATONIN 3 MG TAB PO SCH (21:09)
[2022-03-09] MEDS: ACETAMINOPHEN 325 MG TAB PO PRN (21:09)
[2022-03-10] MEDS: SODIUM CHLORIDE 0.9% 1000ML 1,000 ML IV SCH (01:38)
[2022-03-10] MEDS: ACETAMINOPHEN 325 MG TAB PO PRN ×4 (04:05→20:21)
[2022-03-10] MEDS: INSULIN ASPART PER UNIT SC SCH ×4 (05:49→21:54)
[2022-03-10] MEDS: LEVOTHYROXINE SODIUM 100 MCG TABLET PO SCH (05:50)
[2022-03-10 06:38] LABS: Basophils # (auto) 0.02 K/uL (0-0.2); Basophils % (auto) 0.3 %; Eosinophils % (auto) 1.7 %; Hematocrit (blood only) 28.7 % (40.1-51.0); Hemoglobin 9.4 g/dl (14.0-18.0); Immature Granulocytes # (auto) 0.02 K/uL (0.00-0.02); Immature Granulocytes % (auto) 0.3 %; Lymphocytes # (auto) 0.71 K/uL (1.2-3.4); Lymphocytes % (auto) 12.2 %; Mean Corpuscular Hemoglobin 30.4 pg (25.0-34.0); Mean Corpuscular Hgb Conc 32.8 g/dL (32.0-36.0); Mean Corpuscular Volume 92.9 fL (80.0-100.0); Monocytes # (auto) 0.64 K/uL (0.24-0.82); Neutrophils # (auto) 4.32 K/uL (1.4-6.5); Neutrophils % (auto) 74.5 %; Platelet Count 82 K/uL (130-400); RDW Coefficient of Variation 15.3 % (11.5-14.5); RDW Standard Deviation 51.8 fL (36.4-46.3); Red Blood Count 3.09 M/uL (4.63-6.08); White Blood Count 5.81 K/ul (4.8-10.8)
--- NOTE | 2022-03-10 07:10 | Hospitalist Progress Note ---
Date of Service March 10, 2022 Assessment & Plan (1) Fracture of femoral neck, left: Plan: Baldomero is a 77 y/o M with a PMH of CHF, Afib, DM2, GERD, and Dementia who was admitted to hospital for fall following a recent fall at his home. Patient states that yesterday morning he was trying to back out of bed, backed too far fell on the floor and hit his head. Since coming to the hospital he has received morphine, denies any pain at this time. Patient believed he has already received surgery for his leg fracture. Patient denies any fever, chills, headache, dizziness, nausea, vomiting, chest pain, abdominal pain, loss of sensation, or rashes. Per patients records, he lives at [facility] nursing [facility]. On Friday he rolled out of bed, Friday XR noted hip fracture, was sent to the ED afterwards. DNR/DNI per records from [facility]. Fracture of left femoral neck -Pelvic/hip XR: Acute impacted minimally displaced left femoral neck fracture. -Ortho consulted: surgery yesterday -Chronically low platelet status and need for platelets prior to procedure -Patient was tachycardiac and had one episode of elevated temperature. Most likely d/t atelectasis and has not had a fever since that once episode. Will continue to monitor. -Patient has no pain at this time and on prn pain meds. Fracture of Cervical Spine CT Cervical Spine: There are acute and minimally displaced spinous process fractures of C2, C3, C4, and C5. No additional fracture is identified involving the cervical spine. There are minimal acute appearing superior endplate compression deformities of T1 and T2. Osteopenia and spondylotic change seen. -ordered cervical brace -Morphine PRN -Ortho consulted, appreciate recommendations Demand Ischemia -Troponin was slightly elevated at 26.3 and EKG showed incomplete L bundle block, ST more depressed anterior leads, L axis deviation with HR of 109 BPM -Repeat EKG yesterday and this morning showed no acute changes. Troponin was 26.2 on repeat 6 hours later. No need to trend -Given one dose of metoprolol IV 5mg yesterday. Restarted on home metoprolol succinate 25mg BID. no episodes of tachycardia since restarting meds. -Patient not currently having any symptoms. Will continue to monitor but no intervention needed at this time. Vit D deficiency -12.5 ng/mL on labs -Started cholecalciferol 5,000 units QAM. Will continue outpatient. Fall -CT head: There is no hemorrhage, mass effect, or evidence of acute territorial ischemia by CT criteria. -PT/OT ordered Thrombocytopenia -Platelet 82, chronic -Platelets were given before surgery. Atrial Fibrillation -Eliquis ASA was stopped 03/06 -Restarted on Eliquis 2.5 mg PO BID Hypothyroidism -continue levothyroxine CHF -continue bumex 2mg daily -continue losartan -continue amlodipine Depression -continue sertraline and trazadone GERD -continue Protonix DM2 -hold home diabetic regime, sliding scale insulin for hospital course -Lantus 6U BID Diet: NPO until after surgery Code Status: DNR/DNI DVT PPX: SCDs PT/OT: ordered Thank you for allowing me to participate in the care of your patient. -Dr. Wilbert Torres PGY1 (2) Fracture of cervical spine without spinal cord lesion: (3) CHF (congestive heart failure): (4) Atrial fibrillation: (5) Diabetes: (6) Demand ischemia: (7) Vitamin D deficiency: Admission and Anticipated Discharge Date Admission Date: March 07, 2022 Supervising Physician Co-Signing Physician Notes I personally examined the patient and verified all ricardo points of history and exam, discussed case, and agree with decision making with Dr Torres Awake. Makes eye contact, converses a little. HPI and review of systems negative but of questionable veracity. No complaints of pain chest pain or shortness of breath. Vitals noted, awake and alert appears confused pleasant no distress. HEENT normocephalic atraumatic mucous membranes moist. Breathing unlabored no accessory muscle use good effort. Skin shows no rashes no pallor or icterus. Neuro without focal deficits. Left femoral fracture -postop. Overall stable. Anticipate return to SNF Spinous process cervical fracture -continue hard collar/orthospine recommendations. VTE Prophylaxis -restart Eliquis at low-dosethen escalate slowly over the next few daysappreciate orthopedics input. Mild troponin elevation/ST depressionshas known coronary artery disease history. Appears to have been mild demand ischemia that improved with better rate control. Subjective Patient was seen beside this AM. He is currently only A&O x 1 (self only). He states that he is not having any pain from the surgery or any CP, Chest tightness, palpations, ab pain, or N/V. Physical Exam Constitutional: WD/WN, vitals as above Neck: normal visual inspection Respiratory: normal respiratory effort, lungs clear to auscultation Cardiovascular: Rate/Rhythm: + irregularly irregular Extremities: normal capillary refill Gastrointestinal (Abdomen): normal bowel sounds, soft, nontender, no hepatosplenomegaly Skin: no rashes, warm and dry Psychiatric: Orientation: oriented to person (only) Results & Data Results & Data ([facility]) Vital Signs (Past 12 Hours) Vital Signs Temp Pulse Pulse Resp BP Pulse Ox O2 Del Method 03/10/22 03:02 37.2 C 90 18 99/52 L 90 Room Air 03/10/22 01:16 37.5 C 03/10/22 00:04 76 03/09/22 23:36 38.3 C H 87 18 115/67 97 Room Air 03/09/22 20:59 37.1 C 85 17 143/80 H 96 Room Air Resident Activity Tracking Resident Involvement: Resident Care Provided Care Provided: Adult Hospital Medicine
--- NOTE | 2022-03-10 07:14 | Electrocardiogram Report ---
Test Reason : Blood Pressure : / mmHG Vent. Rate : 086 BPM Atrial Rate : 227 BPM P-R Int : 000 ms QRS Dur : 116 ms QT Int : 412 ms P-R-T Axes : 000 -44 179 degrees QTc Int : 493 ms Atrial flutter with variable A-V block with premature ventricular or aberrantly conducted complexes Left anterior fascicular block Marked ST abnormality, possible inferior subendocardial injury Marked ST abnormality, possible anterolateral subendocardial injury Prolonged QT Abnormal ECG When compared with ECG of 09-MAR-2022 10:37, T wave inversion now evident in Anterior leads Confirmed by Kristopher Newman ([id number]) on 03/10/2022 7:14:43 AM Referred By: [facility] Confirmed By:Scott Newman
--- NOTE | 2022-03-10 07:19 | Electrocardiogram Report ---
Test Reason : Blood Pressure : / mmHG Vent. Rate : 087 BPM Atrial Rate : 091 BPM P-R Int : 000 ms QRS Dur : 118 ms QT Int : 396 ms P-R-T Axes : 000 -53 133 degrees QTc Int : 476 ms Atrial fibrillation with premature ventricular or aberrantly conducted complexes Left axis deviation Marked ST abnormality, possible lateral subendocardial injury Abnormal ECG When compared with ECG of 09-MAR-2022 14:12, (unconfirmed) ST less depressed in Anterior leads T wave inversion no longer evident in Anterior leads Confirmed by Kristopher Newman ([id number]) on 03/10/2022 7:18:56 AM Referred By: [facility] Confirmed By:Scott Newman
[2022-03-10 07:21] LABS: BUN Creatinine Ratio 29.7 (10-20); Calcium 8.7 mg/dl (8.5-10.1); Creatinine Clr Calc Pharmacy 37.8 ml/min; Est GFR (Non-African American) 48.3 ml/min; Potassium 3.8 mmol/L (3.5-5.1)
[2022-03-10] MEDS ORDERED: amLODIPine BESYLATE 5 MG TAB PO SCH (09:00)
[2022-03-10] MEDS ORDERED: BUMETANIDE 1 MG TAB PO SCH (09:00)
[2022-03-10] MEDS ORDERED: ATORVASTATIN 40 MG TAB PO SCH (09:00)
[2022-03-10] MEDS: FERROUS SULFATE 325 MG TAB PO SCH ×2 (09:26→17:14)
[2022-03-10] MEDS: BUMETANIDE 1 MG TAB PO SCH (09:27)
[2022-03-10] MEDS: ATORVASTATIN 40 MG TAB PO SCH (09:27)
[2022-03-10] MEDS: amLODIPine BESYLATE 5 MG TAB PO SCH (09:27)
[2022-03-10] MEDS: LANTUS PER UNIT CHARGE SQ SCH ×2 (09:28→21:54)
[2022-03-10] MEDS: CYANOCOBALAMIN (B-12) 100 MCG TABLET PO SCH (09:28)
[2022-03-10] MEDS: LOSARTAN POTASSIUM 50 MG TAB PO SCH (09:28)
[2022-03-10] MEDS: PANTOprazole 40 MG TAB PO SCH ×2 (09:29→20:20)
[2022-03-10] MEDS: SERTRALINE HCL 100 MG TABLET PO SCH (09:29)
[2022-03-10] MEDS: METOPROLOL SUCC 25MG EXT REL TAB PO SCH ×2 (09:32→20:19)
--- NOTE | 2022-03-10 11:24 | Progress Notes ---
SUBJECTIVE: A 77-year-old gentleman with multiple medical comorbidities, now postoperative day 1 fro m a left cemented bipolar hip arthroplasty for fracture. He is doing pretty well. A little bit conf used this morning. Denies much in the way of pain. OBJECTIVE: VITAL SIGNS: Temperature is 37.1. Vital signs are stable. GENERAL: Physical examination shows an elderly male. He is lying in bed, looks pretty comfortable. EXTREMITIES: Examination of the left hip reveals the dressing to be clean, dry, and intact. The leg lengths are equal. He can dorsiflex and plantarflex his foot appropriately. He is neurologically i ntact. LABORATORY DATA: Hemoglobin 9.4. Hematocrit 28.7. Electrolytes are stable. ASSESSMENT: A 77-year-old gentleman postoperative day 1 from a left cemented bipolar hip arthroplast y for fracture. He has got multiple medical comorbidities. He appears pretty stable. PLAN: 1. DVT prophylaxis includes thigh-high TEDs, SCDs, and back on his anticoagulation. We would prefer to use a prophylactic level dose for maybe two days and then back to a therapeutic dose. 2. PT/OT, weight bear as tolerated. Left total hip protocol. Needs to obey hip precautions. 3. Medical management as per the medicine service. 4. Disposition: Will likely need discharge back to a correction facility like where he came fr . I think the daughter has some issues that will need to be sorted out before a definitive transfe r. I need to see him back in 2-3 weeks out from surgery date. Any orthopedic questions can be direc temo to me at [phone]. Job ID: [id number]
[2022-03-10] MEDS ORDERED: Nursing to Pharmacy Communication SCH (12:00)
--- NOTE | 2022-03-10 19:02 | Billing Data ---
Date of Service March 10, 2022 Coding Level of Care Code 98746 Subseq Hosp Care Lvl 3
[2022-03-10] MEDS: APIXABAN 2.5 MG TAB PO SCH (20:20)
[2022-03-10] MEDS: MELATONIN 3 MG TAB PO SCH (20:20)
[2022-03-10] MEDS: traZODone HCL 50 MG TAB PO SCH (20:21)
[2022-03-10] MEDS ORDERED: LACTATED RINGER'S 250 ML IV ONE (23:34)
[2022-03-11] MEDS: LEVOTHYROXINE SODIUM 100 MCG TABLET PO SCH (06:05)
[2022-03-11] MEDS: POLYETHYLENE (MIRALAX) 17 GM PACK PO SCH ×3 (06:06→17:19)
--- NOTE | 2022-03-11 07:44 | Hospitalist Progress Note ---
Date of Service March 11, 2022 Assessment & Plan (1) Fracture of femoral neck, left: Plan: Baldomero is a 77 y/o M with a PMH of CHF, Afib, DM2, GERD, and Dementia who was admitted to hospital for fall following a recent fall at his home. Patient states that yesterday morning he was trying to back out of bed, backed too far fell on the floor and hit his head. Since coming to the hospital he has received morphine, denies any pain at this time. Patient believed he has already received surgery for his leg fracture. Patient denies any fever, chills, headache, dizziness, nausea, vomiting, chest pain, abdominal pain, loss of sensation, or rashes. Per patients records, he lives at [facility] nursing [facility]. On Friday he rolled out of bed, Friday XR noted hip fracture, was sent to the ED afterwards. DNR/DNI per records from [facility]. Fracture of left femoral neck -Pelvic/hip XR: Acute impacted minimally displaced left femoral neck fracture. -Ortho consulted: surgery yesterday -Chronically low platelet status and need for platelets prior to procedure -Patient was tachycardiac and had one episode of elevated temperature. Most likely d/t atelectasis and has not had a fever since that once episode. Will continue to monitor. -Patient has no pain at this time and on prn pain meds. Fracture of Cervical Spine CT Cervical Spine: There are acute and minimally displaced spinous process fractures of C2, C3, C4, and C5. No additional fracture is identified involving the cervical spine. There are minimal acute appearing superior endplate compression deformities of T1 and T2. Osteopenia and spondylotic change seen. -ordered cervical brace -Morphine PRN -Ortho consulted, appreciate recommendations Demand Ischemia -Troponin was slightly elevated at 26.3 and EKG showed incomplete L bundle block, ST more depressed anterior leads, L axis deviation with HR of 109 BPM -Repeat EKG yesterday and this morning showed no acute changes. Troponin was 26.2 on repeat 6 hours later. No need to trend -Given one dose of metoprolol IV 5mg yesterday. Restarted on home metoprolol succinate 25mg BID. no episodes of tachycardia since restarting meds. -Patient not currently having any symptoms. Will continue to monitor but no intervention needed at this time. Vit D deficiency -12.5 ng/mL on labs -Started cholecalciferol 5,000 units QAM. Will continue outpatient. Fall -CT head: There is no hemorrhage, mass effect, or evidence of acute territorial ischemia by CT criteria. -PT/OT ordered Thrombocytopenia -Platelet 82, chronic -Platelets were given before surgery. Atrial Fibrillation -Eliquis ASA was stopped 03/06 -Restarted on Eliquis 2.5 mg PO BID Hypothyroidism -continue levothyroxine CHF -continue bumex 2mg daily -continue losartan -continue amlodipine Depression -continue sertraline and trazadone GERD -continue Protonix DM2 -hold home diabetic regime, sliding scale insulin for hospital course -Lantus 6U BID Diet: NPO until after surgery Code Status: DNR/DNI DVT PPX: SCDs PT/OT: ordered (2) Fracture of cervical spine without spinal cord lesion: (3) CHF (congestive heart failure): (4) Atrial fibrillation: (5) Diabetes: (6) Demand ischemia: (7) Vitamin D deficiency: Admission and Anticipated Discharge Date Admission Date: March 07, 2022 Subjective Patient notes that he is doing well today. Review of Systems Review of Systems: See above. Results & Data Results & Data ([facility]) Vital Signs (Past 12 Hours) Vital Signs Temp Pulse Pulse Resp BP BP Pulse Ox 03/11/22 02:45 36.6 C 96 H 18 103/57 L 100 03/10/22 22:09 79 03/11/22 00:34 76 117/78 03/10/22 23:19 36.4 C L 77 16 91/46 L 98 O2 Del Method 03/11/22 02:45 Room Air 03/10/22 22:09 03/11/22 00:34 03/10/22 23:19 Room Air
--- NOTE | 2022-03-11 08:47 | Progress Notes ---
DATE OF NOTE: 03/11/2022. SUBJECTIVE: A 77-year-old gentleman, postoperative day 2 from a left cemented bipolar hip arthroplas ty for fracture. Seems to be doing okay. He denies any pain. He has clearly been a bit confused po stoperatively. OBJECTIVE: VITAL SIGNS: Temperature 36.6. Vital signs are stable. GENERAL: Shows a pleasant, elderly male. He is lying in bed. Looks pretty comfortable. He respond s appropriately to commands. He does appear a bit confused. EXTREMITIES: Examination of the left hip reveals the dressing in the leg to be well aligned. Dressi ng is clean, dry and intact. No detectable drainage. Thigh is soft and supple. He is neurologicall y intact. ASSESSMENT: A 77-year-old gentleman with multiple medical comorbidities postop day 2 from a left александр ented bipolar hip arthroplasty. Orthopedically, he is doing reasonably well. Not having any apparen t pain. Hip is located. He is neurologically intact. He is a bit confused and has got some underly ing dementia. PLAN: 1. DVT prophylaxis includes thigh-high TEDs, SCDs and back on Eliquis 2.5 mg twice a day. 2. PT/OT. He can weight bear as tolerated. Obey hip precautions. 3. Medical management as per the medicine service. 4. Pain control. Seems to be doing fine with the current pain regimen. Stick to Tylenol as much as possible to avoid exacerbating confusion. 5. Disposition. He is orthopedically okay for discharge any time medically stable. I need to see hi m back in 2-3 weeks out from surgery date. Any orthopedic questions can be directed to me at . Job ID: [id number]
--- NOTE | 2022-03-11 09:06 | Progress Note ---
Date of Service March 11, 2022 Assessment & Plan (1) Closed hip fracture: Plan: This is a pleasant 77 y/o male with a PMH of CHF, Afib, T2DM, dementia, and GERD today is s/p left cemented bipolar hip arthroplasty (03/09) for fracture. Left hip fracture s/p operative repair on 03/09 -Tylenol, morphine for pain -Monitor surgical site -Follow orthopedics recommendation Anemia -Hgb slowly downtrending since admission (12.5 to 8.8) -No sign of active bleeding, but some concern for possible surgical site hematoma -Low threshold for holding home eliquis -Type/screen already performed -Trend CBC Atrial fibrillation -Currently in afib, currently rate controlled -Started Eliquis again, back on home dose -Continue cardiac monitoring Cervical C2,3,4,5 spinous process fracture -Continue to limit neck mobility with cervical collar -Appreciate ortho recommendations Dementia -Patient baseline is unknown. Present delirium could be due to baseline dementia, hospital delirium, or delirium due to pain. -Continue symptomatic control -Continue frequent reorientation -Caution with [place] list meds FEN: DM2 diet Code status: DNR/DNI DVT ppx: home eliquis, thigh-high SCDs Consults: orthopedics PT/OT: ordered Case management: following Dispo: med/surg telemetry Admission and Anticipated Discharge Date Admission Date: March 07, 2022 Supervising Physician Co-Signing Physician Notes I personally saw the patient and confirmed ricardo portions of the history and physical examination. I reviewed the case with the medical student and resident physician seeing the patient as well. I agree with the impression and plan as noted above also as outlined below. Upon our midmorning exam, the patient is lying supine in bed. He has no complaints. He denies pain. Exam 122/71, 88, 18, 37.5, 93% on room air Alert. No distress appreciated. Heart irregularly irregular Lungs clear with nonlabored respirations Abdomen slightly distended but nontender, bowel sounds are normoactive Data Hemoglobin 8.8, platelet count 70 BUN 41, creatinine 1.38 (03/10/2022) Vitamin D 12.5 (03/10/2022) Impression and Plan Left femoral fracture - Orthopedics consultation appreciated. Spinous process cervical fracture -continue hard collar/orthospine recommendations. Chronic diastolic congestive heart failurecontinue Bumex Atrial fibrillation - Rate reasonably well controlled, Eliquis resumed; Need to monitor hemoglobin Mild troponin elevation/ST depressionshas known coronary artery disease history. Appears to have been mild demand ischemia that improved with better rate control. Vitamin D deficiency supplement Subjective This is a pleasant 77 y/o male with a PMH of CHF, Afib, T2DM, dementia, and GERD today is s/p left cemented bipolar hip arthroplasty (03/09) for fracture. The patient reports some pain in the physician assistant psychiatry (03/11), which has subsided now. He has no chest pain or discomfort, no nausea or vomiting. Has some leg discomfort at the surgical site. The patient is eager to get out of bed and walk around. Review of Systems Cardiovascular: Additional Comments: No chest pain, or palpitations Gastrointestinal: No nausea, vomitting, or dirrhea Physical Exam Constitutional: Well appearing and in no obvious discomfort Neck: The patient is wearing a cervical collar Respiratory: Breath sounds distant Cardiovascular: Heart sounds distant, no murmur appreciated, cap refill < 2 seconds Gastrointestinal (Abdomen): Abdomen nondistended, nontender Musculoskeletal: Sensation in the lower extremities intact bilaterally. LE strength 5/5 bilaterally. No peripheral edema Neurologic: Oriented to self but not place, time, or situation Results & Data ([facility]) Vital Signs (Past 12 Hours) Vital Signs Temp Pulse Pulse Pulse Resp BP BP 03/11/22 08:00 36.5 C 106 H 20 115/70 03/11/22 02:45 36.6 C 96 H 18 103/57 L 03/10/22 22:09 79 03/11/22 00:34 76 117/78 03/10/22 23:19 36.4 C L 77 16 91/46 L Pulse Ox O2 Del Method 03/11/22 08:00 94 Room Air 03/11/22 02:45 100 Room Air 03/10/22 22:09 03/11/22 00:34 03/10/22 23:19 98 Room Air Results Complete Blood Count Results: RBC 2.85 M/uL (4.63-6.08) L 03/11/22 WBC 4.73 K/ul (4.8-10.8) L 03/11/22 Hgb 8.8 g/dl (14.0-18.0) L 03/11/22 Hct 26.7 % (40.1-51.0) L 03/11/22 Plt Count 70 K/uL (130-400) L 03/11/22 Results BMP Results: Sodium 136 mmol/L (136-145) 03/10/22 Potassium 3.8 mmol/L (3.5-5.1) 03/10/22 Chloride 105 mmol/L (98-107) 03/10/22 Carbon Dioxide 23 mmol/L (21-32) 03/10/22 Anion Gap 8 (3-11) 03/10/22 BUN 41 mg/dl (6-23) H 03/10/22 Creatinine 1.38 mg/dl (0.6-1.4) 03/10/22 Glucose 133 mg/dl (70-99(Fasting)) H 03/10/22 Results CBC w Diff Results: RBC 2.85 M/uL (4.63-6.08) L 03/11/22 WBC 4.73 K/ul (4.8-10.8) L 03/11/22 Hgb 8.8 g/dl (14.0-18.0) L 03/11/22 Hct 26.7 % (40.1-51.0) L 03/11/22 MCV 93.7 fL (80.0-100.0) 03/11/22 MCH 30.9 pg (25.0-34.0) 03/11/22 MCHC 33.0 g/dL (32.0-36.0) 03/11/22 RDW Standard Deviation 52.5 fL (36.4-46.3) H 03/11/22 RDW Coefficient of Variation 15.4 % (11.5-14.5) H 03/11/22 Plt Count 70 K/uL (130-400) L 03/11/22 MPV 10.7 fL (9.4-12.4) 03/11/22 Nucleated Red Blood Cells % (auto) 1.1 % 09/25 Nucleated RBC Absolute Count (auto) 0.03 K/uL (0-0) H 09/07 02/28 Neutrophils (%) (Auto) 74.5 % 03/10/22 Lymphocytes (%) (Auto) 12.2 % 03/10/22 Monocytes # (Auto) 0.64 K/uL (0.24-0.82) 03/10/22 Eosinophils # (Auto) 0.10 K/uL (0-0.50) 03/10/22 Immature Granulocyte % (Auto) 0.3 % 03/10/22 Neutrophils # (Auto) 4.32 K/uL (1.4-6.5) 03/10/22 Lymphocytes # (Auto) 0.71 K/uL (1.2-3.4) L 03/10/22 Monocytes # (Auto) 0.64 K/uL (0.24-0.82) 03/10/22 Eosinophils # (Auto) 0.10 K/uL (0-0.50) 03/10/22 Basophils # (Auto) 0.02 K/uL (0-0.2) 03/10/22 Immature Granulocyte # (Auto) 0.02 K/uL (0.00-0.02) 2 Giant Platelets 1+ 09/25/21 Red Blood Cell Morphology Unremarkable 09/03/18 Polychromasia 1+ 09/28/21 Hypochromasia Present 09/27/21 Poikilocytosis Present 09/26/21 Echinocytes 1+ 09/27/21 Anisocytosis Present 09/28/21 Target Cells 1+ 09/24/21 Tear Drop Cells 1+ 11/08/21 Ovalocytes 1+ 12/06/21 Acanthocytes 1+ 09/24/21 Schistocytes 1+ 09/23/21 Resident Activity Tracking Resident Involvement: Resident Care Provided Care Provided: Adult [facility] Medicine
[2022-03-11] MEDS: LOSARTAN POTASSIUM 50 MG TAB PO SCH (09:07)
[2022-03-11] MEDS: FERROUS SULFATE 325 MG TAB PO SCH ×2 (09:07→17:18)
[2022-03-11] MEDS: CYANOCOBALAMIN (B-12) 100 MCG TABLET PO SCH (09:07)
[2022-03-11] MEDS: METOPROLOL SUCC 25MG EXT REL TAB PO SCH ×2 (09:08→20:56)
[2022-03-11] MEDS: SERTRALINE HCL 100 MG TABLET PO SCH (09:08)
[2022-03-11] MEDS: BUMETANIDE 1 MG TAB PO SCH (09:08)
[2022-03-11] MEDS: amLODIPine BESYLATE 5 MG TAB PO SCH (09:09)
[2022-03-11] MEDS: PANTOprazole 40 MG TAB PO SCH ×2 (09:09→20:56)
[2022-03-11] MEDS: ATORVASTATIN 40 MG TAB PO SCH (09:10)
[2022-03-11] MEDS: APIXABAN 2.5 MG TAB PO SCH ×2 (09:10→20:56)
[2022-03-11] MEDS: CHOLECALCIFEROL 5,000 UNITS 125 MCG TAB PO SCH (09:14)
[2022-03-11] MEDS: INSULIN ASPART PER UNIT SC SCH ×4 (09:23→20:57)
[2022-03-11] MEDS: LANTUS PER UNIT CHARGE SQ SCH ×2 (09:23→20:56)
[2022-03-11 09:47] LABS: Hematocrit (blood only) 26.7 % (40.1-51.0); Hemoglobin 8.8 g/dl (14.0-18.0); Mean Platelet Volume 10.7 fL (9.4-12.4); Platelet Count 70 K/uL (130-400); White Blood Count 4.73 K/ul (4.8-10.8)
[2022-03-11 10:08] LABS: Mean Corpuscular Hemoglobin 30.9 pg (25.0-34.0); Mean Corpuscular Volume 93.7 fL (80.0-100.0); RDW Coefficient of Variation 15.4 % (11.5-14.5); RDW Standard Deviation 52.5 fL (36.4-46.3); Red Blood Count 2.85 M/uL (4.63-6.08)
[2022-03-11] MEDS: MELATONIN 3 MG TAB PO SCH (20:56)
[2022-03-11] MEDS: traZODone HCL 50 MG TAB PO SCH (20:56)
[2022-03-12] MEDS: POLYETHYLENE (MIRALAX) 17 GM PACK PO SCH ×4 (01:04→17:15)
[2022-03-12] MEDS: LEVOTHYROXINE SODIUM 100 MCG TABLET PO SCH (06:01)
[2022-03-12 07:35] LABS: BUN Creatinine Ratio 32.8 (10-20); Calcium 8.8 mg/dl (8.5-10.1); Creatinine Clr Calc Pharmacy 43.8 ml/min; Est GFR (African American) 66.9 ml/min; Est GFR (Non-African American) 57.8 ml/min; Potassium 3.7 mmol/L (3.5-5.1)
[2022-03-12 07:46] LABS: ALC (manual) 0.55 K/uL (1.2-3.4); ANC (manual) 3.36 K/uL (1.4-6.5); Eosinophils # (manual) 0.04 K/uL (0-0.50); Eosinophils % (manual) 1 %; Lymphocytes # (manual) 0.55 K/uL (1.2-3.4); Lymphocytes % (manual) 13 %; Monocytes # (manual) 0.25 K/uL (0.24-0.82); Monocytes % (manual) 6 %; Neutrophils # (manual) 3.36 K/uL (1.4-6.5); Neutrophils % (manual) 80 %; Ovalocytes 1+; Polychromasia 1+
--- NOTE | 2022-03-12 08:28 | Progress Note ---
Date of Service March 12, 2022 Assessment & Plan (1) Closed hip fracture: Plan: This is a pleasant 77 y/o male with a PMH of CHF, Afib, T2DM, dementia, and GERD today is s/p left cemented bipolar hip arthroplasty (03/09) for fracture. Left hip fracture s/p operative repair on 03/09 -Tylenol, morphine for pain -Monitor surgical site -Appreciate further orthopedic recommendations Anemia -Hgb slowly downtrending since admission from 12.5 down to mid-8's -No sign of active bleeding, but some concern for possible surgical site hematoma -Low threshold for holding home eliquis -Hgb stabilized - minimal change on hospital day 6 -Trend CBC Atrial fibrillation -Currently in afib, currently rate controlled -Started Eliquis again, back on home dose -Continue cardiac monitoring Cervical C2,3,4,5 spinous process fracture -Continue to limit neck mobility with cervical collar -Appreciate ortho recommendations Dementia -Patient baseline is unknown. Present delirium could be due to baseline dementia, hospital delirium, or delirium due to pain. -Continue symptomatic control -Continue frequent reorientation -Caution with Beers list meds FEN: DM2 diet Code status: DNR/DNI DVT ppx: home eliquis, thigh-high SCDs Consults: orthopedics PT/OT: ordered Case management: following - placement pending daughter's decision Dispo: med/surg telemetry Admission and Anticipated Discharge Date Admission Date: March 07, 2022 Supervising Physician Co-Signing Physician Notes I personally saw the patient and confirmed ricardo portions of the history and physical examination. I reviewed the case with the medical student and resident physician seeing the patient as well. I agree with the impression and plan as noted above also as outlined below. Upon my midmorning exam, the patient is lying supine in bed. He has no co mplaints. He denies pain. Exam 130/73, 78, 16, 37 C, 96% room air Alert. No distress appreciated. Heart irregularly irregular, Rate in the mid 70s Lungs clear with nonlabored respirations Abdomen ggain slightly distended but nontender, bowel sounds are normoactive Data Hemoglobin 8.6, platelet count 81 BUN 39, creatinine 1.19 Impression and Plan Left femoral fracture - Orthopedics consultation appreciated; PT/OT Spinous process cervical fracture -continue hard collar/orthospine recommend ations. Chronic diastolic congestive heart failurecontinue Bumex Atrial fibrillation - Rate reasonably well controlled, Eliquis resumed; Hemoglobin stable since resumption of Eliquis Mild troponin elevation/ST depressionshas known coronary artery disease history. Appears to have been mild demand ischemia that improved with better rate control. Question constipation - He has no complaints but does seem slightly distended. He reports having a bowel movement yesterday although nursing has no documentation (patient with noted dementia). Check KUB to determine stool burden and exclude developing obstruction. May need bowel regimen before discharge Vitamin D deficiency supplement Subjective This is a pleasant 77 Y/O man with PMH of CHF, AFib, T2DM, dementia, GERD, and is s/p left cemented bipolar hip arthroplasty for fracture (03/09). The patient is in no pain, or discomfort. He states he has gotten out of bed to move around, and the nurse reports the physical therapist saw him once yesterday (03/11). He is having no chest pain or palpitations, no nausea, vomiting, or diarrhea. He is experiencing some constipation and is eager to discharge. Review of Systems Constitutional: In no pain or distress Cardiovascular: Additional Comments: No chest pain or palpitations Gastrointestinal: No nausea, vomitting or diarrhea. Reports some constipation Neurologic: No numbness or tingling Physical Exam Constitutional: well developed (well appearing), cooperative and comfortable; no acute distress Neck: normal visual inspection and + limited neck extension (Wearing cervical collar) Respiratory: normal respiratory effort; no respiratory distress Cardiovascular: Rate/Rhythm: + irregularly irregular; + abnormal rate (irreg.) and + abnormal rhythm (irreg.) Heart Sounds: no murmur Extremities: normal capillary refill (<2 seconds in UE and LE); no edema Gastrointestinal (Abdomen): Normal bowel sounds, nontender to palpation, no masses Musculoskeletal: Spine: + limited cervical ROM Extremities: extremities normal to inspection (LE strength 5/5 bilaterally); full ROM of extremities No peripheral edema Skin: no rashes, warm and dry Neurologic: Motor/Sensory: no sensory deficit LE sensation intact bilaterally, LE strength 5/5 bilaterally Psychiatric: Orientation: oriented to person (self only, not place, time, or situation ) Results & Data ([facility]) Vital Signs (Past 12 Hours) Vital Signs Temp Pulse Pulse Resp BP Pulse Ox O2 Del Method 03/12/22 07:21 36.9 C 78 16 114/69 96 Room Air 03/12/22 06:18 103 H 03/12/22 03:27 36.8 C 103 H 18 112/64 92 Room Air 03/11/22 22:54 36.7 C 61 18 118/66 97 Room Air 03/11/22 20:55 106 H 124/67 Results Diabetes Panel Results: Na 135 mmol/L (136-145) L 03/12/22 K 3.7 mmol/L (3.5-5.1) 03/12/22 Cl 104 mmol/L (98-107) 03/12/22 CO2 25 mmol/L (21-32) 03/12/22 Anion Gap 6 (3-11) 03/12/22 BUN 39 mg/dl (6-23) H 03/12/22 Creatinine 1.19 mg/dl (0.6-1.4) 03/12/22 Est GFR ( Amer) 66.9 ml/min 03/12/22 Est GFR (Non-Af Amer) 57.8 ml/min 03/12/22 BUN/Creatinine Ratio 32.8 (10-20) H 03/12/22 Glu 153 mg/dl (70-99(Fasting)) H 03/12/22 Hemoglobin A1c 5.9 % (4.5-5.6) H 03/08/22 Ca 8.8 mg/dl (8.5-10.1) 03/12/22 Total Bilirubin 1.1 mg/dl (0.2-1.0) H 03/07/22 Direct Bilirubin 0.3 mg/dl (0-0.2) H 09/22/21 AST 48 U/L (13-39) H 03/07/22 ALT 28 U/L (7-52) 03/07/22 Alkaline Phosphatase 68 U/L (34-104) 03/07/22 TP 8.0 gm/dl (6.0-8.3) 03/07/22 Albumin 4.1 gm/dl (3.4-5.0) 03/07/22 Globulin 3.9 gm/dl (2.5-4.0) 03/07/22 Results Blood Type: Blood Type O Positive 03/07/22 Antibody Screen NEGATIVE 03/07/22 Results CBC w Diff Results: RBC 2.70 M/uL (4.63-6.08) L 03/12/22 WBC 4.20 K/ul (4.8-10.8) L 03/12/22 Hgb 8.6 g/dl (14.0-18.0) L 03/12/22 Hct 25.0 % (40.1-51.0) L 03/12/22 MCV 91.2 fL (80.0-100.0) 03/12/22 MCH 31.4 pg (25.0-34.0) 03/12/22 MCHC 34.4 g/dL (32.0-36.0) 03/12/22 RDW Standard Deviation 52.5 fL (36.4-46.3) H 03/11/22 RDW Coefficient of Variation 15.4 % (11.5-14.5) H 03/12/22 Plt Count 81 K/uL (130-400) L 03/12/22 MPV 11.6 fL (9.4-12.4) 03/12/22 Nucleated Red Blood Cells % (auto) 1.1 % 09/25 Nucleated RBC Absolute Count (auto) 0.03 K/uL (0-0) H 09/07 02/28 Neutrophils (%) (Auto) 74.5 % 03/10/22 Lymphocytes (%) (Auto) 12.2 % 03/10/22 Monocytes # (Auto) 0.64 K/uL (0.24-0.82) 03/10/22 Eosinophils # (Auto) 0.10 K/uL (0-0.50) 03/10/22 Immature Granulocyte % (Auto) 0.3 % 03/10/22 Neutrophils # (Auto) 4.32 K/uL (1.4-6.5) 03/10/22 Lymphocytes # (Auto) 0.71 K/uL (1.2-3.4) L 03/10/22 Monocytes # (Auto) 0.64 K/uL (0.24-0.82) 03/10/22 Eosinophils # (Auto) 0.10 K/uL (0-0.50) 03/10/22 Basophils # (Auto) 0.02 K/uL (0-0.2) 03/10/22 Immature Granulocyte # (Auto) 0.02 K/uL (0.00-0.02) 2 ANC 3.36 K/uL (1.4-6.5) 03/12/22 ALC 0.55 K/uL (1.2-3.4) L 03/12/22 Neutrophils % (Manual) 80 % 03/12/22 Lymphocytes % (Manual) 13 % 03/12/22 Monocytes % (Manual) 6 % 03/12/22 Eosinophils % (Manual) 1 % 03/12/22 Neutrophils # (Manual) 3.36 K/uL (1.4-6.5) 03/12/22 Lymphocytes # (Manual) 0.55 K/uL (1.2-3.4) L 03/12/22 Monocytes # (Manual) 0.25 K/uL (0.24-0.82) 03/12/22 Eosinophils # (Manual) 0.04 K/uL (0-0.50) 03/12/22 Giant Platelets 1+ 09/25/21 Red Blood Cell Morphology Unremarkable 09/03/18 Polychromasia 1+ 03/12/22 Hypochromasia Present 09/27/21 Poikilocytosis Present 09/26/21 Echinocytes 1+ 09/27/21 Anisocytosis Present 09/28/21 Target Cells 1+ 09/24/21 Tear Drop Cells 1+ 11/08/21 Ovalocytes 1+ 03/12/22 Acanthocytes 1+ 09/24/21 Schistocytes 1+ 09/23/21 Results BMP Results: Sodium 135 mmol/L (136-145) L 03/12/22 Potassium 3.7 mmol/L (3.5-5.1) 03/12/22 Chloride 104 mmol/L (98-107) 03/12/22 Carbon Dioxide 25 mmol/L (21-32) 03/12/22 Anion Gap 6 (3-11) 03/12/22 BUN 39 mg/dl (6-23) H 03/12/22 Creatinine 1.19 mg/dl (0.6-1.4) 03/12/22 Glucose 153 mg/dl (70-99(Fasting)) H 03/12/22 Results Complete Blood Count Results: RBC 2.70 M/uL (4.63-6.08) L 03/12/22 WBC 4.20 K/ul (4.8-10.8) L 03/12/22 Hgb 8.6 g/dl (14.0-18.0) L 03/12/22 Hct 25.0 % (40.1-51.0) L 03/12/22 Plt Count 81 K/uL (130-400) L 03/12/22 Results CMP Results: Na 135 mmol/L (136-145) L 03/12/22 K 3.7 mmol/L (3.5-5.1) 03/12/22 Cl 104 mmol/L (98-107) 03/12/22 CO2 25 mmol/L (21-32) 03/12/22 Anion Gap 6 (3-11) 03/12/22 BUN 39 mg/dl (6-23) H 03/12/22 Creatinine 1.19 mg/dl (0.6-1.4) 03/12/22 Estimated GFR ( Amer) 66.9 ml/min 03/12/22 Estimated GFR (Non-Af Amer) 57.8 ml/min 03/12/22 BUN/Creatinine Ratio 32.8 (10-20) H 03/12/22 Glu 153 mg/dl (70-99(Fasting)) H 03/12/22 Ca 8.8 mg/dl (8.5-10.1) 03/12/22 Total Bilirubin 1.1 mg/dl (0.2-1.0) H 03/07/22 Direct Bilirubin 0.3 mg/dl (0-0.2) H 09/22/21 AST 48 U/L (13-39) H 03/07/22 ALT 28 U/L (7-52) 03/07/22 Alkaline Phosphatase 68 U/L (34-104) 03/07/22 TP 8.0 gm/dl (6.0-8.3) 03/07/22 Albumin 4.1 gm/dl (3.4-5.0) 03/07/22 Globulin 3.9 gm/dl (2.5-4.0) 03/07/22 Albumin/Globulin Ratio 1.1 (0.9-2) 03/07/22 Updated Medication List Medication Instructions Recorded Confirmed Type levothyroxine 100 mcg tablet 100 mcg PO QAM 08/09/19 03/07/22 History losartan 100 mg tablet 100 mg PO QAM 08/09/19 03/07/22 History melatonin 10 mg capsule 10 mg PO HS 08/09/19 03/07/22 History metformin 500 mg tablet,extended 1,000 mg PO BIDM 08/09/19 03/07/22 History release 24 hr metoprolol succinate 25 mg 25 mg PO BID 08/09/19 03/07/22 History tablet,extended release 24 hr potassium chloride 20 mEq 20 meq PO TID 08/09/19 03/07/22 History tablet,extended release(part/cryst) (Klor-Con M) blood sugar diagnostic (OneTouch #100 ea 08/13/19 03/07/22 Rx Verio test strips) pen needle, diabetic 32 gauge x #30 ea 08/13/19 03/07/22 Rx 5/32" (BD Rosemary 2nd Gen Pen Needle) trazodone 50 mg tablet 50 mg PO HS #30 tabs 08/13/19 03/07/22 Rx empagliflozin 10 mg tablet 10 mg PO QAM 11/07/20 03/07/22 History (Jardiance) sertraline 100 mg tablet 200 mg PO QAM 11/07/20 03/07/22 History cyanocobalamin (vitamin B-12) 100 100 mcg PO QAM #20 tabs 10/05/21 03/07/22 Rx mcg tablet (Vitamin B-12) ferrous sulfate 325 mg (65 mg 325 mg PO BIDM #60 tabs 10/05/21 03/07/22 Rx iron) tablet,delayed release pantoprazole 40 mg tablet,delayed 40 mg PO BID #60 tabs 10/05/21 03/07/22 Rx release bisacodyl 10 mg rectal suppository 10 mg ID DAILY PRN Constipation 11/12/21 03/07/22 History (Dulcolax (bisacodyl)) insulin glargine 100 unit/mL (3 20 unit subcut HS 11/12/21 03/07/22 History mL) subcutaneous pen (Lantus Solostar U-100 Insulin) magnesium hydroxide 400 mg/5 mL 30 ml PO UD PRN Constipation 11/12/21 03/07/22 History oral suspension (Milk of Magnesia) sodium phosphates 19 gram-7 118 ml ID DAILY PRN Constipation 11/12/21 03/07/22 History gram/118 mL enema (Fleet Enema) amlodipine 5 mg tablet 5 mg PO DAILY 03/07/22 03/07/22 History apixaban 2.5 mg tablet (Eliquis) 2.5 mg BID 03/07/22 03/07/22 History atorvastatin 40 mg tablet 40 mg DAILY 03/07/22 03/07/22 History bumetanide 1 mg tablet 2 mg DAILY 03/07/22 03/07/22 History Resident Activity Tracking Resident Involvement: Resident Care Provided Care Provided: Adult [facility] Medicine
[2022-03-12] MEDS: INSULIN ASPART PER UNIT SC SCH ×4 (08:54→21:34)
[2022-03-12] MEDS: LANTUS PER UNIT CHARGE SQ SCH ×2 (08:54→21:33)
[2022-03-12] MEDS: FERROUS SULFATE 325 MG TAB PO SCH ×2 (08:56→17:01)
[2022-03-12] MEDS: LOSARTAN POTASSIUM 50 MG TAB PO SCH (08:56)
[2022-03-12] MEDS: SERTRALINE HCL 100 MG TABLET PO SCH (08:56)
[2022-03-12] MEDS: amLODIPine BESYLATE 5 MG TAB PO SCH (08:57)
[2022-03-12] MEDS: APIXABAN 2.5 MG TAB PO SCH ×2 (08:57→21:40)
[2022-03-12] MEDS: CHOLECALCIFEROL 5,000 UNITS 125 MCG TAB PO SCH (08:57)
[2022-03-12] MEDS: ATORVASTATIN 40 MG TAB PO SCH (08:58)
[2022-03-12] MEDS: METOPROLOL SUCC 25MG EXT REL TAB PO SCH ×2 (08:58→21:40)
[2022-03-12] MEDS: CYANOCOBALAMIN (B-12) 100 MCG TABLET PO SCH (08:59)
[2022-03-12] MEDS: PANTOprazole 40 MG TAB PO SCH ×2 (08:59→21:40)
[2022-03-12] MEDS: BUMETANIDE 1 MG TAB PO SCH (08:59)
[2022-03-12 09:46] LABS: Hemoglobin 8.6 g/dl (14.0-18.0); Mean Corpuscular Hemoglobin 31.4 pg (25.0-34.0); Mean Corpuscular Hgb Conc 34.4 g/dL (32.0-36.0); Mean Corpuscular Volume 91.2 fL (80.0-100.0); Platelet Count 81 K/uL (130-400); RDW Coefficient of Variation 15.4 % (11.5-14.5)
[2022-03-12 09:47] LABS: Mean Platelet Volume 11.6 fL (9.4-12.4)
--- NOTE | 2022-03-12 10:35 | XRay Report ---
KUB HISTORY: tympanic abdomen COMPARISON: Abdomen and pelvis CT 08/10/2019. Chest and abdominal series 02/16/2014. FINDINGS: The bowel gas pattern is unremarkable. There are no dilated loops of small bowel to suggest an obstruction. No renal calculi. No ureteral calculi. No pneumoperitoneum or pneumatosis. Partiall y visualized left hip prosthesis with overlying skin reid. IMPRESSION: No dilated loops of bowel to suggest an obstruction or ileus at this time. ACT 112: Negative or not required by law. Electronically signed by: Zeb Greenwood M.D. 03/12/2022 10:34 AM
[2022-03-12] MEDS ORDERED: POLYETHYLENE (MIRALAX) 17 GM PACK PO STA (10:54)
[2022-03-12] MEDS ORDERED: POTASSIUM CHLORIDE CRTAB 20 MEQ TABCR PO STA (10:55)
[2022-03-12] MEDS: ACETAMINOPHEN 325 MG TAB PO PRN (11:29)
--- NOTE | 2022-03-12 17:51 | Progress Notes ---
SUBJECTIVE: A 77-year-old gentleman postoperative day #3 from a left cemented bipolar hip arthroplas ty for fracture. He seems to be doing okay. Denies much in the way of pain. No new complaints. OBJECTIVE: VITAL SIGNS: Temperature 36.7. Vital signs are stable. PHYSICAL EXAMINATION: GENERAL: Frail, elderly male. He is lying in bed. He looks reasonably comfortable. He does respon d to commands. He is still a bit confused. EXTREMITIES: Examination of the left hip reveals the incision to be healed nicely. There is some br uising in the area. No drainage. Thigh is soft and supple. NEUROLOGIC: He is neurologically intact. LABORATORY DATA: Hemoglobin 8.6. Hematocrit 25.0. Electrolytes are stable. ASSESSMENT: A 77-year-old gentleman with multiple medical comorbidities. Postop day #3 from a left cemented bipolar hip arthroplasty for fracture. Orthopedically, he is doing reasonably well. Pain s eems to be controlled. Hip is located. He is neurologically intact. PLAN: 1. DVT prophylaxis includes thigh-high TEDs, SCDs and back on his Eliquis dose. 2. PT/OT, weightbear as tolerated. Left total hip protocol. He does need to obey hip precautions. 3. Pain control, seems to be doing okay with current pain regimen. 4. Disposition: He is orthopedically okay for discharge any time when medically stable. I need to see him back in 2-3 weeks out from surgery date. Any orthopedic questions can be directed to me at . Job ID: [id number]
[2022-03-12] MEDS: MELATONIN 3 MG TAB PO SCH (21:53)
[2022-03-12] MEDS: traZODone HCL 50 MG TAB PO SCH (21:53)
[2022-03-13] MEDS: LEVOTHYROXINE SODIUM 100 MCG TABLET PO SCH (05:54)
[2022-03-13] MEDS: POLYETHYLENE (MIRALAX) 17 GM PACK PO SCH ×3 (05:54→11:25)
[2022-03-13] MEDS: CHOLECALCIFEROL 5,000 UNITS 125 MCG TAB PO SCH (08:55)
[2022-03-13] MEDS: FERROUS SULFATE 325 MG TAB PO SCH (08:55)
[2022-03-13] MEDS: amLODIPine BESYLATE 5 MG TAB PO SCH (08:56)
[2022-03-13] MEDS: ATORVASTATIN 40 MG TAB PO SCH (08:57)
[2022-03-13] MEDS: PANTOprazole 40 MG TAB PO SCH (08:57)
[2022-03-13] MEDS: APIXABAN 2.5 MG TAB PO SCH (08:57)
[2022-03-13] MEDS: BUMETANIDE 1 MG TAB PO SCH (08:57)
[2022-03-13] MEDS: LOSARTAN POTASSIUM 50 MG TAB PO SCH (08:58)
[2022-03-13] MEDS: SERTRALINE HCL 100 MG TABLET PO SCH (08:58)
[2022-03-13] MEDS: METOPROLOL SUCC 25MG EXT REL TAB PO SCH (08:58)
[2022-03-13] MEDS: CYANOCOBALAMIN (B-12) 100 MCG TABLET PO SCH (08:58)
[2022-03-13] MEDS: INSULIN ASPART PER UNIT SC SCH ×2 (09:09→12:33)
[2022-03-13] MEDS: LANTUS PER UNIT CHARGE SQ SCH (09:10)
--- NOTE | 2022-03-13 14:28 | Discharge Summary ---
Date of Service March 13, 2022 Admission HPI Per Admitting Provider 77yo Male PMH CHF Afib DM2 GERD admitted to hospital for fall. Patient states this morning he was trying back out of bed, backed too far fell on the floor and hit his head. Since coming to the hospital he has received morphine, denies any pain at this time. Patient believed he has already received surgery for his leg fracture. Patient denies any fever chills headache dizziness nausea vomiting chest pain abd pain loss of sensation or rashes. He states he lives with his daughter, he lives on the 2nd floor states he walks without assistance does not use cane or walker. Daughter assists him with medications. He states he used to fall more often, however he has been walking slower more recently and has fallen less. Per patients records, he lives at [facility]. On Friday he rolled out of bed, friday XR noted hip fracture, was sent to the ED afterwards. Patient noted to have dementia. DNR/DNI per records from [facility]. Discharge Data Allergies Allergy/AdvReac Type Severity Reaction Status Date / Time rivaroxaban AdvReac Intermediate VOMITING Verified 11/22/21 07:53 Consultations 03/07/22 18:15 ED Decision to Admit Stat 03/07/22 18:49 Consult Orthopedic Surgery Routine 03/08/22 06:50 Consult Orthopedic Surgery Routine Procedures Performed Operation Date: 03/08/22 12:25 <No data on this case meets the specified criteria> Operation Date: 03/09/22 07:30 Actual Procedures p Left Cemented Bipolar Hip(Left) - Gulshan Carlson MD Ordered Studies 03/07/22 16:38 CT cervical spine wo con Stat CT head/brain wo con Stat Hospital Course (1) Closed hip fracture: This is a pleasant 77 y/o male with a PMH of CHF, Afib, T2DM, dementia, and GERD today is s/p left cemented bipolar hip arthroplasty (03/09) for fracture. Left hip fracture s/p operative repair on 03/09 -Tylenol, morphine for pain -Monitor surgical site -Appreciate further orthopedic recommendations Anemia -Hgb slowly downtrending since admission from 12.5 down to mid-8's -No sign of active bleeding, but some concern for possible surgical site hematoma -Low threshold for holding home eliquis -Hgb stabilized - minimal change on hospital day 6 -Trend CBC Atrial fibrillation -Currently in afib, currently rate controlled -Started Eliquis again, back on home dose -Continue cardiac monitoring Cervical C2,3,4,5 spinous process fracture -Continue to limit neck mobility with cervical collar -Appreciate ortho recommendations Dementia -Patient baseline is unknown. Present delirium could be due to baseline dementia, hospital delirium, or delirium due to pain. -Continue symptomatic control -Continue frequent reorientation -Caution with Beers list meds FEN: DM2 diet Code status: DNR/DNI DVT ppx: home eliquis, thigh-high SCDs Consults: orthopedics PT/OT: ordered Case management: following - placement pending daughter's decision Dispo: med/surg telemetry Discharge Plan Discharge Items Patient Disposition: Transfer [facility] Reason For Visit: LEFT HIP AND CERVICAL SPINE FRACTURE Discharge Diagnosis: Left Hip Replacement for fracture Activity: Per Instructions section Activity Comment: Activity as tolerated obeying hip precautions at all times. Weightbearing: Full weightbearing Weightbearing Comment: WEightbear as tolerated obeying hip precautions Non-emergency contact: Surgeon Call non-emergency contact if: you have any medication questions Follow-up/Referrals: [facility] [Primary Care Provider] - Gulshan Carlson MD [Physician] - (Orthopedic follow-up 2-3 weeks from surgery date.) Diet: Carb Consistent or DM2 Addtl Attending Provider Instructions: ACTIVITY RECOMMENDATIONS: Physical Therapy: * Aggressive physical therapy is not usually needed. You will learn to take care of yourself safely and walk. * Follow the "Hip Precautions Instructions." * In some cases, the child welfare social worker at the hospital will arrange to have a therapist come to your house for the first couple of weeks to help you learn these skills. * You need to practice on your own or with the help of a family member as needed. * When you learn these skills, most of the therapy can be done on your own. Home Exercise: * You were shown a series of exercises in the hospital. Do these exercises three to four times each day including the exercises you were shown in physical therapy. Walking: * Get up and walk several times each day. For the first four weeks, try not to stand or walk for more than one hour at a time. If you do stand or walk for more than one hour, you will not hurt anything, but your leg will likely swell. * As you feel comfortable, you may change from the walker or crutches to a cane and then to independent walking. MEDICATIONS: New Medicine: * You will likely be taking one or more of these medicines: 1. Tramadol - Take, as directed, when you need it, every six hours to control your pain. 2. Eliquis - Thins your blood to lessen the chance of forming a blood clot. * The most common side effects of pain medicine and iron are nausea and constipation. If nausea or constipation is too much of a problem or if you have any questions about your new medicines or doses, call [facility] at [phone]. We will try to help you manage these issues. "VERY IMPORTANT TO READ AND REVIEW" Pain: * The immediate post-operative period after hip replacement surgery is often quite painful. * You are given a prescription for pain medicine. You should take it, as directed, when you need it, especially before physical therapy and before going to bed. Pain that interferes with sleep is very common and can last several months. * You will likely need pain medicine for the first two to four weeks. It will not stop all of the pain. The pain will lessen and as you feel better, you may change to milder pain medicine such as Tylenol. * The most common side effects of pain medicine are nausea and constipation, so don't take more than you need. SPECIAL CARE INSTRUCTIONS: TEDs/Elastic Stockings: * The white elastic stockings help limit swelling and prevent blood clots from forming in your legs. The more you wear them, the more they work. * Wear them for six weeks. Incision Site Care: * Remove dressing postoperative day 2 and then shower. Keep direct shower pressure off the incision site. * After showering, cover irene with dry gauze and change daily or more frequently if the dressing is getting saturated with drainage. * May completely stop using bandage if wound is dry and no drainage * Irene are removed between 2 and 3 weeks post-op. If your follow-up appointment is made before 2 weeks, please have your appointment re- scheduled. It is too early to remove the ierne. Prevention of Infection: * Take antibiotics one hour before any dental cleaning, dental work, urological procedure, gastrointestinal procedure or any invasive surgery in order to prevent your new joint from getting infected. * You may get the antibiotics from the doctor performing the procedure or you may call our office at before and we will call in a prescription to the pharmacy of your choice. Things to Watch For: * Drainage from the incision site that occurs more than one week after your surgery. * Severely increased leg pain or swelling. * Increased redness at the incision site. * Fever above 102 degrees Fahrenheit. * Unusual chest pain or shortness of breath. * Unusual pain or burning with urination. Call [facility] at with any of the above problems or if you have any questions about your medicines or recovery. FOLLOW UP VISIT: Make an appointment to see your doctor for approximately two weeks after surgery for a progress check and staple removal by calling the office at . Pending Studies at Discharge: No Stand-Alone Forms: My [facility] Skilled Items Patient informed of condition?: Yes DNR: Yes Discharge Level of Care: Skilled Communicable Disease: No Discharge Prognosis: Stable Lines: None Urinary Catheter: No Medications and DC Order Prescriptions: Continued metformin 500 mg tablet extended release 24 hr 1,000 mg PO BIDM potassium chloride [Klor-Con M20] 20 mEq tablet,ER particles/crystals 20 meq PO TID levothyroxine 100 mcg tablet 100 mcg PO QAM melatonin 10 mg Capsule 10 mg PO HS metoprolol succinate 25 mg tablet extended release 24 hr 25 mg PO BID losartan 100 mg tablet 100 mg PO QAM (DME) OneTouch Verio test strips Strip See Rx Instructions .ROUTE .MEDSUPPLY Qty: 100 0RF Rx Instructions: As directed (DME) pen needle, diabetic [BD Rosemary 2nd Gen Pen Needle] 32 gauge x 5/32" needle See Rx Instructions .ROUTE .MEDSUPPLY Qty: 30 3RF Rx Instructions: As directed trazodone 50 mg tablet 50 mg PO HS Qty: 30 0RF Jardiance 10 mg Tablet 10 mg PO QAM sertraline 100 mg tablet 200 mg PO QAM atorvastatin 40 mg tablet 40 mg DAILY amlodipine 5 mg tablet 5 mg PO DAILY bumetanide 1 mg tablet 2 mg DAILY Eliquis 2.5 mg tablet 2.5 mg BID pantoprazole 40 mg Tablet,Delayed Release (Dr/Ec) 40 mg PO BID Qty: 60 0RF ferrous sulfate 325 mg (65 mg iron) Tablet,Delayed Release (Dr/Ec) 325 mg PO BIDM Qty: 60 0RF cyanocobalamin (vitamin B-12) [Vitamin B-12] 100 mcg Tablet 100 mcg PO QAM Qty: 20 0RF magnesium hydroxide [Milk of Magnesia] 400 mg/5 mL Suspension 30 ml PO UD PRN (Reason: Constipation) bisacodyl [Dulcolax (bisacodyl)] 10 mg Suppository 10 mg VA DAILY PRN (Reason: Constipation) Fleet Enema 19-7 gram/118 mL Enema 118 ml VA DAILY PRN (Reason: Constipation) insulin glargine [Lantus Solostar U-100 Insulin] 100 unit/mL (3 mL) Insulin Pen 20 unit SUBCUT HS Admission Data Admit Date/Time: 03/07/22 18:44 Attending Provider: Nehemiah Miguel Admit Provider: Halle Evans Primary Care Provider: [facility] Other Providers: [facility] ; Nelson Rhoades ; Gulshan Carlson ; Angel Herring Other Interventions: Discharge Summary Assessment (RN) Last Done: 03/12/22 11:20
--- NOTE | 2022-03-13 14:50 | Discharge Summary ---
Date of Service March 13, 2022 Admission HPI Per Admitting Provider 77yo Male PMH CHF Afib DM2 GERD admitted to hospital for fall. Patient states this morning he was trying back out of bed, backed too far fell on the floor and hit his head. Since coming to the hospital he has received morphine, denies any pain at this time. Patient believed he has already received surgery for his leg fracture. Patient denies any fever chills headache dizziness nausea vomiting chest pain abd pain loss of sensation or rashes. He states he lives with his daughter, he lives on the 2nd floor states he walks without assistance does not use cane or walker. Daughter assists him with medications. He states he used to fall more often, however he has been walking slower more recently and has fallen less. Per patients records, he lives at [facility]. On Friday he rolled out of bed, friday XR noted hip fracture, was sent to the ED afterwards. Patient noted to have dementia. DNR/DNI per records from [facility]. Admission Exam Per Admitting Provider Constitutional: well developed, cooperative and comfortable Eyes: PERRL, conjunctivae normal, anicteric sclerae ENMT: external ear and nose normal, oropharynx normal Patient somewhat hard of hearing Neck: trachea midline, no thyromegaly Respiratory: normal respiratory effort, lungs clear to auscultation Cardiovascular: Rate/Rhythm: + irregularly irregular Extremities: no edema Chest (Breasts): Chest: normal inspection of chest Gastrointestinal (Abdomen): normal bowel sounds, soft, nontender, no hepatosplenomegaly Skin: no rashes, warm and dry Principal Diagnosis left hip fracture Discharge Exam Constitutional: well-appearing, no acute distress CV: regular rate, irregular rhythm, heart sounds distant Resp: CTABL, no wheezes/rales/rhonchi appreciated, no increased work of breathing GI: soft, minimally distended, nontender, BS normoactive MSK: [place] J collar in place, left hip incision dressed but without overt surrounding erythema or edema, LE strength 5/5 Neuro: alert, oriented, no focal neurologic deficit appreciated, LE sensation intact bilaterally Discharge Data Allergies Allergy/AdvReac Type Severity Reaction Status Date / Time rivaroxaban AdvReac Intermediate VOMITING Verified 11/22/21 07:53 Consultations 03/07/22 18:15 ED Decision to Admit Stat 03/07/22 18:49 Consult Orthopedic Surgery Routine 03/08/22 06:50 Consult Orthopedic Surgery Routine Procedures Performed Operation Date: 03/08/22 12:25 <No data on this case meets the specified criteria> Operation Date: 03/09/22 07:30 Actual Procedures p Left Cemented Bipolar Hip(Left) - Gulshan Carlson MD Ordered Studies 03/07/22 16:38 CT cervical spine wo con Stat CT head/brain wo con Stat Hospital Course (1) Fracture of femoral neck, left: Left hip fracture s/p left bipolar hip arthroplasty (March 09) Has been followed by ortho and continues to recover well Tylenol for pain, morphine for breakthrough pain DVT prophylaxis with home eliquis PT/OT, weightbearing as tolerated, total left hip protocol Follow up with orthopedics in 2-3 weeks (Dr. Gulshan Carlson) Anemia Hgb had been slowly downtrending since admission from 12.5 down to 8's No sign of active bleeding - there initial concern re: possible hematoma development given falling Hgb, though Hgb stabilized Hgb stabilized - minimal change by hospital day 6 Continue ferrous sulfate Recommend trending CBC q1week Atrial fibrillation Has been in afib during this admission; HR ranging from 60s to mid-110s Home dose eliquis restarted Continue home metoprolol Cervical C2,3,4,5 spinous process fracture Continue to limit neck mobility with cervical collar Ortho follow-up as above Dementia Patient baseline is unknown; delirium could be due to baseline dementia, hospital delirium, or delirium due to pain This did improve prior to discharge Continue frequent reorientation Caution with Beers list meds DM2/IFG Patient's home DM2 regimen was held on admission BSG was controlled with sliding-scale insulin HbA1c was 5.9% (03/08/2022) Patient's home regimen was restarted upon discharge. Chronic conditions: HTN: continue home losartan, amlodipine HLD: continue home atorvastatin CHF: euvolemic during this admission; continue home bumetanide Hypothyroidism: continue home levothyroxine MDD/SUSI: continue home sertraline GERD: continue home pantoprazole Total Time Total Time Spent Total Time Spent (In Minutes): see attending documentation Discharge Plan Discharge Items Patient Disposition: Transfer Long Term Fac Reason For Visit: LEFT HIP AND CERVICAL SPINE FRACTURE Discharge Diagnosis: Left Hip Replacement for fracture Activity: Per Instructions section Activity Comment: Activity as tolerated obeying hip precautions at all times. Weightbearing: Full weightbearing Weightbearing Comment: WEightbear as tolerated obeying hip precautions Non-emergency contact: Surgeon Call non-emergency contact if: you have any medication questions Follow-up/Referrals: [facility] [Primary Care Provider] - Gulshan Carlson MD [Physician] - (Orthopedic follow-up 2-3 weeks from surgery date.) Diet: Carb Consistent or DM2 Addtl Attending Provider Instructions: ACTIVITY RECOMMENDATIONS: Physical Therapy: * Aggressive physical therapy is not usually needed. You will learn to take ca re of yourself safely and walk. * Follow the "Hip Precautions Instructions." * In some cases, the director of social services at the hospital will arrange to have a therapist come to your house for the first couple of weeks to help you learn these skills. * You need to practice on your own or with the help of a family member as needed. * When you learn these skills, most of the therapy can be done on your own. Home Exercise: * You were shown a series of exercises in the hospital. Do these exercises three to four times each day including the exercises you were shown in physical therapy. Walking: * Get up and walk several times each day. For the first four weeks, try not to stand or walk for more than one hour at a time. If you do stand or walk for more than one hour, you will not hurt anything, but your leg will likely swell. * As you feel comfortable, you may change from the walker or crutches to a cane and then to independent walking. MEDICATIONS: New Medicine: * You will likely be taking one or more of these medicines: 1. Tramadol - Take, as directed, when you need it, every six hours to control your pain. 2. Eliquis - Thins your blood to lessen the chance of forming a blood clot. * The most common side effects of pain medicine and iron are nausea and constipation. If nausea or constipation is too much of a problem or if you have any questions about your new medicines or doses, call [facility] at [phone]. We will try to help you manage these issues. "VERY IMPORTANT TO READ AND REVIEW" Pain: * The immediate post-operative period after hip replacement surgery is often quite painful. * You are given a prescription for pain medicine. You should take it, as directed, when you need it, especially before physical therapy and before going to bed. Pain that interferes with sleep is very common and can last several months. * You will likely need pain medicine for the first two to four weeks. It will not stop all of the pain. The pain will lessen and as you feel better, you may change to milder pain medicine such as Tylenol. * The most common side effects of pain medicine are nausea and constipation, so don't take more than you need. SPECIAL CARE INSTRUCTIONS: TEDs/Elastic Stockings: * The white elastic stockings help limit swelling and prevent blood clots from forming in your legs. The more you wear them, the more they work. * Wear them for six weeks. Incision Site Care: * Remove dressing postoperative day 2 and then shower. Keep direct shower pressure off the incision site. * After showering, cover reid with dry gauze and change daily or more frequently if the dressing is getting saturated with drainage. * May completely stop using bandage if wound is dry and no drainage * Kelley are removed between 2 and 3 weeks post-op. If your follow-up appointment is made before 2 weeks, please have your appointment re- scheduled. It is too early to remove the reid. Prevention of Infection: * Take antibiotics one hour before any dental cleaning, dental work, urological procedure, gastrointestinal procedure or any invasive surgery in order to prevent your new joint from getting infected. * You may get the antibiotics from the doctor performing the procedure or you may call our office at before and we will call in a prescription to the pharmacy of your choice. Things to Watch For: * Drainage from the incision site that occurs more than one week after your surgery. * Severely increased leg pain or swelling. * Increased redness at the incision site. * Fever above 102 degrees Fahrenheit. * Unusual chest pain or shortness of breath. * Unusual pain or burning with urination. Call [facility] at with any of the above problems or if you have any questions about your medicines or recovery. FOLLOW UP VISIT: Make an appointment to see your doctor for approximately two weeks after surgery for a progress check and staple removal by calling the office at . Pending Studies at Discharge: No Stand-Alone Forms: My [facility] Skilled Items Patient informed of condition?: Yes DNR: Yes Discharge Level of Care: Skilled Communicable Disease: No Discharge Prognosis: Stable Lines: None Urinary Catheter: No Medications and DC Order Prescriptions: Continued metformin 500 mg tablet extended release 24 hr 1,000 mg PO BIDM potassium chloride [Klor-Con M20] 20 mEq tablet,ER particles/crystals 20 meq PO TID levothyroxine 100 mcg tablet 100 mcg PO QAM melatonin 10 mg Capsule 10 mg PO HS metoprolol succinate 25 mg tablet extended release 24 hr 25 mg PO BID losartan 100 mg tablet 100 mg PO QAM (DME) OneTouch Verio test strips Strip See Rx Instructions .ROUTE .MEDSUPPLY Qty: 100 0RF Rx Instructions: As directed (DME) pen needle, diabetic [BD Rosemary 2nd Gen Pen Needle] 32 gauge x 5/32" needle See Rx Instructions .ROUTE .MEDSUPPLY Qty: 30 3RF Rx Instructions: As directed trazodone 50 mg tablet 50 mg PO HS Qty: 30 0RF Jardiance 10 mg Tablet 10 mg PO QAM sertraline 100 mg tablet 200 mg PO QAM atorvastatin 40 mg tablet 40 mg DAILY amlodipine 5 mg tablet 5 mg PO DAILY bumetanide 1 mg tablet 2 mg DAILY Eliquis 2.5 mg tablet 2.5 mg BID pantoprazole 40 mg Tablet,Delayed Release (Dr/Ec) 40 mg PO BID Qty: 60 0RF ferrous sulfate 325 mg (65 mg iron) Tablet,Delayed Release (Dr/Ec) 325 mg PO BIDM Qty: 60 0RF cyanocobalamin (vitamin B-12) [Vitamin B-12] 100 mcg Tablet 100 mcg PO QAM Qty: 20 0RF magnesium hydroxide [Milk of Magnesia] 400 mg/5 mL Suspension 30 ml PO UD PRN (Reason: Constipation) bisacodyl [Dulcolax (bisacodyl)] 10 mg Suppository 10 mg PA DAILY PRN (Reason: Constipation) Fleet Enema 19-7 gram/118 mL Enema 118 ml PA DAILY PRN (Reason: Constipation) insulin glargine [Lantus Solostar U-100 Insulin] 100 unit/mL (3 mL) Insulin Pen 20 unit SUBCUT HS Discharge Orders: Discharge Order (Routine); Ordered 03/13/22 Ordered By: Kwasi Womack Admission Data Admit Date/Time: 03/07/22 18:44 Attending Provider: Nehemiah Miguel Admit Provider: Halle Evans Primary Care Provider: Génesis De Luna Other Providers: Génesis De Luna ; Nelson Rhoades ; Gulshan Carlson ; Angel Herring Other Interventions: Discharge Summary Assessment (RN) Last Done: 03/13/22 15:17 Supervising Physician Co-Signing Physician Notes I personally saw the patient and confirmed ricardo portions of the history and physical examination. I reviewed the case with the medical student and resident physician seeing the patient as well. I agree with the impression and plan as noted above also as outlined below. Upon my midmorning exam, the patient is lying supine in bed. He has no complaints. He denies pain. Exam Alert. No distress appreciated. Heart irregularly irregular, Rate in the mid 80s Lungs clear with nonlabored respirations Abdomen less distended, soft and non tender. (+) BS appreciated. Impression and Plan Left femoral fracture - Orthopedics consultation appreciated; PT/OT Spinous process cervical fracture -continue hard collar/orthospine recommendations. Chronic diastolic congestive heart failurecontinue Bumex Atrial fibrillation - Rate reasonably well controlled, Eliquis resumed; Hemoglobin stable since resumption of Eliquis Mild troponin elevation/ST depressionshas known coronary artery disease history. Appears to have been mild demand ischemia that improved with better rate control. Constipation - Two bowel movements yesterday; bowel regimen protocol at facility given decreased mobility Vitamin D deficiency supplement Resident Activity Tracking Resident Involvement: Resident Care Provided Care Provided: Adult Hospital Medicine
[2022-03-14] MEDS ORDERED: PSYLLIUM or GUAR GUM FIBER POWDER PACKET PO SCH (09:00)
== END 2022-03-13 16:59 | DRG 522 ==
LOC: ED 16:19 → SUATTDRO 18:44 → EDINP 18:44 → 2S 22:11 → 2N 03-10 14:17

== ENCOUNTER 2023-07-17 18:09 | Inpatient (IN) ==
[2023-07-17 19:59] LABS: Base Excess VBG -3.1 mEq/L; HCO3 VBG 23 mmol/L; Oxygen Saturation VBG < 60.0 %; PCO2 VBG 45 mmHg (38-50); PO2 VBG 29 mmHg; pH VBG 7.32 (7.36-7.41)
[2023-07-17 20:09] LABS: iSTAT Creatinine 1.7 mg/dl (0.6-1.3); iSTAT Hemoglobin 9.5 g/dl (14.0-18.0); iSTAT Ionized Calcium 1.22 mmol/l (1.12-1.32); iSTAT Potassium 4.3 mmol/L (3.3-5.0)
[2023-07-17 20:26] LABS: Basophils # (auto) 0.02 K/uL (0.00-0.20); Basophils % (auto) 0.5 %; Eosinophils # (auto) 0.06 K/uL (0.00-0.50); Eosinophils % (auto) 1.4 %; Hematocrit (blood only) 35.6 % (42.0-52.0); Hemoglobin 10.9 g/dl (14.0-18.0); Immature Granulocytes # (auto) 0.01 K/uL (0.01-0.20); Immature Granulocytes % (auto) 0.2 %; Lymphocytes # (auto) 0.52 K/uL (1.20-3.40); Lymphocytes % (auto) 12.5 %; Mean Corpuscular Hemoglobin 28.7 pg (25.0-34.0); Mean Corpuscular Hgb Conc 30.6 g/dL (32.0-36.0); Mean Corpuscular Volume 93.7 fL (80.0-100.0); Mean Platelet Volume 11.6 fL (9.4-12.4); Monocytes # (auto) 0.37 K/uL (0.11-0.59); Monocytes % (auto) 8.9 %; Neutrophils # (auto) 3.17 K/uL (1.40-6.50); Neutrophils % (auto) 76.5 %; Platelet Count 65 K/uL (130-400); RDW Coefficient of Variation 18.5 % (11.5-14.5); RDW Standard Deviation 62.9 fL (36.4-46.3); White Blood Count 4.15 K/ul (4.8-10.8)
[2023-07-17 20:43] LABS: Albumin Level 3.3 gm/dl (3.4-5.0); Bilirubin Direct 0.5 mg/dl (0-0.2); Bilirubin,Total 1.3 mg/dl (0.2-1.0); Calcium 8.9 mg/dl (8.6-10.3); Magnesium 2.3 mg/dl (1.7-2.4); Potassium 4.3 mmol/L (3.5-5.1)
[2023-07-17 20:48] LABS: INR 1.2 (0.9-1.1); Partial Thromboplastin Time 29 Seconds (21-31); Prothrombin Time 13.5 Seconds (9.0-12.0)
[2023-07-17 20:49] LABS: BUN Creatinine Ratio 18.4 (10-20); Creatinine Clr Calc Pharmacy 31.5 ml/min; Est GFR (African American) 47.2 ml/min; Est GFR (Non-African American) 40.7 ml/min
[2023-07-17 20:53] LABS: Troponin I High Sensitivity 29.8 pg/ml (0-20)
[2023-07-17] MEDS: SODIUM CHLORIDE 0.9% 500 ML IV ONE (21:55)
[2023-07-17 22:20] LABS: Appearance Urine Clear (Clear); Bacteria Urine Automated Negative (Negative); Bilirubin Urine Negative (Negative); Blood Urine Negative (Negative); Color Urine Yellow; Glucose Urine UA 3+ (Negative); Ketones Urine Negative (Negative); Leukocyte Esterase Urine 1+ (Negative); Nitrite Urine Negative (Negative); Protein Urine Negative (Negative); RBC Urine Automated 0-4 /hpf (0-4); Specific Gravity Urine 1.019 (1.000-1.030); Urobilinogen Urine Negative (Negative)
--- NOTE | 2023-07-17 22:52 | CT Scan Report ---
Exam(s): CT HEAD Without Contrast EXAM: CT Head Without Intravenous Contrast CLINICAL HISTORY: Reason for exam: ams. TECHNIQUE: Axial computed tomography images of the head/brain without intravenous contrast. CTDI is 36.67 mGy and DLP is 1676.06 mGy-cm. Automated exposure control was utilized for the study. A dose lowering technique was utilized adhering to the principles of ALARA. COMPARISON: No relevant prior studies available. FINDINGS: No acute intracranial hemorrhage. No midline shift or mass effect. The territorial murphy-white matter differentiation is maintained throughout. Age-related cerebral volume loss. Periventricular and subcortical white matter hypoattenuation, consistent with chronic microangiopathy. The visualized orbits appear grossly unremarkable. The calvarium is intact. The visualized paranasal sinuses and mastoid air cells are grossly clear. IMPRESSION: No acute intracranial hemorrhage, midline shift, or mass effect. Electronically signed by: Avila Purvis MD 07/17/23 22:50 PM
[2023-07-17] MEDS: cefTRIAXone SODIUM 2,000 MG/50 ML BAG IV STA (22:57)
--- NOTE | 2023-07-17 23:10 | CT Scan Report ---
Exam(s): CT ABDOMEN + PELVIS Without Contrast EXAM: CT Abdomen and Pelvis Without Intravenous Contrast CLINICAL HISTORY: Reason for exam: abd pain. TECHNIQUE: Axial computed tomography images of the abdomen and pelvis without intravenous contrast. CTDI is 36.67 mGy and DLP is 1676.06 mGy-cm. Automated exposure control was utilized for the study. A dose lowering technique was utilized adhering to the principles of ALARA. COMPARISON: Abdominal MRI March 10, 2023. FINDINGS: Lung bases: Atelectasis at the lung bases. Heart: Cardiomegaly. ABDOMEN: Liver: Hepatic cirrhosis. Splenomegaly. Abdominal ascites. Anasarca. Gallbladder and bile ducts: Unremarkable. No calcified stones. No ductal dilation. Pancreas: Unremarkable. No ductal dilation. Spleen: See above. Adrenals: Unremarkable. No mass. Kidneys and ureters: Horseshoe kidney. RIGHT renal cyst measures 3.7 x 4.4 cm. No obstructing stones. No hydronephrosis. Stomach and bowel: Diverticulosis, without acute diverticulitis. No small bowel obstruction. No free intraperitoneal air. PELVIS: Appendix: No findings to suggest acute appendicitis. Bladder: Unremarkable. No stones. Reproductive: Unremarkable as visualized. ABDOMEN and PELVIS: Intraperitoneal space: See above. Bones/joints: LEFT hip arthroplasty. Degenerative changes of the spine. No acute fracture. No dislocation. Soft tissues: See above. Vasculature: Atherosclerotic changes of the aorta. No abdominal aortic aneurysm. Lymph nodes: Unremarkable. No enlarged lymph nodes. IMPRESSION: 1. Hepatic cirrhosis. Splenomegaly. Abdominal ascites. Anasarca. 2. Horseshoe kidney. 3. Diverticulosis, without acute diverticulitis. No small bowel obstruction. No free intraperitoneal air. Electronically signed by: Avila Purvis MD 07/17/23 23:09 PM
--- NOTE | 2023-07-17 23:37 | Emergency Department Note ---
History of Present Illness General Chief complaint: Illness Stated complaint: FAMILY WANT SECONDED OPINION, WEAKNESS Time Seen by Provider: 07/17/23 19:01 History of Present Illness Provider complaint: Altered mental status weakness Onset (ago): week(s) 2 78-year-old male DNR from detention presents emergency department with daughter for altered mental status and weakness. Daughter reports that over the last 2 weeks his symptoms got much worse. She reports he is more confused his abdomen is more distended. Patient does have a history of CARY. Home Medications Medication Instructions Recorded Confirmed Type levothyroxine 100 mcg tablet 100 mcg PO QAM 08/09/19 07/17/23 History losartan 100 mg tablet 100 mg PO QAM 08/09/19 07/17/23 History metoprolol succinate 25 mg 25 mg PO BID 08/09/19 07/17/23 History tablet,extended release 24 hr potassium chloride 20 mEq 20 meq PO QAM 08/09/19 07/17/23 History tablet,extended release(part/cryst) (Klor-Con M) blood sugar diagnostic (OneTouch #100 ea 08/13/19 08/12/22 Rx Verio test strips) pen needle, diabetic 32 gauge x #30 ea 08/13/19 08/12/22 Rx 5/32" (BD Rosemary 2nd Gen Pen Needle) empagliflozin 10 mg tablet 10 mg PO QAM 11/07/20 07/17/23 History (Jardiance) cyanocobalamin (vitamin B-12) 100 100 mcg PO QAM #20 tabs 10/05/21 07/17/23 Rx mcg tablet (Vitamin B-12) amlodipine 5 mg tablet 5 mg PO HS 03/07/22 07/17/23 History atorvastatin 40 mg tablet 40 mg PO HS 03/07/22 07/17/23 History bumetanide 1 mg tablet 1 mg PO DAILY 03/07/22 07/17/23 History acetaminophen 325 mg tablet 650 mg PO Q6H PRN FEVER >100/PAIN 05/10/23 07/17/23 History (Tylenol) cholestyramine (with sugar) 4 gram 4 g PO QAM 05/10/23 07/17/23 History oral powder ferrous sulfate 325 mg (65 mg 325 mg PO QAM 05/10/23 07/17/23 History iron) tablet,delayed release food supplemt, lactose-reduced 1 ea PO BIDM 05/10/23 07/17/23 History insulin lispro 100 unit/mL 1 sliding scale dose subcut ACHS 05/10/23 07/17/23 History subcutaneous solution (Humalog U-100 Insulin) lidocaine 4 % topical patch 1 patch topical DAILY 05/10/23 07/17/23 History loperamide 2 mg tablet (Imodium 2 mg PO Q2H PRN Diarrhea 05/10/23 07/17/23 History A-D) melatonin 5 mg tablet 10 mg PO HS 05/10/23 07/17/23 History pantoprazole 40 mg tablet,delayed 40 mg PO BIDM 05/10/23 07/17/23 History release protein supplement 1 ea PO QAM 05/10/23 07/17/23 History sertraline 200 mg capsule 200 mg PO DAILY 05/10/23 07/17/23 History sodium chloride 0.65 % nasal spray 2 spray intranasal BIDM 05/10/23 07/17/23 History aerosol (Saline Nasal) trazodone 50 mg tablet 25 mg PO HS 05/10/23 07/17/23 History Allergies Allergy/AdvReac Type Severity Reaction Status Date / Time rivaroxaban AdvReac Intermediate VOMITING Verified 07/17/23 18:56 Past Med/Surg History Medical History Hypothyroidism Squamous cell carcinoma of ear Hearing deficit Depression Anxiety On anticoagulant therapy warfarin daily Sleep apnea cpap Diabetes IDDM Fatty liver (~02/2014) Coumadin toxicity (04/24/14) CHF (congestive heart failure) (02/19/14) Atrial fibrillation on warfarin--follows with Dr. Harp Anemia Surgical History History of esophagogastroduodenoscopy (EGD) last 09/24/21 @ [facility] History of colonoscopy last 09/24/21 @ [facility] History of hernia surgery History of Mohs micrographic surgery for skin cancer History of tooth extraction History of sinus surgery History of strabismus surgery History of cardiac cath a few years ago at [facility] in [place]--no stents History of coronary artery bypass graft x 3 "a few years ago" at [facility] in [place] Family History Other No family history of adverse response to anesthesia Social History Smoking Status: Never smoker Tobacco Type: Cigarettes Second Hand Exposure: No; Do You Dip or Chew Tobacco: No; Hx Alcohol Use: No Hx Substance Use: No Preferred Language: Lebanese Communication Ability: Effective Communication Ability Comment: Forgetful [place] Required: No Beliefs That Will Affect Care: None marital status: Current Living Situation: Intermediate Current Living Situation Comment: [facility] Feels Safe at Home: Yes Assistive Devices: Glasses Physical Exam Vital Signs Vital Signs - 24 hr 07/17/23 18:22 07/17/23 18:24 07/17/23 19:05 Temperature Temperature Source Pulse Rate 63 Pulse Rate [Finger] Respiratory Rate Respiratory Effort / Characteristics Respiratory Depth Respiratory Pattern Blood Pressure Blood Pressure [Right Arm] Blood Pressure Mean Blood Pressure Mean [Right Arm] Pulse Oximetry 99 98 Oxygen Delivery Method Room Air Room Air Sepsis Recent Fever Within 48 Hours Sepsis New/Unexplained Change in Mental Status Sepsis Action Taken by Nursing 07/17/23 19:08 07/17/23 21:29 07/17/23 22:27 Temperature 36.5 C Temperature Source Oral Pulse Rate 65 66 Pulse Rate [Finger] 60 Respiratory Rate 20 18 Respiratory Effort / Characteristics Non-Labored Respiratory Depth Normal Respiratory Pattern Regular Blood Pressure 113/68 Blood Pressure [Right Arm] 106/57 L Blood Pressure Mean 83 Blood Pressure Mean [Right Arm] 73 Pulse Oximetry 99 98 Oxygen Delivery Method Room Air Room Air Sepsis Recent Fever Within 48 Hours No Sepsis New/Unexplained Change in Mental Status Yes Sepsis Action Taken by Nursing No Action Required 07/18/23 00:17 Temperature Temperature Source Pulse Rate Pulse Rate [Finger] 60 Respiratory Rate 17 Respiratory Effort / Characteristics Non-Labored Respiratory Depth Normal Respiratory Pattern Blood Pressure Blood Pressure [Right Arm] 101/68 Blood Pressure Mean Blood Pressure Mean [Right Arm] 79 Pulse Oximetry 98 Oxygen Delivery Method Room Air Sepsis Recent Fever Within 48 Hours Sepsis New/Unexplained Change in Mental Status Sepsis Action Taken by Nursing Physical Exam HENT: Exam performed. - Head: Normocephalic and atraumatic. EYES: Conjunctivae and EOM are normal. Pupils are equal, round, and reactive to light. Right eye exhibits no discharge. Left eye exhibits no discharge. scleral icterus. NECK: Normal range of motion. Neck supple. No JVD present. No spinous process tenderness present. CV: Normal rate, regular rhythm, normal heart sounds and intact distal pulses. 2+ pitting edema of the bilateral lower extremity. Palpable radial pulses bue. PULM/CHEST: Diminished breath sounds bilaterally. ABD: The abdomen is soft. Abdomen is distended. No fluid wave. Hepatomegaly. Pain on palpation of the right and left lower quadrants. NEURO: Motor and sensation grossly intact. SKIN: Jaundiced PSYCH: He has a normal mood and affect. Behavior is normal. Judgment and thought content normal. Course Course 190: The patient was evaluated in room B12A. A complete history and physical exam was performed Cardiac monitoring: An order was placed for continuous cardiac monitoring. The monitor shows a rate of 70 with atrial fibrillation rhythm interpreted by me Bedside ultrasound was performed which did show scant amount of ascites with no drainable fluid collection due to how close the bowels were to the ascites. 2240: Vital signs stable. Labs show an elevated lactic acid. Procalcitonin elevated. Patient will not be treated with 30 cc/kg fluid bolus as he does appear fluid overloaded clinically and on chest x-ray. Rocephin ordered for the patient in case there is any component of SBP. Awaiting CT results. 2333: Vital signs stable. CT of the head within normal limits. CT of the abdomen pelvis confirms ascites and anasarca no small bowel obstruction. Patient will be admitted to the [facility] hospitalist team Dr. Morataya notified. Administered Medications Discontinued Medications Sodium Chloride (Nss) 500 mls @ 999 mls/hr IV .Q31M ONE Stop: 07/17/23 22:02 Last Infusion: 07/17/23 22:57 Dose: Infused Documented By: Admin: 07/17/23 21:55 Dose: 999 mls/hr Documented By: CLEM Ceftriaxone Sodium (Rocephin) 2,000 mg in 50 mls @ 100 mls/hr IV NOW STA Stop: 07/17/23 23:07 Last Infusion: 07/17/23 23:49 Dose: Infused Documented By: Admin: 07/17/23 22:57 Dose: 100 mls/hr Documented By: CLEM Medical Decision Making Medical Records Attestation: I reviewed the patient's medical records. External medical records from detention to confirm that the patient is DNR. Patient has paperwork from detention stating that he had a CT of the head done on July 10, 1 week ago which was negative. Laboratory Data Attestation: I reviewed the patient's lab results. 07/17/23 20:10 07/17/23 20:10 Lab Results 07/17/23 07/17/23 07/17/23 Range/Units 19:40 19:53 20:10 WBC 4.15 L (4.8-10.8) K/ul RBC 3.80 L (4.70-6.10) M/uL Hgb 10.9 L (14.0-18.0) g/dl POC Hgb 9.5 L (14.0-18.0) g/dl Hct 35.6 L (42.0-52.0) % POC Hct 28 L (42-52) % MCV 93.7 (80.0-100.0) fL MCH 28.7 (25.0-34.0) pg MCHC 30.6 L (32.0-36.0) g/dL RDW Std Deviation 62.9 H (36.4-46.3) fL RDW Coeff of Gerardo 18.5 H (11.5-14.5) % Plt Count 65 L (130-400) K/uL MPV 11.6 (9.4-12.4) fL Immature Gran % (Auto) 0.2 % Neut % (Auto) 76.5 % Lymph % (Auto) 12.5 % [place] % (Auto) 8.9 % Eos % (Auto) 1.4 % Baso % (Auto) 0.5 % Neut # (Auto) 3.17 (1.40-6.50) K/uL Lymph # (Auto) 0.52 L (1.20-3.40) K/uL [place] # (Auto) 0.37 (0.11-0.59) K/uL Eos # (Auto) 0.06 (0.00-0.50) K/uL Baso # (Auto) 0.02 (0.00-0.20) K/uL Immature Gran # (Auto) 0.01 (0.01-0.20) K/uL PT 13.5 H (9.0-12.0) Seconds INR 1.2 H (0.9-1.1) APTT 29 (21-31) Seconds PTT Ratio 1.0 VBG pH 7.32 L (7.36-7.41) VBG pCO2 45 (38-50) mmHg VBG pO2 29 mmHg VBG HCO3 23 mmol/L VBG O2 Saturation < 60.0 % VBG Base Excess -3.1 mEq/L POC Sodium 140 (135-144) mmol/L Sodium 138 (136-145) mmol/L POC Potassium 4.3 (3.3-5.0) mmol/L Potassium 4.3 (3.5-5.1) mmol/L POC Chloride 106 (101-112) mmol/L Chloride 106 (98-107) mmol/L Carbon Dioxide 24 (21-32) mmol/L POC Total CO2 22 L (24-31) mmol/L Anion Gap 8 (3-11) POC Anion Gap 17.0 (16-25) mmol/L POC BUN 29 H (7-18) mg/dl BUN 29 H (6-23) mg/dl Creatinine 1.58 H (0.6-1.4) mg/dl POC Creatinine 1.7 H (0.6-1.3) mg/dl Est Cr Clr Drug Dosing 31.5 ml/min Est GFR ( Amer) 47.2 ml/min Est GFR (Non-Af Amer) 40.7 ml/min BUN/Creatinine Ratio 18.4 (10-20) Glucose 127 H (70-99(Fasting)) mg/dl POC Glucose (other) 111 H (70-99) mg/dl Lactate 2.2 H* (0.4-2.0) mmol/L Calcium 8.9 (8.6-10.3) mg/dl POC Ioniz Calcium Reese 1.22 (1.12-1.32) mmol/l Magnesium 2.3 (1.7-2.4) mg/dl Total Bilirubin 1.3 H (0.2-1.0) mg/dl Direct Bilirubin 0.5 H (0-0.2) mg/dl AST 150 H (13-39) U/L ALT 90 H (7-52) U/L Alkaline Phosphatase 133 H (34-104) U/L Ammonia (18-72) umol/L Troponin I High Sens 29.8 H (0-20) pg/ml B-Natriuretic Peptide 525 H (0-100) pg/ml Total Protein 7.0 (6.0-8.3) gm/dl Albumin 3.3 L (3.4-5.0) gm/dl Procalcitonin 0.85 H (0-0.5) ng/ml Urine Color Urine Appearance (Clear) Urine pH (4.5-7.5) Ur Specific [place] (1.000-1.030) Urine Protein (Negative) Urine Glucose (UA) (Negative) Urine Ketones (Negative) Urine Blood (Negative) Urine Nitrite (Negative) Urine Bilirubin (Negative) Urine Urobilinogen (Negative) Ur Leukocyte Esterase (Negative) Urine WBC (Auto) (0-5) /hpf Urine RBC (Auto) (0-4) /hpf U Hyaline Cast (Auto) (0-5) /lpf U Epithel Cells (Auto) (0-5) /lpf Urine Bacteria (Auto) (Negative) Blood Type O Positive Antibody Screen NEGATIVE 07/17/23 07/17/23 07/17/23 Range/Units 21:20 21:57 22:53 WBC (4.8-10.8) K/ul RBC (4.70-6.10) M/uL Hgb (14.0-18.0) g/dl POC Hgb (14.0-18.0) g/dl Hct (42.0-52.0) % POC Hct (42-52) % MCV (80.0-100.0) fL MCH (25.0-34.0) pg MCHC (32.0-36.0) g/dL RDW Std Deviation (36.4-46.3) fL RDW Coeff of Gerardo (11.5-14.5) % Plt Count (130-400) K/uL MPV (9.4-12.4) fL Immature Gran % (Auto) % Neut % (Auto) % Lymph % (Auto) % [place] % (Auto) % Eos % (Auto) % Baso % (Auto) % Neut # (Auto) (1.40-6.50) K/uL Lymph # (Auto) (1.20-3.40) K/uL [place] # (Auto) (0.11-0.59) K/uL Eos # (Auto) (0.00-0.50) K/uL Baso # (Auto) (0.00-0.20) K/uL Immature Gran # (Auto) (0.01-0.20) K/uL PT (9.0-12.0) Seconds INR (0.9-1.1) APTT (21-31) Seconds PTT Ratio VBG pH (7.36-7.41) VBG pCO2 (38-50) mmHg VBG pO2 mmHg VBG HCO3 mmol/L VBG O2 Saturation % VBG Base Excess mEq/L POC Sodium (135-144) mmol/L Sodium (136-145) mmol/L POC Potassium (3.3-5.0) mmol/L Potassium (3.5-5.1) mmol/L POC Chloride (101-112) mmol/L Chloride (98-107) mmol/L Carbon Dioxide (21-32) mmol/L POC Total CO2 (24-31) mmol/L Anion Gap (3-11) POC Anion Gap (16-25) mmol/L POC BUN (7-18) mg/dl BUN (6-23) mg/dl Creatinine (0.6-1.4) mg/dl POC Creatinine (0.6-1.3) mg/dl Est Cr Clr Drug Dosing ml/min Est GFR ( Amer) ml/min Est GFR (Non-Af Amer) ml/min BUN/Creatinine Ratio (10-20) Glucose (70-99(Fasting)) mg/dl POC Glucose (other) (70-99) mg/dl Lactate 1.7 (0.4-2.0) mmol/L Calcium (8.6-10.3) mg/dl POC Ioniz Calcium Reese (1.12-1.32) mmol/l Magnesium (1.7-2.4) mg/dl Total Bilirubin (0.2-1.0) mg/dl Direct Bilirubin (0-0.2) mg/dl AST (13-39) U/L ALT (7-52) U/L Alkaline Phosphatase (34-104) U/L Ammonia 60.0 (18-72) umol/L Troponin I High Sens 27.6 H (0-20) pg/ml B-Natriuretic Peptide (0-100) pg/ml Total Protein (6.0-8.3) gm/dl Albumin (3.4-5.0) gm/dl Procalcitonin (0-0.5) ng/ml Urine Color Yellow Urine Appearance Clear (Clear) Urine pH 6.0 (4.5-7.5) Ur Specific [place] 1.019 (1.000-1.030) Urine Protein Negative (Negative) Urine Glucose (UA) 3+ H (Negative) Urine Ketones Negative (Negative) Urine Blood Negative (Negative) Urine Nitrite Negative (Negative) Urine Bilirubin Negative (Negative) Urine Urobilinogen Negative (Negative) Ur Leukocyte Esterase 1+ H (Negative) Urine WBC (Auto) 10-30 H (0-5) /hpf Urine RBC (Auto) 0-4 (0-4) /hpf U Hyaline Cast (Auto) 1-5 (0-5) /lpf U Epithel Cells (Auto) 5-10 H (0-5) /lpf Urine Bacteria (Auto) Negative (Negative) Blood Type Antibody Screen Imaging Data Attestation: I personally reviewed and interpreted this imaging study as follows: My Impression: Chest x-ray: Cardiomegaly with cephalization. Radiologist's Impression: Head CT 07/17/23 19:18 Exam(s): CT HEAD Without Contrast EXAM: CT Head Without Intravenous Contrast CLINICAL HISTORY: Reason for exam: ams. TECHNIQUE: Axial computed tomography images of the head/brain without intravenous contrast. CTDI is 36.67 mGy and DLP is 1676.06 mGy-cm. Automated exposure control was utilized for the study. A dose lowering technique was utilized adhering to the principles of ALARA. COMPARISON: No relevant prior studies available. FINDINGS: No acute intracranial hemorrhage. No midline shift or mass effect. The territorial murphy-white matter differentiation is maintained throughout. Age-related cerebral volume loss. Periventricular and subcortical white matter hypoattenuation, consistent with chronic microangiopathy. The visualized orbits appear grossly unremarkable. The calvarium is intact. The visualized paranasal sinuses and mastoid air cells are grossly clear. IMPRESSION: No acute intracranial hemorrhage, midline shift, or mass effect. Electronically signed by: Avila Purvis MD 07/17/23 22:50 PM Abdomen/Pelvis CT 07/17/23 21:55 Exam(s): CT ABDOMEN + PELVIS Without Contrast EXAM: CT Abdomen and Pelvis Without Intravenous Contrast CLINICAL HISTORY: Reason for exam: abd pain. TECHNIQUE: Axial computed tomography images of the abdomen and pelvis without intravenous contrast. CTDI is 36.67 mGy and DLP is 1676.06 mGy-cm. Automated exposure control was utilized for the study. A dose lowering technique was utilized adhering to the principles of ALARA. COMPARISON: Abdominal MRI March 10, 2023. FINDINGS: Lung bases: Atelectasis at the lung bases. Heart: Cardiomegaly. ABDOMEN: Liver: Hepatic cirrhosis. Splenomegaly. Abdominal ascites. Anasarca. Gallbladder and bile ducts: Unremarkable. No calcified stones. No ductal dilation. Pancreas: Unremarkable. No ductal dilation. Spleen: See above. Adrenals: Unremarkable. No mass. Kidneys and ureters: Horseshoe kidney. RIGHT renal cyst measures 3.7 x 4.4 cm. No obstructing stones. No hydronephrosis. Stomach and bowel: Diverticulosis, without acute diverticulitis. No small bowel obstruction. No free intraperitoneal air. PELVIS: Appendix: No findings to suggest acute appendicitis. Bladder: Unremarkable. No stones. Reproductive: Unremarkable as visualized. ABDOMEN and PELVIS: Intraperitoneal space: See above. Bones/joints: LEFT hip arthroplasty. Degenerative changes of the spine. No acute fracture. No dislocation. Soft tissues: See above. Vasculature: Atherosclerotic changes of the aorta. No abdominal aortic aneurysm. Lymph nodes: Unremarkable. No enlarged lymph nodes. IMPRESSION: 1. Hepatic cirrhosis. Splenomegaly. Abdominal ascites. Anasarca. 2. Horseshoe kidney. 3. Diverticulosis, without acute diverticulitis. No small bowel obstruction. No free intraperitoneal air. Electronically signed by: Avila Purvis MD 07/17/23 23:09 PM ECG Data Attestation: I personally reviewed and interpreted this ECG as follows: Additional Comments: Atrial fibrillation with a rate of 66. QRS 118 QTc 501. PVCs present MDM Narrative 1901: The patient was evaluated in room B12A. A complete history and physical exam was performed Cardiac monitoring: An order was placed for continuous cardiac monitoring. The monitor shows a rate of 70 with atrial fibrillation rhythm interpreted by me Bedside ultrasound was performed which did show scant amount of ascites with no drainable fluid collection due to how close the bowels were to the ascites. 2240: Vital signs stable. Labs show an elevated lactic acid. Procalcitonin elevated. Patient will not be treated with 30 cc/kg fluid bolus as he does appear fluid overloaded clinically and on chest x-ray. Rocephin ordered for the patient in case there is any component of SBP. Awaiting CT results. 2333: Vital signs stable. CT of the head within normal limits. CT of the abdomen pelvis confirms ascites and anasarca no small bowel obstruction. Patient will be admitted to the [facility] hospitalist team Dr. Morataya notified. Impression & Plan Sepsis, Ascites Discharge Plan Visit Data Chief Complaint: Illness Stated Complaint: FAMILY WANT SECONDED OPINION, WEAKNESS ED Provider: Iftikhar Quesada Discharge Problem: Sepsis, Ascites Patient Disposition: Admitted As Inpatient Forms Stand Alone Forms: My [facility] Prescriptions Prescriptions: No Action potassium chloride [Klor-Con M20] 20 mEq tablet,ER particles/crystals 20 meq PO QAM levothyroxine 100 mcg tablet 100 mcg PO QAM metoprolol succinate 25 mg tablet extended release 24 hr 25 mg PO BID losartan 100 mg tablet 100 mg PO QAM (DME) OneTouch Verio test strips Strip See Rx Instructions .ROUTE .MEDSUPPLY Qty: 100 0RF Rx Instructions: As directed (DME) pen needle, diabetic [BD Rosemary 2nd Gen Pen Needle] 32 gauge x 5/32" needle See Rx Instructions .ROUTE .MEDSUPPLY Qty: 30 3RF Rx Instructions: As directed Jardiance 10 mg Tablet 10 mg PO QAM atorvastatin 40 mg tablet 40 mg PO HS amlodipine 5 mg tablet 5 mg PO HS bumetanide 1 mg tablet 1 mg PO DAILY acetaminophen [Tylenol] 325 mg Tablet 650 mg PO Q6H MDD 3 GRAMS APAP/24 HOURS PRN (Reason: FEVER >100/PAIN) lidocaine 4 % Adhesive Patch,Medicated 1 patch TOPICAL DAILY Rx Instructions: APPLY QAM, THEN REMOVE QPM. APPLY TO NECK, ABOVE T-SPINE loperamide [Imodium A-D] 2 mg Tablet 2 mg PO Q2H PRN (Reason: Diarrhea) insulin lispro [Humalog U-100 Insulin] 100 unit/mL Solution 1 sliding scale dose SUBCUT ACHS Rx Instructions: SLIDING SCALE PLUS COVERAGE---BSG 350-400=8 UNITS, BSG 401-450=12 UNITS, BSG 451-500=16 UNITS, BSG 501-550=18 UNITS, RECHECK BSG IN 2 HRS. Boost Breeze Liquid 1 ea PO BIDM Rx Instructions: 240 ML WITH BIDM. Saline Nasal 0.65 % Aerosol,[place] 2 spray INTRANASAL BIDM cholestyramine (with sugar) 4 gram Powder 4 g PO QAM protein supplement Liquid 1 ea PO QAM Rx Instructions: GIVE 30 ML QAM. melatonin 5 mg Tablet 10 mg PO HS sertraline 200 mg Capsule 200 mg PO DAILY trazodone 50 mg tablet 25 mg PO HS pantoprazole 40 mg tablet,delayed release (DR/EC) 40 mg PO BIDM ferrous sulfate 325 mg (65 mg iron) tablet,delayed release (DR/EC) 325 mg PO QAM cyanocobalamin (vitamin B-12) [Vitamin B-12] 100 mcg Tablet 100 mcg PO QAM Qty: 20 0RF Referrals Referrals: [facility] [Primary Care Provider] - Discharge Problem: Sepsis Qualifiers: Sepsis type: sepsis due to unspecified organism Sepsis acute organ dysfunction status: unspecified Qualified Code(s): A41.9 - Sepsis, unspecified organism
--- NOTE | 2023-07-18 00:22 | History & Physical Report ---
Date of Service July 18, 2023 Assessment & Plan (1) Ascites: (2) Cirrhosis of liver: (3) Sepsis: (4) Atrial fibrillation: (5) Splenomegaly: (6) Thrombocytopenia: (7) Diabetes: (8) Acute kidney injury superimposed on CKD: (9) Major neurocognitive disorder: (10) GERD (gastroesophageal reflux disease): (11) Hypothyroidism: Plan Sepsis/cirrhosis/anasarca/ascites/abnormal LFTs- AST 150, ALT 90, total bilirubin 1.3 and direct bilirubin 0.5. Ammonia level 60 Lactate 2.2 improved to 1.7 Patient received a single dose of ceftriaxone from the ED Hold on any additional antibiotics until determined if diagnostic/therapeutic paracentesis is possible with interventional radiology today ED felt by placing a local ultrasound, that they would not be able to do paracentesis in the ED Start Zosyn 4.5 g every 8 hours after assessment by IR Confusion/generalized weakness/fatigue/encephalopathy- Ammonia level 60 Lactulose has been discontinued due to uncontrollable diarrhea Follow serially Assess for possible paracentesis to assess for possible peritonitis Follow urine culture and sensitivity Follow blood cultures Follow any other fluid cultures Thrombocytopenia- Suspect secondary to sequestration by splenomegaly Follow laboratory serially 65 upon admission, will need to ask IR if they would like transfusion prior Type and screen ordered Acute kidney injury superimposed on CKD/history of horseshoe kidney/hypertension- Creatinine 1.58 on admission, with base 1.21 Stop Jardiance He did receive 1 L normal saline from the ED Placed on NSS at 60 mL/h x 1 L for now For now, hold amlodipine, Bumex, losartan Continue metoprolol succinate with hold parameters Follow serial laboratories Elevated troponin- Initial troponin 29.8, with follow-up 27.6 Likely secondary to acute kidney injury, and type II supply/demand mismatch History of Present Illness Chief Complaint: The patient presents to the emergency department due to family concerns regarding worsening generalized weakness, confusion and fatigue over the past 2 weeks. Primary Care Provider: [facility] The patient is an 78-year-old male with a past medical history including atrial fibrillation, CHF, history of supratherapeutic INR, thrombocytopenia, fatty liver, major neurocognitive disorder, closed left hip fracture on 03/07/2022, compression fracture of spinous process of cervical vertebra, demand ischemia, and vitamin D deficiency. His daughter notes that patient has had worsening generalized weakness and fatigue, along with confusion over the past 2 weeks. She reports that he had been on lactulose, but his bowel movements were too loose, and he was having control issues. She reports that he has not had any obvious signs of infection related to respiratory or urinary symptoms. Allergies Allergy/AdvReac Type Severity Reaction Status Date / Time rivaroxaban AdvReac Intermediate VOMITING Verified 07/17/23 18:56 Home Medications Medication Instructions Recorded Confirmed Type levothyroxine 100 mcg tablet 100 mcg PO QAM 08/09/19 07/17/23 History losartan 100 mg tablet 100 mg PO QAM 08/09/19 07/17/23 History metoprolol succinate 25 mg 25 mg PO BID 08/09/19 07/17/23 History tablet,extended release 24 hr potassium chloride 20 mEq 20 meq PO QAM 08/09/19 07/17/23 History tablet,extended release(part/cryst) (Klor-Con M) blood sugar diagnostic (OneTouch #100 ea 08/13/19 08/12/22 Rx Verio test strips) pen needle, diabetic 32 gauge x #30 ea 08/13/19 08/12/22 Rx 5/32" (BD Rosemary 2nd Gen Pen Needle) empagliflozin 10 mg tablet 10 mg PO QAM 11/07/20 07/17/23 History (Jardiance) cyanocobalamin (vitamin B-12) 100 100 mcg PO QAM #20 tabs 10/05/21 07/17/23 Rx mcg tablet (Vitamin B-12) amlodipine 5 mg tablet 5 mg PO HS 03/07/22 07/17/23 History atorvastatin 40 mg tablet 40 mg PO HS 03/07/22 07/17/23 History bumetanide 1 mg tablet 1 mg PO DAILY 03/07/22 07/17/23 History acetaminophen 325 mg tablet 650 mg PO Q6H PRN FEVER >100/PAIN 05/10/23 07/17/23 History (Tylenol) cholestyramine (with sugar) 4 gram 4 g PO QAM 05/10/23 07/17/23 History oral powder ferrous sulfate 325 mg (65 mg 325 mg PO QAM 05/10/23 07/17/23 History iron) tablet,delayed release food supplemt, lactose-reduced 1 ea PO BIDM 05/10/23 07/17/23 History insulin lispro 100 unit/mL 1 sliding scale dose subcut ACHS 05/10/23 07/17/23 History subcutaneous solution (Humalog U-100 Insulin) lidocaine 4 % topical patch 1 patch topical DAILY 05/10/23 07/17/23 History loperamide 2 mg tablet (Imodium 2 mg PO Q2H PRN Diarrhea 05/10/23 07/17/23 History A-D) melatonin 5 mg tablet 10 mg PO HS 05/10/23 07/17/23 History pantoprazole 40 mg tablet,delayed 40 mg PO BIDM 05/10/23 07/17/23 History release protein supplement 1 ea PO QAM 05/10/23 07/17/23 History sertraline 200 mg capsule 200 mg PO DAILY 05/10/23 07/17/23 History sodium chloride 0.65 % nasal spray 2 spray intranasal BIDM 05/10/23 07/17/23 History aerosol (Saline Nasal) trazodone 50 mg tablet 25 mg PO HS 05/10/23 07/17/23 History Past Med/Surg History Medical History (Updated 07/18/23 @ 06:20 by Michoacano Burgess MD) Hypothyroidism Squamous cell carcinoma of ear Hearing deficit Depression Anxiety On anticoagulant therapy warfarin daily Sleep apnea cpap Diabetes IDDM Fatty liver (~02/2014) Coumadin toxicity (04/24/14) CHF (congestive heart failure) (02/19/14) Atrial fibrillation on warfarin--follows with Dr. Harp Anemia Surgical History History of esophagogastroduodenoscopy (EGD) last 09/24/21 @ [facility] History of colonoscopy last 09/24/21 @ [facility] History of hernia surgery History of Mohs micrographic surgery for skin cancer History of tooth extraction History of sinus surgery History of strabismus surgery History of cardiac cath a few years ago at [facility] in [place]--no stents History of coronary artery bypass graft x 3 "a few years ago" at [facility] in [place] Family History Other No family history of adverse response to anesthesia Social History Smoking Status: Never smoker Tobacco Type: Cigarettes Second Hand Exposure: No; Do You Dip or Chew Tobacco: No; Hx Alcohol Use: No Hx Substance Use: No Preferred Language: Sami Communication Ability: Impaired Communication Ability Comment: Forgetful Acid Cutter Required: No Beliefs That Will Affect Care: None marital status: Current Living Situation: Prison [facility] Feels Safe at Home: Yes Assistive Devices: None Review of Systems Review of Systems: The patient is not able to contribute significantly to his HPI or ROS due to confusion and generalized weakness. His daughter, who is in attendance, supplies most of the information as noted above. Physical Exam Physical Exam: The patient is confused, sleeping, but rousable. Normocephalic and atraumatic, lying in bed and in no acute distress. HEENT--PERRL, EOMI, mucous membranes and oropharynx mildly dry. Neck--supple. No JVD. No bruits. Thyroid normal, trachea midline, no adenopathy. Heart--normal S1 and S2. No murmurs, rubs or gallops. Lungs--overall clear but diminished bilaterally. No respiratory distress, no accessory muscle use. Abdomen--normal bowel sounds and soft. Nontender. Nondistended. Extremities--No edema. Dermatologic--multiple ecchymoses, surface abrasions and petechiae Neurologic--cranial nerves II through XII grossly intact. Rheumatologic--limited exam Psychiatric--mildly confused Results & Data Results & Data Vital Signs (Past 12 Hours) Vital Signs Temp Pulse Pulse Resp BP BP Pulse Ox 07/18/23 00:17 60 17 98 07/17/23 22:27 66 07/17/23 21:29 60 18 106/57 L 98 07/17/23 19:08 36.5 C 65 20 113/68 99 07/17/23 19:05 98 07/17/23 18:24 63 07/17/23 18:22 99 O2 Del Method 07/18/23 00:17 Room Air 07/17/23 22:27 07/17/23 21:29 Room Air 07/17/23 19:08 Room Air 07/17/23 19:05 Room Air 07/17/23 18:24 07/17/23 18:22 Room Air Laboratory Results Laboratory Results WBC 4.15 K/ul (4.8-10.8) L 07/17/23 20:10 RBC 3.80 M/uL (4.70-6.10) L 07/17/23 20:10 Hgb 10.9 g/dl (14.0-18.0) L 07/17/23 20:10 POC Hgb 9.5 g/dl (14.0-18.0) L 07/17/23 19:53 Hct 35.6 % (42.0-52.0) L 07/17/23 20:10 POC Hct 28 % (42-52) L 07/17/23 19:53 MCV 93.7 fL (80.0-100.0) 07/17/23 20:10 MCH 28.7 pg (25.0-34.0) 07/17/23 20:10 MCHC 30.6 g/dL (32.0-36.0) L 07/17/23 20:10 RDW Std Deviation 62.9 fL (36.4-46.3) H 07/17/23 20:10 RDW Coeff of Gerardo 18.5 % (11.5-14.5) H 07/17/23 20:10 Plt Count 65 K/uL (130-400) L 07/17/23 20:10 MPV 11.6 fL (9.4-12.4) 07/17/23 20:10 Immature Gran % (Auto) 0.2 % 07/17/23 20:10 Neut % (Auto) 76.5 % 07/17/23 20:10 Lymph % (Auto) 12.5 % 07/17/23 20:10 Winston % (Auto) 8.9 % 07/17/23 20:10 Eos % (Auto) 1.4 % 07/17/23 20:10 Baso % (Auto) 0.5 % 07/17/23 20:10 Neut # (Auto) 3.17 K/uL (1.40-6.50) 07/17/23 20:10 Lymph # (Auto) 0.52 K/uL (1.20-3.40) L 07/17/23 20:10 Winston # (Auto) 0.37 K/uL (0.11-0.59) 07/17/23 20:10 Eos # (Auto) 0.06 K/uL (0.00-0.50) 07/17/23 20:10 Baso # (Auto) 0.02 K/uL (0.00-0.20) 07/17/23 20:10 Immature Gran # (Auto) 0.01 K/uL (0.01-0.20) 07/17/23 20:10 PT 13.5 Seconds (9.0-12.0) H 07/17/23 20:10 INR 1.2 (0.9-1.1) H 07/17/23 20:10 APTT 29 Seconds (21-31) 07/17/23 20:10 PTT Ratio 1.0 07/17/23 20:10 VBG pH 7.32 (7.36-7.41) L 07/17/23 19:40 VBG pCO2 45 mmHg (38-50) 07/17/23 19:40 VBG pO2 29 mmHg 07/17/23 19:40 VBG HCO3 23 mmol/L 07/17/23 19:40 VBG O2 Saturation < 60.0 % 07/17/23 19:40 VBG Base Excess -3.1 mEq/L 07/17/23 19:40 POC Sodium 140 mmol/L (135-144) 07/17/23 19:53 Sodium 138 mmol/L (136-145) 07/17/23 20:10 POC Potassium 4.3 mmol/L (3.3-5.0) 07/17/23 19:53 Potassium 4.3 mmol/L (3.5-5.1) 07/17/23 20:10 POC Chloride 106 mmol/L (101-112) 07/17/23 19:53 Chloride 106 mmol/L (98-107) 07/17/23 20:10 Carbon Dioxide 24 mmol/L (21-32) 07/17/23 20:10 POC Total CO2 22 mmol/L (24-31) L 07/17/23 19:53 Anion Gap 8 (3-11) 07/17/23 20:10 POC Anion Gap 17.0 mmol/L (16-25) 07/17/23 19:53 POC BUN 29 mg/dl (7-18) H 07/17/23 19:53 BUN 29 mg/dl (6-23) H 07/17/23 20:10 Creatinine 1.58 mg/dl (0.6-1.4) H 07/17/23 20:10 POC Creatinine 1.7 mg/dl (0.6-1.3) H 07/17/23 19:53 Est Cr Clr Drug Dosing 31.5 ml/min 07/17/23 20:10 Est GFR ( Amer) 47.2 ml/min 07/17/23 20:10 Est GFR (Non-Af Amer) 40.7 ml/min 07/17/23 20:10 BUN/Creatinine Ratio 18.4 (10-20) 07/17/23 20:10 Glucose 127 mg/dl (70-99(Fasting)) H 07/17/23 20:10 POC Glucose 100 mg/dl (70-99) H 07/18/23 04:17 POC Glucose (other) 111 mg/dl (70-99) H 07/17/23 19:53 Lactate 1.7 mmol/L (0.4-2.0) 07/17/23 22:53 Calcium 8.9 mg/dl (8.6-10.3) 07/17/23 20:10 POC Ioniz Calcium Reese 1.22 mmol/l (1.12-1.32) 07/17/23 19:53 Magnesium 2.3 mg/dl (1.7-2.4) 07/17/23 20:10 Total Bilirubin 1.3 mg/dl (0.2-1.0) H 07/17/23 20:10 Direct Bilirubin 0.5 mg/dl (0-0.2) H 07/17/23 20:10 AST 150 U/L (13-39) H 07/17/23 20:10 ALT 90 U/L (7-52) H 07/17/23 20:10 Alkaline Phosphatase 133 U/L (34-104) H 07/17/23 20:10 Ammonia 60.0 umol/L (18-72) 07/17/23 21:20 Troponin I High Sens 27.6 pg/ml (0-20) H 07/17/23 21:20 B-Natriuretic Peptide 525 pg/ml (0-100) H 07/17/23 19:40 Total Protein 7.0 gm/dl (6.0-8.3) 07/17/23 20:10 Albumin 3.3 gm/dl (3.4-5.0) L 02/08/24 20:10 Procalcitonin 0.85 ng/ml (0-0.5) H 07/17/23 20:10 Urine Color Yellow 07/17/23 21:57 Urine Appearance Clear (Clear) 07/17/23 21:57 Urine pH 6.0 (4.5-7.5) 07/17/23 21:57 Ur Specific Rawson 1.019 (1.000-1.030) 07/17/23 21:57 Urine Protein Negative (Negative) 07/17/23 21:57 Urine Glucose (UA) 3+ (Negative) H 07/17/23 21:57 Urine Ketones Negative (Negative) 07/17/23 21:57 Urine Blood Negative (Negative) 07/17/23 21:57 Urine Nitrite Negative (Negative) 07/17/23 21:57 Urine Bilirubin Negative (Negative) 07/17/23 21:57 Urine Urobilinogen Negative (Negative) 07/17/23 21:57 Ur Leukocyte Esterase 1+ (Negative) H 07/17/23 21:57 Urine WBC (Auto) 10-30 /hpf (0-5) H 07/17/23 21:57 Urine RBC (Auto) 0-4 /hpf (0-4) 07/17/23 21:57 U Hyaline Cast (Auto) 1-5 /lpf (0-5) 07/17/23 21:57 U Epithel Cells (Auto) 5-10 /lpf (0-5) H 07/17/23 21:57 Urine Bacteria (Auto) Negative (Negative) 07/17/23 21:57 Blood Type O Positive 07/17/23 19:40 Antibody Screen NEGATIVE 07/17/23 19:[address] 07/17/23 19:18 Exam(s): CT HEAD Without Contrast EXAM: CT Head Without Intravenous Contrast CLINICAL HISTORY: Reason for exam: ams. TECHNIQUE: Axial computed tomography images of the head/brain without intravenous contrast. CTDI is 36.67 mGy and DLP is 1676.06 mGy-cm. Automated exposure control was utilized for the study. A dose lowering technique was utilized adhering to the principles of ALARA. COMPARISON: No relevant prior studies available. FINDINGS: No acute intracranial hemorrhage. No midline shift or mass effect. The territorial murphy-white matter differentiation is maintained throughout. Age-related cerebral volume loss. Periventricular and subcortical white matter hypoattenuation, consistent with chronic microangiopathy. The visualized orbits appear grossly unremarkable. The calvarium is intact. The visualized paranasal sinuses and mastoid air cells are grossly clear. IMPRESSION: No acute intracranial hemorrhage, midline shift, or mass effect. Electronically signed by: Avila Purvis MD 07/17/23 22:50 PM Abdomen/Pelvis CT 07/17/23 21:55 Exam(s): CT ABDOMEN + PELVIS Without Contrast EXAM: CT Abdomen and Pelvis Without Intravenous Contrast CLINICAL HISTORY: Reason for exam: abd pain. TECHNIQUE: Axial computed tomography images of the abdomen and pelvis without intravenous contrast. CTDI is 36.67 mGy and DLP is 1676.06 mGy-cm. Automated exposure control was utilized for the study. A dose lowering technique was utilized adhering to the principles of ALARA. COMPARISON: Abdominal MRI March 10, 2023. FINDINGS: Lung bases: Atelectasis at the lung bases. Heart: Cardiomegaly. ABDOMEN: Liver: Hepatic cirrhosis. Splenomegaly. Abdominal ascites. Anasarca. Gallbladder and bile ducts: Unremarkable. No calcified stones. No ductal dilation. Pancreas: Unremarkable. No ductal dilation. Spleen: See above. Adrenals: Unremarkable. No mass. Kidneys and ureters: Horseshoe kidney. RIGHT renal cyst measures 3.7 x 4.4 cm. No obstructing stones. No hydronephrosis. Stomach and bowel: Diverticulosis, without acute diverticulitis. No small bowel obstruction. No free intraperitoneal air. PELVIS: Appendix: No findings to suggest acute appendicitis. Bladder: Unremarkable. No stones. Reproductive: Unremarkable as visualized. ABDOMEN and PELVIS: Intraperitoneal space: See above. Bones/joints: LEFT hip arthroplasty. Degenerative changes of the spine. No acute fracture. No dislocation. Soft tissues: See above. Vasculature: Atherosclerotic changes of the aorta. No abdominal aortic aneurysm. Lymph nodes: Unremarkable. No enlarged lymph nodes. IMPRESSION: 1. Hepatic cirrhosis. Splenomegaly. Abdominal ascites. Anasarca. 2. Horseshoe kidney. 3. Diverticulosis, without acute diverticulitis. No small bowel obstruction. No free intraperitoneal air. Electronically signed by: Avila Purvis MD 07/17/23 23:09 PM Code Status & VTE Plan Code Status Conditional code DNR/DNI Daughter reports that they would except use of pressors if he became hypotensive VTE Prophylaxis Plan VTE Prophylaxis will be ordered: Yes PG Care Time/CCT Total # of Minutes Spent Total Time Spent with Patient: Total time spent is greater than 50% in coordination of care (as documented) at patient's floor/unit and/or counseling patient: Coding Level of Care Code 54461 INT INP/OBS CARE 3/75MIN Diagnoses Ascites R18.8 Cirrhosis of liver K74.60 Sepsis A41.9 Sepsis acute organ dysfunction status: unspecified Sepsis type: sepsis due to unspecified organism Atrial fibrillation I48.91 Splenomegaly R16.1 Thrombocytopenia D69.6 Diabetes E11.9 Acute kidney injury superimposed on CKD N17.9; N18.9 Major neurocognitive disorder F03.90 GERD (gastroesophageal reflux disease) K21.9 Hypothyroidism E03.9 (3) Sepsis Sepsis acute organ dysfunction status: unspecified Sepsis type: sepsis due to unspecified organism Qualified Code(s): A41.9 - Sepsis, unspecified organism
[2023-07-18] MEDS ORDERED: ACETAMINOPHEN 325 MG TAB PO PRN (01:16)
[2023-07-18] MEDS ORDERED: DEXTROSE 50% 50 ML SYRINGE IV PRN (01:16)
[2023-07-18] MEDS ORDERED: GLUCOSE 10 TAB/TUBE PO PRN (01:16)
[2023-07-18] MEDS ORDERED: GLUCAGON FOR INJ 1 MG VIAL SQ PRN (01:16)
[2023-07-18] MEDS ORDERED: GLUCOSE 40% GEL 15 GM TUBE PO PRN (01:16)
[2023-07-18] MEDS ORDERED: ONDANSETRON INJ 2 MG/ML 2 ML VIAL IV PRN (01:16)
[2023-07-18] MEDS ORDERED: CARBOHYDRATES FOR HYPOGLYCEMIA PO PRN (01:16)
[2023-07-18] MEDS: SODIUM CHLORIDE 0.9% 1,000 ML IV SCH (02:40)
[2023-07-18] MEDS: LEVOTHYROXINE SODIUM 100 MCG TABLET PO SCH (06:22)
[2023-07-18 06:33] LABS: Basophils # (auto) 0.01 K/uL (0.00-0.20); Basophils % (auto) 0.4 %; Eosinophils # (auto) 0.06 K/uL (0.00-0.50); Eosinophils % (auto) 2.2 %; Hematocrit (blood only) 28.2 % (42.0-52.0); Lymphocytes # (auto) 0.49 K/uL (1.20-3.40); Lymphocytes % (auto) 18.1 %; Mean Corpuscular Hemoglobin 28.8 pg (25.0-34.0); Mean Corpuscular Hgb Conc 31.9 g/dL (32.0-36.0); Mean Corpuscular Volume 90.4 fL (80.0-100.0); Mean Platelet Volume 11.5 fL (9.4-12.4); Monocytes # (auto) 0.28 K/uL (0.11-0.59); Monocytes % (auto) 10.3 %; Neutrophils # (auto) 1.87 K/uL (1.40-6.50); Platelet Count 53 K/uL (130-400); RDW Coefficient of Variation 18.4 % (11.5-14.5); RDW Standard Deviation 60.8 fL (36.4-46.3); Red Blood Count 3.12 M/uL (4.70-6.10); White Blood Count 2.71 K/ul (4.8-10.8)
[2023-07-18 06:49] LABS: Albumin Level 2.9 gm/dl (3.4-5.0); BUN Creatinine Ratio 24.6 (10-20); Calcium 8.3 mg/dl (8.6-10.3); Creatinine Clr Calc Pharmacy 39.4 ml/min; Est GFR (Non-African American) 53.5 ml/min; Globulin 2.9 gm/dl (2.5-4.0); Potassium 4.5 mmol/L (3.5-5.1); Total Protein 5.8 gm/dl (6.0-8.3)
[2023-07-18 06:51] LABS: Troponin I High Sensitivity 25.7 pg/ml (0-20)
--- NOTE | 2023-07-18 07:17 | XRay Report ---
XR chest 1V portable HISTORY: 78 years-old Male Sepsis acute sepsis COMPARISON: Chest radiograph 03/23/2023, humerus radiographs 07/01/2023 TECHNIQUE: AP view of the chest FINDINGS: Cardiac silhouette is enlarged. Median sternotomy with CABG. Pulmonary vascular congestion with inter stitial coarsening. No pneumothorax, large pleural effusion or lobar airspace consolidation. Mild bib asilar densities are likely atelectatic. Degenerative changes of the shoulders and spine. Unchanged alignment of the subacute right proximal humeral fracture. IMPRESSION: 1. Cardiomegaly with mild pulmonary edema. 2. No airspace consolidation typical for pneumonia. 3. Unchanged alignment of the subacute right proximal humeral fracture. ACT 112: Negative or not required by law. The above report was generated using voice recognition software. It may contain grammatical, syntax o r spelling errors. Electronically signed by: Farhad Vyas M.D. 07/18/2023 7:16 AM
[2023-07-18 07:22] LABS: Estimated Average Glucose 117 mg/dl; Hemoglobin A1C 5.7 % (4.5-5.6)
--- NOTE | 2023-07-18 10:57 | Electrocardiogram Report ---
Test Reason : Blood Pressure : / mmHG Vent. Rate : 066 BPM Atrial Rate : 069 BPM P-R Int : 000 ms QRS Dur : 118 ms QT Int : 478 ms P-R-T Axes : 000 -55 136 degrees QTc Int : 501 ms Atrial fibrillation Left anterior fascicular block Left ventricular hypertrophy with QRS widening and repolarization abnormality Prolonged QT Abnormal ECG When compared with ECG of 10-MAY-2023 14:37, No significant change Confirmed by Tay Hansen ([id number]) on 07/18/2023 10:57:19 AM Referred By: REFERRED SELF Confirmed By:Tay Hansen
--- NOTE | 2023-07-18 11:28 | XCELERA ---
[id number] [id number]___[id number]
[2023-07-18] MEDS: INSULIN ASPART PER UNIT CHARGE SC SCH (13:53)
--- NOTE | 2023-07-18 13:56 | Ultrasound Report ---
ULTRASOUND-GUIDED PARACENTESIS CLINICAL HISTORY: Ascites PROCEDURE: Procedure and risks were explained. Informed consent was obtained. A final time out was co mpleted. The right upper quadrant was prepped and draped in sterile fashion. 1% buffered lidocaine wa s utilized for skin anesthesia. Utilizing ultrasound guidance, a 5 Turkish safety centesis catheter was advanced into the right upper quadrant pocket of ascites. Ultrasound images were obtained. A total of 1.7 L of ascites fluid was re moved and sent to the lab. The catheter was removed and Band-Aid applied. The patient tolerated the p rocedure well. Vital signs will be monitored postprocedure. IMPRESSION: Ultrasound-guided paracentesis as above. Performed, dictated, and signed by Shayan Harrison PA-C; to be co-signed by Dr. Andrew Goldstein. Electronically signed by: Andrew Goldstein M.D. 07/18/2023 2:29 PM
[2023-07-18] MEDS: SPIRONOLACTONE 25 MG TAB PO SCH (14:05)
[2023-07-18] MEDS: PANTOprazole 40 MG TAB PO SCH (14:05)
[2023-07-18] MEDS: METOPROLOL SUCC 25MG EXT REL TAB PO SCH (14:05)
[2023-07-18] MEDS: SERTRALINE HCL 100 MG TABLET PO SCH (14:05)
[2023-07-18] MEDS: CYANOCOBALAMIN (B-12) 100 MCG TABLET PO SCH (14:09)
--- NOTE | 2023-07-18 16:53 | Hospitalist Progress Note ---
Date of Service July 18, 2023 Assessment & Plan (1) Dementia: Plan: Suspected. Supportive care. (2) Ascites: Plan: Due to underlying cirrhosis. He does not require paracentesis at this time. Midline abdominal distention is due to diastases recti. Nevertheless, he is now on low-dose spironolactone which replaces losartan (3) Cirrhosis of liver: Plan: Supportive care. (4) Sepsis: Plan: Ruled out (5) Atrial fibrillation: Plan: Chronic. Continue current medications for rate control. (6) Splenomegaly: Plan: Due to underlying cirrhosis. With resultant chronic thrombocytopenia. 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 Serial labs (8) Diabetes: Plan: Type II. ADA diet. Sliding scale coverage as needed. Avoid basal insulin therapy to prevent hypoglycemia (9) Acute kidney injury superimposed on CKD: Plan: Monitor intake and output. Serial labs. Known chronic kidney disease stage III (10) Major neurocognitive disorder: Plan: Supportive care (11) Pancytopenia: Plan: Cirrhosis could explain thrombocytopenia. However his hemoglobin and white blood cell count are also low. He may have underlying myelodysplastic disorder. Hematology consultation requested Plan Hopeful return to Center care tomorrow, July 19 Admission and Anticipated Discharge Date Admission Date: July 18, 2023 Subjective He appears to be at his baseline at this time. No overt sepsis. Cardiac echo reveals ejection fraction of 50% with no regional wall motion abnormalities. He has mild , moderate MR, left atrial enlargement, and elevated right ventricular pressures. He has known cirrhosis with some ascites. He does not have any significant ascites at this time but does have diastases recti producing midline abdominal distention. Diet has been advanced. He has been started on low-dose once daily spironolactone which replaces losartan. Platelet count is chronically low due to hypersplenism related to his chronic cirrhosis. Hopefully he can return to [facility] care tomorrow, July 19 Review of Systems 2 Review of Systems: Constitutional-no fever or chills ENT-no blurred vision, no double vision, no epistaxis, no sore throat Respiratory-no cough, no wheezing, no shortness of breath Cardiac-no palpitations, no chest pain, no syncope GI-no nausea, vomiting, diarrhea, melena, hematochezia -no urinary retention, no urinary incontinence, no dysuria, no hematuria Musculoskeletal-no joint pain, no muscle tenderness Skin-no bruising, no rashes, no pruritus Neuro-no isolated weakness, no paresthesia, no weakness Psych-no depression, no anxiety Physical Exam 2 Physical Exam: General-alert and oriented x1, no fever, no chills HEENT-head atraumatic and normocephalic, pupils equal and reactive to light, extraocular muscles intact Neck-no lymphadenopathy or thyromegaly, trachea midline Chest-clear to auscultation. No rales, wheezing or rhonchi Cardiac-irregular rhythm. Controlled rate. Normal S1 and S2 Abdomen-normal bowel sounds, nontender, no hepatosplenomegaly. Midline diastases recti noted Extremities-no cyanosis, clubbing, or edema Neuro-cranial nerves II through XII intact, motor and sensory function within normal limits, strength symmetrical, no focal deficits Psych-normal affect, normal mood. Only oriented x 1 though. He probably has an element of underlying dementia Results & Data Results & Data Vital Signs (Past 12 Hours) Vital Signs Pulse Resp BP Pulse Ox O2 Del Method 07/18/23 15:06 73 22 115/85 07/18/23 15:00 74 20 115/85 92 Room Air 07/18/23 14:00 65 21 129/97 92 Room Air 07/18/23 13:00 66 24 102/59 L 90 Room Air 07/18/23 12:00 67 14 110/46 L 96 Room Air 07/18/23 10:44 57 L 14 119/54 L 98 Room Air 07/18/23 10:04 62 16 98 Room Air 07/18/23 08:38 58 L 07/18/23 08:00 61 18 120/71 98 Room Air 07/18/23 07:00 61 17 113/64 94 Room Air 07/18/23 06:00 70 17 122/71 98 Room Air 07/18/23 05:01 58 L 15 112/53 L 97 Room Air Laboratory Results 07/18/23 05:45 07/18/23 05:45 PG Care Time/CCT Total # of Minutes Spent Total Time Spent with Patient: Total time spent is greater than 50% in coordination of care (as documented) at patient's floor/unit and/or counseling patient: Coding Level of Care Code 36102 SUB INP/OBS CARE 3/50MIN Diagnoses Dementia F03.90 Ascites R18.8 Cirrhosis of liver K74.60 Sepsis A41.9 Sepsis acute organ dysfunction status: unspecified Sepsis type: sepsis due to unspecified organism Atrial fibrillation I48.91 Splenomegaly R16.1 Thrombocytopenia D69.6 Diabetes E11.9 Acute kidney injury superimposed on CKD N17.9; N18.9 Major neurocognitive disorder F03.90 Pancytopenia D61.818 (4) Sepsis Sepsis acute organ dysfunction status: unspecified Sepsis type: sepsis due to unspecified organism Qualified Code(s): A41.9 - Sepsis, unspecified organism
--- NOTE | 2023-07-18 20:21 | Oncology Consultation ---
Date of Consultation July 18, 2023 Assessment & Plan (1) Pancytopenia: . At this time my consideration is of the patient's pancytopenia is most likely related to underlying cirrhosis of liver and associated splenomegaly. We can consider invasive testing such as bone marrow biopsy however that can also be discussed once the patient is discharged home. It would be needed to be discussed with the family whether they would want a bone marrow biopsy to rule out underlying bone marrow issue given that the patient also has underlying neurocognitive disorder. Keeping this in mind I would not recommend bone marrow biopsy would just recommend supportive care for the patient's pancytopenia Plan Hematology will continue to follow the patient make appropriate recommendations. Thank you for this interesting hematological consult. History of Present Illness Attending Physician: Terrance Young MD History of Present Illness The patient is a very pleasant 78-year-old man with a past history of atrial fibrillation, CHF, supratherapeutic INR, thrombocytopenia, fatty liver, neurodegenerative disease, who came to the hospital after noting to have generalized weakness and fatigue along with confusion over the last 2 weeks. The family has been concerned about persistent fatigue. After admission the patient was found to be pancytopenic, with a WBC count of 2.71, protein of 9.0, hematocrit of 28.2, platelet count of 53,000/mcL. Hematology has been consulted to assist in management this patient with pancytopenia. He does have a history of cirrhosis of liver, and has splenomegaly Allergies Allergy/AdvReac Type Severity Reaction Status Date / Time rivaroxaban AdvReac Intermediate VOMITING Verified 07/17/23 18:56 Home Medications Medication Instructions Recorded Confirmed Type levothyroxine 100 mcg tablet 100 mcg PO QAM 08/09/19 07/17/23 History losartan 100 mg tablet 100 mg PO QAM 08/09/19 07/17/23 History metoprolol succinate 25 mg 25 mg PO BID 08/09/19 07/17/23 History tablet,extended release 24 hr potassium chloride 20 mEq 20 meq PO QAM 08/09/19 07/17/23 History tablet,extended release(part/cryst) (Klor-Con M) blood sugar diagnostic (OneTouch #100 ea 08/13/19 08/12/22 Rx Verio test strips) pen needle, diabetic 32 gauge x #30 ea 08/13/19 08/12/22 Rx 5/32" (BD Rosemary 2nd Gen Pen Needle) empagliflozin 10 mg tablet 10 mg PO QAM 11/07/20 07/17/23 History (Jardiance) cyanocobalamin (vitamin B-12) 100 100 mcg PO QAM #20 tabs 10/05/21 07/17/23 Rx mcg tablet (Vitamin B-12) amlodipine 5 mg tablet 5 mg PO HS 03/07/22 07/17/23 History atorvastatin 40 mg tablet 40 mg PO HS 03/07/22 07/17/23 History bumetanide 1 mg tablet 1 mg PO DAILY 03/07/22 07/17/23 History acetaminophen 325 mg tablet 650 mg PO Q6H PRN FEVER >100/PAIN 05/10/23 07/17/23 History (Tylenol) cholestyramine (with sugar) 4 gram 4 g PO QAM 05/10/23 07/17/23 History oral powder ferrous sulfate 325 mg (65 mg 325 mg PO QAM 05/10/23 07/17/23 History iron) tablet,delayed release food supplemt, lactose-reduced 1 ea PO BIDM 05/10/23 07/17/23 History insulin lispro 100 unit/mL 1 sliding scale dose subcut ACHS 05/10/23 07/17/23 History subcutaneous solution (Humalog U-100 Insulin) lidocaine 4 % topical patch 1 patch topical DAILY 05/10/23 07/17/23 History loperamide 2 mg tablet (Imodium 2 mg PO Q2H PRN Diarrhea 05/10/23 07/17/23 History A-D) melatonin 5 mg tablet 10 mg PO HS 05/10/23 07/17/23 History pantoprazole 40 mg tablet,delayed 40 mg PO BIDM 05/10/23 07/17/23 History release protein supplement 1 ea PO QAM 05/10/23 07/17/23 History sertraline 200 mg capsule 200 mg PO DAILY 05/10/23 07/17/23 History sodium chloride 0.65 % nasal spray 2 spray intranasal BIDM 05/10/23 07/17/23 History aerosol (Saline Nasal) trazodone 50 mg tablet 25 mg PO HS 05/10/23 07/17/23 History Patient History Medical History (Updated 07/18/23 @ 16:52 by Terrance Young MD) Hypothyroidism Squamous cell carcinoma of ear Hearing deficit Depression Anxiety On anticoagulant therapy warfarin daily Sleep apnea cpap Diabetes IDDM Fatty liver (~02/2014) Coumadin toxicity (04/24/14) CHF (congestive heart failure) (02/19/14) Atrial fibrillation on warfarin--follows with Dr. Harp Anemia Surgical History History of esophagogastroduodenoscopy (EGD) last 09/24/21 @ [facility] History of colonoscopy last 09/24/21 @ [facility] History of hernia surgery History of Mohs micrographic surgery for skin cancer History of tooth extraction History of sinus surgery History of strabismus surgery History of cardiac cath a few years ago at [facility]--no stents History of coronary artery bypass graft x 3 "a few years ago" at [facility] in [place] Family History Other No family history of adverse response to anesthesia Social History Smoking Status: Never smoker Tobacco Type: Cigarettes Second Hand Exposure: No; Do You Dip or Chew Tobacco: No; Hx Alcohol Use: No Hx Substance Use: No Preferred Language: Turkmen Communication Ability: Impaired Communication Ability Comment: Forgetful Executive Steward Required: No Beliefs That Will Affect Care: None marital status: Current Living Situation: Care Home Current Living Situation Comment: Pt resides at [facility] Feels Safe at Home: Yes Assistive Devices: Walker and Wheelchair Physical Exam Constitutional: WD/WN, vitals as above Eyes: PERRL, conjunctivae normal, anicteric sclerae ENMT: external ear and nose normal, oropharynx normal Neck: trachea midline, no thyromegaly Respiratory: normal respiratory effort, lungs clear to auscultation Cardiovascular: RRR, no murmur, no edema Gastrointestinal (Abdomen): normal bowel sounds, soft, nontender, no hepatosplenomegaly Musculoskeletal: no cyanosis or clubbing, extremities motor strength 5/5 Skin: no rashes, warm and dry Neurologic: patellar DTR's 2+ bilat, sensation intact Results & Data Vital Signs (Past 12 Hours) Vital Signs Temp Pulse Pulse Resp BP BP Pulse Ox 07/18/23 19:05 36.6 C 67 20 111/64 97 07/18/23 16:21 36.8 C 53 L 18 106/56 L 98 07/18/23 15:06 73 22 115/85 07/18/23 15:00 74 20 115/85 92 07/18/23 14:00 65 21 129/97 92 07/18/23 13:00 66 24 102/59 L 90 07/18/23 12:00 67 14 110/46 L 96 07/18/23 10:44 57 L 14 119/54 L 98 07/18/23 10:04 62 16 98 07/18/23 08:38 58 L O2 Del Method 07/18/23 19:05 Room Air 07/18/23 16:21 Room Air 07/18/23 15:06 07/18/23 15:00 Room Air 07/18/23 14:00 Room Air 07/18/23 13:00 Room Air 07/18/23 12:00 Room Air 07/18/23 10:44 Room Air 07/18/23 10:04 Room Air 07/18/23 08:38
[2023-07-18] MEDS ORDERED: ATORVASTATIN 40 MG TAB PO SCH (21:00)
[2023-07-18] MEDS: traZODone HCL 50 MG TAB PO SCH (21:15)
[2023-07-19 05:53] LABS: Basophils # (auto) 0.02 K/uL (0.00-0.20); Basophils % (auto) 0.7 %; Eosinophils # (auto) 0.05 K/uL (0.00-0.50); Eosinophils % (auto) 1.7 %; Hematocrit (blood only) 29.4 % (42.0-52.0); Hemoglobin 9.5 g/dl (14.0-18.0); Immature Granulocytes # (auto) 0.01 K/uL (0.01-0.20); Immature Granulocytes % (auto) 0.3 %; Lymphocytes # (auto) 0.44 K/uL (1.20-3.40); Lymphocytes % (auto) 14.6 %; Mean Corpuscular Hemoglobin 29.3 pg (25.0-34.0); Mean Corpuscular Hgb Conc 32.3 g/dL (32.0-36.0); Mean Corpuscular Volume 90.7 fL (80.0-100.0); Mean Platelet Volume 11.4 fL (9.4-12.4); Monocytes # (auto) 0.31 K/uL (0.11-0.59); Monocytes % (auto) 10.3 %; Neutrophils # (auto) 2.18 K/uL (1.40-6.50); Neutrophils % (auto) 72.4 %; Platelet Count 53 K/uL (130-400); RDW Coefficient of Variation 18.3 % (11.5-14.5); RDW Standard Deviation 60.6 fL (36.4-46.3); Red Blood Count 3.24 M/uL (4.70-6.10); White Blood Count 3.01 K/ul (4.8-10.8)
[2023-07-19 06:04] LABS: Albumin Globulin Ratio 0.9 (0.9-2); Albumin Level 2.8 gm/dl (3.4-5.0); BUN Creatinine Ratio 26.7 (10-20); Bilirubin,Total 1.1 mg/dl (0.2-1.0); Calcium 8.6 mg/dl (8.6-10.3); Creatinine Clr Calc Pharmacy 38.3 ml/min; Est GFR (African American) 65.8 ml/min; Est GFR (Non-African American) 56.8 ml/min; Globulin 3.1 gm/dl (2.5-4.0); Potassium 4.7 mmol/L (3.5-5.1); Total Protein 5.9 gm/dl (6.0-8.3)
[2023-07-19] MEDS: AMOXICILLIN 875 MG TAB PO SCH (11:13)
--- NOTE | 2023-07-19 12:36 | Discharge Summary ---
Date of Service July 19, 2023 Admission HPI Per Admitting Provider The patient is an 78-year-old male with a past medical history including atrial fibrillation, CHF, history of supratherapeutic INR, thrombocytopenia, fatty liver, major neurocognitive disorder, closed left hip fracture on 03/07/2022, compression fracture of spinous process of cervical vertebra, demand ischemia, and vitamin D deficiency. His daughter notes that patient has had worsening generalized weakness and fatigue, along with confusion over the past 2 weeks. She reports that he had been on lactulose, but his bowel movements were too loose, and he was having control issues. She reports that he has not had any obvious signs of infection related to respiratory or urinary symptoms. Principal Diagnosis Complicated streptococcal UTI, suspected metabolic encephalopathy present on admission, acute on chronic kidney disease, pancytopenia, hypersplenism with thrombocytopenia, cirrhosis with ascites Discharge Exam General-alert and oriented x1, no fever, no chills HEENT-head atraumatic and normocephalic, pupils equal and reactive to light, extraocular muscles intact Neck-no lymphadenopathy or thyromegaly, trachea midline Chest-clear to auscultation. No rales, wheezing or rhonchi Cardiac-irregular rhythm. Controlled rate. Normal S1 and S2 Abdomen-normal bowel sounds, nontender, no hepatosplenomegaly. Midline diastases recti noted Extremities-no cyanosis, clubbing, or edema Neuro-cranial nerves II through XII intact, motor and sensory function within normal limits, strength symmetrical, no focal deficits Psych-normal affect, normal mood. Only oriented x 1 though. He probably has an element of underlying dementia Discharge Data Allergies Allergy/AdvReac Type Severity Reaction Status Date / Time rivaroxaban AdvReac Intermediate VOMITING Verified 07/17/23 18:56 Consultations 07/17/23 23:17 ED Decision to Admit Stat 07/18/23 10:41 Consult Hematology Routine Ordered Studies 07/17/23 19:18 CT head/brain wo con Stat 07/17/23 21:55 CT abd pelvis wo con Stat 07/18/23 06:39 IR paracentesis abd w/img US Routine Hospital Course (1) Dementia: Suspected. Supportive care. (2) Metabolic encephalopathy: Suspected on admission. Now resolved (3) Ascites: Due to underlying cirrhosis. He underwent paracentesis on July 18 with aspiration of 1.7 L of fluid. He is now on low-dose spironolactone daily which replaces losartan. Midline abdominal distention is due to diastases recti. (4) Cirrhosis of liver: Supportive care. Low-dose daily spironolactone has been ordered (5) Sepsis: Ruled out (6) Atrial fibrillation: Chronic. Continue current medications for rate control. (7) Splenomegaly: Due to underlying cirrhosis. With resultant chronic thrombocytopenia. 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 Serial labs (9) Diabetes: Type II. ADA diet. Sliding scale coverage as needed. Avoid basal insulin therapy to prevent hypoglycemia (10) Acute kidney injury superimposed on CKD: Monitor intake and output. Serial labs. Known chronic kidney disease stage III (11) Major neurocognitive disorder: Supportive care (12) Pancytopenia: Hematology consultation appreciated. They will follow-up as an outpatient. Discussion with family will be made regarding bone marrow biopsy for definitive diagnosis. (13) UTI (urinary tract infection) due to urinary indwelling catheter: Strep isolated. He is now on oral amoxicillin Plan Return to [facility] today, July 19 Total Time Total Time Spent Total Time Spent (In Minutes): 45 minutes Discharge Plan Discharge Items Patient Disposition: Transfer Nursing Home Fac Reason For Visit: CONFUSIION, WEAKNESS, VIVEK Discharge Diagnosis: Suspected metabolic encephalopathy, complicated streptococcal UTI, cirrhosis with ascites, acute on chronic kidney disease, pancytopenia Activity: Resume your previous activity Non-emergency contact: Primary Care Provider Call non-emergency contact if: you have any medication questions and your symptoms worsen Follow-up/Referrals: [facility] [Primary Care Provider] - Diet: Regular and Heart Healthy Addtl Attending Provider Instructions: Take amoxicillin for 5 days. Spironolactone replaces losartan. Pending Studies at Discharge: No Stand-Alone Forms: My [facility] Skilled Items Patient informed of condition?: Yes DNR: Yes Discharge Level of Care: Skilled Communicable Disease: No Discharge Prognosis: Stable Lines: None Urinary Catheter: Yes Medications and DC Order Prescriptions: New spironolactone 25 mg Tablet 25 mg PO QAM Qty: 0 0RF amoxicillin 875 mg Tablet 875 mg PO BID Qty: 0 0RF Continued potassium chloride [Klor-Con M20] 20 mEq tablet,ER particles/crystals 20 meq PO QAM levothyroxine 100 mcg tablet 100 mcg PO QAM metoprolol succinate 25 mg tablet extended release 24 hr 25 mg PO BID (DME) OneTouch Verio test strips Strip See Rx Instructions .ROUTE .MEDSUPPLY Qty: 100 0RF Rx Instructions: As directed (DME) pen needle, diabetic [BD Rosemary 2nd Gen Pen Needle] 32 gauge x 5/32" needle See Rx Instructions .ROUTE .MEDSUPPLY Qty: 30 3RF Rx Instructions: As directed Jardiance 10 mg Tablet 10 mg PO QAM atorvastatin 40 mg tablet 40 mg PO HS amlodipine 5 mg tablet 5 mg PO HS bumetanide 1 mg tablet 1 mg PO DAILY acetaminophen [Tylenol] 325 mg Tablet 650 mg PO Q6H MDD 3 GRAMS APAP/24 HOURS PRN (Reason: FEVER >100/PAIN) lidocaine 4 % Adhesive Patch,Medicated 1 patch TOPICAL DAILY Rx Instructions: APPLY QAM, THEN REMOVE QPM. APPLY TO NECK, ABOVE T-SPINE loperamide [Imodium A-D] 2 mg Tablet 2 mg PO Q2H PRN (Reason: Diarrhea) insulin lispro [Humalog U-100 Insulin] 100 unit/mL Solution 1 sliding scale dose SUBCUT ACHS Rx Instructions: SLIDING SCALE PLUS COVERAGE---BSG 350-400=8 UNITS, BSG 401-450=12 UNITS, BSG 451-500=16 UNITS, BSG 501-550=18 UNITS, RECHECK BSG IN 2 HRS. Boost Breeze Liquid 1 ea PO BIDM Rx Instructions: 240 ML WITH BIDM. Saline Nasal 0.65 % Aerosol,[place] 2 spray INTRANASAL BIDM cholestyramine (with sugar) 4 gram Powder 4 g PO QAM protein supplement Liquid 1 ea PO QAM Rx Instructions: GIVE 30 ML QAM. melatonin 5 mg Tablet 10 mg PO HS sertraline 200 mg Capsule 200 mg PO DAILY trazodone 50 mg tablet 25 mg PO HS pantoprazole 40 mg tablet,delayed release (DR/EC) 40 mg PO BIDM ferrous sulfate 325 mg (65 mg iron) tablet,delayed release (DR/EC) 325 mg PO QAM cyanocobalamin (vitamin B-12) [Vitamin B-12] 100 mcg Tablet 100 mcg PO QAM Qty: 20 0RF Discontinued losartan 100 mg tablet 100 mg PO QAM Discharge Orders: Discharge Order (Routine); Ordered 07/19/23 Ordered By: Terrance Young Admission Data Admit Date/Time: 07/18/23 00:22 Attending Provider: Terrance Young Admit Provider: Michoacano Burgess Primary Care Provider: [facility] Other Providers: Michoacano Burgess; Murali Middleton Coding Level of Care Code 56999 INP/OBS DISCH >30 MIN Diagnoses Dementia F03.90 Metabolic encephalopathy G93.41 Ascites R18.8 Cirrhosis of liver K74.60 Sepsis A41.9 Sepsis acute organ dysfunction status: unspecified Sepsis type: sepsis due to unspecified organism Atrial fibrillation I48.91 Splenomegaly R16.1 Thrombocytopenia D69.6 Diabetes E11.9 Acute kidney injury superimposed on CKD N17.9; N18.9 Major neurocognitive disorder F03.90 Pancytopenia D61.818 UTI (urinary tract infection) due to urinary indwelling catheter T83.511A; N39.0
--- NOTE | 2023-07-19 15:56 | Hospitalist Progress Note ---
Date of Service July 19, 2023 Assessment & Plan (1) Dementia: Plan: Suspected. Supportive care. (2) Metabolic encephalopathy: Plan: Suspected on admission. Now resolved (3) Ascites: Plan: Due to underlying cirrhosis. He underwent paracentesis on July 18 with aspiration of 1.7 L of fluid. He is now on low-dose spironolactone daily which replaces losartan. Midline abdominal distention is due to diastases recti. (4) Cirrhosis of liver: Plan: Supportive care. Low-dose daily spironolactone has been ordered (5) Sepsis: Plan: Ruled out (6) Atrial fibrillation: Plan: Chronic. Continue current medications for rate control. (7) Splenomegaly: Plan: Due to underlying cirrhosis. With resultant chronic thrombocytopenia. 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 Serial labs (9) Diabetes: Plan: Type II. ADA diet. Sliding scale coverage as needed. Avoid basal insulin therapy to prevent hypoglycemia (10) Acute kidney injury superimposed on CKD: Plan: Monitor intake and output. Serial labs. Known chronic kidney disease stage III (11) Major neurocognitive disorder: Plan: Supportive care (12) Pancytopenia: Plan: Hematology consultation appreciated. They will follow-up as an outpatient. Discussion with family will be made regarding bone marrow biopsy for definitive diagnosis. (13) UTI (urinary tract infection) due to urinary indwelling catheter: Plan: Strep isolated. He is now on oral amoxicillin Plan Return to [facility] tomorrow, July 20 Admission and Anticipated Discharge Date Admission Date: July 18, 2023 Subjective Alert and oriented. No distress. He is now on amoxicillin for strep isolated in the urine. He was going to be discharged back to [facility] today but there is no transportation. This will be delayed until tomorrow, July 20 Review of Systems 2 Review of Systems: Constitutional-no fever or chills ENT-no blurred vision, no double vision, no epistaxis, no sore throat Respiratory-no cough, no wheezing, no shortness of breath Cardiac-no palpitations, no chest pain, no syncope GI-no nausea, vomiting, diarrhea, melena, hematochezia -no urinary retention, no urinary incontinence, no dysuria, no hematuria Musculoskeletal-no joint pain, no muscle tenderness Skin-no bruising, no rashes, no pruritus Neuro-no isolated weakness, no paresthesia, no weakness Psych-no depression, no anxiety Physical Exam 2 Physical Exam: General-alert and oriented x1, no fever, no chills HEENT-head atraumatic and normocephalic, pupils equal and reactive to light, extraocular muscles intact Neck-no lymphadenopathy or thyromegaly, trachea midline Chest-clear to auscultation. No rales, wheezing or rhonchi Cardiac-irregular rhythm. Controlled rate. Normal S1 and S2 Abdomen-normal bowel sounds, nontender, no hepatosplenomegaly. Midline diastases recti noted Extremities-no cyanosis, clubbing, or edema Neuro-cranial nerves II through XII intact, motor and sensory function within normal limits, strength symmetrical, no focal deficits Psych-normal affect, normal mood. Only oriented x 1 though. He probably has an element of underlying dementia Results & Data Results & Data Vital Signs (Past 12 Hours) Vital Signs Temp Pulse Pulse Resp BP BP Pulse Ox 07/19/23 11:44 36.8 C 106 H 16 109/54 L 95 07/19/23 07:30 36.6 C 62 16 127/64 97 07/19/23 07:00 68 O2 Del Method 07/19/23 11:44 Room Air 07/19/23 07:30 Room Air 07/19/23 07:00 Laboratory Results 07/19/23 05:26 07/19/23 05:26 PG Care Time/CCT Total # of Minutes Spent Total Time Spent with Patient: Total time spent is greater than 50% in coordination of care (as documented) at patient's floor/unit and/or counseling patient: Coding Level of Care Code 03887 SUB INP/OBS CARE 3/50MIN Diagnoses Dementia F03.90 Metabolic encephalopathy G93.41 Ascites R18.8 Cirrhosis of liver K74.60 Sepsis A41.9 Sepsis acute organ dysfunction status: unspecified Sepsis type: sepsis due to unspecified organism Atrial fibrillation I48.91 Splenomegaly R16.1 Thrombocytopenia D69.6 Diabetes E11.9 Acute kidney injury superimposed on CKD N17.9; N18.9 Major neurocognitive disorder F03.90 Pancytopenia D61.818 UTI (urinary tract infection) due to urinary indwelling catheter T83.511A; N39.0 (5) Sepsis Sepsis acute organ dysfunction status: unspecified Sepsis type: sepsis due to unspecified organism Qualified Code(s): A41.9 - Sepsis, unspecified organism
[2023-07-20 06:29] LABS: Basophils # (auto) 0.01 K/uL (0.00-0.20); Basophils % (auto) 0.4 %; Eosinophils # (auto) 0.07 K/uL (0.00-0.50); Eosinophils % (auto) 2.5 %; Hematocrit (blood only) 30.1 % (42.0-52.0); Hemoglobin 9.5 g/dl (14.0-18.0); Immature Granulocytes # (auto) 0.01 K/uL (0.01-0.20); Immature Granulocytes % (auto) 0.4 %; Lymphocytes # (auto) 0.41 K/uL (1.20-3.40); Lymphocytes % (auto) 14.5 %; Mean Corpuscular Hgb Conc 31.6 g/dL (32.0-36.0); Mean Corpuscular Volume 91.8 fL (80.0-100.0); Mean Platelet Volume 11.2 fL (9.4-12.4); Monocytes # (auto) 0.31 K/uL (0.11-0.59); Neutrophils # (auto) 2.02 K/uL (1.40-6.50); Neutrophils % (auto) 71.2 %; Platelet Count 57 K/uL (130-400); RDW Coefficient of Variation 18.3 % (11.5-14.5); RDW Standard Deviation 61.3 fL (36.4-46.3); Red Blood Count 3.28 M/uL (4.70-6.10); White Blood Count 2.83 K/ul (4.8-10.8)
[2023-07-20 06:57] LABS: Albumin Level 2.9 gm/dl (3.4-5.0); BUN Creatinine Ratio 31.4 (10-20); Calcium 8.6 mg/dl (8.6-10.3); Creatinine Clr Calc Pharmacy 36.9 ml/min; Est GFR (African American) 67.1 ml/min; Est GFR (Non-African American) 57.9 ml/min; Potassium 4.6 mmol/L (3.5-5.1); Total Protein 5.9 gm/dl (6.0-8.3)
--- NOTE | 2023-07-20 12:48 | Discharge Summary ---
Date of Service July 20, 2023 Admission HPI Per Admitting Provider The patient is an 78-year-old male with a past medical history including atrial fibrillation, CHF, history of supratherapeutic INR, thrombocytopenia, fatty liver, major neurocognitive disorder, closed left hip fracture on 03/07/2022, compression fracture of spinous process of cervical vertebra, demand ischemia, and vitamin D deficiency. His daughter notes that patient has had worsening generalized weakness and fatigue, along with confusion over the past 2 weeks. She reports that he had been on lactulose, but his bowel movements were too loose, and he was having control issues. She reports that he has not had any obvious signs of infection related to respiratory or urinary symptoms. Principal Diagnosis Metabolic encephalopathy, elevated troponin without acute coronary syndrome, streptococcal UTI, acute on chronic kidney disease, pancytopenia, nonalcohol induced cirrhosis with ascites Discharge Exam General-alert and oriented x1, no fever, no chills HEENT-head atraumatic and normocephalic, pupils equal and reactive to light, extraocular muscles intact Neck-no lymphadenopathy or thyromegaly, trachea midline Chest-clear to auscultation. No rales, wheezing or rhonchi Cardiac-irregular rhythm. Controlled rate. Normal S1 and S2 Abdomen-normal bowel sounds, nontender, no hepatosplenomegaly. Midline diastases recti noted Extremities-no cyanosis, clubbing, or edema Neuro-cranial nerves II through XII intact, motor and sensory function within normal limits, strength symmetrical, no focal deficits Psych-normal affect, normal mood. Only oriented x 1 though. He probably has an element of underlying dementia Discharge Data Allergies Allergy/AdvReac Type Severity Reaction Status Date / Time rivaroxaban AdvReac Intermediate VOMITING Verified 07/17/23 18:56 Consultations 07/17/23 23:17 ED Decision to Admit Stat 07/18/23 10:41 Consult Hematology Routine Ordered Studies 07/17/23 19:18 CT head/brain wo con Stat 07/17/23 21:55 CT abd pelvis wo con Stat 07/18/23 06:39 IR paracentesis abd w/img US Routine Hospital Course (1) Dementia: Suspected. Supportive care. (2) Metabolic encephalopathy: Suspected on admission. Now resolved (3) Ascites: Due to underlying cirrhosis. He underwent paracentesis on July 18 with aspiration of 1.7 L of fluid. He is now on low-dose spironolactone daily which replaces losartan. Midline abdominal distention is due to diastases recti. (4) Cirrhosis of liver: Supportive care. Low-dose daily spironolactone has been ordered (5) Sepsis: Ruled out (6) Atrial fibrillation: Chronic. Continue current medications for rate control. (7) Splenomegaly: Due to underlying cirrhosis. With resultant chronic thrombocytopenia. 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 Serial labs (9) Diabetes: Type II. ADA diet. Sliding scale coverage as needed. Avoid basal insulin therapy to prevent hypoglycemia (10) Acute kidney injury superimposed on CKD: Monitor intake and output. Serial labs. Known chronic kidney disease stage III (11) Major neurocognitive disorder: Supportive care (12) Pancytopenia: Hematology consultation appreciated. They will follow-up as an outpatient. Discussion with family will be made regarding bone marrow biopsy for definitive diagnosis. (13) UTI (urinary tract infection) due to urinary indwelling catheter: Strep isolated. He is now on oral amoxicillin Plan Return to Center care today, July 20 Total Time Total Time Spent Total Time Spent (In Minutes): 40-minute Discharge Plan Discharge Items Patient Disposition: Transfer Care Home Fac Reason For Visit: CONFUSIION, WEAKNESS, VIVEK Discharge Diagnosis: Suspected metabolic encephalopathy, complicated streptococcal UTI, cirrhosis with ascites, acute on chronic kidney disease, pancytopenia Activity: Resume your previous activity Non-emergency contact: Primary Care Provider Call non-emergency contact if: you have any medication questions and your symptoms worsen Follow-up/Referrals: [facility] [Primary Care Provider] - Diet: Regular and Heart Healthy Addtl Attending Provider Instructions: Take amoxicillin for 5 days. Spironolactone replaces losartan. Pending Studies at Discharge: No Stand-Alone Forms: My [facility] Skilled Items Patient informed of condition?: Yes DNR: Yes Discharge Level of Care: Skilled Communicable Disease: No Discharge Prognosis: Stable Lines: None Urinary Catheter: Yes Medications and DC Order Prescriptions: New spironolactone 25 mg Tablet 25 mg PO QAM Qty: 30 0RF amoxicillin 875 mg Tablet 875 mg PO BID Qty: 10 0RF Continued potassium chloride [Klor-Con M20] 20 mEq tablet,ER particles/crystals 20 meq PO QAM levothyroxine 100 mcg tablet 100 mcg PO QAM metoprolol succinate 25 mg tablet extended release 24 hr 25 mg PO BID (DME) OneTouch Verio test strips Strip See Rx Instructions .ROUTE .MEDSUPPLY Qty: 100 0RF Rx Instructions: As directed (DME) pen needle, diabetic [BD Rosemary 2nd Gen Pen Needle] 32 gauge x 5/32" needle See Rx Instructions .ROUTE .MEDSUPPLY Qty: 30 3RF Rx Instructions: As directed Jardiance 10 mg Tablet 10 mg PO QAM atorvastatin 40 mg tablet 40 mg PO HS amlodipine 5 mg tablet 5 mg PO HS bumetanide 1 mg tablet 1 mg PO DAILY acetaminophen [Tylenol] 325 mg Tablet 650 mg PO Q6H MDD 3 GRAMS APAP/24 HOURS PRN (Reason: FEVER >100/PAIN) lidocaine 4 % Adhesive Patch,Medicated 1 patch TOPICAL DAILY Rx Instructions: APPLY QAM, THEN REMOVE QPM. APPLY TO NECK, ABOVE T-SPINE loperamide [Imodium A-D] 2 mg Tablet 2 mg PO Q2H PRN (Reason: Diarrhea) insulin lispro [Humalog U-100 Insulin] 100 unit/mL Solution 1 sliding scale dose SUBCUT ACHS Rx Instructions: SLIDING SCALE PLUS COVERAGE---BSG 350-400=8 UNITS, BSG 401-450=12 UNITS, BSG 451-500=16 UNITS, BSG 501-550=18 UNITS, RECHECK BSG IN 2 HRS. Boost Breeze Liquid 1 ea PO BIDM Rx Instructions: 240 ML WITH BIDM. Saline Nasal 0.65 % Aerosol,[place] 2 spray INTRANASAL BIDM cholestyramine (with sugar) 4 gram Powder 4 g PO QAM protein supplement Liquid 1 ea PO QAM Rx Instructions: GIVE 30 ML QAM. melatonin 5 mg Tablet 10 mg PO HS sertraline 200 mg Capsule 200 mg PO DAILY trazodone 50 mg tablet 25 mg PO HS pantoprazole 40 mg tablet,delayed release (DR/EC) 40 mg PO BIDM ferrous sulfate 325 mg (65 mg iron) tablet,delayed release (DR/EC) 325 mg PO QAM cyanocobalamin (vitamin B-12) [Vitamin B-12] 100 mcg Tablet 100 mcg PO QAM Qty: 20 0RF Discontinued losartan 100 mg tablet 100 mg PO QAM Discharge Orders: Discharge Order (Routine); Ordered 07/20/23 Ordered By: Terrance Young Admission Data Admit Date/Time: 07/18/23 00:22 Attending Provider: Terrance Young Admit Provider: Michoacano Burgess Primary Care Provider: [place] Other Providers: Michoacano Burgess; Murali Middleton Coding Level of Care Code 25422 INP/OBS DISCH >30 MIN Diagnoses Dementia F03.90 Metabolic encephalopathy G93.41 Ascites R18.8 Cirrhosis of liver K74.60 Sepsis A41.9 Sepsis acute organ dysfunction status: unspecified Sepsis type: sepsis due to unspecified organism Atrial fibrillation I48.91 Splenomegaly R16.1 Thrombocytopenia D69.6 Diabetes E11.9 Acute kidney injury superimposed on CKD N17.9; N18.9 Major neurocognitive disorder F03.90 Pancytopenia D61.818 UTI (urinary tract infection) due to urinary indwelling catheter T83.511A; N39.0
== END 2023-07-20 14:06 | DRG 432 ==
LOC: ED 18:09 → EDINP 07-18 00:22 → SUATTDRO 07-18 00:22 → 2N 07-18 01:17 → 2W 07-18 20:17

== ENCOUNTER 2023-08-05 07:59 | Inpatient (IN) ==
--- NOTE | 2023-08-05 08:25 | Emergency Department Note ---
Impression & Plan Altered mental status, Somnolence, Liver failure, Hyperammonemia ED Provider Note NAME: BROOK COOLEY AGE: 78 SEX: M : 1945 ARRIVES VIA: Ambulance INFORMANT: [ems, nursing] ED PROVIDER(S): [Wilbert Carolina MD] CHIEF COMPLAINT: Altered mental state HISTORY OF PRESENT ILLNESS: The patient is an 78-year-old male who was by report, his baseline self last evening. This morning, he would not arouse and seemed altered. He was sent for evaluation. The patient is a resident at [facility]. He is a DNR. He has a history of liver disease and oftentimes has a high ammonia level. The patient was in our hospital recently, he was discharged on the , just over 2 weeks ago. He had been hospitalized for an altered mental state and UTI. The patient is unable to give any history. He is somnolent. PMHx/PSHx/Social Hx: See Below PHYSICAL EXAM: GENERAL: Patient is in no acute distress. HEENT: No acute trauma, normocephalic atraumatic, mucous membranes dry, no nasal congestion. Pupils equal and react to light. NECK: No stridor, no adenopathy, no meningismus, trachea is midline. LUNGS: Clear to auscultation bilaterally when listening anterior, no wheeze, no rhonchi, breath sounds equal. Increased respiratory rate. HEART: 2/6 systolic murmur, slightly irregular rhythm, normal rate. ABDOMEN: Soft, nontender, no peritonitis. EXTREMITIES: No cyanosis, full range of motion of all the joints without pain or difficulty. NEUROLOGIC: Somnolent, arouses to loud voice or painful stimuli. Moves all extremities. SKIN: No jaundice, no diaphoresis. DIFFERENTIAL DIAGNOSIS: Liver failure, renal failure, bacteremia or sepsis, intracranial bleeding or stroke, electrolyte imbalance, anemia, among others. EMERGENCY DEPARTMENT PROCEDURES: MEDICAL DECISION MAKING: There is no leukocytosis. The patient is anemic with a hemoglobin of 11.6. The patient does carry a history of anemia. Platelet count was low but this is a chronic finding and consistent with his liver disease. INR was 1.4, likely elevated from his liver disease. Creatinine was elevated consistent with dehydration. Lactic acid level was slightly elevated, this could be consistent with infection or just dehydration. There were some liver enzyme elevations noted, consistent with his history of liver disease. Ammonia level was quite high at 160. Troponin was somewhat elevated at 43. This troponin elevation could be consistent with cardiac injury or just mismatch. ECG showed atrial fibrillation, no obvious acute ischemia. Patient appeared to be in a euthyroid state. Urinalysis does not show infection. COVID, influenza and RSV test were negative. Chest x-ray did not show pneumonia or CHF. Brain CT did not show acute bleed or mass effect. On exam, the patient was quite somnolent but did respond to painful stimuli or loud voice. No focal neurologic findings. He was not febrile. The patient received IV saline, 1 L. This was given for hydration purposes as he appeared dehydrated by exam and workup. He received IV cefepime as empiric antibiotic coverage. The patient has an altered mental state, likely from dehydration and a high ammonia level. He is in need of a hospital stay and further care. I did speak with case management, the on-call hospitalist was consulted. Prior/Outside records/notes reviewed: Today's EMS notes describing his presentation and transport to this hospital. ECG per my interpretation: Indication was weakness. The ECG shows what appears to be atrial fibrillation with a rate of 92. There is an incomplete left bundle branch block. There is potential old septal infarct. There are T wave inversions noted laterally. There is no ST elevation. The QTc is 521. No PVCs. Compared to an ECG from 17 July 2023, I see no significant change. Continuous Cardiac Monitoring per my interpretation: An order was placed for continuous cardiac monitoring. The monitor shows a rate of 88 with atrial fibrillation. Imaging/x-ray results per my interpretation: Chest x-ray does not show mediastinal widening, pneumonia or pneumothorax. Chronic Medical/Social conditions affecting care: Advanced age, dementia. Care/Management discussed with: Case management, the on-call hospitalist. Level of care consideration(s): After review of the information above and other included data: --I believe the patient requires escalation of care to admission DISPOSITION: Admission Past Med/Surg History Medical History Hypothyroidism Squamous cell carcinoma of ear Hearing deficit Depression Anxiety On anticoagulant therapy warfarin daily Sleep apnea cpap Diabetes IDDM Fatty liver (~02/2014) Coumadin toxicity (11/16/14) CHF (congestive heart failure) (02/19/14) Atrial fibrillation on warfarin--follows with Dr. Harp Anemia Surgical History History of esophagogastroduodenoscopy (EGD) last 09/24/21 @ [facility] History of colonoscopy last 09/24/21 @ [facility] History of hernia surgery History of Mohs micrographic surgery for skin cancer History of tooth extraction History of sinus surgery History of strabismus surgery History of cardiac cath a few years ago at [facility]--no stents History of coronary artery bypass graft x 3 "a few years ago" at [facility] Family History Other No family history of adverse response to anesthesia Social History Smoking Status: Never smoker Tobacco Type: Cigarettes Second Hand Exposure: No; Do You Dip or Chew Tobacco: No; Hx Alcohol Use: No Hx Substance Use: No Preferred Language: Greek Communication Ability: Impaired Communication Ability Comment: Forgetful [employer] Required: No Beliefs That Will Affect Care: None marital status: Current Living Situation: Half-Way Current Living Situation Comment: [facility] resides at [facility] Feels Safe at Home: Yes Assistive Devices: Walker and Wheelchair Allergies Allergies Allergy/AdvReac Type Severity Reaction Status Date / Time rivaroxaban AdvReac Intermediate VOMITING Verified 07/17/23 18:56 Home Meds Home Medications Medication Instructions Recorded Confirmed levothyroxine 100 mcg tablet 100 mcg PO QAM 08/09/19 07/17/23 metoprolol succinate 25 mg 25 mg PO BID 08/09/19 07/17/23 tablet,extended release 24 hr potassium chloride 20 mEq 20 meq PO QAM 08/09/19 07/17/23 tablet,extended release(part/cryst) (Klor-Con M) empagliflozin 10 mg tablet 10 mg PO QAM 11/07/20 07/17/23 (Jardiance) amlodipine 5 mg tablet 5 mg PO HS 03/07/22 07/17/23 atorvastatin 40 mg tablet 40 mg PO HS 03/07/22 07/17/23 bumetanide 1 mg tablet 1 mg PO DAILY 03/07/22 07/17/23 acetaminophen 325 mg tablet 650 mg PO Q6H PRN FEVER >100/PAIN 05/10/23 07/17/23 (Tylenol) cholestyramine (with sugar) 4 gram 4 g PO QAM 05/10/23 07/17/23 oral powder ferrous sulfate 325 mg (65 mg 325 mg PO QAM 05/10/23 07/17/23 iron) tablet,delayed release food supplemt, lactose-reduced 1 ea PO BIDM 05/10/23 07/17/23 insulin lispro 100 unit/mL 1 sliding scale dose subcut ACHS 05/10/23 07/17/23 subcutaneous solution (Humalog U-100 Insulin) lidocaine 4 % topical patch 1 patch topical DAILY 05/10/23 07/17/23 loperamide 2 mg tablet (Imodium 2 mg PO Q2H PRN Diarrhea 05/10/23 07/17/23 A-D) melatonin 5 mg tablet 10 mg PO HS 05/10/23 07/17/23 pantoprazole 40 mg tablet,delayed 40 mg PO BIDM 05/10/23 07/17/23 release protein supplement 1 ea PO QAM 05/10/23 07/17/23 sertraline 200 mg capsule 200 mg PO DAILY 05/10/23 07/17/23 sodium chloride 0.65 % nasal spray 2 spray intranasal BIDM 05/10/23 07/17/23 aerosol (Saline Nasal) trazodone 50 mg tablet 25 mg PO HS 05/10/23 07/17/23 Previous Rx's Medication Instructions Recorded blood sugar diagnostic (OneTouch #100 ea 08/13/19 Verio test strips) pen needle, diabetic 32 gauge x #30 ea 08/13/19 5/32" (BD Rosemary 2nd Gen Pen Needle) cyanocobalamin (vitamin B-12) 100 100 mcg PO QAM #20 tabs 10/05/21 mcg tablet (Vitamin B-12) amoxicillin 875 mg tablet 875 mg PO BID #10 tabs 07/19/23 spironolactone 25 mg tablet 25 mg PO QAM #30 tabs 07/19/23 Results & Data (ED) Vital Signs Vital Signs - 24 hr 08/05/23 08:19 08/05/23 08:22 08/05/23 08:51 Temperature 37.1 C Temperature Source Oral Pulse Rate 92 H 98 H Pulse Rate [Apical] Pulse Rate from SpO2 Sensor Respiratory Rate 19 Respiratory Effort / Characteristics Non-Labored Spontaneous Respiratory Depth Normal Blood Pressure 123/67 Blood Pressure [Right Arm] Blood Pressure Mean 85 Blood Pressure Mean [Right Arm] Blood Pressure Position Lying Blood Pressure Position [Right Arm] Pulse Oximetry 97 97 Oxygen Delivery Method Room Air Room Air Sepsis Recent Fever Within 48 Hours No Sepsis New/Unexplained Change in Mental Status Yes Sepsis Action Taken by Nursing No Action Required 08/05/23 08:52 08/05/23 09:10 08/05/23 09:20 Temperature Temperature Source Pulse Rate 98 H 94 H 83 Pulse Rate [Apical] Pulse Rate from SpO2 Sensor 95 H 85 Respiratory Rate 19 21 21 Respiratory Effort / Characteristics Respiratory Depth Blood Pressure Blood Pressure [Right Arm] Blood Pressure Mean Blood Pressure Mean [Right Arm] Blood Pressure Position Blood Pressure Position [Right Arm] Pulse Oximetry 97 98 98 Oxygen Delivery Method Room Air Sepsis Recent Fever Within 48 Hours Sepsis New/Unexplained Change in Mental Status Sepsis Action Taken by Nursing 08/05/23 09:31 08/05/23 09:40 08/05/23 09:49 Temperature Temperature Source Pulse Rate 92 H 90 Pulse Rate [Apical] 84 Pulse Rate from SpO2 Sensor 88 89 Respiratory Rate 22 23 21 Respiratory Effort / Characteristics Non-Labored Spontaneous Respiratory Depth Normal Blood Pressure Blood Pressure [Right Arm] 109/63 Blood Pressure Mean Blood Pressure Mean [Right Arm] 78 Blood Pressure Position Blood Pressure Position [Right Arm] Lying Pulse Oximetry 98 97 99 Oxygen Delivery Method Room Air Sepsis Recent Fever Within 48 Hours Sepsis New/Unexplained Change in Mental Status Sepsis Action Taken by Nursing 08/05/23 09:50 08/05/23 09:50 08/05/23 10:00 Temperature Temperature Source Pulse Rate 80 82 Pulse Rate [Apical] Pulse Rate from SpO2 Sensor 87 82 Respiratory Rate 21 20 Respiratory Effort / Characteristics Respiratory Depth Blood Pressure 109/63 Blood Pressure [Right Arm] Blood Pressure Mean 83 Blood Pressure Mean [Right Arm] Blood Pressure Position Blood Pressure Position [Right Arm] Pulse Oximetry 98 97 Oxygen Delivery Method Sepsis Recent Fever Within 48 Hours Sepsis New/Unexplained Change in Mental Status Sepsis Action Taken by Nursing 08/05/23 10:00 08/05/23 10:10 08/05/23 10:20 Temperature Temperature Source Pulse Rate 86 87 Pulse Rate [Apical] Pulse Rate from SpO2 Sensor 92 H 85 Respiratory Rate 24 23 Respiratory Effort / Characteristics Respiratory Depth Blood Pressure 106/69 Blood Pressure [Right Arm] Blood Pressure Mean 84 Blood Pressure Mean [Right Arm] Blood Pressure Position Blood Pressure Position [Right Arm] Pulse Oximetry 99 98 Oxygen Delivery Method Sepsis Recent Fever Within 48 Hours Sepsis New/Unexplained Change in Mental Status Sepsis Action Taken by [facility] Medications Current Medication List: was personally reviewed by me Laboratory Data Attestation: I reviewed the patient's lab results. 08/05/23 08:15 08/05/23 08:15 Lab Results 08/05/23 08/05/23 08/05/23 Range/Units 08:15 08:34 10:12 WBC 6.82 (4.8-10.8) K/ul RBC 4.02 L (4.70-6.10) M/uL Hgb 11.6 L (14.0-18.0) g/dl Hct 34.3 L (42.0-52.0) % MCV 85.3 (80.0-100.0) fL MCH 28.9 (25.0-34.0) pg MCHC 33.8 (32.0-36.0) g/dL RDW Std Deviation 58.5 H (36.4-46.3) fL RDW Coeff of Gerardo 18.7 H (11.5-14.5) % Plt Count 81 L (130-400) K/uL MPV 11.3 (9.4-12.4) fL Immature Gran % (Auto) 0.3 % Neut % (Auto) 77.6 % Lymph % (Auto) 12.8 % Bremer % (Auto) 9.1 % Eos % (Auto) 0.1 % Baso % (Auto) 0.1 % Neut # (Auto) 5.29 (1.40-6.50) K/uL Lymph # (Auto) 0.87 L (1.20-3.40) K/uL Bremer # (Auto) 0.62 H (0.11-0.59) K/uL Eos # (Auto) 0.01 (0.00-0.50) K/uL Baso # (Auto) 0.01 (0.00-0.20) K/uL Immature Gran # (Auto) 0.02 (0.01-0.20) K/uL PT 15.0 H (9.0-12.0) Seconds INR 1.4 H (0.9-1.1) APTT 29 (21-31) Seconds PTT Ratio 1.0 VBG pH (7.36-7.41) VBG pCO2 (38-50) mmHg VBG pO2 mmHg VBG HCO3 mmol/L VBG O2 Saturation % VBG Base Excess mEq/L Sodium 136 (136-145) mmol/L Potassium 4.9 (3.5-5.1) mmol/L Chloride 109 H (98-107) mmol/L Carbon Dioxide 15 L (21-32) mmol/L Anion Gap 12 H (3-11) BUN 57 H (6-23) mg/dl Creatinine 1.97 H (0.6-1.4) mg/dl Est Cr Clr Drug Dosing 22.0 ml/min Est GFR ( Amer) 36.1 ml/min Est GFR (Non-Af Amer) 31.2 ml/min BUN/Creatinine Ratio 28.9 H (10-20) Glucose 100 H (70-99(Fasting)) mg/dl Lactate 2.1 H* 1.8 (0.4-2.0) mmol/L Calcium 9.4 (8.6-10.3) mg/dl Magnesium 2.0 (1.7-2.4) mg/dl Total Bilirubin 2.2 H (0.2-1.0) mg/dl AST 131 H (13-39) U/L ALT 81 H (7-52) U/L Alkaline Phosphatase 99 (34-104) U/L Ammonia 160.0 H (18-72) umol/L Troponin I High Sens 44.5 H 43.2 H (0-20) pg/ml Total Protein 7.0 (6.0-8.3) gm/dl Albumin 3.4 (3.4-5.0) gm/dl Globulin 3.6 (2.5-4.0) gm/dl Albumin/Globulin Ratio 0.9 (0.9-2) TSH 4.001 (0.300-4.500) uIu/ml Urine Color Yellow Urine Appearance Clear (Clear) Urine pH >= 9.0 H (4.5-7.5) Ur Specific Timewell 1.019 (1.000-1.030) Urine Protein Trace H (Negative) Urine Glucose (UA) 1+ H (Negative) Urine Ketones 1+ H (Negative) Urine Blood Negative (Negative) Urine Nitrite Negative (Negative) Urine Bilirubin Negative (Negative) Urine Urobilinogen Negative (Negative) Ur Leukocyte Esterase Negative (Negative) Urine WBC (Auto) 1-5 (0-5) /hpf Urine RBC (Auto) 0-4 (0-4) /hpf U Hyaline Cast (Auto) 1-5 (0-5) /lpf U Epithel Cells (Auto) 20-30 H (0-5) /lpf Urine Bacteria (Auto) Negative (Negative) SARS-CoV-2 (PCR) NEGATIVE (Negative) Influenza Type A (PCR) Negative (Neg) Influenza Type B (PCR) Negative (Neg) RSV (RT-PCR) Negative (Neg) 08/05/23 Range/Units 10:23 WBC (4.8-10.8) K/ul RBC (4.70-6.10) M/uL Hgb (14.0-18.0) g/dl Hct (42.0-52.0) % MCV (80.0-100.0) fL MCH (25.0-34.0) pg MCHC (32.0-36.0) g/dL RDW Std Deviation (36.4-46.3) fL RDW Coeff of Gerardo (11.5-14.5) % Plt Count (130-400) K/uL MPV (9.4-12.4) fL Immature Gran % (Auto) % Neut % (Auto) % Lymph % (Auto) % Bremer % (Auto) % Eos % (Auto) % Baso % (Auto) % Neut # (Auto) (1.40-6.50) K/uL Lymph # (Auto) (1.20-3.40) K/uL Bremer # (Auto) (0.11-0.59) K/uL Eos # (Auto) (0.00-0.50) K/uL Baso # (Auto) (0.00-0.20) K/uL Immature Gran # (Auto) (0.01-0.20) K/uL PT (9.0-12.0) Seconds INR (0.9-1.1) APTT (21-31) Seconds PTT Ratio VBG pH 7.54 H (7.36-7.41) VBG pCO2 16 L (38-50) mmHg VBG pO2 59 mmHg VBG HCO3 14 mmol/L VBG O2 Saturation 89.9 % VBG Base Excess -5.9 mEq/L Sodium (136-145) mmol/L Potassium (3.5-5.1) mmol/L Chloride (98-107) mmol/L Carbon Dioxide (21-32) mmol/L Anion Gap (3-11) BUN (6-23) mg/dl Creatinine (0.6-1.4) mg/dl Est Cr Clr Drug Dosing ml/min Est GFR ( Amer) ml/min Est GFR (Non-Af Amer) ml/min BUN/Creatinine Ratio (10-20) Glucose (70-99(Fasting)) mg/dl Lactate (0.4-2.0) mmol/L Calcium (8.6-10.3) mg/dl Magnesium (1.7-2.4) mg/dl Total Bilirubin (0.2-1.0) mg/dl AST (13-39) U/L ALT (7-52) U/L Alkaline Phosphatase (34-104) U/L Ammonia (18-72) umol/L Troponin I High Sens (0-20) pg/ml Total Protein (6.0-8.3) gm/dl Albumin (3.4-5.0) gm/dl Globulin (2.5-4.0) gm/dl Albumin/Globulin Ratio (0.9-2) TSH (0.300-4.500) uIu/ml Urine Color Urine Appearance (Clear) Urine pH (4.5-7.5) Ur Specific Timewell (1.000-1.030) Urine Protein (Negative) Urine Glucose (UA) (Negative) Urine Ketones (Negative) Urine Blood (Negative) Urine Nitrite (Negative) Urine Bilirubin (Negative) Urine Urobilinogen (Negative) Ur Leukocyte Esterase (Negative) Urine WBC (Auto) (0-5) /hpf Urine RBC (Auto) (0-4) /hpf U Hyaline Cast (Auto) (0-5) /lpf U Epithel Cells (Auto) (0-5) /lpf Urine Bacteria (Auto) (Negative) SARS-CoV-2 (PCR) (Negative) Influenza Type A (PCR) (Neg) Influenza Type B (PCR) (Neg) RSV (RT-PCR) (Neg) Administered Medications Discontinued Medications Sodium Chloride (Nss) 500 mls @ 999 mls/hr IV .Q31M ONE Stop: 08/05/23 08:44 Last Infusion: 08/05/23 09:42 Dose: Infused Documented By: Admin: 08/05/23 08:33 Dose: 999 mls/hr Documented By: CC Cefepime HCl (Maxipime) 2,000 mg in 20 mls @ 5 mls/min IV NOW STA; Protocol Stop: 08/05/23 08:22 Last Admin: 08/05/23 09:40 Dose: 5 mls/min Documented By: CC Sodium Chloride (Nss) 500 mls @ 999 mls/hr IV .Q31M ONE Stop: 08/05/23 09:48 Last Infusion: 08/05/23 10:59 Dose: Infused Documented By: Admin: 08/05/23 09:41 Dose: 999 mls/hr Documented By: CC Imaging Data Radiologist's Impression: Chest X-Ray 08/05/23 08:15 XR chest 1V portable CLINICAL HISTORY: weakness COMPARISON STUDY: Chest radiograph July 17, 2023. FINDINGS: A mildly displaced impacted right humeral neck and head fracture is again noted. There is callus formation. There are mediastinal wires and mediastinal surgical clips. No pneumothorax or pleural effusion is present. Moderate cardiomegaly is unchanged. There is no evidence for pulmonary edema. No consolidation. IMPRESSION: No acute cardiopulmonary findings. ACT 112: Negative or not required by law. Electronically signed by: Andrew Goldstein M.D. 08/05/2023 8:[address] 08/05/23 08:16 CT OF THE HEAD WITHOUT CONTRAST CLINICAL HISTORY: Altered mental status. COMPARISON STUDY: MRI of the brain September 30, 2021. Head CT July 17, 2023. CT DOSE: 1094.1 mGy.cm TECHNIQUE: Helical axial images of the head were obtained without IV contrast. Automated exposure control was utilized for the study. A dose lowering technique was utilized adhering to the principles of ALARA. FINDINGS: This study is mildly compromised by motion artifact. No acute intracranial hemorrhage, midline shift or mass effect is present. Ventricular system is stable. Basal cisterns are patent. There are no extra-axial collections. White matter hypodensities are unchanged and favor small vessel disease. There are no findings to suggest acute dural sinus thrombosis or acute territorial infarct. There are no calvarial fracture. IMPRESSION: 1. No acute intracranial findings. Exam mildly compromised by motion artifact. 2. No change in appearance of the brain. ACT 112: Negative or not required by law. Electronically signed by: Andrew Goldstein M.D. 08/05/2023 10:00 AM Discharge Plan Visit Data Chief Complaint: Altered Mental Status ED Provider: Wilbert Carolina Discharge Problem: Altered mental status, Somnolence, Liver failure, Hyperammonemia Patient Disposition: Admitted As Inpatient Condition: Fair Discharge Instructions Interventions: ED Discharge Assessment Last Done: 08/05/23 13:30 Discharge Problem: Altered mental status Qualifiers: Altered mental status type: somnolence Qualified Code(s): R40.0 - Somnolence Liver failure Qualifiers: Liver failure chronicity: chronic Hepatic coma status: without hepatic coma Q ualified Code(s): K72.10 - Chronic hepatic failure without coma
[2023-08-05] MEDS: SODIUM CHLORIDE 0.9% 500 ML IV ONE ×2 (08:33→09:41)
--- NOTE | 2023-08-05 08:34 | XRay Report ---
XR chest 1V portable CLINICAL HISTORY: weakness COMPARISON STUDY: Chest radiograph July 17, 2023. FINDINGS: A mildly displaced impacted right humeral neck and head fracture is again noted. There is c allus formation. There are mediastinal wires and mediastinal surgical clips. No pneumothorax or pleur al effusion is present. Moderate cardiomegaly is unchanged. There is no evidence for pulmonary edema. No consolidation. IMPRESSION: No acute cardiopulmonary findings. ACT 112: Negative or not required by law. Electronically signed by: Andrew Goldstein M.D. 08/05/2023 8:33 AM
[2023-08-05 08:37] LABS: Basophils # (auto) 0.01 K/uL (0.00-0.20); Basophils % (auto) 0.1 %; Eosinophils # (auto) 0.01 K/uL (0.00-0.50); Eosinophils % (auto) 0.1 %; Hematocrit (blood only) 34.3 % (42.0-52.0); Hemoglobin 11.6 g/dl (14.0-18.0); Immature Granulocytes # (auto) 0.02 K/uL (0.01-0.20); Immature Granulocytes % (auto) 0.3 %; Lymphocytes # (auto) 0.87 K/uL (1.20-3.40); Lymphocytes % (auto) 12.8 %; Mean Corpuscular Hemoglobin 28.9 pg (25.0-34.0); Mean Corpuscular Hgb Conc 33.8 g/dL (32.0-36.0); Mean Corpuscular Volume 85.3 fL (80.0-100.0); Mean Platelet Volume 11.3 fL (9.4-12.4); Monocytes # (auto) 0.62 K/uL (0.11-0.59); Monocytes % (auto) 9.1 %; Neutrophils # (auto) 5.29 K/uL (1.40-6.50); Neutrophils % (auto) 77.6 %; Platelet Count 81 K/uL (130-400); RDW Coefficient of Variation 18.7 % (11.5-14.5); RDW Standard Deviation 58.5 fL (36.4-46.3); Red Blood Count 4.02 M/uL (4.70-6.10); White Blood Count 6.82 K/ul (4.8-10.8)
[2023-08-05 08:56] LABS: Albumin Globulin Ratio 0.9 (0.9-2); Albumin Level 3.4 gm/dl (3.4-5.0); BUN Creatinine Ratio 28.9 (10-20); Bilirubin,Total 2.2 mg/dl (0.2-1.0); Calcium 9.4 mg/dl (8.6-10.3); Est GFR (African American) 36.1 ml/min; Est GFR (Non-African American) 31.2 ml/min; Globulin 3.6 gm/dl (2.5-4.0); Potassium 4.9 mmol/L (3.5-5.1)
[2023-08-05 09:02] LABS: Appearance Urine Clear (Clear); Bacteria Urine Automated Negative (Negative); Bilirubin Urine Negative (Negative); Blood Urine Negative (Negative); Color Urine Yellow; Epithelial Cell Urine Auto 20-30 /lpf (0-5); Glucose Urine UA 1+ (Negative); Ketones Urine 1+ (Negative); Leukocyte Esterase Urine Negative (Negative); Nitrite Urine Negative (Negative); RBC Urine Automated 0-4 /hpf (0-4); Specific Gravity Urine 1.019 (1.000-1.030); Urobilinogen Urine Negative (Negative); pH Urine >= 9.0 (4.5-7.5)
[2023-08-05 09:03] LABS: Troponin I High Sensitivity 44.5 pg/ml (0-20)
[2023-08-05 09:12] LABS: Thyroid Stimulating Hormone 4.001 uIu/ml (0.300-4.500)
[2023-08-05 09:16] LABS: INR 1.4 (0.9-1.1); Partial Thromboplastin Time 29 Seconds (21-31)
[2023-08-05 09:34] LABS: Influenza A virus by PCR Negative (Neg); Influenza B virus by PCR Negative (Neg); RSV by PCR Negative (Neg); SARS CoV2 RNA(COVID-19) Ceph NEGATIVE (Negative)
[2023-08-05] MEDS: CEFEPIME 2,000 MG/20 ML VIAL IV STA (09:40)
[2023-08-05 09:48] LABS: Protein Urine Trace (Negative)
--- NOTE | 2023-08-05 10:01 | CT Scan Report ---
CT OF THE HEAD WITHOUT CONTRAST CLINICAL HISTORY: Altered mental status. COMPARISON STUDY: MRI of the brain September 30, 2021. Head CT July 17, 2023. CT DOSE: 1094.1 mGy.cm TECHNIQUE: Helical axial images of the head were obtained without IV contrast. Automated exposure con trol was utilized for the study. A dose lowering technique was utilized adhering to the principles o f ALARA. FINDINGS: This study is mildly compromised by motion artifact. No acute intracranial hemorrhage, midl ine shift or mass effect is present. Ventricular system is stable. Basal cisterns are patent. There a re no extra-axial collections. White matter hypodensities are unchanged and favor small vessel diseas e. There are no findings to suggest acute dural sinus thrombosis or acute territorial infarct. There are no calvarial fracture. IMPRESSION: 1. No acute intracranial findings. Exam mildly compromised by motion artifact. 2. No change in appearance of the brain. ACT 112: Negative or not required by law. Electronically signed by: Andrew Goldstein M.D. 08/05/2023 10:00 AM
--- NOTE | 2023-08-05 10:23 | History & Physical Report ---
Date of Service August 05, 2023 Assessment & Plan (1) Hepatic encephalopathy: Plan: Lactulose enemas q8h. If no improvement in encephalopathy tomorrow consider lactulose via NG tube. Once able to take PO start rifaximin (2) Acute kidney injury superimposed on CKD: Plan: Clinically dry Diaz catheter placed in the ER to monitor UO Slow IV fluids overnight (3) Respiratory alkalosis: Plan: Tachypnea suspect due to hepatic encephalopathy vs. over compensating for metabolic acidosis Repeat VBG in AM (4) Cirrhosis of liver: Plan: MELD Na 22, 7-10% estimated 90 day mortality No significant ascites on exam (5) Atrial fibrillation: Plan: Permanent Restart metoprolol when able to take PO meds Metoprolol 5mg IV q4h PRN for HR > 140 (6) Hypothyroidism: Plan: TSH 4.001 Restart levothyroxine when able to take PO meds Plan VTE prophylaxis - hepatin 5000 units BID Diet - NPO Disposition - admit to PCU Admission and Anticipated Discharge Date Admission Date: Aug 05, 2023 History of Present Illness Chief Complaint: Altered mental state Primary Care Provider: [facility] Baldomero Salinas is an 78-year-old male with known [place] liver cirrhosis who presents to the ER from [facility] skilled nursing with an unresponsive state. Last known well was bedtime last night but nursing staff were unable to wake him up this morning only responsive to noxious stimuli. Unable to get any history from the patient due to unresponsive state. He was recently hospitalized 2 weeks ago for metabolic encephalopathy, elevated troponin without acute coronary syndrome, streptococcal UTI, acute on chronic kidney disease, pancytopenia, nonalcohol induced cirrhosis with ascites. On this visit losartan was switched for spironolactone and given amoxicillin for completion treatment or UTI. Last paracentesis was July 18. Allergies Allergy/AdvReac Type Severity Reaction Status Date / Time rivaroxaban AdvReac Intermediate VOMITING Verified 07/17/23 18:56 Home Medications Medication Instructions Recorded Confirmed Type metoprolol succinate 25 mg 25 mg PO BID 08/09/19 08/05/23 History tablet,extended release 24 hr potassium chloride 20 mEq 20 meq PO QAM 08/09/19 08/05/23 History tablet,extended release(part/cryst) (Klor-Con M) blood sugar diagnostic (Former[facility] #100 ea 08/13/19 08/05/23 Rx Verio test strips) pen needle, diabetic 32 gauge x #30 ea 08/13/19 08/05/23 Rx 5/32" (BD Rosemary 2nd Gen Pen Needle) empagliflozin 10 mg tablet 10 mg PO QAM 11/07/20 08/05/23 History (Jardiance) cyanocobalamin (vitamin B-12) 100 100 mcg PO QAM #20 tabs 10/05/21 08/05/23 Rx mcg tablet (Vitamin B-12) amlodipine 5 mg tablet 5 mg PO HS 03/07/22 08/05/23 History atorvastatin 40 mg tablet 40 mg PO HS 03/07/22 08/05/23 History bumetanide 1 mg tablet 1 mg PO DAILY 03/07/22 08/05/23 History acetaminophen 325 mg tablet 650 mg PO Q6H PRN FEVER >100/PAIN 05/10/23 08/05/23 History (Tylenol) cholestyramine (with sugar) 4 gram 4 g PO QAM 05/10/23 08/05/23 History oral powder ferrous sulfate 325 mg (65 mg 325 mg PO QAM 05/10/23 08/05/23 History iron) tablet,delayed release food supplemt, lactose-reduced 1 ea PO BIDM 05/10/23 08/05/23 History insulin lispro 100 unit/mL 1 sliding scale dose subcut ACHS 05/10/23 08/05/23 History subcutaneous solution (Humalog U-100 Insulin) lidocaine 4 % topical patch 1 patch topical DAILY 05/10/23 08/05/23 History loperamide 2 mg tablet (Imodium 2 mg PO Q2H PRN Diarrhea 05/10/23 08/05/23 History A-D) melatonin 5 mg tablet 10 mg PO HS 05/10/23 08/05/23 History pantoprazole 40 mg tablet,delayed 40 mg PO BIDM 05/10/23 08/05/23 History release protein supplement 1 ea PO QAM 05/10/23 08/05/23 History sertraline 200 mg capsule 200 mg PO DAILY 05/10/23 08/05/23 History sodium chloride 0.65 % nasal spray 2 spray intranasal BIDM 05/10/23 08/05/23 History aerosol (Saline Nasal) trazodone 50 mg tablet 25 mg PO HS 05/10/23 08/05/23 History spironolactone 25 mg tablet 25 mg PO QAM #30 tabs 07/19/23 08/05/23 Rx levothyroxine 125 mcg tablet 125 mcg PO DAILY 08/05/23 08/05/23 History Past Med/Surg History Medical History (Updated 08/06/23 @ 02:08 by Nelson Rhoades MD) Closed hip fracture Hypothyroidism Squamous cell carcinoma of ear Hearing deficit Depression Anxiety On anticoagulant therapy warfarin daily Sleep apnea cpap Diabetes IDDM Fatty liver (~02/2014) Coumadin toxicity (04/24/14) CHF (congestive heart failure) (02/19/14) Atrial fibrillation on warfarin--follows with Dr. Harp Anemia Surgical History History of esophagogastroduodenoscopy (EGD) last 09/24/[address] [facility] History of colonoscopy last 09/24/[address] [facility] History of hernia surgery History of Mohs micrographic surgery for skin cancer History of tooth extraction History of sinus surgery History of strabismus surgery History of cardiac cath a few years ago at [facility]--no stents History of coronary artery bypass graft x 3 "a few years ago" at [facility] Family History Other No family history of adverse response to anesthesia Social History Smoking Status: Never smoker Tobacco Type: Cigarettes Second Hand Exposure: No; Do You Dip or Chew Tobacco: No; Hx Alcohol Use: No Hx Substance Use: No Preferred Language: Lithuanian Communication Ability: Impaired Communication Ability Comment: Forgetful Laboratory Phlebotomist Required: No Beliefs That Will Affect Care: None marital status: Current Living Situation: Residential Current Living Situation Comment: [facility] Feels Safe at Home: Yes Assistive Devices: Walker and Wheelchair Review of Systems Review of Systems: Unobtainable due to cognitive status Physical Exam Constitutional: well developed and + malnourished; + not well nourished and no acute distress Eyes: unable to open eyes to test Respiratory: + tachypneic; no respiratory distress Auscultation: lungs clear to auscultation bilaterally Cardiovascular: Rate/Rhythm: + tachycardic and + irregularly irregular Heart Sounds: no murmur Extremities: normal capillary refill; no calf tenderness and no pedal edema Gastrointestinal (Abdomen): Inspection/Auscultation: abdomen normal to inspection; abdomen not distended Percussion/Palpation: abdomen soft; abdomen nontender, no guarding and abdomen not rigid Skin: no rashes, warm and dry (no areas of cellulitis noted) Neurologic: awake (to noixious stimuli only) and + confused; + does not move all extremities Unable to follow commands for neurological exam GCS 7 (ENT, V2, M5) Psychiatric: Orientation: alert (to noxious simuli); + not oriented x 3 Results & Data Results & Data Vital Signs (Past 12 Hours) Vital Signs Temp Pulse Pulse Resp BP BP Pulse Ox 08/05/23 09:49 84 21 109/63 99 08/05/23 08:52 98 H 19 97 08/05/23 08:51 97 08/05/23 08:22 37.1 C 98 H 19 123/67 97 O2 Del Method 08/05/23 09:49 Room Air 08/05/23 08:52 Room Air 08/05/23 08:51 Room Air 08/05/23 08:22 Room Air Laboratory Results Abnormal lab results 08/05/23 Range/Units 08:15 RBC 4.02 L (4.70-6.10) M/uL Hgb 11.6 L (14.0-18.0) g/dl Hct 34.3 L (42.0-52.0) % RDW Std Deviation 58.5 H (36.4-46.3) fL RDW Coeff of Gerardo 18.7 H (11.5-14.5) % Plt Count 81 L (130-400) K/uL Lymph # (Auto) 0.87 L (1.20-3.40) K/uL Towns # (Auto) 0.62 H (0.11-0.59) K/uL PT 15.0 H (9.0-12.0) Seconds INR 1.4 H (0.9-1.1) Chloride 109 H (98-107) mmol/L Carbon Dioxide 15 L (21-32) mmol/L Anion Gap 12 H (3-11) BUN 57 H (6-23) mg/dl Creatinine 1.97 H (0.6-1.4) mg/dl BUN/Creatinine Ratio 28.9 H (10-20) Glucose 100 H (70-99(Fasting)) mg/dl Lactate 2.1 H* (0.4-2.0) mmol/L Total Bilirubin 2.2 H (0.2-1.0) mg/dl AST 131 H (13-39) U/L ALT 81 H (7-52) U/L Ammonia 160.0 H (18-72) umol/L Troponin I High Sens 44.5 H (0-20) pg/ml Urine pH >= 9.0 H (4.5-7.5) Urine Protein Trace H (Negative) Urine Glucose (UA) 1+ H (Negative) Urine Ketones 1+ H (Negative) U Epithel Cells (Auto) 20-30 H (0-5) /lpf Diagnostic Findings CT OF THE HEAD WITHOUT CONTRAST CLINICAL HISTORY: Altered mental status. COMPARISON STUDY: MRI of the brain September 30, 2021. Head CT July 17, 2023. CT DOSE: 1094.1 mGy.cm TECHNIQUE: Helical axial images of the head were obtained without IV contrast. Automated exposure control was utilized for the study. A dose lowering technique was utilized adhering to the principles of ALARA. FINDINGS: This study is mildly compromised by motion artifact. No acute intr acranial hemorrhage, midline shift or mass effect is present. Ventricular system is stable. Basal cisterns are patent. There are no extra-axial collections. White matter hypodensities are unchanged and favor small vessel disease. There are no findings to suggest acute dural sinus thrombosis or acute territorial infarct. There are no calvarial fracture. IMPRESSION: 1. No acute intracranial findings. Exam mildly compromised by motion artifact. 2. No change in appearance of the brain. XR chest 1V portable CLINICAL HISTORY: weakness COMPARISON STUDY: Chest radiograph July 17, 2023. FINDINGS: A mildly displaced impacted right humeral neck and head fracture is again noted. There is callus formation. There are mediastinal wires and mediastinal surgical clips. No pneumothorax or pleural effusion is present. Moderate cardiomegaly is unchanged. There is no evidence for pulmonary edema. No consolidation. IMPRESSION: No acute cardiopulmonary findings. Medications Administered ER medications given: Normal saline 500 mill bolus Cefepime 2 g IV Normal saline 500 mL bolus ECG Rate (beats per minute): 92 Rhythm: atrial fibrillation Findings: + nonspecific-ST abn Comparison ECG Date: from (Jul 17, 2023) Change: no significant change Code Status & VTE Plan Code Status DNR/DNI VTE Prophylaxis Plan VTE Prophylaxis will be ordered: Yes PG Care Time/CCT Total # of Minutes Spent Total Time Spent with Patient: Total time spent is greater than 50% in coordination of care (as documented) at patient's floor/unit and/or counseling patient: Coding Level of Care Code 49741 INT INP/OBS CARE 3/75MIN Diagnoses Hepatic encephalopathy K76.82 Acute kidney injury superimposed on CKD N17.9; N18.9 Respiratory alkalosis E87.3 Cirrhosis of liver K74.60 Atrial fibrillation I48.91 Hypothyroidism E03.9
[2023-08-05 10:32] LABS: Base Excess VBG -5.9 mEq/L; HCO3 VBG 14 mmol/L; Oxygen Saturation VBG 89.9 %; PCO2 VBG 16 mmHg (38-50); PO2 VBG 59 mmHg; pH VBG 7.54 (7.36-7.41)
--- NOTE | 2023-08-05 10:44 | Electrocardiogram Report ---
Test Reason : Blood Pressure : / mmHG Vent. Rate : 092 BPM Atrial Rate : 000 BPM P-R Int : 000 ms QRS Dur : 122 ms QT Int : 422 ms P-R-T Axes : 000 -59 140 degrees QTc Int : 521 ms Atrial fibrillation Left axis deviation Septal infarct , age undetermined Marked ST abnormality, possible lateral subendocardial injury Abnormal ECG When compared with ECG of 17-JUL-2023 18:22, No significant change was found Confirmed by Yunior Gonzalez ([id number]) on 08/05/2023 10:44:12 AM Referred By: REFERRED SELF Confirmed By:Yunior Gonzalez
[2023-08-05] MEDS: LACTULOSE 200GM/700ML WTR ENEMA PR STA (14:10)
[2023-08-05] MEDS: SODIUM BICARBONATE 8.4% 150 MEQ in WATER, STERILE 1,000 ML IV SCH (14:15)
[2023-08-05] MEDS ORDERED: LACTULOSE 200GM/700ML WTR ENEMA PR SCH (16:00)
[2023-08-05] MEDS: LACTATED RINGER'S 1,000 ML IV SCH (21:28)
[2023-08-05] MEDS: LACTULOSE 200GM/700ML WTR ENEMA PR SCH (21:37)
[2023-08-06] MEDS ORDERED: METOPROLOL TARTRATE 1 MG/ML VIAL IV PRN (01:55)
[2023-08-06 06:42] LABS: Base Excess VBG -6.3 mEq/L; HCO3 VBG 15 mmol/L; Oxygen Saturation VBG 65.1 %; PCO2 VBG 19 mmHg (38-50); PO2 VBG 39 mmHg
[2023-08-06 06:48] LABS: Basophils # (auto) 0.01 K/uL (0.00-0.20); Basophils % (auto) 0.2 %; Eosinophils # (auto) 0.01 K/uL (0.00-0.50); Eosinophils % (auto) 0.2 %; Hematocrit (blood only) 32.3 % (42.0-52.0); Immature Granulocytes # (auto) 0.02 K/uL (0.01-0.20); Immature Granulocytes % (auto) 0.3 %; Lymphocytes # (auto) 0.76 K/uL (1.20-3.40); Lymphocytes % (auto) 11.8 %; Mean Corpuscular Hemoglobin 29.3 pg (25.0-34.0); Mean Corpuscular Hgb Conc 34.1 g/dL (32.0-36.0); Mean Corpuscular Volume 86.1 fL (80.0-100.0); Mean Platelet Volume 11.3 fL (9.4-12.4); Monocytes # (auto) 0.65 K/uL (0.11-0.59); Monocytes % (auto) 10.1 %; Neutrophils # (auto) 4.99 K/uL (1.40-6.50); Neutrophils % (auto) 77.4 %; Platelet Count 66 K/uL (130-400); RDW Coefficient of Variation 19.9 % (11.5-14.5); RDW Standard Deviation 60.3 fL (36.4-46.3); Red Blood Count 3.75 M/uL (4.70-6.10); White Blood Count 6.44 K/ul (4.8-10.8)
[2023-08-06 07:06] LABS: Albumin Level 3.1 gm/dl (3.4-5.0); BUN Creatinine Ratio 26.7 (10-20); Calcium 9.1 mg/dl (8.6-10.3); Creatinine Clr Calc Pharmacy 17.3 ml/min; Est GFR (African American) 32.1 ml/min; Est GFR (Non-African American) 27.7 ml/min; Magnesium 1.9 mg/dl (1.7-2.4); Phosphorus 3.8 mg/dl (2.5-4.9); Potassium 4.2 mmol/L (3.5-5.1); Total Protein 6.1 gm/dl (6.0-8.3)
[2023-08-06 07:40] LABS: INR 1.5 (0.9-1.1); Prothrombin Time 15.9 Seconds (9.0-12.0)
[2023-08-06] MEDS: HEPARIN SOD 5,000 UNIT/0.5 ML VIAL SQ SCH (08:26)
[2023-08-06] MEDS: PANTOprazole 40 MG in SYRINGE 0 ML IV SCH (08:26)
--- NOTE | 2023-08-06 11:01 | Hospitalist Progress Note ---
Date of Service August 06, 2023 Assessment & Plan (1) Hepatic encephalopathy: Plan: - Hx of Cirrhosis with CARY Lactulose enemas q8h. -Once able to take PO start rifaximin - Add flagyl 500 mg IV q 12h Recent paracentesis 07/18/2023 with 1.7L fluid removed - daughter reports pt never since then Attempted paracentesis given abdominal tenderness, but no ascites to be drained (2) Acute kidney injury superimposed on CKD: Plan: Clinically dry Diaz catheter placed in the ER to monitor UO Creatinine 1.97 --> 2.17 --> 2.25 nephrology consulted - Prerenal vs hepatorenal syndrome - recommend switching IVF to D5 with sodium bicarbonate (3) Respiratory alkalosis: Plan: Tachypnea suspect due to hepatic encephalopathy vs. over compensating for metabolic acidosis Repeat VBG this morning with continued respiratory alkalosis (4) Cirrhosis of liver: Plan: MELD Na 22, 7-10% estimated 90 day mortality No significant ascites on exam (5) Atrial fibrillation: Plan: Permanent Restart metoprolol when able to take PO meds Metoprolol 5mg IV q4h PRN for HR > 140 (6) Hypothyroidism: Plan: TSH 4.001 Restart levothyroxine when able to take PO meds (7) Conjunctivitis: Plan: - Right eye, unable to open spontaneously, erythema - Erythromycin QID - resp biofire (8) Diabetes: Plan: 07/18 HgbA1: 5.9 Only on correctional insulin at home NovoLog for correction only: --Goal BSG Range: Low 110 mg/dL, High 160 mg/dL --Correction Factor: 50 mg/dL/unit --Carbohydrate ratio = no carb coverage --BSGs ACHS if eating, q6h if npo Plan VTE prophylaxis - hepatin 5000 units BID dispo: continued inpatient stay Daughter updated by phone Admission and Anticipated Discharge Date Admission Date: August 05, 2023 Supervising Physician Co-Signing Physician Notes Attending Attestation - Pt seen/examined, chart reviewed, care plan d/w JASVIR Brannon. I agree with the ricardo components of her documentation. During my visit the patient was altered. He did not respond to his name being called. He was uncomfortable, shifty around in the bed back and forth. Exam - gen - thin, malnourished, altered, uncomfortable mouth - MM dry eyes - purulent discharge from right eye skin - pallor, turgor decreased heart - tachy, s1 s2 lungs - tachypneic but no distress otherwise, CTA b/l abd - soft NT ND BS+ ext - cool to touch, pulses 2+ b/l psych - lethargic, altered A/P: 1. acute hepatic encephalopathy 2. acute respiratory alkalosis with metabolic acidosis 3. VIVEK - suspect 2nd to volume depletion; can't rule out hepatorenal syndrome but less likely 4. right eye conjunctivitis 5. cirrhosis 6. pancytopenia - 2nd to #5 plans per Ms Brannon Nelson Murphy MD Subjective Patient lying in bed. Responds to name but does not answer questions. Spoke with daughter - 3 months ago baseline could hold conversations, walk around the group home. Over the last month and a half decreased cognitive function, unable to hold conversations discharge about 2 weeks ago - on amoxicillin. Starting to feed himself again. a week later started declining again (daughter thinks since the amoxicillin stopped), difficulty completing sentences, decreased urine output, decreased appetite. Did feel like he look slightly better today than yesterday Tele - afib with PVCs 80-90s Review of Systems Review of Systems: Unobtainable due to cognitive status Physical Exam Physical Exam: General: NAD, VS as above HEENT: right eyelid does not open spontaneously, conjuctivitis Resp: normal respiratory effort, lungs clear to auscultation CV: afib, no murmur, Abd: nondistented, no ascities, does moan with palpation but no guarding. Extremities: Moves all extremities, no edema Neuro: oreinted to self only, continual nonviolent movements of arms and legs Skin: intact, no lesions noted Results & Data Results & Data Vital Signs (Past 12 Hours) Vital Signs Temp Pulse Pulse Resp BP BP Pulse Ox 08/06/23 10:45 36.7 C 76 18 102/54 L 95 08/06/23 09:29 85 08/06/23 07:16 08/06/23 03:32 36.7 C 111 H 20 128/65 97 08/06/23 02:08 97 H 08/06/23 01:17 36.6 C 102 H 22 120/75 97 08/06/23 01:10 08/06/23 00:00 109/66 08/06/23 00:00 95 H 24 97 08/05/23 23:25 94/60 L 08/05/23 23:25 91 H 22 98 08/05/23 23:23 91 H 08/05/23 23:15 37.3 C O2 Del Method 08/06/23 10:45 Room Air 08/06/23 09:29 08/06/23 07:16 Room Air 08/06/23 03:32 Room Air 08/06/23 02:08 08/06/23 01:17 Room Air Laboratory Results CBC, chemistry and VBG reviewed PG Care Time/CCT Total # of Minutes Spent Total Time Spent with Patient: Total time spent is greater than 50% in coordination of care (as documented) at patient's floor/unit and/or counseling patient: Coding Level of Care Code 47276 SUB INP/OBS CARE 3/50MIN Diagnoses Hepatic encephalopathy K76.82 Acute kidney injury superimposed on CKD N17.9; N18.9 Respiratory alkalosis E87.3 Cirrhosis of liver K74.60 Atrial fibrillation I48.91 Hypothyroidism E03.9 Conjunctivitis H10.9 Diabetes E11.9
[2023-08-06] MEDS: NEOMYCIN/POLYMYX/BACITR OP OINT 3.5 GM TUBE OP SCH (12:20)
[2023-08-06] MEDS: D5W AND LACTATED RINGERS 1,000 ML IV SCH (12:20)
--- NOTE | 2023-08-06 12:53 | Ultrasound Report ---
LIMITED ABDOMINAL ULTRASOUND CLINICAL HISTORY: Questionable SBP; paracentesis requested FINDINGS: Real time ultrasound imaging in all 4 abdominal quadrants demonstrates a scant amount of as cites fluid located at the dome of the liver. Unfortunately there is no safe window to proceed with d iagnostic paracentesis. IMPRESSION: Scant ascites as described above. No safe window for diagnostic paracentesis. Performed, dictated, and signed by Shayan Harrison PA-C; to be co-signed by Dr. Wilbert Dobbins. Electronically signed by: Wilbert Dobbins M.D. 08/06/2023 2:30 PM
[2023-08-06 13:41] LABS: Adenovirus PCR Not Detected (NotDetected); Bordetella parapertussis PCR Not Detected (NotDetected); Bordetella pertussis PCR Not Detected (NotDetected); Chlamydia pneumoniae PCR Not Detected (NotDetected); Coronavirus 229E PCR Not Detected (NotDetected); Coronavirus CoV-2 (COVID19)PCR Not Detected (NotDetected); Coronavirus HKU1 PCR Not Detected (NotDetected); Coronavirus NL63 PCR Not Detected (NotDetected); Coronavirus OC43PCR Not Detected (NotDetected); Human Metapneumovirus PCR Not Detected (NotDetected); Influenza A PCR Not Detected (NotDetected); Influenza B PCR Not Detected (NotDetected); Mycoplasma pneumoniae PCR Not Detected (NotDetected); Parainfluenza Virus 1 PCR Not Detected (NotDetected); Parainfluenza Virus 2 PCR Not Detected (NotDetected); Parainfluenza Virus 3 PCR Not Detected (NotDetected); Parainfluenza Virus 4 PCR Not Detected (NotDetected); Respiratory Syncytial VirusPCR Not Detected (NotDetected); Rhinovirus/Enterovirus PCR Not Detected (NotDetected)
[2023-08-06 14:49] LABS: BUN Creatinine Ratio 25.8 (10-20); Calcium 9.1 mg/dl (8.6-10.3); Creatinine Clr Calc Pharmacy 16.7 ml/min; Est GFR (African American) 30.8 ml/min; Est GFR (Non-African American) 26.5 ml/min; Potassium 4.4 mmol/L (3.5-5.1)
--- NOTE | 2023-08-06 16:43 | Nephrology Consultation ---
Date of Consultation August 06, 2023 Assessment & Plan (1) Acute kidney injury superimposed on CKD: (2) Hyperammonemia: (3) Hepatic encephalopathy: (4) Metabolic acidosis: Plan 78-year-old gentleman with baseline decent renal function, history of cirrhosis with Alston, ascites and anasarca, admitted with unresponsiveness due to hepatic encephalopathy. Blood pressure has been persistently low. Has history of repeated episodes of VIVEK, recent VIVEK was during last admission when creatinine was 1.5. Creatinine was 2.0 on admission yesterday which worsened further to 2.3. Has been oliguric over last 24 hours. Urinalysis with no significant proteinuria or hematuria. Prior renal imaging showed horseshoe kidney. VIVEK could be prerenal versus hepatorenal syndrome. Has been having persistent having persistent metabolic acidosis. Overall remained minimally responsive. Clinically seems volume depleted no significant abdominal ascites or edema. -- Recommend changing IV fluid to D5 with bicarbonate @ 100 ml/h -- Continue to monitor renal function, intake and output Thank you for allowing me to participate in your patient's care. It was a pleasure to see Mr. Salinas. History of Present Illness Reason for Consultation: VIVEK, metabolic acidosis Attending Physician: Nelson Murphy MD History of Present Illness Mr. Baldomero Salinas is an 78-year-old male with PMH of liver cirrhosis, ascites, admitted with AMS and unresponsive state with hepatic encephalopathy. Nephrology consult was requested for management of acute kidney injury. EMR records are reviewed in detail during patient's visit. He was alert but kept his eyes closed and did not communicate or answer any questions. Most of the information was retrieved from EMR review and discussion with his nurse. Baldomero was brought to ER yesterday from [place] care when the nursing staff found him unresponsive in the morning. On admission ammonia was noted to be 162, chest x-ray CT head was unremarkable, he received IV fluid and then continued on LR at 100 mL/h. Has been persistently hypotensive with systolic blood pressure around 94-96 and diastolic 47-60. On admission yesterday creatinine was 2.0 which worsened and creatinine up to 2.3 today. Baseline creatinine has been around one 1.2 with repeated episodes of VIVEK, during last admission creatinine was 1.5. Urinalysis with no significant proteinuria or hematuria. Urine output has been low about 400 mL over last 24 hours, has a Diaz catheter in place. Wh ite cell count was normal, platelets 66 with his history of splenomegaly and cirrhosis. Hemoglobin 11.0. Has metabolic acidosis, bicarb was 13-14, was on bicarb drip which was stopped now and currently on LR. CT abdomen pelvis during last hospitalization from 07/17/2023 to 07/20/2023 showed ascites, anasarca and horseshoe kidney. And he had a paracentesis done on 07/18/2023 and had 1.7 L fluid removed. He was recently hospitalized from 07/17/2023 to 07/20/2023 for metabolic encephalopathy, elevated troponin without acute coronary syndrome, streptococcal UTI, pancytopenia, non alcohol cirrhosis with ascites. He was on losartan before which was stopped and he was started on spironolactone during last visit. amoxicillin for completion treatment or UTI. Last paracentesis was July 18. He was alert and moving around in bed but did not answer any question or open eyes. Allergies Allergy/AdvReac Type Severity Reaction Status Date / Time rivaroxaban AdvReac Intermediate VOMITING Verified 07/17/23 18:56 Home Medications Medication Instructions Recorded Confirmed Type metoprolol succinate 25 mg 25 mg PO BID 08/09/19 08/05/23 History tablet,extended release 24 hr potassium chloride 20 mEq 20 meq PO QAM 08/09/19 08/05/23 History tablet,extended release(part/cryst) (Klor-Con M) blood sugar diagnostic (OneTouch #100 ea 08/13/19 08/05/23 Rx Verio test strips) pen needle, diabetic 32 gauge x #30 ea 08/13/19 08/05/23 Rx 5/32" (BD Rosemary 2nd Gen Pen Needle) empagliflozin 10 mg tablet 10 mg PO QAM 11/07/20 08/05/23 History (Jardiance) cyanocobalamin (vitamin B-12) 100 100 mcg PO QAM #20 tabs 10/05/21 08/05/23 Rx mcg tablet (Vitamin B-12) amlodipine 5 mg tablet 5 mg PO HS 03/07/22 08/05/23 History atorvastatin 40 mg tablet 40 mg PO HS 03/07/22 08/05/23 History bumetanide 1 mg tablet 1 mg PO DAILY 03/07/22 08/05/23 History acetaminophen 325 mg tablet 650 mg PO Q6H PRN FEVER >100/PAIN 05/10/23 08/05/23 History (Tylenol) cholestyramine (with sugar) 4 gram 4 g PO QAM 05/10/23 08/05/23 History oral powder ferrous sulfate 325 mg (65 mg 325 mg PO QAM 05/10/23 08/05/23 History iron) tablet,delayed release food supplemt, lactose-reduced 1 ea PO BIDM 05/10/23 08/05/23 History insulin lispro 100 unit/mL 1 sliding scale dose subcut ACHS 05/10/23 08/05/23 History subcutaneous solution (Humalog U-100 Insulin) lidocaine 4 % topical patch 1 patch topical DAILY 05/10/23 08/05/23 History loperamide 2 mg tablet (Imodium 2 mg PO Q2H PRN Diarrhea 05/10/23 08/05/23 History A-D) melatonin 5 mg tablet 10 mg PO HS 05/10/23 08/05/23 History pantoprazole 40 mg tablet,delayed 40 mg PO BIDM 05/10/23 08/05/23 History release protein supplement 1 ea PO QAM 05/10/23 08/05/23 History sertraline 200 mg capsule 200 mg PO DAILY 05/10/23 08/05/23 History sodium chloride 0.65 % nasal spray 2 spray intranasal BIDM 05/10/23 08/05/23 History aerosol (Saline Nasal) trazodone 50 mg tablet 25 mg PO HS 05/10/23 08/05/23 History spironolactone 25 mg tablet 25 mg PO QAM #30 tabs 07/19/23 08/05/23 Rx levothyroxine 125 mcg tablet 125 mcg PO DAILY 08/05/23 08/05/23 History Patient History Medical History (Updated 08/06/23 @ 17:59 by Adelita Mcleod MD) Metabolic acidosis Closed hip fracture Hypothyroidism Squamous cell carcinoma of ear Hearing deficit Depression Anxiety On anticoagulant therapy warfarin daily Sleep apnea cpap Diabetes IDDM Fatty liver (~02/2014) Coumadin toxicity (04/24/14) CHF (congestive heart failure) (02/19/14) Atrial fibrillation on warfarin--follows with Dr. Harp Anemia Surgical History History of esophagogastroduodenoscopy (EGD) last 09/24/21 @ [facility] History of colonoscopy last 09/24/21 @ [facility] History of hernia surgery History of Mohs micrographic surgery for skin cancer History of tooth extraction History of sinus surgery History of strabismus surgery History of cardiac cath a few years ago at [facility]--no stents History of coronary artery bypass graft x 3 "a few years ago" at [facility] in [place] Family History Other No family history of adverse response to anesthesia Social History Smoking Status: Never smoker Tobacco Type: Cigarettes Second Hand Exposure: No; Do You Dip or Chew Tobacco: No; Hx Alcohol Use: No Hx Substance Use: No Preferred Language: Luxembourgish Communication Ability: Unable Communication Ability Comment: Forgetful 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 Saw Operator Required: No Beliefs That Will Affect Care: None marital status: Current Living Situation: Detention Current Living Situation Comment: [facility] Feels Safe at Home: Yes Assistive Devices: Wheelchair Review of Systems Review of Systems: Unobtainable due to cognitive status Physical Exam Constitutional: + ill appearing and + cachectic; no acut e distress Respiratory: no respiratory distress and no cough Auscultation: + diminished lung sounds Cardiovascular: Rate/Rhythm: regular rate and regular rhythm Heart Sounds: normal S1 and normal S2 Extremities: no edema Gastrointestinal (Abdomen): Inspection/Auscultation: abdomen normal to inspection Percussion/Palpation: abdomen soft; abdomen nontender Musculoskeletal: muscle wasting Skin: + turgor decreased Neurologic: Detailed exam was not possible due to patient's mental health status. Psychiatric: Detailed exam was not possible due to patient's mental health status. Results & Data Vital Signs (Past 12 Hours) Vital Signs Temp Pulse Pulse Resp BP Pulse Ox O2 Del Method 08/06/23 15:58 103 H 08/06/23 15:29 36.8 C 106 H 18 96/47 L 93 Room Air 08/06/23 10:45 36.7 C 76 18 102/54 L 95 Room Air 08/06/23 09:29 85 08/06/23 07:16 Room Air PG Care Time/CCT Total # of Minutes Spent Total Time Spent with Patient: Total time spent is greater than 50% in coordination of care (as documented) at patient's floor/unit and/or counseling patient: Coding Level of Care Code 13705 INT INP/OBS CARE MIN Diagnoses Acute kidney injury superimposed on CKD N17.9; N18.9 Hyperammonemia E72.20 Hepatic encephalopathy K76.82 Metabolic acidosis E87.20
[2023-08-06] MEDS: SODIUM BICARBONATE 8.4% 150 MEQ in DEXTROSE 5% 1,000 ML IV SCH (18:24)
[2023-08-06] MEDS: metroNIDAZOLE 500 MG/100 ML BAG IV SCH (20:46)
[2023-08-06] MEDS: INSULIN ASPART PER UNIT CHARGE SC SCH (21:05)
[2023-08-07 08:43] LABS: Base Excess VBG 0.8 mEq/L; Eosinophils # (auto) 0.01 K/uL (0.00-0.50); Eosinophils % (auto) 0.3 %; HCO3 VBG 22 mmol/L; Hematocrit (blood only) 30.2 % (42.0-52.0); Hemoglobin 9.9 g/dl (14.0-18.0); Immature Granulocytes # (auto) 0.02 K/uL (0.01-0.20); Immature Granulocytes % (auto) 0.5 %; Lymphocytes # (auto) 0.46 K/uL (1.20-3.40); Lymphocytes % (auto) 11.6 %; Mean Corpuscular Hemoglobin 29.1 pg (25.0-34.0); Mean Corpuscular Hgb Conc 32.8 g/dL (32.0-36.0); Mean Corpuscular Volume 88.8 fL (80.0-100.0); Mean Platelet Volume 12.6 fL (9.4-12.4); Monocytes # (auto) 0.39 K/uL (0.11-0.59); Monocytes % (auto) 9.8 %; Neutrophils % (auto) 77.8 %; Oxygen Saturation VBG 89.3 %; PCO2 VBG 24 mmHg (38-50); PO2 VBG 54 mmHg; Platelet Count 56 K/uL (130-400); RDW Coefficient of Variation 20.1 % (11.5-14.5); White Blood Count 3.98 K/ul (4.8-10.8); pH VBG 7.56 (7.36-7.41)
--- NOTE | 2023-08-07 09:01 | Hospitalist Progress Note ---
Date of Service August 07, 2023 Assessment & Plan (1) Hepatic encephalopathy: Plan: - Hx of Cirrhosis with CARY - Lactulose enemas q8h. - Start PO start rifaximin 550 mg BID - Discontinue Fagyl Recent paracentesis 07/18/2023 with 1.7L fluid removed - daughter reports pt never since then Attempted paracentesis given abdominal tenderness, but no ascites to be drained Mentation improving , able to tolerate some PO (2) Acute kidney injury superimposed on CKD: Plan: Clinically dry Diaz catheter placed in the ER to monitor UO Creatinine 1.97 --> 2.17 --> 2.25 nephrology consulted - Prerenal vs hepatorenal syndrome - recommend switching IVF to D5 with KCL (3) Hypokalemia: Plan: possible Metabolic encephalopathy ( in addition to hepatic encephalopathy) Hyperkalemic, 5.2 on admission. - 3.1, after sodium bicarb fluids given for VIVEK, --> 40 meq IV ordered, 10 meq given (suspect as fluids changed to KCL) PM recheck 2.9 --> 40 meq IV ordered Recheck in AM (4) Respiratory alkalosis: Plan: Tachypnea suspect due to hepatic encephalopathy vs. over compensating for metabolic acidosis Repeat VBG this morning with continued respiratory alkalosis (5) Cirrhosis of liver: Plan: MELD Na 22, 7-10% estimated 90 day mortality No significant ascites on exam (6) Thrombocytopenia: Plan: Platelets 81 on admission - downtrending, likely in setting of hepatic encephalopathy/cirrhosis - hold heparin, SCDs for DVT proh (7) Atrial fibrillation: Plan: Permanent trop on arrival 44.5, 43.2 --> suspect demand ischemia - will restart metoprol as BP allows (8) Hypothyroidism: Plan: TSH 4.001 restart synthroid 08/07 (9) Conjunctivitis: Plan: - Right eye, unable to open spontaneously, erythema - Erythromycin QID - resp biofire - neg improving (10) Diabetes: Plan: 07/18 HgbA1: 5.9 Only on correctional insulin at home NovoLog for correction only: --Goal BSG Range: Low 110 mg/dL, High 160 mg/dL --Correction Factor: 50 mg/dL/unit --Carbohydrate ratio = no carb coverage --BSGs ACHS if eating, q6h if npo (11) Body mass index (BMI) less than 16.5: Plan: severe malnutrition BMI 15.7 Hand Former consult, receiving nutritional supplements Plan VTE prophylaxis - SCDs, not candidate for heparin given thrombocytopenia, lovenox given kidney function dispo: continued inpatient stay Daughter updated at bedside Admission and Anticipated Discharge Date Admission Date: August 05, 2023 Supervising Physician Co-Signing Physician Notes Attending Attestation - Chart reviewed, care plan d/w JASVIR Brannon. I agree with the ricardo components of her documentation. Cont Rx for hepatic encephalopathy; add rifaximin when able to take PO. Cont IV fluids for VIVEK. Biofire negative. Pancytopenia with decreasing platelets -- daily CBC. Overall long-term prognosis is poor - consider palliative care consultation during this hospitalization. Nelson Murphy MD Subjective Patient seen this morning resting in bed, more alert compared to yesterday. Answers some of my questions. Does report that he is hungry. Denies pain. Prn RN tolerated water this morning without issue. Tele afib 110s Review of Systems Review of Systems: All systems reviewed & are unremarkable except as noted in Subjective Physical Exam Physical Exam: General: NAD, VS as above HEENT: right eyelid significantly less swollen, mild erythema Resp: normal respiratory effort, lungs clear to auscultation CV: afib, no murmur, Abd: nondistented, no ascities, non tender Extremities: Moves all extremities, no edema Neuro: more alert, oreinted to self only, continual nonviolent movements of arms and legs Results & Data Results & Data Vital Signs (Past 12 Hours) Vital Signs Temp Pulse Pulse Resp BP Pulse Ox O2 Del Method 08/07/23 07:24 92 H 08/07/23 07:00 36.6 C 118 H 20 111/62 96 Room Air 08/07/23 02:59 37 C 113 H 20 120/65 94 Room Air 08/07/23 01:30 37.1 C 105 H 19 122/84 97 Room Air Laboratory Results CBC and chemistry reviewed PG Care Time/CCT Total # of Minutes Spent Total Time Spent with Patient: Total time spent is greater than 50% in coordination of care (as documented) at patient's floor/unit and/or counseling patient: Coding Level of Care Code 30460 SUB INP/OBS CARE 3/50MIN Diagnoses Hepatic encephalopathy K76.82 Acute kidney injury superimposed on CKD N17.9; N18.9 Hypokalemia E87.6 Respiratory alkalosis E87.3 Cirrhosis of liver K74.60 Thrombocytopenia D69.6 Atrial fibrillation I48.91 Hypothyroidism E03.9 Conjunctivitis H10.9 Diabetes E11.9 Body mass index (BMI) less than 16.5 Z68.1
[2023-08-07 09:05] LABS: Albumin Level 2.9 gm/dl (3.4-5.0); BUN Creatinine Ratio 26.6 (10-20); Bilirubin,Total 2.5 mg/dl (0.2-1.0); Calcium 8.5 mg/dl (8.6-10.3); Creatinine Clr Calc Pharmacy 20.1 ml/min; Est GFR (African American) 38.2 ml/min; Globulin 2.9 gm/dl (2.5-4.0); Potassium 3.1 mmol/L (3.5-5.1); Total Protein 5.8 gm/dl (6.0-8.3)
[2023-08-07 09:06] LABS: Anisocytosis Present
[2023-08-07] MEDS ORDERED: DEXTROSE 5% 1,000 ML IV SCH (09:45)
[2023-08-07] MEDS: POTASSIUM CHLORIDE / WTR 10 MEQ/100 ML PLCT IV SCH ×2 (09:47→16:56)
--- NOTE | 2023-08-07 10:10 | Nephrology Progress Note ---
Date of Service August 07, 2023 Assessment & Plan (1) Acute kidney injury superimposed on CKD: (2) Hyperammonemia: (3) Hepatic encephalopathy: (4) Metabolic acidosis: Plan 78-year-old gentleman with baseline decent renal function, history of cirrhosis with Alston, ascites and anasarca, admitted with unresponsiveness due to hepatic encephalopathy. Blood pressure has been persistently low. Has history of repeated episodes of VIVEK, recent VIVEK was during last admission when creatinine was 1.5. Creatinine was 2.0 on admission yesterday which worsened further to 2.3. Has been oliguric over last 24 hours. Urinalysis with no significant proteinuria or hematuria. Prior renal imaging showed horseshoe kidney. VIVEK most likely prerenal, kidney function slightly improved, labs suggestive of volume depletion. Urine output slightly improved, blood pressure stable. Overall remained minimally responsive. Clinically seems volume depleted no significant abdominal ascites or edema. -- change IV fluid to D5 with KCL @ 100 ml/h -- Continue to monitor renal function, intake and output Admission and Anticipated Discharge Date Admission Date: August 05, 2023 Adri Alexandre was seen and evaluated this morning. He remained somnolent although try to open eyes briefly but no meaningful conversation. Blood pressure acceptable. Kidney function improved, creatinine down to 1.7, sodium elevated at 148 and potassium 3.1. Urine output slightly improved. Review of Systems Review of Systems: Unobtainable due to cognitive status Physical Exam Constitutional: + ill appearing, + cachectic and + alter ed mental status; no acute distress Respiratory: no respiratory distress and no cough Auscultation: + diminished lung sounds Cardiovascular: Rate/Rhythm: regular rate and regular rhythm Heart Sounds: normal S1 and normal S2 Extremities: no edema Gastrointestinal (Abdomen): Inspection/Auscultation: abdomen normal to inspection Percussion/Palpation: abdomen soft; abdomen nontender Skin: + turgor decreased Results & Data Vital Signs (Past 12 Hours) Vital Signs Temp Pulse Pulse Resp BP Pulse Ox O2 Del Method 08/07/23 07:24 92 H 08/07/23 07:00 36.6 C 118 H 20 111/62 96 Room Air 08/07/23 02:59 37 C 113 H 20 120/65 94 Room Air 08/07/23 01:30 37.1 C 105 H 19 122/84 97 Room Air PG Care Time/CCT Total # of Minutes Spent Total Time Spent with Patient: Total time spent is greater than 50% in coordination of care (as documented) at patient's floor/unit and/or counseling patient: Coding Level of Care Code 79410 SUB INP/OBS CARE 2/35MIN Diagnoses Acute kidney injury superimposed on CKD N17.9; N18.9 Hyperammonemia E72.20 Hepatic encephalopathy K76.82 Metabolic acidosis E87.20
[2023-08-07] MEDS: POTASSIUM CHLORIDE 40 MEQ in DEXTROSE 5% 1,000 ML IV SCH (10:23)
[2023-08-07] MEDS: rifAXIMin 550 MG TABLET PO SCH (11:35)
[2023-08-07 15:29] LABS: Potassium 2.9 mmol/L (3.5-5.1)
[2023-08-07 15:30] LABS: BUN Creatinine Ratio 25.4 (10-20); Calcium 8.3 mg/dl (8.6-10.3); Creatinine Clr Calc Pharmacy 20.5 ml/min; Est GFR (Non-African American) 33.6 ml/min
[2023-08-07] MEDS: METOPROLOL SUCC 25MG EXT REL TAB PO SCH (22:06)
[2023-08-08 06:59] LABS: Echinocytes 1+; Ovalocytes 1+
[2023-08-08] MEDS: LEVOTHYROXINE SODIUM 125 MCG TABLET PO SCH (07:27)
[2023-08-08 09:43] LABS: Hematocrit (blood only) 35.3 % (42.0-52.0); Hemoglobin 11.2 g/dl (14.0-18.0); Mean Corpuscular Hemoglobin 29.3 pg (25.0-34.0); Mean Corpuscular Hgb Conc 31.7 g/dL (32.0-36.0); Mean Corpuscular Volume 92.4 fL (80.0-100.0); Mean Platelet Volume 12.5 fL (9.4-12.4); Platelet Count 40 K/uL (130-400); RDW Coefficient of Variation 20.1 % (11.5-14.5); RDW Standard Deviation 67.9 fL (36.4-46.3); Red Blood Count 3.82 M/uL (4.70-6.10); White Blood Count 4.81 K/ul (4.8-10.8)
[2023-08-08 09:59] LABS: Albumin Globulin Ratio 0.9 (0.9-2); BUN Creatinine Ratio 28.3 (10-20); Bilirubin,Total 2.3 mg/dl (0.2-1.0); Calcium 8.3 mg/dl (8.6-10.3); Creatinine Clr Calc Pharmacy 21.9 ml/min; Est GFR (African American) 44.4 ml/min; Est GFR (Non-African American) 38.3 ml/min; Globulin 3.2 gm/dl (2.5-4.0); Potassium 4.4 mmol/L (3.5-5.1); Total Protein 6.2 gm/dl (6.0-8.3)
--- NOTE | 2023-08-08 10:25 | Nephrology Progress Note ---
Date of Service August 08, 2023 Assessment & Plan (1) Acute kidney injury superimposed on CKD: (2) Hyperammonemia: (3) Hepatic encephalopathy: (4) Metabolic acidosis: Plan 78-year-old gentleman with baseline decent renal function, history of cirrhosis with Alston, ascites and anasarca, admitted with unresponsiveness due to hepatic encephalopathy. Blood pressure has been persistently low. Has history of repeated episodes of VIVEK, recent VIVEK was during last admission when creatinine was 1.5. Creatinine was 2.0 on admission yesterday which worsened further to 2.3. Has been oliguric over last 24 hours. Urinalysis with no significant proteinuria or hematuria. Prior renal imaging showed horseshoe kidney. VIVEK most likely prerenal, kidney function continues to improve slowly labs suggestive of volume depletion. Urine output slightly improved, blood pressure stable. Overall clinically much improved. -- change IV fluid to D5 with 1/2 NS L @ 100 ml/h, as he is now awake, alert, continue to encourage increased p.o. intake -- Continue to monitor renal function, intake and output Will sign off, please contact if further assistance needed. Thank you for the consult. Admission and Anticipated Discharge Date Admission Date: August 05, 2023 Adri Alexandre was seen and evaluated this morning. His doing much better today, awake, alert, answers question appropriately. Denied any shortness of breath, chest pain. Urine output remains low only 500 mL, dark urine over overnight. Blood pressure improved. Kidney function slowly improving, creatinine down to 1.7 mg/dl, electrolyte acceptable Review of Systems Review of Systems: Detailed review of system was done and pertinent positives and negatives are mentioned above. Physical Exam Constitutional: + ill appearing and + cachectic; no acut e distress Respiratory: no respiratory distress and no cough Auscultation: + diminished lung sounds Cardiovascular: Rate/Rhythm: regular rate and regular rhythm Heart Sounds: normal S1 and normal S2 Extremities: no edema Skin: + turgor decreased Neurologic: awake; no focal motor deficits and not confused Psychiatric: Awake , alert, answered q appropriately. Results & Data Vital Signs (Past 12 Hours) Vital Signs Temp Pulse Resp BP Pulse Ox O2 Del Method 08/08/23 07:58 Room Air 08/08/23 07:28 36.4 C L 88 16 145/92 H 95 Room Air 08/08/23 03:26 36.6 C 109 H 18 110/65 92 Room Air 08/07/23 22:55 36.7 C 83 18 118/64 94 Room Air PG Care Time/CCT Total # of Minutes Spent Total Time Spent with Patient: Total time spent is greater than 50% in coordination of care (as documented) at patient's floor/unit and/or counseling patient: Coding Level of Care Code 68160 SUB INP/OBS CARE 2/35MIN Diagnoses Acute kidney injury superimposed on CKD N17.9; N18.9 Hyperammonemia E72.20 Hepatic encephalopathy K76.82 Metabolic acidosis E87.20
--- NOTE | 2023-08-08 10:26 | Hospitalist Progress Note ---
Date of Service August 08, 2023 Assessment & Plan (1) Hepatic encephalopathy: Plan: - Hx of Cirrhosis with CARY - Stop lactulose enemas, switch to 30mg lactulose BID - Continue rifaximin 550 mg BID Recent paracentesis 07/18/2023 with 1.7L fluid removed - daughter reports pt never since then Attempted paracentesis given abdominal tenderness, but no ascites to be drained LFTs stable Mentation continues to improve 08/07 (2) Acute kidney injury superimposed on CKD: Plan: Clinically dry Diaz catheter placed in the ER to monitor UO Creatinine 1.97 --> 2.17 --> 2.25 nephrology consulted - Prerenal vs hepatorenal syndrome - recommend switching IVF now to D5/LR With sugars improving, will switch back to LR after current back (3) Hypokalemia: Plan: possible Metabolic encephalopathy ( in addition to hepatic encephalopathy) Hyperkalemic, 5.2 on admission. - 3.1, after sodium bicarb fluids given for VIVEK, --> 40 meq IV ordered, 10 meq given (suspect as fluids changed to KCL) PM recheck 2.9 --> 40 meq IV ordered 08/07: 4..4 Recheck AM (4) Respiratory alkalosis: Plan: Tachypnea suspect due to hepatic encephalopathy vs. over compensating for metabolic acidosis Repeat VBG this morning with continued respiratory alkalosis (5) Cirrhosis of liver: Plan: MELD Na 22, 7-10% estimated 90 day mortality No significant ascites on exam (6) Thrombocytopenia: Plan: Platelets 81 on admission - downtrending, likely in setting of hepatic encephalopathy/cirrhosis - hold heparin, SCDs for DVT proh (7) Atrial fibrillation: Plan: Permanent trop on arrival 44.5, 43.2 --> suspect demand ischemia - will restart metoprol as BP allows (8) Hypothyroidism: Plan: TSH 4.001 restart synthroid 08/07 (9) Conjunctivitis: Plan: - Right eye, unable to open spontaneously, erythema - Erythromycin QID - resp biofire - neg improving (10) Diabetes: Plan: 07/18 HgbA1: 5.9 Only on correctional insulin at home NovoLog for correction only: --Goal BSG Range: Low 110 mg/dL, High 160 mg/dL --Correction Factor: 50 mg/dL/unit --Carbohydrate ratio = no carb coverage --BSGs ACHS if eating, q6h if npo (11) Body mass index (BMI) less than 16.5: Plan: severe malnutrition BMI 15.7 Parenting Skills Instructor consult, receiving nutritional supplements Plan VTE prophylaxis - SCDs, not candidate for heparin given thrombocytopenia, lovenox given kidney function dispo: continued inpatient stay Admission and Anticipated Discharge Date Admission Date: August 05, 2023 Supervising Physician Co-Signing Physician Notes Attending Attestation - Chart reviewed, care plan d/w JASVIR Brannon. I agree with the ricardo components of her documentation. Nelson Murphy MD Subjective Patient resting in bed - more alert today. Denies pain currently. Able to hold a conversation, however tells me that we are [place], but able to follow commands today. RN reports poor PO intake for breakfast but no concerns for aspiration. Review of Systems Review of Systems: All systems reviewed & are unremarkable except as noted in Subjective Physical Exam Physical Exam: General: NAD, VS as above HEENT: erythema much improved Resp: normal respiratory effort, lungs clear to auscultation CV: afib, no murmur, Abd: nondistented, no ascities, non tender Extremities: Moves all extremities, no edema Neuro: more alert, oriented to self, nonpurposeful movement has stopped Results & Data Results & Data Vital Signs (Past 12 Hours) Vital Signs Temp Pulse Resp BP Pulse Ox O2 Del Method 08/08/23 07:58 Room Air 08/08/23 07:28 36.4 C L 88 16 145/92 H 95 Room Air 08/08/23 03:26 36.6 C 109 H 18 110/65 92 Room Air 08/07/23 22:55 36.7 C 83 18 118/64 94 Room Air Laboratory Results CBC and chemistry reviewed PG Care Time/CCT Total # of Minutes Spent Total Time Spent with Patient: Total time spent is greater than 50% in coordination of care (as documented) at patient's floor/unit and/or counseling patient: Coding Level of Care Code 74031 SUB INP/OBS CARE 2/35MIN Diagnoses Hepatic encephalopathy K76.82 Acute kidney injury superimposed on CKD N17.9; N18.9 Hypokalemia E87.6 Respiratory alkalosis E87.3 Cirrhosis of liver K74.60 Thrombocytopenia D69.6 Atrial fibrillation I48.91 Hypothyroidism E03.9 Conjunctivitis H10.9 Diabetes E11.9 Body mass index (BMI) less than 16.5 Z68.1
[2023-08-08] MEDS: D5W AND 1/2NSS 1,000 ML IV SCH (10:53)
[2023-08-08] MEDS: LACTULOSE SYRUP 30 GM/45 ML UDP PO SCH (12:32)
[2023-08-08] MEDS: PANTOprazole 40 MG TAB PO SCH (20:57)
[2023-08-08] MEDS: LACTATED RINGER'S 1,000 ML IV SCH (20:59)
[2023-08-09 07:13] LABS: Hematocrit (blood only) 33.7 % (42.0-52.0); Hemoglobin 10.7 g/dl (14.0-18.0); Mean Corpuscular Hemoglobin 29.3 pg (25.0-34.0); Mean Corpuscular Hgb Conc 31.8 g/dL (32.0-36.0); Mean Corpuscular Volume 92.3 fL (80.0-100.0); Mean Platelet Volume 12.2 fL (9.4-12.4); Platelet Count 39 K/uL (130-400); RDW Standard Deviation 67.1 fL (36.4-46.3); Red Blood Count 3.65 M/uL (4.70-6.10); White Blood Count 4.02 K/ul (4.8-10.8)
[2023-08-09 07:26] LABS: Albumin Level 2.8 gm/dl (3.4-5.0); BUN Creatinine Ratio 33.1 (10-20); Bilirubin,Total 2.5 mg/dl (0.2-1.0); Calcium 8.2 mg/dl (8.6-10.3); Creatinine Clr Calc Pharmacy 26.7 ml/min; Est GFR (African American) 49.8 ml/min; Globulin 2.8 gm/dl (2.5-4.0); Potassium 4.2 mmol/L (3.5-5.1); Total Protein 5.6 gm/dl (6.0-8.3)
--- NOTE | 2023-08-09 09:26 | Hospitalist Progress Note ---
Date of Service August 09, 2023 Assessment & Plan (1) Hepatic encephalopathy: Plan: - Hx of Cirrhosis with CARY - Stop lactulose enemas, switch to 30mg lactulose BID - Continue rifaximin 550 mg BID Recent paracentesis 07/18/2023 with 1.7L fluid removed - daughter reports pt never since then Attempted paracentesis earlier in stay given abdominal tenderness, but no ascites to be drained LFTs stable 08/07 mentation continues to improve 08/08 less responsive today, decrease in mentation AM INR, CMP, and ammonia level (per daughter request) (2) Acute kidney injury superimposed on CKD: Plan: Clinically dry Diaz catheter placed in the ER to monitor UO Creatinine 1.97 --> 2.17 --> 2.25 nephrology consulted - Prerenal vs hepatorenal syndrome - recommend switching IVF now to D5/LR With sugars improving, will switch back to LR after current ag 3/ IVF stopped due to mild abdominal distention (3) Hypokalemia: Plan: possible Metabolic encephalopathy ( in addition to hepatic encephalopathy) Hyperkalemic, 5.2 on admission. - 3.1, after sodium bicarb fluids given for VIVEK, --> 40 meq IV ordered, 10 meq given (suspect as fluids changed to KCL) PM recheck 2.9 --> 40 meq IV ordered 08/07: 4..4 Stable (4) Respiratory alkalosis: Plan: Tachypnea suspect due to hepatic encephalopathy vs. over compensating for metabolic acidosis Repeat VBG this morning with continued respiratory alkalosis (5) Cirrhosis of liver: Plan: MELD Na 22, 7-10% estimated 90 day mortality No significant ascites on exam (6) Thrombocytopenia: Plan: Platelets 81 on admission - downtrending, likely in setting of hepatic encephalopathy/cirrhosis - Portal vein droppler ordered 08/08 - hold heparin, SCDs for DVT proh (7) Atrial fibrillation: Plan: Permanent trop on arrival 44.5, 43.2 --> suspect demand ischemia - will restart metoprol as BP allows (8) Hypothyroidism: Plan: TSH 4.001 restart synthroid 08/07 (9) Conjunctivitis: Plan: - Right eye, unable to open spontaneously, erythema - Neomycin/polymix/bacitracin BID started 08/06 - resp biofire - neg Continues to improve (10) Diabetes: Plan: 07/18 HgbA1: 5.9 Only on correctional insulin at home NovoLog for correction only: --Goal BSG Range: Low 110 mg/dL, High 160 mg/dL --Correction Factor: 50 mg/dL/unit --Carbohydrate ratio = no carb coverage --BSGs ACHS if eating, q6h if npo (11) Body mass index (BMI) less than 16.5: Plan: severe malnutrition BMI 15.7 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 I agree w/ the ricardo components of her documentation. Nelson Murphy MD Subjective Patient resting in the bed. less alert than prior days. But answers yes/no questions. Denies pain currently. RN reports multiple bowel movements (x3) overnight. Review of Systems Review of Systems: All systems reviewed & are unremarkable except as noted in Subjective Physical Exam Physical Exam: General: NAD, VS as above HEENT: erythema much improved Resp: normal respiratory effort, lungs clear to auscultation CV: afib, no murmur, Abd: mild distention, non tender Extremities: Moves all extremities, no edema Neuro: oriented to self, nonpurposeful movement has stopped Results & Data Results & Data Vital Signs (Past 12 Hours) Vital Signs Temp Pulse Pulse Resp BP Pulse Ox O2 Del Method 08/09/23 07:34 36.7 C 63 20 110/63 Room Air 08/09/23 02:44 36.7 C 82 18 118/74 96 Room Air 08/08/23 23:11 Room Air 08/08/23 22:55 36.6 C 86 18 110/71 95 Room Air 08/08/23 22:44 92 H Laboratory Results CBC and chemistry reviewed PG Care Time/CCT Total # of Minutes Spent Total Time Spent with Patient: Total time spent is greater than 50% in coordination of care (as documented) at patient's floor/unit and/or counseling patient: Coding Level of Care Code 54071 SUB INP/OBS CARE 3/50MIN Diagnoses Hepatic encephalopathy K76.82 Acute kidney injury superimposed on CKD N17.9; N18.9 Hypokalemia E87.6 Respiratory alkalosis E87.3 Cirrhosis of liver K74.60 Thrombocytopenia D69.6 Atrial fibrillation I48.91 Hypothyroidism E03.9 Conjunctivitis H10.9 Diabetes E11.9 Body mass index (BMI) less than 16.5 Z68.1
[2023-08-10 03:12] LABS: Appearance Urine Cloudy (Clear); Bacteria Urine Automated Negative (Negative); Blood Urine 3+ (Negative); Color Urine Orange; Epithelial Cell Urine Auto 20-30 /lpf (0-5); Glucose Urine UA Negative (Negative); Ketones Urine Trace (Negative); Leukocyte Esterase Urine 1+ (Negative); Nitrite Urine Negative (Negative); Protein Urine 1+ (Negative); RBC Urine Automated >30 /hpf (0-4); Specific Gravity Urine 1.022 (1.000-1.030); Urobilinogen Urine Negative (Negative); pH Urine 5.5 (4.5-7.5)
[2023-08-10 03:19] LABS: Bilirubin Urine 1+ (Negative)
[2023-08-10 06:54] LABS: Hematocrit (blood only) 32.2 % (42.0-52.0); Hemoglobin 10.1 g/dl (14.0-18.0); Mean Corpuscular Hemoglobin 28.9 pg (25.0-34.0); Mean Corpuscular Hgb Conc 31.4 g/dL (32.0-36.0); Mean Corpuscular Volume 92.3 fL (80.0-100.0); Mean Platelet Volume 12.3 fL (9.4-12.4); Platelet Count 37 K/uL (130-400); RDW Standard Deviation 66.9 fL (36.4-46.3); Red Blood Count 3.49 M/uL (4.70-6.10); White Blood Count 4.49 K/ul (4.8-10.8)
--- NOTE | 2023-08-10 07:06 | Ultrasound Report ---
US duplex portal hepatic veins HISTORY: 78 years-old Male thrombocytopenia COMPARISON: CT 07/17/2023 TECHNIQUE: Multiple real-time sonographic images of the hepatic vasculature were obtained assessing g rayscale appearance, color and spectral flow FINDINGS: Cirrhotic liver with ascites redemonstrated. There is patency of the splenic, and hepatic veins and I VC. Patent hepatopedal flow within the portal vein. Low resistance normal waveforms within the hepati c artery. IMPRESSION: 1. Patent hepatic vasculature. 2. Cirrhotic liver with ascites redemonstrated. ACT 112: Negative or not required by law. The above report was generated using voice recognition software. It may contain grammatical, syntax o r spelling errors. Electronically signed by: Farhad Vyas M.D. 08/10/2023 7:05 AM
[2023-08-10 07:46] LABS: Albumin Globulin Ratio 0.9 (0.9-2); Albumin Level 2.7 gm/dl (3.4-5.0); BUN Creatinine Ratio 37.4 (10-20); Bilirubin,Total 2.1 mg/dl (0.2-1.0); Calcium 8.2 mg/dl (8.6-10.3); Creatinine Clr Calc Pharmacy 27.3 ml/min; Est GFR (African American) 51.5 ml/min; Est GFR (Non-African American) 44.4 ml/min; Globulin 2.9 gm/dl (2.5-4.0); Potassium 3.9 mmol/L (3.5-5.1); Total Protein 5.6 gm/dl (6.0-8.3)
[2023-08-10 07:52] LABS: INR 1.4 (0.9-1.1); Prothrombin Time 15.1 Seconds (9.0-12.0)
[2023-08-10] MEDS: ONDANSETRON INJ 2 MG/ML 2 ML VIAL IV PRN (11:55)
--- NOTE | 2023-08-10 14:54 | Hospitalist Progress Note ---
Date of Service August 10, 2023 Assessment & Plan (1) Hepatic encephalopathy: Plan: - Hx of Cirrhosis with CARY - Stop lactulose enemas, switch to 30mg lactulose BID - Continue rifaximin 550 mg BID Recent paracentesis 07/18/2023 with 1.7L fluid removed - daughter reports pt never since then Attempted paracentesis earlier in stay given abdominal tenderness, but no ascites to be drained LFTs stable 08/07 mentation continues to improve 3/ less responsive today, decrease in mentation 08/09 mentation improved, not back to baseline per daughter. with increased abdominal distention, will order another paracentesis, however no capacity to have this completed today. Hopeful for 08/10 however will depend on providers comfort level/protocol with patient's thrombocytopenia. Amoxicillin for possible UTI on UA, follow urine culture AM INR, CMP (2) Acute kidney injury superimposed on CKD: Plan: Clinically dry on admission Diaz catheter placed in the ER to monitor UO Creatinine 1.97 --> 2.17 --> 2.25 nephrology consulted - Suspect prerenal - received IVFs at their discretion 3/ IVF stopped due to mild abdominal distention (3) Hypokalemia: Plan: possible Metabolic encephalopathy ( in addition to hepatic encephalopathy) Hyperkalemic, 5.2 on admission. - 3.1, after sodium bicarb fluids given for VIVEK, --> 40 meq IV ordered, 10 meq given (suspect as fluids changed to KCL) PM recheck 2.9 --> 40 meq IV ordered 08/07: 4..4 Stable (4) Respiratory alkalosis: Plan: Tachypnea suspect due to hepatic encephalopathy vs. over compensating for metabolic acidosis Repeat VBG this morning with continued respiratory alkalosis (5) Cirrhosis of liver: Plan: MELD Na 22, 7-10% estimated 90 day mortality increasing ascities 08/09 (6) Thrombocytopenia: Plan: Platelets 81 on admission - downtrending, likely in setting of hepatic encephalopathy/cirrhosis - patient was seen by hematology last admission, was pancytopenic at this time, could consider outpatient bone marrow biopsy - Portal vein Doppler - WNL - hold heparin, SCDs for DVT proh Trend CBC (7) Atrial fibrillation: Plan: Permanent trop on arrival 44.5, 43.2 --> suspect demand ischemia - will restart metoprol as BP allows (8) Hypothyroidism: Plan: TSH 4.001 restart synthroid 08/07 (9) Conjunctivitis: Plan: - Right eye, unable to open spontaneously, erythema - Neomycin/polymix/bacitracin BID started 08/06 - resp biofire - neg Continues to improve, will finish course of ointment 08/09 (10) Diabetes: Plan: 07/18 HgbA1: 5.9 Only on correctional insulin at home NovoLog for correction only: --Goal BSG Range: Low 110 mg/dL, High 160 mg/dL --Correction Factor: 50 mg/dL/unit --Carbohydrate ratio = no carb coverage --BSGs ACHS if eating, q6h if npo (11) Body mass index (BMI) less than 16.5: Plan: severe malnutrition BMI 15.7 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 I agree w/ the ricardo components of her documentation. Nelson Murphy MD Subjective patient more alert than yesterday. Currently denies pain. States he is not hungry. Is able to tell me his daughter's name. But is unable to tell me the year or what he did for a profession Tele - afib PVCs 80s Review of Systems Review of Systems: All systems reviewed & are unremarkable except as noted in Subjective Physical Exam Physical Exam: General: NAD, VS as above HEENT: eye erythema much improved Resp: normal respiratory effort, lungs clear to auscultation CV: afib, no murmur, Abd: worsening distention, non tender Extremities: Moves all extremities, no edema Neuro: oriented to self, nonpurposeful movement has stopped Results & Data Results & Data Vital Signs (Past 12 Hours) Vital Signs Temp Pulse Resp BP Pulse Ox O2 Del Method 08/10/23 11:10 36.4 C L 86 19 109/73 95 Room Air 08/10/23 07:25 Room Air 08/10/23 07:13 36.4 C L 78 18 100/64 96 Room Air 08/10/23 02:59 36.5 C 80 20 139/87 95 Room Air Laboratory Results CBC, chemistry, coagulation studies, ammonia level, blood cultures and urine cultures reviewed PG Care Time/CCT Total # of Minutes Spent Total Time Spent with Patient: Total time spent is greater than 50% in coordination of care (as documented) at patient's floor/unit and/or counseling patient: Coding Level of Care Code 02754 SUB INP/OBS CARE 3/50MIN Diagnoses Hepatic encephalopathy K76.82 Acute kidney injury superimposed on CKD N17.9; N18.9 Hypokalemia E87.6 Respiratory alkalosis E87.3 Cirrhosis of liver K74.60 Thrombocytopenia D69.6 Atrial fibrillation I48.91 Hypothyroidism E03.9 Conjunctivitis H10.9 Diabetes E11.9 Body mass index (BMI) less than 16.5 Z68.1
[2023-08-10] MEDS: AMOXICILLIN 250 MG CAP PO SCH (19:38)
[2023-08-11 08:01] LABS: Hematocrit (blood only) 33.2 % (42.0-52.0); Hemoglobin 10.5 g/dl (14.0-18.0); Mean Corpuscular Hemoglobin 29.7 pg (25.0-34.0); Mean Corpuscular Hgb Conc 31.6 g/dL (32.0-36.0); Mean Corpuscular Volume 93.8 fL (80.0-100.0); Mean Platelet Volume 11.4 fL (9.4-12.4); Platelet Count 44 K/uL (130-400); RDW Coefficient of Variation 19.9 % (11.5-14.5); Red Blood Count 3.54 M/uL (4.70-6.10)
[2023-08-11 08:14] LABS: Albumin Level 2.9 gm/dl (3.4-5.0); BUN Creatinine Ratio 36.4 (10-20); Bilirubin,Total 2.6 mg/dl (0.2-1.0); Calcium 8.7 mg/dl (8.6-10.3); Creatinine Clr Calc Pharmacy 25.2 ml/min; Est GFR (African American) 45.8 ml/min; Est GFR (Non-African American) 39.5 ml/min; Potassium 3.9 mmol/L (3.5-5.1); Total Protein 5.9 gm/dl (6.0-8.3)
[2023-08-11 08:24] LABS: INR 1.3 (0.9-1.1); Prothrombin Time 14.5 Seconds (9.0-12.0)
--- NOTE | 2023-08-11 09:54 | Hospitalist Progress Note ---
Date of Service August 11, 2023 Assessment & Plan (1) Hepatic encephalopathy: Plan: - Hx of Cirrhosis with CARY - Stop lactulose enemas, switch to 30mg lactulose BID - Continue rifaximin 550 mg BID Recent paracentesis 07/18/2023 with 1.7L fluid removed - daughter reports pt never since then Attempted paracentesis earlier in stay given abdominal tenderness, but no ascites to be drained LFTs stable 08/07 mentation continues to improve 3/2 less responsive today, decrease in mentation 3/ mentation improved, not back to baseline per daughter. with increased abdominal distention, will order another paracentesis, however no capacity to have this completed today. Hopeful for 08/10 however will depend on providers comfort level/protocol with patient's thrombocytopenia. 3/ 1.3 L of fluids removed with paracentesis. fluid cultures pending Amoxicillin for possible UTI on UA, follow urine culture --> no growth, abx stopped Continual goals of care discussion held with daughter - she seems to be understanding about quality vs quanity of life. - Palliative care consult placed AM INR, CMP (2) Acute kidney injury superimposed on CKD: Plan: Clinically dry on admission Diaz catheter placed in the ER to monitor UO Creatinine 1.97 --> 2.17 --> 2.25 nephrology consulted - Suspect prerenal - received IVFs at their discretion 3/ IVF stopped due to mild abdominal distention 3/ bump in Creatinine 1.47 --> 1.62, will hold on IVF given abdominal distention and encourage PO intake, but if continues to increase tomorrow consider light IV hydration vs comfort care monitor AM CMP (3) Hypokalemia: Plan: possible Metabolic encephalopathy ( in addition to hepatic encephalopathy) Hyperkalemic, 5.2 on admission. - 3.1, after sodium bicarb fluids given for VIVEK, --> 40 meq IV ordered, 10 meq given (suspect as fluids changed to KCL) PM recheck 2.9 --> 40 meq IV ordered 08/07: 4..4 Stable (4) Cirrhosis of liver: Plan: MELD Na 22, 7-10% estimated 90 day mortality increasing ascities 08/09 (5) Thrombocytopenia: Plan: Platelets 81 on admission - downtrending, likely in setting of hepatic encephalopathy/cirrhosis - patient was seen by hematology last admission, was pancytopenic at this time, could consider outpatient bone marrow biopsy - Portal vein Doppler - WNL - hold heparin, SCDs for DVT proh 08/10 platelets starting to improve 37 --> 44 Trend CBC (6) Atrial fibrillation: Plan: Permanent trop on arrival 44.5, 43.2 --> suspect demand ischemia - continue metoprolol as BP allows (7) Hypothyroidism: Plan: TSH 4.001 restart synthroid 08/07 (8) Conjunctivitis: Plan: - Right eye, unable to open spontaneously, erythema - Neomycin/polymix/bacitracin BID started 08/06 - resp biofire - neg Continues to improve, will finish course of ointment 08/09 (9) Diabetes: Plan: 07/18 HgbA1: 5.9 Only on correctional insulin at home NovoLog for correction only: --Goal BSG Range: Low 110 mg/dL, High 160 mg/dL --Correction Factor: 50 mg/dL/unit --Carbohydrate ratio = no carb coverage --BSGs ACHS if eating, q6h if npo (10) Body mass index (BMI) less than 16.5: Plan: severe malnutrition BMI 15.7 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 I agree w/ the ricardo components of her documentation. Nelson Murphy MD Subjective Patient most alert I have seen him all admission. Unable to speak in full sentences still, but stringing some words together. Denies pain, states he is not hungry. Tele Afib with PVCs 70-80s Review of Systems Review of Systems: All systems reviewed & are unremarkable except as noted in Subjective Physical Exam Physical Exam: General: NAD, VS as above HEENT: eye erythema much improved Resp: normal respiratory effort, lungs clear to auscultation CV: afib, no murmur, Abd: moderate distention - stable from yesterday, non tender Extremities: Moves all extremities, no edema Neuro: oriented to self, Results & Data Results & Data Vital Signs (Past 12 Hours) Vital Signs Temp Pulse Pulse Resp BP Pulse Ox O2 Del Method 08/11/23 07:59 36.5 C 85 19 105/66 95 Room Air 08/11/23 03:00 36.9 C 75 16 117/66 95 Room Air 08/10/23 23:00 75 08/10/23 23:00 36.5 C 68 16 103/67 96 Room Air Laboratory Results CBC and chemistry reviewed PG Care Time/CCT Total # of Minutes Spent Total Time Spent with Patient: Total time spent is greater than 50% in coordination of care (as documented) at patient's floor/unit and/or counseling patient: Coding Level of Care Code 16055 SUB INP/OBS CARE 3/50MIN Diagnoses Hepatic encephalopathy K76.82 Acute kidney injury superimposed on CKD N17.9; N18.9 Hypokalemia E87.6 Cirrhosis of liver K74.60 Thrombocytopenia D69.6 Atrial fibrillation I48.91 Hypothyroidism E03.9 Conjunctivitis H10.9 Diabetes E11.9 Body mass index (BMI) less than 16.5 Z68.1
--- NOTE | 2023-08-11 14:57 | Ultrasound Report ---
ULTRASOUND-GUIDED PARACENTESIS CLINICAL HISTORY: Ascites PROCEDURE: Procedure and risks were explained. Informed consent was obtained. A final timeout was com pleted. A pocket of ascites was identified in the left lower quadrant. The left lower quadrant was pr epped and draped in sterile fashion. 1% buffered lidocaine was utilized for skin anesthesia. Utilizing ultrasound guidance, a 5 Welsh safety centesis catheter was advanced into the pocket of as cites. Ultrasound image was obtained. A total of 1300 mL of yellow ascites fluid was removed and sent to lab. The catheter was removed and Band-Aid applied. The patient tolerated the procedure well. Vit al signs will be monitored postprocedure. IMPRESSION: Ultrasound-guided paracentesis as above. Performed, dictated, and signed by Shayan Harrison PA-C; to be co-signed by Dr. Wilbert Dobbins. Electronically signed by: Wilbert Dobbins M.D. 08/11/2023 3:05 PM
[2023-08-11 19:05] LABS: Appearance Peritoneal Fluid Clear; Color Peritoneal Fluid Pale Yellow; Lymphocytes, Fluid 10 %; Mono,Macrophage,Mesothelial 64 %; Neutrophils, Fluid 26 %; RBC Peritoneal Fluid Auto 2000 /uL; WBC Peritoneal Fluid Auto 45 /ul (0-300)
[2023-08-11] MEDS: MENTHOL-ZINC OXIDE 360 APPLN/120 GM TUBE EXT SCH (20:28)
[2023-08-12 07:45] LABS: Hematocrit (blood only) 32.4 % (42.0-52.0); Hemoglobin 10.7 g/dl (14.0-18.0); Mean Corpuscular Hemoglobin 29.7 pg (25.0-34.0); Mean Platelet Volume 12.5 fL (9.4-12.4); Platelet Count 46 K/uL (130-400); RDW Coefficient of Variation 20.3 % (11.5-14.5); RDW Standard Deviation 66.5 fL (36.4-46.3); White Blood Count 3.99 K/ul (4.8-10.8)
[2023-08-12 08:12] LABS: Albumin Globulin Ratio 0.9 (0.9-2); Albumin Level 2.8 gm/dl (3.4-5.0); BUN Creatinine Ratio 36.5 (10-20); Bilirubin,Total 2.4 mg/dl (0.2-1.0); Calcium 8.6 mg/dl (8.6-10.3); Creatinine Clr Calc Pharmacy 26.3 ml/min; Est GFR (African American) 46.8 ml/min; Est GFR (Non-African American) 40.4 ml/min; Potassium 4.1 mmol/L (3.5-5.1); Total Protein 5.8 gm/dl (6.0-8.3)
[2023-08-12 08:34] LABS: INR 1.3 (0.9-1.1)
--- NOTE | 2023-08-12 09:32 | Hospitalist Progress Note ---
Date of Service August 12, 2023 Assessment & Plan (1) Hepatic encephalopathy: Plan: 78yo male presented from [facility] unresponsive with last known well day prior at bedtime w/ recent admission 2 weeks prior to metabolic encephalopathy Hx of Cirrhosis with CARY, ammonia elevated to 160 on admission Given lactulose enemas w/ good results, normalization of ammonia on repeat and switched to lactulose 30mg BID Rifaximin started PO BID s/p paracentesis on 07/18 for 1.7L fluid, repeat 1.3L on 08/10. Cultures pending On amoxicillin for possible uti, urine cx no growth and abx stopped Patient alert to person, not place/events today, but did request rice/cheese for supper. Called to kitchen. --> Meeting w/ palliative today, moving to comfort measures only. Will remain inpatient/working on symptom control but may remain inpatient pending repeat examinations and appears to have had continued cognitive decline however was alert to person for myself/cooperative during exam. Not oriented to location/events but was aggreeable to avoid further testing/paracentesis/etc Comfort measures ordered by palliative care provider Meds as able/tolerated, continue PPI BID Transfer to medical bed, comfort measures only. No further lab draws/imaging/etc (2) Acute kidney injury superimposed on CKD: Plan: Clinically dry on exam, bañuelos in place from ER w/ improvement in Cr however worsened and IVF stopped. PO intake acceptable and avoiding further IVF given paracentesis/etc as above. Now moving to comfort (3) Hypokalemia: Plan: possible Metabolic encephalopathy ( in addition to hepatic encephalopathy) Hyperkalemic, 5.2 on admission w/ nabicarb fluids for VIVEK Replacement ordered for lows subsequently (suspected due to poor PO, improved) and remaining stable No further labs as above (4) Cirrhosis of liver: Plan: MELD Na 22, 7-10% estimated 90 day mortality increasing ascites 3/3 , now s/p repeat paracentesis day prior and no further palliative consulted as above (5) Thrombocytopenia: Plan: Platelets 81 on admission , downtrending in setting of hepatic encephalopathy/cirrhosis Portal vein doppler wnl Hematology saw last admission No further heparin SQ, high risk and SCDs added Plts to 46 at present (did have some bleeding to his gums) No further labs (6) Atrial fibrillation: Plan: Permanent trop on arrival 44.5, 43.2 --> suspect demand ischemia - continue metoprolol as BP allows and able to take PO (7) Hypothyroidism: Plan: TSH 4.001 restarted Synthroid 08/07 (8) Conjunctivitis: Plan: - Right eye, unable to open spontaneously, erythema - Neomycin/polymix/bacitracin BID started 08/06 - resp biofire - neg Continues to improve, RESOLVED --> finished course of ointment 08/09 (9) Diabetes: Plan: 07/18 HgbA1: 5.9 Only on correctional insulin at home NovoLog for correction only: --Goal BSG Range: Low 110 mg/dL, High 160 mg/dL --Correction Factor: 50 mg/dL/unit --Carbohydrate ratio = no carb coverage --BSGs ACHS if eating, q6h if npo BSGs acceptable (10) Body mass index (BMI) less than 16.5: Plan: severe malnutrition BMI 15.7 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 The chart was reviewed. Case discussed with JASVIR Archibald. Agree with assessment and plan Subjective Evaluated this afternoon. Family had been in to visit earlier but he wouldn't acknowledge them per nursing. Patient sitting up in bed smiling upon entry. Denies pain at present. Calm/cooperative with exam but alert to person not time/events, [facility] Discussed focusing on comfort and not putting through more aggressive measures and he seems to be on board with this. Palliative consult/discussion by phone today and making patient comfort measures. Will transfer off the telemetry unit/move to private room. Comfort orders placed by palliative and monitoring for symptom control over next 24-48 hours. When asked if hungry, patient reports he would like rice and cheese. Will have RN call for supper. Physical Exam Physical Exam: General:78yo male, chronically ill appearing but in NAD, sitting up in bed Head atraumatic, poor dentition (scant blood around front tooth), trachea mid line Resp: even/unlabored, slightly diminished in the bases, on room air CV: irregularly irregular, rates in 60s, trace pedal edema GI: +BS, slight distension, +ascites, nontender bañuelos w/ concentrated urine MSk/Neuro: generalized weakness, nonfocal, speech clearer, able to answer questions at times Psych: alert to person, thought in [place], not alert to place/events Results & Data Results & Data Vital Signs (Past 12 Hours) Vital Signs Temp Pulse Resp BP Pulse Ox O2 Del Method 08/12/23 08:44 96 H 123/79 96 Room Air 08/12/23 07:46 36.8 C 78 16 109/66 97 Room Air 08/12/23 02:46 36.7 C 87 20 104/64 97 Room Air 08/11/23 22:55 36.6 C 75 20 111/71 95 Room Air Laboratory Results 08/12/23 08/12/23 08/12/23 Range/Units 11:21 07:34 06:48 WBC 3.99 L (4.8-10.8) K/ul RBC 3.60 L (4.70-6.10) M/uL Hgb 10.7 L (14.0-18.0) g/dl Hct 32.4 L (42.0-52.0) % MCV 90.0 (80.0-100.0) fL MCH 29.7 (25.0-34.0) pg MCHC 33.0 (32.0-36.0) g/dL RDW Std Deviation 66.5 H (36.4-46.3) fL RDW Coeff of Gerardo 20.3 H (11.5-14.5) % Plt Count 46 L (130-400) K/uL MPV 12.5 H (9.4-12.4) fL PT 14.0 H (9.0-12.0) Seconds INR 1.3 H (0.9-1.1) Sodium 136 (136-145) mmol/L Potassium 4.1 (3.5-5.1) mmol/L Chloride 108 H (98-107) mmol/L Carbon Dioxide 21 (21-32) mmol/L Anion Gap 7 (3-11) BUN 58 H (6-23) mg/dl Creatinine 1.59 H (0.6-1.4) mg/dl Est Cr Clr Drug Dosing 26.3 ml/min Est GFR ( Amer) 46.8 ml/min Est GFR (Non-Af Amer) 40.4 ml/min BUN/Creatinine Ratio 36.5 H (10-20) Glucose 124 H (70-99(Fasting)) mg/dl POC Glucose 153 H 130 H (70-99) mg/dl Calcium 8.6 (8.6-10.3) mg/dl Total Bilirubin 2.4 H (0.2-1.0) mg/dl AST 102 H (13-39) U/L ALT 84 H (7-52) U/L Alkaline Phosphatase 114 H (34-104) U/L Total Protein 5.8 L (6.0-8.3) gm/dl Albumin 2.8 L (3.4-5.0) gm/dl Globulin 3.0 (2.5-4.0) gm/dl Albumin/Globulin Ratio 0.9 (0.9-2) Fluid Neutrophils % % Fluid Lymphocytes % % Fluid Meso/Macro/Dickenson % % Fluid Comment Peritoneal Color Peritoneal Appearance Peritoneal WBC (Auto) (0-300) /ul Peritoneal RBC (Auto) /uL 08/11/23 08/11/23 08/11/23 Range/Units Unknown 20:29 16:21 WBC (4.8-10.8) K/ul RBC (4.70-6.10) M/uL Hgb (14.0-18.0) g/dl Hct (42.0-52.0) % MCV (80.0-100.0) fL MCH (25.0-34.0) pg MCHC (32.0-36.0) g/dL RDW Std Deviation (36.4-46.3) fL RDW Coeff of Gerardo (11.5-14.5) % Plt Count (130-400) K/uL MPV (9.4-12.4) fL PT (9.0-12.0) Seconds INR (0.9-1.1) Sodium (136-145) mmol/L Potassium (3.5-5.1) mmol/L Chloride (98-107) mmol/L Carbon Dioxide (21-32) mmol/L Anion Gap (3-11) BUN (6-23) mg/dl Creatinine (0.6-1.4) mg/dl Est Cr Clr Drug Dosing ml/min Est GFR ( Amer) ml/min Est GFR (Non-Af Amer) ml/min BUN/Creatinine Ratio (10-20) Glucose (70-99(Fasting)) mg/dl POC Glucose 176 H 155 H (70-99) mg/dl Calcium (8.6-10.3) mg/dl Total Bilirubin (0.2-1.0) mg/dl AST (13-39) U/L ALT (7-52) U/L Alkaline Phosphatase (34-104) U/L Total Protein (6.0-8.3) gm/dl Albumin (3.4-5.0) gm/dl Globulin (2.5-4.0) gm/dl Albumin/Globulin Ratio (0.9-2) Fluid Neutrophils % 26 % Fluid Lymphocytes % 10 % Fluid Meso/Macro/Dickenson % 64 % Fluid Comment Peritoneal Color Pale Yellow Peritoneal Appearance Clear Peritoneal WBC (Auto) 45 (0-300) /ul Peritoneal RBC (Auto) 2000 /uL PG Care Time/CCT Total # of Minutes Spent Total Time Spent with Patient: Total time spent is greater than 50% in coordination of care (as documented) at patient's floor/unit and/or counseling patient: Coding Level of Care Code 49064 SUB INP/OBS CARE 3/50MIN Diagnoses Hepatic encephalopathy K76.82 Acute kidney injury superimposed on CKD N17.9; N18.9 Hypokalemia E87.6 Cirrhosis of liver K74.60 Thrombocytopenia D69.6 Atrial fibrillation I48.91 Hypothyroidism E03.9 Conjunctivitis H10.9 Diabetes E11.9 Body mass index (BMI) less than 16.5 Z68.1
--- NOTE | 2023-08-12 11:05 | Palliative Care Consultation ---
Date of Consultation August 12, 2023 Assessment & Plan (1) Altered mental status: Altered mental status type: somnolence Qualified Code(s): R40.0 - Somnolence (2) Weakness generalized: (3) Palliative care by specialist: Spoke with pt daughter Sheila. Provided overview of Palliative Medicine, a subspecialty that provides specialized medical care for people living with a serious illness by offering a focus on quality of life. Palliative Medicine is often conflated with hospice: I advised patient/family that Palliative and hospice can be partners but we are not the same. It is important to understand the difference so that we may be informed, and not afraid. Palliative Medicine works to improve QOL through reduction of symptom burden/more control over their illness, for both the patient and family. Palliative medicine clinicians are board certified, specially-trained and another member of the patient's medical care team. We often provide an extra layer of support because our care is based on the needs of the patient, not the prognosis; as such, it's appropriate at any age/advancing stage of a serious illness and can be provided along with curative treatment. Palliative Medicine clinicians are also trained in advanced communication methodologies, to facilitate complex discussions about advanced illness planning, which are needed to help assure that the treatment choices match the patient's goals, aka delivering Goal Concordant care. Finally, we discussed that hospice is a visiting nurse service that focuses on care delivered at the very end of life for patients with terminal illness, with life expectancy less than 6 month. Plan See separate ACP / GOC meeting notes Moving to BAG GRADER Orders written Thank you for allowing us to participate in the ongoing care of this patient. Please don't hesitate to call or page with any additional concerns. Dr. Jeanna Lamas DNP Director, Palliative Care History of Present Illness Reason for Consultation: goals of care, likely hospice at [facility] Attending Physician: Terrance Young MD History of Present Illness Baldomero is an 78yo male admitted with Hepatic encephalopathy and he h/o cirrhosis with CARY. He has metabolic encephalopathy, elevated troponin without acute coronary syndrome, streptococcal UTI, acute on chronic kidney disease, pancytopenia, nonalcohol induced cirrhosis with ascites. Allergies Allergy/AdvReac Type Severity Reaction Status Date / Time rivaroxaban AdvReac Intermediate VOMITING Verified 07/17/23 18:56 Home Medications Medication Instructions Recorded Confirmed Type metoprolol succinate 25 mg 25 mg PO BID 08/09/19 08/05/23 History tablet,extended release 24 hr potassium chloride 20 mEq 20 meq PO QAM 08/09/19 08/05/23 History tablet,extended release(part/cryst) (Klor-Con M) blood sugar diagnostic (OneTouch #100 ea 08/13/19 08/05/23 Rx Verio test strips) pen needle, diabetic 32 gauge x #30 ea 08/13/19 08/05/23 Rx 5/32" (BD Rosemary 2nd Gen Pen Needle) empagliflozin 10 mg tablet 10 mg PO QAM 11/07/20 08/05/23 History (Jardiance) cyanocobalamin (vitamin B-12) 100 100 mcg PO QAM #20 tabs 10/05/21 08/05/23 Rx mcg tablet (Vitamin B-12) amlodipine 5 mg tablet 5 mg PO HS 03/07/22 08/05/23 History atorvastatin 40 mg tablet 40 mg PO HS 03/07/22 08/05/23 History bumetanide 1 mg tablet 1 mg PO DAILY 03/07/22 08/05/23 History acetaminophen 325 mg tablet 650 mg PO Q6H PRN FEVER >100/PAIN 05/10/23 08/05/23 History (Tylenol) cholestyramine (with sugar) 4 gram 4 g PO QAM 05/10/23 08/05/23 History oral powder ferrous sulfate 325 mg (65 mg 325 mg PO QAM 05/10/23 08/05/23 History iron) tablet,delayed release food supplemt, lactose-reduced 1 ea PO BIDM 05/10/23 08/05/23 History insulin lispro 100 unit/mL 1 sliding scale dose subcut ACHS 05/10/23 08/05/23 History subcutaneous solution (Humalog U-100 Insulin) lidocaine 4 % topical patch 1 patch topical DAILY 05/10/23 08/05/23 History loperamide 2 mg tablet (Imodium 2 mg PO Q2H PRN Diarrhea 05/10/23 08/05/23 History A-D) melatonin 5 mg tablet 10 mg PO HS 05/10/23 08/05/23 History pantoprazole 40 mg tablet,delayed 40 mg PO BIDM 05/10/23 08/05/23 History release protein supplement 1 ea PO QAM 05/10/23 08/05/23 History sertraline 200 mg capsule 200 mg PO DAILY 05/10/23 08/05/23 History sodium chloride 0.65 % nasal spray 2 spray intranasal BIDM 05/10/23 08/05/23 History aerosol (Saline Nasal) trazodone 50 mg tablet 25 mg PO HS 05/10/23 08/05/23 History spironolactone 25 mg tablet 25 mg PO QAM #30 tabs 07/19/23 08/05/23 Rx levothyroxine 125 mcg tablet 125 mcg PO DAILY 08/05/23 08/05/23 History Patient History Medical History (Updated 08/13/23 @ 14:28 by Jeanna Lamas DNP) Palliative care by specialist Weakness generalized Diabetes IDDM Metabolic acidosis Closed hip fracture Hypothyroidism Squamous cell carcinoma of ear Hearing deficit Depression Anxiety On anticoagulant therapy warfarin daily Sleep apnea cpap Fatty liver (~02/2014) Coumadin toxicity (04/24/14) CHF (congestive heart failure) (02/19/14) Atrial fibrillation on warfarin--follows with Dr. Harp Anemia Surgical History History of esophagogastroduodenoscopy (EGD) last 09/24/21 @ [facility] History of colonoscopy last 09/24/21 @ [facility] History of hernia surgery History of Mohs micrographic surgery for skin cancer History of tooth extraction History of sinus surgery History of strabismus surgery History of cardiac cath a few years ago at [facility]--no stents History of coronary artery bypass graft x 3 "a few years ago" at [facility] Family History Other No family history of adverse response to anesthesia Social History Smoking Status: Never smoker Tobacco Type: Cigarettes Second Hand Exposure: No; Do You Dip or Chew Tobacco: No; Hx Alcohol Use: No Hx Substance Use: No Preferred Language: Zambian Communication Ability: Unable Communication Ability Comment: Forgetful Manager Net Required: No Beliefs That Will Affect Care: Spiritual marital status: Current Living Situation: Intermediate Current Living Situation Comment: [facility] Feels Safe at Home: Yes Assistive Devices: Wheelchair Review of Systems Review of Systems: All systems reviewed & are unremarkable except as noted in Subjective Physical Exam Physical Exam: Eldery male, lethargic, chronically ill appearing Bitemp wasting poor dentition, MM sl dry resp effort WAL at rest, no use of accessory muscles irreg irreg, +trace BLE edema Abd distended, ++ascites, nontender +Diaz, dark antony +generalized weakness Confused/lethargic cannot follow commands Skin pale, warm Results & Data Vital Signs (Past 12 Hours) Vital Signs Temp Pulse Resp BP Pulse Ox O2 Del Method 08/12/23 08:44 96 H 123/79 96 Room Air 08/12/23 07:46 36.8 C 78 16 109/66 97 Room Air 08/12/23 02:46 36.7 C 87 20 104/64 97 Room Air Laboratory Results data reviewed Diagnostic Findings data reviewed PG Care Time/CCT Total # of Minutes Spent Total Time Spent with Patient: Total time spent is greater than 50% in coordination of care (as documented) at patient's floor/unit and/or counseling patient: I spent 55 minutes overall addressing this case: 15 min in medical data review/discussion with referring provider(s) and/or preparation for the visit 15 min in direct interaction with the patient/exam 00 min in Advance Care Planning/Goals of Care discussions as detailed above in note (must be >16min) 10 min in subsequent review and synthesis of assessment and plan 15 min communicating with other providers regarding the patient's case: [place] [address] IN/OBS CONSULT LVL 4,60M Patient Type New History Comprehensive Exam Comprehensive Medical Decision Making High Complexity Diagnoses Altered mental status R40.0 Altered mental status type: somnolence Weakness generalized R53.1 Palliative care by specialist Z51.5
[2023-08-12] MEDS ORDERED: haloperidoL 1 MG TAB PO PRN (13:15)
--- NOTE | 2023-08-12 16:10 | Palliative Family Discussion ---
Date of Service August 12, 2023 Patient Directed Conference Time of [id number] Participants: Jeanna Lamas DNP Patient participation: lacks capacity Patient Support System: dtr/POA Robson Other Healthcare Provider Participation: None Meeting Location: telephonic, Robson is working/busy dental practice/had patients scheduled. Advanced Directive available: No, Robson reaffirms DNR/DNI and confirms pt was clear about his wishes with family A family meeting was held for BROOK COOLEY. This meeting was necessary for determining the appropriate course of treatment. Topics of Discussion Topics of Discussion: 1. Worsening liver failure, declining PS, HF, declining oral intake, generalized weakness, AMS/encephalopathy. No curative options, no signif benefit noted from escalated interventions. 2. I spoke with Robson abut above issues, reviewed her discussions to date with medical teams. She is able to tell me she knows he is not getting much better and does not have a curable problem. She feels we are prolonging his suffering and keeping him alive just to exist but without QOL. We spoke about transitioning focus to be more about QOL/comfort and less disease directed curative therapies which at this time we are aware do not seem feasible. She agreed and he is now comfort care. I wrote orders and have liberalized diet. For now continue his regular meds if he can take them. no diet restrictions, no labs and no monitors. 3. I have asked primary team to please write order to transfer to private room. I anticipate he needs 1-2 days to assure good symptom mgt. 4. Robson and I specifically spoke about how with his age and comorbidities and generalized/continued decline, e may acutely decline this admission, loren because to me, he seems to be a little worse today than yesterday so it might be days instead of weeks. Robson the dtr is aware and agreed he has been steadily declining. 5. She is interested in returning to SNF with hospice if he stays stable on WET CLEANER MACHINE and symptoms are controlled. Other Content of Meetin. Opportunity given for participants to speak and ask questions. 2. Participants were assured of attention to patient comfort. 3. Reassurance provided. 4. Support was provided for informed, good-sandhya decisions. 5. Emotions expressed by family were acknowledged and addressed. Time Involved in Meeting: I spent 60 minutes overall addressing this case: 10 in medical data review/discussion with referring provider(s) and/or preparation for the visit 35 Advance Care Planning/Goals of Care discussions as detailed above in note (must be >16min) 10 in subsequent review and synthesis of assessment and plan 5 in communicating with other providers regarding the patient's case: primary team, nursing, care mgt
[2023-08-13] MEDS: MoRPHine SULFATE 2 MG/ML CARP IV PRN (06:49)
--- NOTE | 2023-08-13 08:03 | Hospitalist Progress Note ---
Date of Service August 13, 2023 Assessment & Plan (1) Hepatic encephalopathy: Plan: 78yo male presented from [facility] unresponsive with last known well day prior at bedtime w/ recent admission 2 weeks prior to metabolic encephalopathy Hx of Cirrhosis with CARY, ammonia elevated to 160 on admission Given lactulose enemas w/ good results, normalization of ammonia on repeat and switched to lactulose 30mg BID Rifaximin started PO BID s/p paracentesis on 07/18 for 1.7L fluid, repeat 1.3L on 08/10. Cultures pending On amoxicillin for possible uti, urine cx no growth and abx stopped Patient alert to person, not place/events today, but did request rice/cheese for supper. Called to kitchen. --> Meeting w/ palliative today, moving to comfort measures only. Will remain inpatient/working on symptom control but may remain inpatient pending repeat examinations and appears to have had continued cognitive decline however was alert to person for myself/cooperative during exam. Not oriented to location/events but was aggreeable to avoid further testing/paracentesis/etc Comfort measures ordered by palliative care provider Meds as able/tolerated, continue PPI BID Transferred to medical bed, comfort measures only. No further lab draws/imaging/etc 08/12 Comfort measures only at present time. Pain medication ordered overnight as had not been ordered w/ rest of palliative set (noting patient denied having any pain at all initially during encounter 08/11) and denied pain during encouner today Diet as able/meds as tolerated continued inpatient stay (2) Acute kidney injury superimposed on CKD: Plan: Clinically dry on exam, bañuelos in place from ER w/ improvement in Cr however worsened and IVF stopped. PO intake acceptable and avoiding further IVF given paracentesis/etc as above. Now transitioned to comfort (3) Hypokalemia: Plan: possible Metabolic encephalopathy ( in addition to hepatic encephalopathy) Hyperkalemic, 5.2 on admission w/ nabicarb fluids for VIVEK Replacement ordered for lows subsequently (suspected due to poor PO, improved) and remained stable - no further lab draws as above (4) Cirrhosis of liver: Plan: MELD Na 22, 7-10% estimated 90 day mortality increasing ascites 08/09 , now s/p repeat paracentesis day prior and no further palliative consulted as above (5) Thrombocytopenia: Plan: Platelets 81 on admission , downtrending in setting of hepatic encephalopathy/cirrhosis Portal vein doppler wnl Hematology saw last admission No further heparin SQ, high risk and SCDs added Plts to 46 on repeat (did have some bleeding to his gums) No further labs (6) Atrial fibrillation: Plan: Permanent trop on arrival 44.5, 43.2 --> suspect demand ischemia - continue metoprolol as BP allows and able to take PO (7) Hypothyroidism: Plan: TSH 4.001 restarted Synthroid 08/07 (8) Conjunctivitis: Plan: Right eye, unable to open spontaneously, erythema Neomycin/polymix/bacitracin BID started 08/06 resp biofire - neg Continues to improve, RESOLVED --> finished course of ointment 08/09 (9) Diabetes: Plan: 07/18 HgbA1: 5.9 Only on correctional insulin at home NovoLog for correction only: --Goal BSG Range: Low 110 mg/dL, High 160 mg/dL --Correction Factor: 50 mg/dL/unit --Carbohydrate ratio = no carb coverage --BSGs ACHS if eating, q6h if npo BSGs acceptable -- no further finger sticks given above (10) Body mass index (BMI) less than 16.5: Plan: severe malnutrition BMI 15.7 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 The chart was reviewed. Case discussed with JASVIR Archibald. Agree with assessment and plan Subjective Evaluated this morning, getting cleaned up in bed. Denies any pain at present time or nausea. Not sure if he ate chicken and rice but to alert of any needs/wants and will attempt to accommodate. Was provided IV medication overnight for pain and will monitor. Continued inpatient stay. Physical Exam Physical Exam: General:78yo male, chronically ill appearing but in NAD, sitting up in bed getting cleaned up by nursing aide Head atraumatic, poor dentition (scant blood around front tooth), trachea midline Resp: even/unlabored, slightly diminished in the bases, on room air CV: irregularly irregular, rates in 60s-70s, trace pedal edema GI: +BS, slight distension, +ascites, nontender bañuelos w/ concentrated urine MSk/Neuro: generalized weakness, nonfocal, speech clearer, able to answer questions at times Psych: alert to person, thought in [place], not alert to place/events appears slightly more confused today but pleasant/cooperative with exam Results & Data Results & Data Vital Signs (Past 12 Hours) Vital Signs Pulse Resp BP Pulse Ox O2 Del Method 08/12/23 21:48 72 18 113/71 95 Room Air PG Care Time/CCT Total # of Minutes Spent Total Time Spent with Patient: Total time spent is greater than 50% in coordination of care (as documented) at patient's floor/unit and/or counseling patient: Coding Level of Care Code 82019 SUB INP/OBS CARE 2/35MIN Diagnoses Hepatic encephalopathy K76.82 Acute kidney injury superimposed on CKD N17.9; N18.9 Hypokalemia E87.6 Cirrhosis of liver K74.60 Thrombocytopenia D69.6 Atrial fibrillation I48.91 Hypothyroidism E03.9 Conjunctivitis H10.9 Diabetes E11.9 Body mass index (BMI) less than 16.5 Z68.1
--- NOTE | 2023-08-14 08:02 | Hospitalist Progress Note ---
Date of Service August 14, 2023 Assessment & Plan (1) Hepatic encephalopathy: Plan: 78yo male presented from [facility] with last known well day prior at bedtime w/ recent admission 2 weeks prior to metabolic encephalopathy Hx of Cirrhosis with CARY, ammonia elevated to 160 on admission Given lactulose enemas w/ good results, normalization of ammonia on repeat and switched to lactulose 30mg BID Rifaximin started PO BID s/p paracentesis on 07/18 for 1.7L fluid, repeat 1.3L on 08/10. On amoxicillin for possible uti, urine cx no growth and abx stopped Patient alert to person, not place/events 08/11, but did request rice/cheese for supper. Called to kitchen. --> Meeting w/ palliative , moving to comfort measures only. Will remain inpatient/working on symptom control but may remain inpatient pending repeat examinations and appears to have had continued cognitive decline however was alert to person for myself/cooperative during exam. Not oriented to location/events but was aggreeable to avoid further testing/paracentesis/etc Comfort measures ordered by palliative care provider Meds as able/tolerated, continue PPI BID Transferred to medical bed, comfort measures only. No further lab draws/imaging/etc 08/12 Comfort measures only at present time. Pain medication ordered overnight as had not been ordered w/ rest of palliative set (noting patient denied having any pain at all initially during encounter 08/11) and denied pain during encouner today Diet as able/meds as tolerated continued inpatient stay 08/13 - one dose morphine utilized for pain overnight. discussed with palliative and added roxanol 5mg soln as needed if able to take oral (has been taking pills) Daughter to visit this evening. Discussed if symptoms controlled/remaining stable on oral medications over the weekend will need to see about continuing hospice care at [facility] (is a bed hold) continued inpatient stay (2) Acute kidney injury superimposed on CKD: Plan: Clinically dry on exam, bañuelos in place from ER w/ improvement in Cr however worsened and IVF stopped. PO intake acceptable and avoiding further IVF given paracentesis/etc as above. Now transitioned to comfort (3) Hypokalemia: Plan: possible Metabolic encephalopathy ( in addition to hepatic encephalopathy) Hyperkalemic, 5.2 on admission w/ nabicarb fluids for VIVEK Replacement ordered for lows subsequently (suspected due to poor PO, improved) and remained stable - no further lab draws as above (4) Cirrhosis of liver: Plan: MELD Na 22, 7-10% estimated 90 day mortality increasing ascites 08/09 , now s/p repeat paracentesis day prior and no further palliative consulted as above (5) Thrombocytopenia: Plan: Platelets 81 on admission , downtrending in setting of hepatic encephalopathy/cirrhosis Portal vein doppler wnl Hematology saw last admission No further heparin SQ, high risk and SCDs added Plts to 46 on repeat (did have some bleeding to his gums) No further labs (6) Atrial fibrillation: Plan: Permanent trop on arrival 44.5, 43.2 --> suspect demand ischemia - continue metoprolol as BP allows and able to take PO (7) Hypothyroidism: Plan: TSH 4.001 restarted Synthroid 08/07 (8) Conjunctivitis: Plan: Right eye, unable to open spontaneously, erythema Neomycin/polymix/bacitracin BID started 08/06 resp biofire - neg RESOLVED --> finished course of ointment 08/09 (9) Diabetes: Plan: 07/18 HgbA1: 5.9 Only on correctional insulin at home NovoLog for correction only: --Goal BSG Range: Low 110 mg/dL, High 160 mg/dL --Correction Factor: 50 mg/dL/unit --Carbohydrate ratio = no carb coverage --BSGs ACHS if eating, q6h if npo BSGs acceptable -- no further finger sticks given above (10) Body mass index (BMI) less than 16.5: Plan: severe malnutrition BMI 15.7 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 Discussed if symptoms stable over the weekend likely will need to pursue dc on hospice care to [facility]. Cm following Admission and Anticipated Discharge Date Admission Date: August 05, 2023 Supervising Physician Co-Signing Physician Notes The patient was not seen by me. The chart was reviewed. Case discussed with JASVIR Archibald. Agree with assessment and plan Subjective Eval this morning, resting in bed. Alert to person/knows in hospital. Was given IV morphine overnight for pain. Denies any pain at present time/need for any medications. Last BM 08/11 documented Reports his daughter has not been in to visit him today and wondering when she will be in - will call. Continued inpatient stay. Physical Exam Physical Exam: General:78yo male, chronically ill appearing but in NAD, sitting up in bed , alert to self/hospital, not event/time Head atraumatic, poor dentition (scant blood around front tooth), trachea midline Resp: even/unlabored, slightly diminished in the bases, on room air CV: irregularly irregular, rates in 70s, trace pedal edema GI: +BS, slight distension (slightly increased), +ascites, nontender bañuelos w/ concentrated urine MSk/Neuro: generalized weakness, nonfocal, speech clearer, able to answer questions at times Psych: alert to person, thought in [place], not alert to place/events -appears slightly more confused today bu t pleasant/cooperative with exam - wanting to see his daughter Results & Data Results & Data Vital Signs (Past 12 Hours) Vital Signs Pulse Resp BP Pulse Ox O2 Del Method 08/13/23 20:12 63 16 105/61 95 Room Air PG Care Time/CCT Total # of Minutes Spent Total Time Spent with Patient: Total time spent is greater than 50% in coordination of care (as documented) at patient's floor/unit and/or counseling patient: Coding Level of Care Code 71996 SUB INP/OBS CARE 2/35MIN Diagnoses Hepatic encephalopathy K76.82 Acute kidney injury superimposed on CKD N17.9; N18.9 Hypokalemia E87.6 Cirrhosis of liver K74.60 Thrombocytopenia D69.6 Atrial fibrillation I48.91 Hypothyroidism E03.9 Conjunctivitis H10.9 Diabetes E11.9 Body mass index (BMI) less than 16.5 Z68.1
--- NOTE | 2023-08-15 08:10 | Hospitalist Progress Note ---
Date of Service August 15, 2023 Assessment & Plan (1) Hepatic encephalopathy: Plan: 78yo male presented from [facility] with last known well day prior at bedtime w/ recent admission 2 weeks prior to metabolic encephalopathy Hx of Cirrhosis with CARY, ammonia elevated to 160 on admission Given lactulose enemas w/ good results, normalization of ammonia on repeat and switched to lactulose 30mg BID Rifaximin started PO BID s/p paracentesis on 07/18 for 1.7L fluid, repeat 1.3L on 08/10. On amoxicillin for possible uti, urine cx no growth and abx stopped Patient alert to person, not place/events 08/11, but did request rice/cheese for supper. Called to kitchen. --> Meeting w/ palliative , moving to comfort measures only. Will remain inpatient/working on symptom control but may remain inpatient pending repeat examinations and appears to have had continued cognitive decline however was alert to person for myself/cooperative during exam. Not oriented to location/events but was aggreeable to avoid further testing/paracentesis/etc Comfort measures ordered by palliative care provider Meds as able/tolerated, continue PPI BID Transferred to medical bed, comfort measures only. No further lab draws/imaging/etc 08/12 Comfort measures only at present time. Pain medication ordered overnight as had not been ordered w/ rest of palliative set (noting patient denied having any pain at all initially during encounter 08/11) and denied pain during encouner today Diet as able/meds as tolerated continued inpatient stay 08/13 - one dose morphine utilized for pain overnight. discussed with palliative and added roxanol 5mg soln as needed if able to take oral (has been taking pills) Daughter to visit this evening. Discussed if symptoms controlled/remaining stable on oral medications over the weekend will need to see about continuing hospice care at [facility] (is a bed hold) continued inpatient stay 08/14 - No further pain medications overnight. Not taking much PO. Alert to person but not event/time/place but calm/cooperative. Symptoms controlled. Decreased UOP - ROxanol made available prn if needed as tolerating pills and could be utilized over IV in anticipation for posisble dc pending - Monitoring over weekend but did discuss w/ daughter prior if stable symptoms over the weekend about dc back to [facility] on Friday. CM following, is a bed hold (2) Acute kidney injury superimposed on CKD: Plan: Clinically dry on exam, bañuelos in place from ER w/ improvement in Cr however worsened and IVF stopped. Now on comfort (3) Hypokalemia: Plan: possible Metabolic encephalopathy ( in addition to hepatic encephalopathy) Hyperkalemic, 5.2 on admission w/ nabicarb fluids for VIVEK Replacement ordered for lows subsequently (suspected due to poor PO, improved) and remained stable - no further lab draws as above (4) Cirrhosis of liver: Plan: MELD Na 22, 7-10% estimated 90 day mortality increasing ascites 08/09 , now s/p repeat paracentesis prior and no further interventions/palliative consulted/comfort as above (5) Thrombocytopenia: Plan: Platelets 81 on admission , downtrending in setting of hepatic encephalopathy/cirrhosis Portal vein doppler wnl Hematology saw last admission No further heparin SQ, high risk and SCDs added Plts to 46 on repeat (did have some bleeding to his gums) No further labs (6) Atrial fibrillation: Plan: Permanent trop on arrival 44.5, 43.2 --> suspect demand ischemia - continue metoprolol as BP allows and able to take PO (7) Hypothyroidism: Plan: TSH 4.001 restarted Synthroid 08/07 (8) Conjunctivitis: Plan: Right eye, unable to open spontaneously, erythema Neomycin/polymix/bacitracin BID started 08/06 resp biofire - neg RESOLVED --> finished course of ointment 08/09 (9) Diabetes: Plan: 07/18 HgbA1: 5.9 Stopped further lab sticks (10) Body mass index (BMI) less than 16.5: Plan: severe malnutrition, BMI 15.7 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 Roxanol available if needed for pain CM following -- updated daughter prior by phone 08/13 (Sheila) and as discussed if patient staying stable over the weekend we likely will dc back to [facility] on hospice as is a bed hold and symptoms remaining stable at present time Admission and Anticipated Discharge Date Admission Date: August 05, 2023 Supervising Physician Co-Signing Physician Notes The patient was not seen by me. The chart was reviewed. Case discussed with JASVIR Archibald. Agree with assessment and plan Subjective Evaluated this morning, resting in bed. Pleasant confusion but conversive. Unsure if daughter came last night but assured she has been coming in frequently to spend time with him. He currently denies any pain or trouble breathing., Has been taking most of his medications. Utilized last dose of MS IV yesterday morning. Bañuelos with ~<100cc in bag, concentrated. Continued inpatient stay but possible back to [facility] this upcoming week pending status over the weekend. Physical Exam Physical Exam: General: 78yo male, chronically ill appearing sitting up in bed, alert to person but not time/events/location, calm/cooperative though and in NAD, denies pain HEENT; atraumatic, poor dentition, slightly dry mm resp: even, unlabored, diminished in the bases, on room air CV: irregularly irregular, rates controlled, pedal edema, calves nontender GI: +BS, +distension but nontender : catheter with decreased UOP MSK/Neuro: generalized weakness, nonfocal, answering questions as able Psych: Alert to person, not place/event/time Results & Data Results & Data Vital Signs (Past 12 Hours) Vital Signs Pulse BP Pulse Ox O2 Del Method 08/14/23 22:20 Room Air 08/14/23 21:44 67 107/64 98 Room Air PG Care Time/CCT Total # of Minutes Spent Total Time Spent with Patient: Total time spent is greater than 50% in coordination of care (as documented) at patient's floor/unit and/or counseling patient: Coding Level of Care Code 58816 SUB INP/OBS CARE 2/35MIN Diagnoses Hepatic encephalopathy K76.82 Acute kidney injury superimposed on CKD N17.9; N18.9 Hypokalemia E87.6 Cirrhosis of liver K74.60 Thrombocytopenia D69.6 Atrial fibrillation I48.91 Hypothyroidism E03.9 Conjunctivitis H10.9 Diabetes E11.9 Body mass index (BMI) less than 16.5 Z68.1
[2023-08-16] MEDS: MoRPHine SULFATE 10 MG/0.5 ML UDP PO PRN (00:04)
--- NOTE | 2023-08-16 08:10 | Hospitalist Progress Note ---
Date of Service August 16, 2023 Assessment & Plan (1) Hepatic encephalopathy: Plan: 78yo male presented from [facility] with last known well day prior at bedtime w/ recent admission 2 weeks prior to metabolic encephalopathy Hx of Cirrhosis with CARY, ammonia elevated to 160 on admission Given lactulose enemas w/ good results, normalization of ammonia on repeat and switched to lactulose 30mg BID Rifaximin started PO BID s/p paracentesis on 07/18 for 1.7L fluid, repeat 1.3L on 08/10. On amoxicillin for possible uti, urine cx no growth and abx stopped Patient alert to person, not place/events 08/11, but did request rice/cheese for supper. Called to kitchen. --> Meeting w/ palliative , moving to comfort measures only. Will remain inpatient/working on symptom control but may remain inpatient pending repeat examinations and appears to have had continued cognitive decline however was alert to person for myself/cooperative during exam. Not oriented to location/events but was aggreeable to avoid further testing/paracentesis/etc omfort measures ordered by palliative care provider Meds as able/tolerated, continue PPI BID Transferred to medical bed, comfort measures only. No further lab draws/imaging/etc 08/12 Comfort measures only at present time. Pain medication ordered overnight as had not been ordered w/ rest of palliative set (noting patient denied having any pain at all initially during encounter 08/11) and denied pain during encouner today Diet as able/meds as tolerated continued inpatient stay 08/13 one dose morphine utilized for pain overnight. discussed with palliative and added roxanol 5mg soln as needed if able to take oral (has been taking pills) Daughter to visit this evening. Discussed if symptoms controlled/remaining stable on oral medications over the weekend will need to see about continuing hospice care at [facility] (is a bed hold) continued inpatient stay 08/14 - No further pain medications overnight. Not taking much PO. Alert to person but not event/time/place but calm/cooperative. Symptoms controlled. Decreased UOP - ROxanol made available prn if needed as tolerating pills and could be utilized over IV in anticipation for posisble dc pending - Monitoring over weekend but did discuss w/ daughter prior if stable symptoms over the weekend about dc back to [facility] on Friday. CM following, is a bed hold 08/15 Eval with daughter Sheila at bedside. Had a little bit of a rough night, medicated and appearing comfortable. PO intake but taking pills with applesauce. Decreased UOP. Provided roxanol overnight and again this morning and tolerated ok. Has not needed the IV morphine at present time. Continuing to monitor but if decreased cognitition/intake and need for medication changes could consider inpatient but if stable will plan for [facility]. Discussed with Sheila at bedside that we should be able to make determination by friday based on needs/exam over this weekend but did agree patient w/ decline over the past 24 hours however does appear comfortable at present time. Her sister will be staying overnight with Baldomero. (2) Acute kidney injury superimposed on CKD: Plan: Clinically dry on exam, bañuelos in place from ER w/ improvement in Cr however worsened and IVF stopped. decreased UOP, concentrated urine in bag at present, on comfort. diet as allowed/wanted (3) Hypokalemia: Plan: possible Metabolic encephalopathy ( in addition to hepatic encephalopathy) Hyperkalemic, 5.2 on admission w/ nabicarb fluids for VIVEK Replacement ordered for lows subsequently (suspected due to poor PO, improved) and remained stable - no further lab draws as above (4) Cirrhosis of liver: Plan: MELD Na 22, 7-10% estimated 90 day mortality increasing ascites 08/09 , now s/p repeat paracentesis prior and no further interventions/palliative consulted/comfort as above (5) Thrombocytopenia: Plan: Platelets 81 on admission , downtrending in setting of hepatic encephalopathy/cirrhosis Portal vein doppler wnl Hematology saw last admission No further heparin SQ, high risk and SCDs added Plts to 46 on repeat (did have some bleeding to his gums, no further on exam subsequent days) No further labs (6) Atrial fibrillation: Plan: Permanent trop on arrival 44.5, 43.2 --> suspect demand ischemia - continue metoprolol as BP allows/able to/willing to take PO No CP reported (7) Hypothyroidism: Plan: TSH 4.001 restarted Synthroid 08/07 , tolerating as able (8) Conjunctivitis: Plan: Right eye, unable to open spontaneously, erythema Neomycin/polymix/bacitracin BID started 08/06 resp biofire - neg RESOLVED --> finished course of ointment 08/09 (9) Diabetes: Plan: 07/18 HgbA1: 5.9 Stopped further lab sticks (10) Body mass index (BMI) less than 16.5: Plan: severe malnutrition, BMI 15.7 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 Roxanol available if needed for pain Daughter Sheila updated at bedside 08/15 [facility] this upcoming week pending status over the weekend Admission and Anticipated Discharge Date Admission Date: August 05, 2023 Supervising Physician Co-Signing Physician Notes The patient was not seen by me. The chart was reviewed. Case discussed with JASVIR Archibald. Agree with assessment and plan Subjective Evaluated this morning. Resting in bed, appears more fatigued. Not much appetite. Would like some crackers, will provided food as wanted for comfort, understanding may have to accept some degree of aspiration but can monitor crackers. Decreased urine output. Daughter at bedside, was a little restless overnight and medicated for such. Discussed monitoring symptoms over weekend. Reports bed hold x 15 days, up on friday/friday. Will know better about ability to get him back there on Friday but does appear with increased fatigue/confusion compared to prior days but is calm/cooperative. Daughter stayed overnight and family planning to stay overnight with him again tonight as he does appear to do better with them near (had been asking for them prior days, even with them visiting). Physical Exam Physical Exam: General:78yo male, chronically ill appearing resting in bed, more fatigued, slightly more confused today but pleasant/cooperative, daughter Sheila at bedside Head normocephalic, poor dentition, mm slightly dry resp even/unlabored, diminished in the bases, no distress, on room air cv; irregularly irregular, rates controlled, pedal edema, calves nontender gi: BS, slightly increased distension, no overt tenderness gu: catheter with darkened/concentrated urine msk/neuro/psych; alert to person only, generalized weakness, answering questions as able PG Care Time/CCT Total # of Minutes Spent Total Time Spent with Patient: Total time spent is greater than 50% in coordination of care (as documented) at patient's floor/unit and/or counseling patient: Coding Level of Care Code 29202 SUB INP/OBS CARE 07/03MIN Diagnoses Hepatic encephalopathy K76.82 Acute kidney injury superimposed on CKD N17.9; N18.9 Hypokalemia E87.6 Cirrhosis of liver K74.60 Thrombocytopenia D69.6 Atrial fibrillation I48.91 Hypothyroidism E03.9 Conjunctivitis H10.9 Diabetes E11.9 Body mass index (BMI) less than 16.5 Z68.1
--- NOTE | 2023-08-17 08:08 | Hospitalist Progress Note ---
Date of Service August 17, 2023 Assessment & Plan (1) Hepatic encephalopathy: Plan: 78yo male presented from [facility] with last known well day prior at bedtime w/ recent admission 2 weeks prior to metabolic encephalopathy Hx of Cirrhosis with CARY, ammonia elevated to 160 on admission Given lactulose enemas w/ good results, normalization of ammonia on repeat and switched to lactulose 30mg BID Rifaximin started PO BID s/p paracentesis on 07/18 for 1.7L fluid, repeat 1.3L on 08/10. On amoxicillin for possible uti, urine cx no growth and abx stopped Patient alert to person, not place/events 08/11, but did request rice/cheese for supper. Called to kitchen. --> Meeting w/ palliative , moving to comfort measures only. Will remain inpatient/working on symptom control but may remain inpatient pending repeat examinations and appears to have had continued cognitive decline however was alert to person for myself/cooperative during exam. Not oriented to location/events but was agreeable to avoid further testing/paracentesis/etc omfort measures ordered by palliative care provider Meds as able/tolerated, continue PPI BID Transferred to medical bed, comfort measures only. No further lab draws/imaging/etc 08/12 Comfort measures only at present time. Pain medication ordered overnight as had not been ordered w/ rest of palliative set (noting patient denied having any pain at all initially during encounter 08/11) and denied pain during encouner today Diet as able/meds as tolerated continued inpatient stay 08/13 one dose morphine utilized for pain overnight. discussed with palliative and added roxanol 5mg soln as needed if able to take oral (has been taking pills) Daughter to visit this evening. Discussed if symptoms controlled/remaining stable on oral medications over the weekend will need to see about continuing hospice care at [facility] (is a bed hold) continued inpatient stay 08/14 No further pain medications overnight. Not taking much PO. Alert to person but not event/time/place but calm/cooperative. Symptoms controlled. Decreased UOP Roxanol made available prn if needed as tolerating pills and could be utilized over IV in anticipation for possible dc pending Monitoring over weekend but did discuss w/ daughter prior if stable symptoms over the weekend about dc back to [facility] on Friday. CM following, is a bed hold 08/15 Eval with daughter Sheila at bedside. Had a little bit of a rough night, medicated and appearing comfortable. PO intake but taking pills with applesauce. Decreased UOP. Provided roxanol overnight and again this morning and tolerated ok. Has not needed the IV morphine at present time. Continuing to monitor but if decreased cognition/intake and need for medication changes could consider inpatient but if stable will plan for [facility]. Discussed with Sheila at bedside that we should be able to make determination by friday based on needs/exam over this weekend but did agree patient w/ decline over the past 24 hours however does appear comfortable at present time. Her sister will be staying overnight with Baldomero. 08/16 - Utilized 2 doses of roxanol on 08/15 for pain control, seeming to need BID at least and making scheduled per discussion with daughters at bedside. Patient mildly uncomfortable/agitated and ativan x 1 and discussed robinul available for secretions if needed. Continue prn roxanol and IV if needed to monitor needs. Does appear more jaundiced, increased abdominal distension but taking PO at present (does have some increased issues with swallowing today). Can touch base w/ palliative in AM as well but suspect patient may be staying inpatient at this time given further decline overnight but will monitor. Daughters updated at bedside, CM to follow in AM (2) Acute kidney injury superimposed on CKD: Plan: Clinically dry on exam, bañuelos in place from ER w/ improvement in Cr however worsened and IVF stopped. -decreased UOP, concentrated urine in bag at present, on comfort. diet as allowed/wanted and daughters providing pureed fruits as he wanted (3) Hypokalemia: Plan: possible Metabolic encephalopathy ( in addition to hepatic encephalopathy) Hyperkalemic, 5.2 on admission w/ nabicarb fluids for VIVEK Replacement ordered for lows subsequently (suspected due to poor PO, improved) and remained stable - no further lab draws as above (4) Cirrhosis of liver: Plan: MELD Na 22, 7-10% estimated 90 day mortality increasing ascites 08/09 , now s/p repeat paracentesis prior and no further interventions/palliative consulted/comfort as above increased abdominal distension 08/16 (5) Thrombocytopenia: Plan: Platelets 81 on admission , downtrending in setting of hepatic encephalopathy/cirrhosis Portal vein doppler wnl Hematology saw last admission No further heparin SQ, high risk and SCDs added Plts to 46 on repeat (did have some bleeding to his gums, no further on exam subsequent days) No further labs (6) Atrial fibrillation: Plan: Permanent trop on arrival 44.5, 43.2 --> suspect demand ischemia - continue metoprolol as BP allows/able to/willing to take PO No CP reported (7) Hypothyroidism: Plan: TSH 4.001 restarted Synthroid 08/07 , tolerating as able (8) Conjunctivitis: Plan: Right eye, unable to open spontaneously, erythema Neomycin/polymix/bacitracin BID started 08/06 resp biofire - neg RESOLVED --> finished course of ointment 08/09 (9) Diabetes: Plan: 07/18 HgbA1: 5.9 Stopped further lab sticks (10) Body mass index (BMI) less than 16.5: Plan: severe malnutrition, BMI 15.7 Fundraiser consult, receiving nutritional supplements As above, moved to comfort measures, diet as tolerated/requested Also w/ unstageable pressure ulcer -- wound RN on consulted during inpatient stay turn/reposition as needed for comfort LOW AIRLOSS MATTRESS ordered for comfort during this time, increased drainage at present time Plan comfort measures Making roxanol BID scheduled, continue prn medications Daughters updated at bedside 08/16, continued inpatient stay at this time and re- eval in AM but suspect given course over the weekend he may be staying inpatient but will monitor Admission and Anticipated Discharge Date Admission Date: August 05, 2023 Supervising Physician Co-Signing Physician Notes The patient was not seen by me. The chart was reviewed. Case discussed with JASVIR Archibald. Agree with assessment and plan Subjective Patient evaluated this morning. Daughters at bedside, feeding some pureed pears/fruit. Does have decreased PO intake/urine output. Discussed abdomen more distended today, appearing more jaundiced. Discussed pain control -- seems to be requiring this now and increasing rate from 1x to more frequent BID however concerns about asking and needing in AM/night and discussed making this scheduled. Patient stating "fuck" when moving around in bed at times, pain to abdomen/backside. Did get a dose of pain medication not too long ago, discussed dose of ativan for agitation and making roxanol scheduled as tolerating well and can increase scheduled as needed. Discussed low airloss mattress for comfort given wound to sacrum, did have some drainage this morning, slightly uncomfortable getting washed up but nursing believes should be able to accomodate low airloss mattress without too much difficulty. Discussed I spoke with Dr Fajardo over the weekend pending his exam/status and ability to return however given decline into today/this morning, not sure if we will be sending him back but if further decline/actively changing meds for comfort will continue inpatient stay but otherwise plan back there. No CP/SOB reported. Discussed scheduling roxanol with nursing, give dose of ativan and alerting for additional prn if needed but otherwise continuing current dose. Physical Exam Physical Exam: General:78yo frail, not well nourished, sitting up in bed, daugthers at bedside feeding pureed fruit, appearing mildly uncomfortable at present , nursing to medicate HEENT: slightly dry mm, trachea midline, +oral secretions at times with feeding, poor dentition Resp: unlabored, no tachypnea, diminished in the bases but on room air CV: irregularly irregular, rates 90s-100s, b/l LE edema GI: +BS, increased distension, +tenderness : bañuelos with scant concentrated urine Psych: alert to person/not place or time Skin: increased jaundice appearance Results & Data Results & Data Vital Signs (Past 12 Hours) Vital Signs Pulse BP O2 Del Method 08/16/23 21:07 99 H 104/63 08/16/23 21:00 Room Air PG Care Time/CCT Total # of Minutes Spent Total Time Spent with Patient: Total time spent is greater than 50% in coordination of care (as documented) at patient's floor/unit and/or counseling patient: Coding Level of Care Code 81785 SUB INP/OBS CARE 2/35MIN Diagnoses Hepatic encephalopathy K76.82 Acute kidney injury superimposed on CKD N17.9; N18.9 Hypokalemia E87.6 Cirrhosis of liver K74.60 Thrombocytopenia D69.6 Atrial fibrillation I48.91 Hypothyroidism E03.9 Conjunctivitis H10.9 Diabetes E11.9 Body mass index (BMI) less than 16.5 Z68.1
[2023-08-17] MEDS: LORazepam 0.5 MG TAB PO PRN (08:58)
[2023-08-17] MEDS: MoRPHine SULFATE 10 MG/0.5 ML UDP PO SCH (20:58)
--- NOTE | 2023-08-18 08:01 | Hospitalist Progress Note ---
Date of Service August 18, 2023 Assessment & Plan (1) Hepatic encephalopathy: Plan: 78yo male presented from [facility] unresponsive with last known well day prior at bedtime w/ recent admission 2 weeks prior to metabolic encephalopathy Hx of Cirrhosis with CARY, ammonia elevated to 160 on admission Given lactulose enemas w/ good results, normalization of ammonia on repeat and switched to lactulose 30mg BID Rifaximin started PO BID s/p paracentesis on 07/18 for 1.7L fluid, repeat 1.3L on 08/10. On amoxicillin for possible uti, urine cx no growth and abx stopped Patient alert to person, not place/events 08/11, but did request rice/cheese for supper. Called to kitchen. --> Meeting w/ palliative , moving to comfort measures only. Will remain inpatient/working on symptom control but may remain inpatient pending repeat examinations and appears to have had continued cognitive decline however was alert to person for myself/cooperative during exam. Not oriented to location/events but was agreeable to avoid further testing/paracentesis/etc omfort measures ordered by palliative care provider Meds as able/tolerated, continue PPI BID Transferred to medical bed, comfort measures only. No further lab draws/imaging/etc Had continued decline over this past weekend, on scheduled roxanol BID, also have prn roaxnol and IV Morphine available. IV ativan ordered as beggining with more difficulty with PO intake. Diet/PO as wanted allowed Updated [facility] provider this weekend on status, again today (08/16) given worsened status and likely will pass in next 24-48 hours, decreased UOP/decreased PO intake Daughter updated at bedside, other daughter Sheila by phone this morning and she plans on taking off the next two days to be with patient. CM alerted of continued inpatient stay Adjustment to meds as needed but appearing more comfortable since administration this morning and allowed to rest (2) Acute kidney injury superimposed on CKD: Plan: Clinically dry on exam, bañuelos in place from ER w/ improvement in Cr however worsened and IVF stopped. -decreased UOP, concentrated urine in bag at present, on comfort. diet as allowed/wanted and daughters providing pureed fruits as he wanted 08/16, decreased PO 08/17 and issues with swallowing (3) Hypokalemia: Plan: possible Metabolic encephalopathy ( in addition to hepatic encephalopathy) Hyperkalemic, 5.2 on admission w/ nabicarb fluids for VIVEK Replacement ordered for lows subsequently (suspected due to poor PO, improved) and remained stable - no further lab draws as above (4) Cirrhosis of liver: Plan: MELD Na 22, 7-10% estimated 90 day mortality increasing ascites 08/09 , now s/p repeat paracentesis prior and no further interventions/palliative consulted/comfort as above increased abdominal distension 08/16 (5) Thrombocytopenia: Plan: Platelets 81 on admission , downtrending in setting of hepatic encephalopathy/cirrhosis Portal vein doppler wnl Hematology saw last admission No further heparin SQ, high risk and SCDs added Plts to 46 on repeat (did have some bleeding to his gums, no further on exam subsequent days) No further labs (6) Atrial fibrillation: Plan: Permanent trop on arrival 44.5, 43.2 --> suspect demand ischemia - continue metoprolol as BP allows/able to/willing to take PO No CP reported subsequent days, pain medications as above (7) Hypothyroidism: Plan: TSH 4.001 restarted Synthroid 08/07 , as able to tolerate (8) Conjunctivitis: Plan: Right eye, unable to open spontaneously, erythema Neomycin/polymix/bacitracin BID started 08/06 resp biofire - neg RESOLVED --> finished course of ointment 08/09 (9) Diabetes: Plan: 07/18 HgbA1: 5.9 Stopped further lab sticks (10) Body mass index (BMI) less than 16.5: Plan: severe malnutrition, BMI 15.7 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 CM alerted Admission and Anticipated Discharge Date Admission Date: August 05, 2023 Subjective Evaluated this morning, resting comfortably in bed at present time. Daughter were here overnight, not presently in room but will call with update. Painful/agitated overnight and given ativan/roxanol. Difficulty with pills this morning/coached by family. Abdomen more distended/more jaundiced, legs with mottling starting, low UOP. Expect patient to remain inpatient and likely will pass inpatient. IV morphine available if needed/unable to tolerate any further oral. Updated Sheila by phone, daughter at bedside after leaving room initially. Per daughter in room, patient did state to her today he thinks he's dying -- discussed likely in next 24-48 hours and will remain inpatient. Physical Exam Physical Exam: General:78yo frail, not well nourished, mildly uncomfortable/agitated, belly breathing, more jaundiced appearing HEENT: dry mm, crusting to lips Resp: even/unlabored, coarse breath sounds but no wheezing, diminished in the bases but on room air CV: irregularly irregular , rates 90s, no significant pitting edema, mottling to legs GI: +distension, +ascites, slightly tender : bañuelos draining scant concentrated urine Psych: not awake/alert or oriented at present Results & Data Results & Data Vital Signs (Past 12 Hours) Vital Signs O2 Del Method 08/17/23 20:55 Room Air PG Care Time/CCT Total # of Minutes Spent Total Time Spent with Patient: Total time spent is greater than 50% in coordination of care (as documented) at patient's floor/unit and/or counseling patient: Coding Level of Care Code 07958 SUB INP/OBS CARE 2/35MIN Diagnoses Hepatic encephalopathy K76.82 Acute kidney injury superimposed on CKD N17.9; N18.9 Hypokalemia E87.6 Cirrhosis of liver K74.60 Thrombocytopenia D69.6 Atrial fibrillation I48.91 Hypothyroidism E03.9 Conjunctivitis H10.9 Diabetes E11.9 Body mass index (BMI) less than 16.5 Z68.1
[2023-08-18] MEDS ORDERED: LORazepam 0.5 MG in SYRINGE 0.25 ML IV PRN (09:39)
[2023-08-18] MEDS: GLYCOPYRROLATE 0.2 MG/ML VIAL IV PRN (13:12)
[2023-08-18] MEDS ORDERED: ATROPINE SULFATE 1% OP SOLN 5 ML BTL OP PRN (14:11)
[2023-08-18] MEDS: ATROPINE SULFATE 1% OP SOLN 5 ML BTL PO PRN (17:00)
[2023-08-19] MEDS: MoRPHine SULFATE 10 MG/0.5 ML UDP PO PRN (11:01)
--- NOTE | 2023-08-19 14:45 | Death Pronouncement Note ---
Date of Service August 19, 2023 Pronouncement Note Admission Date August 05, 2023 Date and Time of Date of : 08/19/23 Time of : 14:05 Preliminary Cause of (1) Hepatic encephalopathy: Additional Comments: Upon entering the room, patient was found to be in a terminal state. They were unresponsive to, and did not withdrawal from, verbal or tactile stimuli. They were unresponsive to corneal, and pupillary reflexes. On cardiopulmonary exam, they were found to be without detectable carotid pulses, and without spontaneous heart tones or respirations. Time of 1405 Refer to discharge summary for hospital course. (2) Cirrhosis of liver: Additional Data Confirmation of : no pulse, no respirations, no heart sounds and pupils fixed and dilated Pronouncement Performed By: Advanced Practice Provider (SHEKHAR) Family: at bedside Attending physician: Tylor Florian Coding Level of Care Code None Diagnoses Hepatic encephalopathy K76.82 Cirrhosis of liver K74.60
--- NOTE | 2023-08-19 16:24 | Discharge Summary ---
Discharge Summary Date of Service August 19, 2023 Notes For Next Care Provider Passed at 1405 after being on comfort measures. Admission HPI Per Admitting Provider Baldomero Salinas is an 78-year-old male with known Cary liver cirrhosis who presents to the ER from [facility] with an unresponsive state. Last known well was bedtime last night but nursing staff were unable to wake him up this morning only responsive to noxious stimuli. Unable to get any history from the patient due to unresponsive state. He was recently hospitalized 2 weeks ago for metabolic encephalopathy, elevated troponin without acute coronary syndrome, streptococcal UTI, acute on chronic kidney disease, pancytopenia, nonalcohol induced cirrhosis with ascites. On this visit losartan was switched for spironolactone and given amoxicillin for completion treatment or UTI. Last paracentesis was July 18. Principal Dx & Hospital Course #1 = Principal Diagnosis (1) Hepatic encephalopathy: 78yo male presented from [facility] unresponsive with last known well day prior at bedtime w/ recent admission 2 weeks prior to metabolic encephalopathy Hx of Cirrhosis with CARY, ammonia elevated to 160 on admission Given lactulose enemas w/ good results, normalization of ammonia on repeat and switched to lactulose 30mg BID Rifaximin started PO BID s/p paracentesis on 07/18 for 1.7L fluid, repeat 1.3L on 08/10. On amoxicillin for possible uti, urine cx no growth and abx stopped Patient alert to person, not place/events 08/11, but did request rice/cheese for supper. --> Meeting w/ palliative , moving to comfort measures only. Will remain inpatient/working on symptom control was initally hopeful for return to [facility] but continued to decline, not stable for transfer. 3/5 Comfort measures ordered by palliative care provider - Meds as able/tolerated, continue PPI BID - No further lab draws/imaging/etc - PO food as wanted Made comfortable with scheduled roxanol BID prn roaxnol and IV Morphine available. IV ativan ordered Baldomero passed with daughter at bedside. (2) Cirrhosis of liver: MELD Na 22, 7-10% estimated 90 day mortality increasing ascites 08/09 , now s/p repeat paracentesis prior and no further interventions/palliative consulted/comfort as above increased abdominal distension 08/16 Plan . Discharge Exam no cardiac acivity no response to pain no pupillary reflex Updated Medication List Medication Instructions Recorded Confirmed Type metoprolol succinate 25 mg 25 mg PO BID 08/09/19 08/05/23 History tablet,extended release 24 hr potassium chloride 20 mEq 20 meq PO QAM 08/09/19 08/05/23 History tablet,extended release(part/cryst) (Klor-Con M) blood sugar diagnostic (OneTouch #100 ea 08/13/19 08/05/23 Rx Verio test strips) pen needle, diabetic 32 gauge x #30 ea 08/13/19 08/05/23 Rx 5/32" (BD Rosemary 2nd Gen Pen Needle) empagliflozin 10 mg tablet 10 mg PO QAM 11/07/20 08/05/23 History (Jardiance) cyanocobalamin (vitamin B-12) 100 100 mcg PO QAM #20 tabs 10/05/21 08/05/23 Rx mcg tablet (Vitamin B-12) amlodipine 5 mg tablet 5 mg PO HS 03/07/22 08/05/23 History atorvastatin 40 mg tablet 40 mg PO HS 03/07/22 08/05/23 History bumetanide 1 mg tablet 1 mg PO DAILY 03/07/22 08/05/23 History acetaminophen 325 mg tablet 650 mg PO Q6H PRN FEVER >100/PAIN 05/10/23 08/05/23 History (Tylenol) cholestyramine (with sugar) 4 gram 4 g PO QAM 05/10/23 08/05/23 History oral powder ferrous sulfate 325 mg (65 mg 325 mg PO QAM 05/10/23 08/05/23 History iron) tablet,delayed release food supplemt, lactose-reduced 1 ea PO BIDM 05/10/23 08/05/23 History insulin lispro 100 unit/mL 1 sliding scale dose subcut ACHS 05/10/23 08/05/23 History subcutaneous solution (Humalog U-100 Insulin) lidocaine 4 % topical patch 1 patch topical DAILY 05/10/23 08/05/23 History loperamide 2 mg tablet (Imodium 2 mg PO Q2H PRN Diarrhea 05/10/23 08/05/23 History A-D) melatonin 5 mg tablet 10 mg PO HS 05/10/23 08/05/23 History pantoprazole 40 mg tablet,delayed 40 mg PO BIDM 05/10/23 08/05/23 History release protein supplement 1 ea PO QAM 05/10/23 08/05/23 History sertraline 200 mg capsule 200 mg PO DAILY 05/10/23 08/05/23 History sodium chloride 0.65 % nasal spray 2 spray intranasal BIDM 05/10/23 08/05/23 History aerosol (Saline Nasal) trazodone 50 mg tablet 25 mg PO HS 05/10/23 08/05/23 History spironolactone 25 mg tablet 25 mg PO QAM #30 tabs 07/19/23 08/05/23 Rx levothyroxine 125 mcg tablet 125 mcg PO DAILY 08/05/23 08/05/23 History Hospital Stay Data Consultations 08/05/23 10:21 ED Decision to Admit Stat 08/06/23 15:35 Consult Nephrology Routine 08/11/23 13:30 Consult Palliative Care Routine Diagnostic Imagining Performed 08/05/23 08:16 CT head/brain wo con Stat 08/06/23 11:38 US abdomen ltd ascites Urgent 08/10/23 US duplex portal hepatic veins Routine 08/11/23 08:00 IR paracentesis abd w/img US Routine Total Time Total Time Spent Total Time Spent (In Minutes): 20 Coding Level of Care Code 14982 IN/OBS DISCH 30 MIN/LESS Diagnoses Hepatic encephalopathy K76.82 Cirrhosis of liver K74.60
== END 2023-08-19 16:17 | disposition expired | DRG 441 ==
LOC: ED 07:59 → EDINP 10:28 → SUATTDRO 10:28 → 2S 08-06 01:10 → 3E 08-12 16:52